=== PATIENT | female | born 1950 | race Caucasian/White ===

== ENCOUNTER 2019-02-07 18:29 | Emergency (ER) | payer MEDICARE ==
[~2019-02-07] VITALS: Ht 162.6 cm; Wt 104.3 kg
--- OUTSIDE RECORDS SUMMARY | 2019-02-07 18:33 | XMS REPORT ---
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 Allergies, Adverse Reactions, Alerts This patient has no known allergies or adverse reactions. Medications This patient has no known medications. Encounters Start Date/Time End Date/Time Encounter Type Admission Type Attending Clinicians Care Facility Care Department Encounter ID 2017-09-12 07:54:24 2017-09-12 07:54:24 Outpatient [facility] [id number] 2017-07-04 08:10:50 2017-07-04 08:10:50 Outpatient [facility] [id number]
[2019-02-07 20:23] LABS: BASOPHILS % 0.5 % (0.0-1.0); EOSINOPHILS # (AUTO) 0.2 (0.0-0.4); HEMATOCRIT 42.7 % (34.2-44.1); LYMPHOCYTES # (AUTO) 2.8 (1.0-3.2); LYMPHOCYTES % 33.2 % (18.0-39.1); MEAN CORPUSCULAR HEMOGLOBIN 28.5 pg (28-32); MEAN CORPUSCULAR HGB CONC 32.8 g/dL (31-35); MONOCYTES # (AUTO) 0.5 (0.2-0.8); MONOCYTES % 5.3 % (4.4-11.3); NEUTROPHILS % 58.6 % (38.7-80.0); PLATELET COUNT 214 x10e3/uL (140-360); RED BLOOD COUNT 4.91 x10e6/uL (3.6-5.1); RED CELL DISTRIBUTION WIDTH 12.8 % (11.7-14.4)
[2019-02-07 20:33] LABS: INR 1.03
[2019-02-07 20:34] LABS: PARTIAL THROMBOPLASTIN TIME 32.2 seconds (23.8-35.5)
[2019-02-07 20:42] LABS: ALANINE AMINOTRANSFERASE 8 IU/L (0-55); ALBUMIN 3.4 g/dL (3.5-5.0); ALBUMIN/GLOBULIN RATIO 1.2 (0.8-2.0); ALKALINE PHOSPHATASE 77 IU/L (40-150); ANION GAP 12.2 mmol/L (8-16); BLOOD UREA NITROGEN 7 mg/dL (7-26); BUN/CREATININE RATIO 9 (6-25); CARBON DIOXIDE 26 mmol/L (22-29); CHLORIDE 104 mmol/L (98-107); CREATININE, SERUM 0.79 mg/dL (0.57-1.11); EST GLOMERULAR FILTRATION RATE > 60 ML/MIN (60-); GLUCOSE 120 mg/dL (74-118); POTASSIUM 3.2 mmol/L (3.5-5.1); SODIUM 139 mmol/L (136-145)
[2019-02-07 20:53] LABS: BILIRUBIN,URINE NEGATIVE (NEGATIVE); CLARITY,URINE SL CLOUDY (CLEAR); COLOR,URINE YELLOW (YELLOW); KETONES,URINE NEGATIVE (NEGATIVE); LEUKOCYTE ESTERASE ,URINE MODERATE (NEGATIVE); NITRITE,URINE NEGATIVE (NEGATIVE); PROTEIN,URINE DIPSTICK TRACE (NEGATIVE); URINE UROBILINOGEN 0.2 mg/dL (0.2 - 1)
[2019-02-07 21:05] LABS: BACTERIA,URINE MANY /HPF; WBC,URINE (MAN) >50 /HPF (0-5)
--- NOTE | 2019-02-07 21:20 | Diagnostic Imaging Report ---
Transvaginal and transabdominal ultrasound Indication: Intermittent bleeding and spotting for 2 to 3 months Technique: Transabdominal ultrasound performed for global evaluation of the uterus. Transvaginal ultrasound performed for detailed evaluation of the endometrium and ovaries. Selected images provided for review. Comparison: None Findings: Transabdominally, the uterus measures approximately 5.7 x 6.2 x 7.4 cm. Hyperechoic, solid, non-shadowing lesion in the posterior body measures 5 x 5 cm. The bladder is collapsed . Transvaginally, the uterus is heterogeneous in echotexture and lobulated in contour. The lesion in the posterior body identified on transabdominal images is poorly visualized. The endometrial stripe measures 0.3 cm, is linear and echogenic and is normal. The cervix is normal. No free fluid in the cul de sac. Neither ovary is visualized. IMPRESSION: 1. Normal endometrial stripe thickness. 2. Heterogeneous appearance of the uterus may represent a combination of of fibroids and adenomyosis. Recommend further characterization with pelvic MRI on an outpatient basis. 3. Nonvisualization of the ovaries. Signed by: Dr. Sofya Gresham MD on 02/07/2019 9:16 PM
[2019-02-07] MEDS ORDERED: CEFTRIAXONE SOD 1 GM/NS 50 ML 50 ML IV ONE (22:00)
[2019-02-07 22:47] VITALS: BP 140/74
== END 2019-02-07 23:17 | disposition home or self-care (01) ==
LOC: ER 18:29
DX: N95.0 Postmenopausal bleeding (principal); N30.91 Cystitis, unspecified with hematuria
CPT/HCPCS: 36415; 76830; 80053; 81001; 85025; 85610; 85730; 93005; 99284; J0696

== ENCOUNTER 2019-07-13 18:15 | Emergency (ER) | payer MEDICARE ==
[~2019-07-13] VITALS: Ht 162.6 cm; Wt 104.3 kg
[2019-07-13 18:50] LABS: BASOPHILS % 0.2 % (0.0-1.0); HEMOGLOBIN 12.4 g/dL (12.0-16.0); LYMPHOCYTES % 11.8 % (18.0-39.1); MEAN CORPUSCULAR HEMOGLOBIN 27.1 pg (28-32); MEAN CORPUSCULAR HGB CONC 31.8 g/dL (31-35); MEAN CORPUSCULAR VOLUME 85.3 fL (81-99); MONOCYTES # (AUTO) 1.1 (0.2-0.8); MONOCYTES % 6.6 % (4.4-11.3); NEUTROPHILS # (AUTO) 13.4 (2.1-6.9); NEUTROPHILS % 80.7 % (38.7-80.0); PLATELET COUNT 329 x10e3/uL (140-360); RED BLOOD COUNT 4.57 x10e6/uL (3.6-5.1); RED CELL DISTRIBUTION WIDTH 13.6 % (11.7-14.4)
[2019-07-13 18:51] LABS: BILIRUBIN,URINE SMALL (NEGATIVE); CLARITY,URINE SL CLOUDY (CLEAR); COLOR,URINE STRAW (YELLOW); KETONES,URINE TRACE (NEGATIVE); LEUKOCYTE ESTERASE ,URINE MODERATE (NEGATIVE); NITRITE,URINE NEGATIVE (NEGATIVE); PROTEIN,URINE DIPSTICK 1+ (NEGATIVE); URINE UROBILINOGEN 1 mg/dL (0.2 - 1)
[2019-07-13 19:02] LABS: BACTERIA,URINE MANY /HPF; EPITHELIAL CELLS,URINE FEW /LPF; RBC,URINE 0-5 /HPF (0-5)
[2019-07-13 19:03] LABS: TRANSITIONAL EPI CELLS,URINE FEW
[2019-07-13 19:07] LABS: ALANINE AMINOTRANSFERASE 6 IU/L (0-55); ALBUMIN 2.6 g/dL (3.5-5.0); ALBUMIN/GLOBULIN RATIO 0.7 (0.8-2.0); ALKALINE PHOSPHATASE 56 IU/L (40-150); ANION GAP 13.9 mmol/L (8-16); BLOOD UREA NITROGEN 8 mg/dL (7-26); BUN/CREATININE RATIO 10 (6-25); CALCIUM 9.1 mg/dL (8.4-10.2); CARBON DIOXIDE 25 mmol/L (22-29); CHLORIDE 100 mmol/L (98-107); CREATININE, SERUM 0.77 mg/dL (0.57-1.11); EST GLOMERULAR FILTRATION RATE > 60 ML/MIN (60-); GLUCOSE 94 mg/dL (74-118); SODIUM 136 mmol/L (136-145)
[2019-07-13 19:11] LABS: POTASSIUM 2.9 mmol/L (3.5-5.1)
[2019-07-13] MEDS ORDERED: SODIUM CHLORIDE 0.9% 1000ML 1,000 ML ONE (19:26)
[2019-07-13] MEDS ORDERED: POTASSIUM CHLORIDE 20 MEQ TAB CR PO ONE (19:27)
[2019-07-13] MEDS: SODIUM CHLORIDE 0.9% 1000ML 1,000 ML IV STA ×2 (19:29→19:41)
[2019-07-13] MEDS ORDERED: POTASSIUM CHLORIDE 10MEQ EA PO NR (19:30)
[2019-07-13] MEDS ORDERED: POTASSIUM CHLORIDE 10MEQ/100ML 1,000 ML IV ONE (19:30)
[2019-07-13] MEDS ORDERED: SODIUM CHLORIDE 0.9% 50ML 50 ML ONE (19:44)
[2019-07-13] MEDS ORDERED: DIATRIZOATE MEGL/DIATRIZOA SOD 30 ML BTL PO ONE (19:44)
[2019-07-13] MEDS ORDERED: IOPAMIDOL 370 MG/ML 200 ML INFUS..BTL INJ ONE (19:44)
[2019-07-13] MEDS ORDERED: CEFEPIME 1GM/NS 0.9% 50 ML 50 ML IV STA (19:48)
[2019-07-13 20:00] LABS: LIPASE < 4 U/L (8-78)
--- NOTE | 2019-07-13 20:20 | Diagnostic Imaging Report ---
EXAMINATION: CHEST 2 VIEWS INDICATION: Vomiting, sepsis COMPARISON: None FINDINGS: PA and lateral views TUBES and LINES: None. LUNGS: Lungs are well inflated. Lungs are clear. There is no evidence of pneumonia or pulmonary edema. Mild prominence of central pulmonary vasculature. Faint linear peripheral opacities in the left lower lung may be subsegmental scarring or atelectasis. PLEURA: No pleural effusion or pneumothorax. HEART AND MEDIASTINUM: The cardiomediastinal silhouette is unremarkable. BONES AND SOFT TISSUES: No acute osseous lesion. Soft tissues are unremarkable. Degenerative changes in the spine and shoulders. Mild vertebral body height loss at T12 where there are degenerative changes. UPPER ABDOMEN: No free air under the diaphragm. IMPRESSION: Mild central pulmonary vascular congestion. Age-indeterminate, likely chronic, mild T12 vertebral body compression deformity. Signed by: Cliff Lizarraga DO on 07/13/2019 8:17 PM
[2019-07-13] MEDS ORDERED: POTASSIUM CHLORIDE 10MEQ EA PO SCH (21:00)
--- NOTE | 2019-07-13 22:25 | Diagnostic Imaging Report ---
EXAM: CT Abdomen and Pelvis WITH contrast INDICATION: Abdominal pain COMPARISON: None. TECHNIQUE: Abdomen and pelvis were scanned utilizing a multidetector helical scanner from the lung base to the pubic symphysis after administration of IV contrast. Coronal and sagittal reformations were obtained. Routine protocol was performed. Scan was performed when during portal venous phase. IV CONTRAST: 100 mL of Isovue 370 ORAL CONTRAST: Gastroview COMPLICATIONS: None RADIATION DOSE: Total DLP: 718 mGy*cm Estimated effective dose: (DLP x 0.015 x size factor) mSv CTDIvol has been reviewed. It is below the limits set by the Radiation Protocol Committee (RPC). Dose modulation, iterative reconstruction, and/or weight based adjustment of the mA/kV was utilized to reduce the radiation dose to as low as reasonably achievable. FINDINGS: LINES and TUBES: None. LOWER THORAX: Left basilar atelectasis. Small pericardial effusion. HEPATOBILIARY: No focal hepatic lesions. No biliary ductal dilation. GALLBLADDER: There are cholecystectomy clips. SPLEEN: Mild splenomegaly measures up to 13.8 cm. PANCREAS: No focal masses or ductal dilatation. ADRENALS: No adrenal nodules KIDNEYS/URETERS: Kidneys enhance symmetrically. No hydronephrosis. No cystic or solid mass lesions. No stones. GI TRACT: No abnormal distention, wall thickening, or evidence of bowel obstruction. Appendix is normal. PELVIC ORGANS/BLADDER: A 13 x 12.8 x 19.2 cm solid heterogeneous lower abdominal/pelvic mass with cystic components appears to rise from the right adnexa, the right ovarian vein is engorged. The bladder is unremarkable. The uterus is not enlarged. Thickening of the appendix, possibly due to metastatic implantation. LYMPH NODES: Some slightly prominent central mesenteric lymph nodes. For example a 0.8 cm mesenteric root lymph node (series 2 image 37) and a 1.2 cm ileocolic lymph node (series 2 image 41). VESSELS: Trace nonstenotic calcifications.. PERITONEUM / RETROPERITONEUM: Small volume ascites extends up to the bilateral upper quadrants.. Scattered peritoneal nodularity. BONES: Mild T12 vertebral body height loss with adjacent degenerative changes, likely chronic. Degenerative changes in the spine. SOFT TISSUES: A 1.8 cm heterogeneous paraumbilical subcutaneous nodule small periumbilical hernia small periumbilical hernia adjacent to this nodule. IMPRESSION: 1. A 19.2 cm pelvic mass, likely arises from the right ovary, suspected to be ovarian or uterine in origin, with mesenteric lissette and peritoneal metastasis and small volume ascites. Thickened appendix is possibly due to metastatic implantation. A 1.8 cm periumbilical subcutaneous nodule adjacent to a umbilical hernia is also likely metastatic implant. Small pericardial effusion is indeterminate in etiology. Recommend surgical consultation/referral. 2. Nonspecific mild splenomegaly. 3. Mild T12 vertebral body height loss with adjacent degenerative changes, likely chronic. Signed by: Cliff Lizarraga DO on 07/13/2019 10:22 PM
[2019-07-13 23:11] LABS: ANION GAP 11.3 mmol/L (8-16); BLOOD UREA NITROGEN 8 mg/dL (7-26); BUN/CREATININE RATIO 11 (6-25); CALCIUM 8.4 mg/dL (8.4-10.2); CARBON DIOXIDE 26 mmol/L (22-29); CHLORIDE 103 mmol/L (98-107); CREATININE, SERUM 0.72 mg/dL (0.57-1.11); EST GLOMERULAR FILTRATION RATE > 60 ML/MIN (60-); GLUCOSE 88 mg/dL (74-118); POTASSIUM 3.3 mmol/L (3.5-5.1); SODIUM 137 mmol/L (136-145)
[2019-07-13] MEDS ORDERED: POTASSIUM CHLORIDE 20 MEQ TAB CR PO STA (23:47)
[2019-07-14 00:07] VITALS: BP 102/55
[2019-07-14] MEDS ORDERED: POTASSIUM CHLORIDE 10MEQ EA PO SCH (09:00)
== END 2019-07-14 00:14 | disposition home or self-care (01) ==
LOC: ER 18:15
DX: R10.84 Generalized abdominal pain (principal); E87.1 Hypo-osmolality and hyponatremia; N30.90 Cystitis, unspecified without hematuria; E66.9 Obesity, unspecified; Z68.39 Body mass index [BMI] 39.0-39.9, adult
CPT/HCPCS: 36415; 71046; 74177; 80048; 80053; 81001; 83605; 83690; 83735; 85025; 87040; 87086; 93005; 99284; J0692; J7030; Q9967

== ENCOUNTER → 2019-07-23 | Outpatient (CLI) | payer MEDICARE ==
[~2019-07-23] MED LIST: GADOBENATE DIMEGLUMINE 1 ML IV ONE; SODIUM CHLORIDE 0.9% 100 ML ONE
[2019-07-23 08:21] LABS: BLOOD UREA NITROGEN 9 mg/dL (7-26); BUN/CREATININE RATIO 13 (6-25); CREATININE, SERUM 0.67 mg/dL (0.57-1.11); EST GLOMERULAR FILTRATION RATE > 60 ML/MIN (60-)
--- NOTE | 2019-07-24 12:18 | Diagnostic Imaging Report ---
INDICATION: Large pelvic mass. COMPARISON: Abdomen pelvis CT July 13, 2019 Pelvic ultrasound February 07, 2019 TECHNIQUE: Pelvis MR without and with intravenous contrast. FINDINGS: In the low anterior abdomen / pelvis there is a large heterogeneously enhancing necrotic mass measuring 19 cm TR x 11 cm AP x 11 cm SI. This is highly likely of ovarian origin (on sagittal T2 imaging the fundus of the uterus appears distinct from the mass). There is a small amount of free fluid in the low abdomen and some of this extends into a tiny periumbilical hernia. Bladder, urethra, and vagina are normal. No pelvic or retroperitoneal lymphadenopathy is demonstrated. No hydronephrosis. No suspicious osseous lesion is demonstrated. 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 Signed by: Junior Rosenberg MD on 07/24/2019 12:14 PM
== END ==
LOC: MRI 07:22
PROVIDERS: ATTEND Obstetrics & Gynecology Obstetrics
DX: R19.07 Generalized intra-abdominal and pelvic swelling, mass and lump (principal)
CPT/HCPCS: 36415; 72197; 82565; 84520; A9577; J7050

== ENCOUNTER 2020-03-15 12:42 | Inpatient (IN) | payer MEDICARE, OTHER ==
[~2020-03-15] VITALS: Ht 162.6 cm; Wt 104.3 kg
[2020-03-15] MEDS ORDERED: ONDANSETRON HCL INJ 2MG/ML 2ML 2 MG/ML VIAL ONE (13:37)
[2020-03-15] MEDS ORDERED: MORPHINE SULFATE 2 MG/ML SYR 1ML ONE (13:37)
[2020-03-15] MEDS ORDERED: MORPHINE SULFATE 2 MG/ML SYR 1ML IV STA ×2 (13:47→14:21)
[2020-03-15] MEDS ORDERED: ONDANSETRON HCL INJ 2MG/ML 2ML 2 MG/ML VIAL IV STA (13:47)
--- NOTE | 2020-03-15 14:33 | Diagnostic Imaging Report ---
History:Fall Comparison studies: None Technique: Axial images were obtained from the skull base to the vertex. Coronal and sagittal images reconstructed from the axial data. Dose modulation, iterative reconstruction, and/or weight based adjustment of the mA/kV was utilized to reduce the radiation dose to as low as reasonably achievable. Intravenous contrast: None Findings: Scalp/skull: No abnormalities. Extra-axial spaces: No masses. No fluid collections. Brain sulci: Mildly prominent. Ventricles: Mild compensatory dilatation. No hydrocephalus. Parenchyma: Subtle hypodensities in the supratentorial white matter are small vessel ischemic changes. No masses, hemorrhage, acute or chronic cortical vascular insults. Sellar/suprasellar region: No abnormalities. Craniocervical junction: Patent foramen magnum. No Chiari one malformation. Incidental findings: Subtle atherosclerotic calcifications in the carotid siphons . Impression: 1. Acute left parietal scalp hematoma. 2. No fracture. 3. No acute intracranial abnormalities. Chronic findings: * Mild generalized volume loss. * Mild supratentorial white matter small vessel ischemic changes. Signed by: Dr. Ricardo Fuentes M.D. on 03/15/2020 2:30 PM
--- NOTE | 2020-03-15 14:34 | Diagnostic Imaging Report ---
History: Trauma Comparison studies: None Technique: Axial images were obtained through the cervical region.. Coronal and sagittal images reconstructed from the axial data. Dose modulation, iterative reconstruction, and/or weight based adjustment of the mA/kV was utilized to reduce the radiation dose to as low as reasonably achievable. Intravenous contrast: None Findings: Fractures: None. Soft tissues: No gross abnormalities. Atlantoaxial articulation: Intact. Alignment: Normal lordosis. No scoliosis. Cervicomedullary junction: No abnormalities. The foramen magnum is patent. Vertebrae: No infection or neoplasm. Degenerative changes: Not significant. Patent spinal canal and foramina.. IMPRESSION: 1. No acute abnormalities. 2. Bones mildly demineralized but no fractures. 3. Cannot adequately evaluate for ligament, spinal cord and or vascular abnormalities. Signed by: Dr. Ricardo Fuentes M.D. on 03/15/2020 2:31 PM
--- NOTE | 2020-03-15 15:04 | Diagnostic Imaging Report ---
EXAMINATION: Left Hip Films and AP pelvis CLINICAL HISTORY:Status post fall today, left hip pain COMPARISON: CT abdomen and pelvis 07/13/2019 DISCUSSION: Mild osteopenia. Acute, displaced oblique left intertrochanteric fracture, with fragment separation of approximately 1.2 cm. The femoral head remains aligned with the acetabulum. Other bony structures are intact. Mild degenerative changes in bilateral hip joints and lower lumbosacral spine. No aggressive lytic or suspicious focal sclerotic lesions. Nonobstructive bowel gas pattern. IMPRESSION: 1. Acute, displaced oblique left intertrochanteric fracture. Signed by: Dr. Candido Valdovinos M.D. on 03/15/2020 3:00 PM
--- NOTE | 2020-03-15 15:06 | Diagnostic Imaging Report ---
EXAMINATION: Left femur, 4 views CLINICAL HISTORY:Status post fall today, left hip pain COMPARISON: CT abdomen and pelvis 07/13/2019 DISCUSSION: Mild osteopenia. Acute, displaced oblique left intertrochanteric fracture, with fragment separation of approximately 1.2 cm. The femoral head remains aligned with the acetabulum. No other acute, displaced fractures. Partially visualized orthopedic hardware in the proximal tibia. Mild degenerative changes in left hip joint. No aggressive lytic or suspicious focal sclerotic lesions. Nonobstructive bowel gas pattern. IMPRESSION: 1. Acute, displaced oblique left intertrochanteric fracture. Signed by: Dr. Candido Valdovinos M.D. on 03/15/2020 3:02 PM
--- NOTE | 2020-03-15 15:16 | Diagnostic Imaging Report ---
Examination: Single AP view of the chest. COMPARISON: Chest 2 views 07/13/2019 INDICATION: Status post fall IMPRESSION: 1. Lines and Tubes: Right upper chest Port-A-Cath, with the catheter distal tip projecting in the mid SVC. 2. Lungs are grossly clear. No consolidation or effusion. 3. Cardiomediastinal silhouette is normal. Pulmonary vasculature is normal. 4. No acute bony abnormalities. Degenerative changes in the thoracic spine. Generalized osteopenia. Signed by: Dr. Candido Valdovinos M.D. on 03/15/2020 3:13 PM
--- NOTE | 2020-03-15 16:44 | Emergency Department Note ---
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 AAOX4. C/O LLE PAIN, HOWEVER, LEFT LEG IS SHORTENED AND ROTATED OUTWARD. CALM AT THIS TIME. PT IS STAGE 4 COLON CANCER GETTING CHEMO AT THIS TIME. 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 Any updates have been documented here. Past Medical History Recent Fever: No Clinical Suspicion of Infectio: No New/Unexplained Change in Ment: No Past Medical History: None Past Surgical History: T&A, Cataract Removal Other Surgery: CATARACT B/L EYES Social History Smoking Cessation: Former smoker Counseling Performed: Yes Alcohol Use: None Any Illegal Drug Use: No Family History Family history of heart diseas: No Other Last Tetanus: UNK Any Pre-Existing Lines (PICC,: No Review of Systems Review of Systems Constitutional: Reports no symptoms EENTM: Reports no symptoms Cardiovascular: Reports no symptoms Respiratory: Reports no symptoms Gastrointestinal: Reports no symptoms Genitourinary: Reports no symptoms Musculoskeletal: Reports as per HPI Integumentary: Reports no symptoms Neurological: Reports no symptoms Psychological: Reports no symptoms Endocrine: Reports no symptoms Hematological/Lymphatic: Reports no symptoms Physical Exam Related Data Allergies: Coded Allergies: No Known Allergies (Unverified , 05/31/14) Triage Vital Signs Vital Signs Date Time Temp Pulse Resp B/P (MAP) Pulse Ox O2 Delivery O2 Flow Rate FiO2 03/15/20 12:45 97.5 86 22 168/81 97 Room Air Vital signs reviewed: Yes Physical Exam CONSTITUTIONAL HENT HENT: Present normocephalic, Present other (ABRASION TO POSTERIOR SCALP, BLEEDING CONTROLLED) EYES NECK PULMONARY CARDIOVASCULAR GASTROINTESTINAL GENITOURINARY SKIN MUSCULOSKELETAL Musculoskeletal: Present tenderness (UPPER LEFT FEMUR, PELVIS STABLE) NEUROLOGICAL PSYCHOLOGICAL Assessment & Plan Medical Decision Making MDM CHECK CT BRAIN/C-SPINE, XRAYS LEFT FEMUR/HIP AND PELVIS - R/O CEREBRAL BLEED, CERVICAL SPINE, HIP OR PELVIS OR FEMUR FX Assessment & Plan Final Impression: (1) Intertrochanteric fracture of left femur (2) Fall Depart Disposition: ADMITTED Last Vital Signs Date Time Temp Pulse Resp B/P (MAP) Pulse Ox O2 Delivery O2 Flow Rate FiO2 03/15/20 13:07 98.6 73 22 142/84 97 03/15/20 12:45 Room Air Home Meds No Active Prescriptions or Reported Meds Medications in the ED Morphine Sulfate 2 mg STK-MED ONCE .ROUTE ; Start 03/15/20 at 13:37; Stop 03/15/20 at 13:31; Status DC Ondansetron HCl 4 mg STK-MED ONCE .ROUTE ; Start 03/15/20 at 13:37; Stop 03/15/20 at 13:32; Status DC Morphine Sulfate 2 mg NOW STAT IV Last administered on 03/15/20at 13:48; Admin Dose 2 MG; Start 03/15/20 at 13:47; Stop 03/15/20 at 14:16; Status DC Ondansetron HCl 4 mg NOW STAT IV Last administered on 03/15/20at 13:48; Admin Dose 4 MG; Start 03/15/20 at 13:47; Stop 03/15/20 at 14:16; Status DC Morphine Sulfate 2 mg ONCE STAT IV Last administered on 03/15/20at 15:55; Admin Dose 2 MG; Start 03/15/20 at 14:21; Stop 03/15/20 at 14:46; Status DC JULY ORTIZ MD Mar 15, 2020 16:44
[2020-03-15] MEDS: SODIUM CHLORIDE 0.9% 1000ML 1,000 ML IV SCH (17:45)
[2020-03-15] MEDS: ONDANSETRON HCL INJ 2MG/ML 2ML 2 MG/ML VIAL IV PRN (17:45)
[2020-03-15] MEDS: MORPHINE SULFATE 2 MG/ML SYR 1ML IV PRN (17:45)
[2020-03-15 18:18] LABS: BASOPHILS % 0.2 % (0.0-1.0); HEMATOCRIT 30.4 % (34.2-44.1); HEMOGLOBIN 9.9 g/dL (12.0-16.0); LYMPHOCYTES # (AUTO) 0.9 (1.0-3.2); LYMPHOCYTES % 18.7 % (18.0-39.1); MEAN CORPUSCULAR HEMOGLOBIN 32.5 pg (28-32); MEAN CORPUSCULAR HGB CONC 32.6 g/dL (31-35); MEAN CORPUSCULAR VOLUME 99.7 fL (81-99); MONOCYTES # (AUTO) 0.3 (0.2-0.8); MONOCYTES % 5.6 % (4.4-11.3); NEUTROPHILS # (AUTO) 3.5 (2.1-6.9); NEUTROPHILS % 75.1 % (38.7-80.0); PLATELET COUNT 68 x10e3/uL (140-360); RED BLOOD COUNT 3.05 x10e6/uL (3.6-5.1)
[2020-03-15 18:21] LABS: BILIRUBIN,URINE NEGATIVE (NEGATIVE); CLARITY,URINE HAZY (CLEAR); COLOR,URINE YELLOW (YELLOW); KETONES,URINE NEGATIVE (NEGATIVE); LEUKOCYTE ESTERASE ,URINE NEGATIVE (NEGATIVE); NITRITE,URINE NEGATIVE (NEGATIVE); PROTEIN,URINE DIPSTICK 1+ (NEGATIVE)
[2020-03-15 18:24] LABS: BACTERIA,URINE FEW /HPF; EPITHELIAL CELLS,URINE FEW /LPF; RBC,URINE 0-5 /HPF (0-5)
[2020-03-15 18:28] LABS: INR 1.05; PROTHROMBIN TIME 14.3 seconds (11.9-14.5)
[2020-03-15 18:29] LABS: PARTIAL THROMBOPLASTIN TIME 29.7 seconds (23.8-35.5)
[2020-03-15 18:38] LABS: ALANINE AMINOTRANSFERASE 13 IU/L (0-55); ALBUMIN 3.1 g/dL (3.5-5.0); ALKALINE PHOSPHATASE 73 IU/L (40-150); ANION GAP 12.9 mmol/L (8-16); BLOOD UREA NITROGEN 6 mg/dL (7-26); BUN/CREATININE RATIO 9 (6-25); CARBON DIOXIDE 30 mmol/L (22-29); CHLORIDE 107 mmol/L (98-107); CREATINE KINASE 44 IU/L (29-168); CREATININE, SERUM 0.67 mg/dL (0.57-1.11); EST GLOMERULAR FILTRATION RATE > 60 ML/MIN (60-); GLUCOSE 100 mg/dL (74-118); SODIUM 147 mmol/L (136-145)
[2020-03-15] MEDS ORDERED: HEPARIN SOD (PORCINE) 5,000 UNIT/ML VIAL SC ONE (18:45)
[2020-03-15] MEDS ORDERED: POTASSIUM CHLORIDE 20 MEQ TAB CR PO STA (19:08)
[2020-03-15 19:10] LABS: POTASSIUM 2.9 mmol/L (3.5-5.1)
[2020-03-15] MEDS ORDERED: ACETAMINOPHEN 325 MG TAB PO PRN (19:30)
[2020-03-15] MEDS: CEFEPIME 2 GM/NS 0.9% 100 ML 100 ML IV SCH (20:45)
--- NOTE | 2020-03-15 20:48 | Diagnostic Imaging Report ---
EXAM: CT Chest, Abdomen and Pelvis WITHOUT contrast INDICATION: ^concern for metastatic lesions ^[id number] ^2011 COMPARISON: CT abdomen pelvis 07/13/2019 TECHNIQUE: Chest, abdomen and pelvis were scanned utilizing a multidetector helical scanner from the lung apex to the pubic symphysis without administration of IV contrast. Absence of intravenous contrast decreases sensitivity for detection of focal lesions and vascular pathology. Coronal and sagittal reformations were obtained. Routine protocol was performed. IV CONTRAST: None ORAL CONTRAST: Water COMPLICATIONS: None RADIATION DOSE: Total DLP: 982 mGy*cm Estimated effective dose: (DLP x 0.015 x size factor) mSv CTDIvol has been reviewed. It is below the limits set by the Radiation Protocol Committee (RPC). Dose modulation, iterative reconstruction, and/or weight based adjustment of the mA/kV was utilized to reduce the radiation dose to as low as reasonably achievable. FINDINGS: LINES and TUBES: Right chest port. LUNGS AND AIRWAYS: Mild streaky opacities of the lower lobes, likely atelectasis or scarring. Minimal lower lobe bronchiectasis. No concerning pulmonary mass or nodule. PLEURA: Trace dependent pleural fluid. No pneumothorax. HEART AND MEDIASTINUM: Heterogeneously enlarged left thyroid lobe. No mediastinal, hilar or axillary lymphadenopathy when allowing for lack of intravenous contrast enhancement. The heart is normal in size. Trace pericardial fluid. HEPATOBILIARY: Limited evaluation due to lack of intravenous contrast enhancement. No focal hepatic lesions. Prominent biliary ductal system likely due to cholecystectomy. GALLBLADDER: Surgically absent. SPLEEN: No splenomegaly. PANCREAS: No focal masses or ductal dilatation. ADRENALS: No adrenal nodules. KIDNEYS/URETERS: No hydronephrosis. No cystic or solid mass lesions. No stones. GI TRACT: Suboptimally evaluated due to lack of contrast. No obvious bowel mass or evidence of bowel obstruction. Mild nonspecific perirectal fat stranding. The appendix is not discretely identified. PELVIC ORGANS/BLADDER: The urinary bladder is decompressed by a Melara catheter. Interval removal of the previously seen large pelvic mass. LYMPH NODES: Suboptimally evaluated. No gross adenopathy by CT size criteria. Ill-defined subcentimeter nodularity of the right lower quadrant peritoneum, suboptimally evaluated due to lack of intravenous contrast. VESSELS: Scattered vascular calcifications. PERITONEUM / RETROPERITONEUM: Suboptimal evaluation due to lack of contrast enhancement. No free intraperitoneal air. Small amount of free fluid in the deep pelvis and paracolic gutters. Nonspecific fat stranding of the pericolic gutters and retroperitoneum. The previously seen peritoneal nodules are no longer discretely identified. BONES: Acute mildly displaced fracture through the left femoral neck. No lytic or blastic lesion. SOFT TISSUES: Small periumbilical incisional hernia that contains a short loop of small bowel. IMPRESSION: 1.Limited study for the evaluation of malignancy due to lack of contrast enhancement. No gross evidence of metastatic disease within the chest, abdomen, and pelvis when allowing for this limitation. 2. Interval resection of the previously seen pelvic mass with peritoneal debulking. Scattered peritoneal fat stranding, notably in the pericolic gutters and perirectal region, may be treatment-related. No discrete peritoneal nodule is identified when overlying for lack of intravenous contrast enhancement. 3. Small amount of nonspecific pelvic free fluid. 4. Acute left femoral neck fracture. Signed by: Parveen Patel MD on 03/15/2020 8:45 PM
[2020-03-15] MEDS ORDERED: POTASSIUM CHLORIDE 20 MEQ TAB CR PO ONE (23:55)
[2020-03-16] VITALS (9 sets, daily range): BP systolic 124–159; BP diastolic 58–86
[2020-03-16] MEDS: MORPHINE SULFATE 2 MG/ML SYR 1ML IV PRN ×4 (02:20→11:00)
[2020-03-16] MEDS: ONDANSETRON HCL INJ 2MG/ML 2ML 2 MG/ML VIAL IV PRN ×2 (02:20→06:14)
--- NOTE | 2020-03-16 02:20 | NUR ---
PT MEDICATED FOR PAIN TO BLE PER ADMISSION ORDERS, TOLERATED WELL
--- NOTE | 2020-03-16 02:32 | NUR ---
PT ARRIVED BY STRETCHER TO ROOM 114. PT IS AAOX3, RR EVEN AND NON-LABORED, O2 BY NC AT 2L. PT TRANSFERRED BY SLIDE BOARD TO HOSPITAL BED. PT ORIENTED TO HOSPITAL ROOM, CALL LIGHT, PHONE, BED CONTROLS AND LIGHTS. LEFT PT LAYING SEMI FOWLERS IN BED, BED IN LOW LOCKED POSITION, SIDE RAILS UPX2, CALL LIGHT AND PHONE WITHIN REACH.
--- NOTE | 2020-03-16 02:52 | NUR ---
ICE APPLIED TO (L) HIP.
[2020-03-16] MEDS: SODIUM CHLORIDE 0.9% 1000ML 1,000 ML IV SCH (04:47)
[2020-03-16 05:26] LABS: BASOPHILS % 0.2 % (0.0-1.0); EOSINOPHILS % 0.7 % (0.0-6.0); HEMATOCRIT 28.6 % (34.2-44.1); HEMOGLOBIN 9.2 g/dL (12.0-16.0); LYMPHOCYTES % 22.7 % (18.0-39.1); MEAN CORPUSCULAR HEMOGLOBIN 32.5 pg (28-32); MEAN CORPUSCULAR HGB CONC 32.2 g/dL (31-35); MEAN CORPUSCULAR VOLUME 101.1 fL (81-99); MONOCYTES # (AUTO) 0.3 (0.2-0.8); MONOCYTES % 5.8 % (4.4-11.3); NEUTROPHILS # (AUTO) 3.2 (2.1-6.9); NEUTROPHILS % 70.2 % (38.7-80.0); RED BLOOD COUNT 2.83 x10e6/uL (3.6-5.1); RED CELL DISTRIBUTION WIDTH 14.8 % (11.7-14.4)
[2020-03-16 05:45] LABS: ALANINE AMINOTRANSFERASE 10 IU/L (0-55); ALBUMIN 2.6 g/dL (3.5-5.0); ALKALINE PHOSPHATASE 64 IU/L (40-150); ANION GAP 9.8 mmol/L (8-16); BLOOD UREA NITROGEN 5 mg/dL (7-26); BUN/CREATININE RATIO 8 (6-25); CALCIUM 8.1 mg/dL (8.4-10.2); CARBON DIOXIDE 29 mmol/L (22-29); CHLORIDE 109 mmol/L (98-107); CREATININE, SERUM 0.66 mg/dL (0.57-1.11); EST GLOMERULAR FILTRATION RATE > 60 ML/MIN (60-); GLUCOSE 101 mg/dL (74-118); SODIUM 145 mmol/L (136-145)
[2020-03-16 05:46] LABS: POTASSIUM 2.8 mmol/L (3.5-5.1)
--- NOTE | 2020-03-16 05:54 | NUR ---
NOTIFIED ROBERT TOVAR NP OF CRITICAL POTASSIUM LEVEL. NEW ORDERS RECEIVED.
[2020-03-16] MEDS ORDERED: POTASSIUM CHLORIDE 20MEQ/100ML 300 ML IV ONE (06:00)
[2020-03-16 06:14] LABS: PLATELET ESTIMATE MARKEDLY DECREASED
[2020-03-16 06:15] LABS: PLATELET MORPHOLOGY COMMENT NORMAL
[2020-03-16 06:16] LABS: LYMPHOCYTES % (MANUAL) 21 % (19-48); MONOCYTES % (MANUAL) 5 % (3.4-9.0); NEUTROPHILS % (MANUAL) 74 % (40-74)
[2020-03-16 06:17] LABS: PLATELET COUNT 50 x10e3/uL (140-360)
[2020-03-16 06:59] LABS: CREATINE KINASE MB 0.5 ng/mL (0-5.0)
[2020-03-16] MEDS: CEFEPIME 2 GM/NS 0.9% 100 ML 100 ML IV SCH ×2 (08:00→11:40)
[2020-03-16] MEDS ORDERED: HYDRALAZINE HCL 20 MG/ML VIAL IV PRN (08:45)
[2020-03-16] MEDS: FAMOTIDINE 20 MG/2 ML VIAL IV SCH ×2 (09:25→17:00)
[2020-03-16] MEDS: ENOXAPARIN 30 MG/0.3 ML SYR SC SCH ×2 (09:25→21:43)
--- NOTE | 2020-03-16 12:56 | NUR ---
Pt out of room and no family at bedside. A card was left at the bedside to indicate a missed visit from a member of the Spiritual Care team and to inform the pt and family of the availability of a Fur Glosser 24 hours a day/7 days a week. A barnworker groom will follow up as able. [facility] Spiritual Care Department O: [phone]
[2020-03-16 15:41] LABS: CREATINE KINASE MB 0.4 ng/mL (0-5.0)
[2020-03-16] MEDS ORDERED: SODIUM CHLORIDE 0.9% 250ML 250 ML ONE (16:13)
--- NOTE | 2020-03-16 16:31 | NUR ---
ORTHOPEDICS CONSULTATION 69 year old female presented to the ED after a mechanical fall with complaints of left hip pain. Denies any previous pain in the hip prior to fall. She complains of only left hip extremity pain and denies pain in any other extremity. No numbness, paresthesias or loss of distal motor function. Unable to ambulate due to pain. PMdHx: Colon CA Allergies: NKDA SurgHx: Left Tibia IMN Meds: See Reconciliation FamHx: Non-contributory SocHx: Denies Tob, EtOH, Drugs VS 99.9 HR 81 RR 18 BP 132/58 O2 98% Left Lower Leg: Shortned Flexed, Externally rotated. No open lesions or sores. Motor: + EHL, FHL, TA, G/S Sensation grossly intact to light touch Pulses: + DP, Post tib Compartments soft Negative calf tenderness Xrays & CT demonstrate Left Interotrochanter Fracture Bone Scan - Pending CT Chest, Abd, & Pelvis demonstrate no obvious large metastasis 69 year old female with Left Hip Intertrochanteric Fracture Plan for Left hip IMN today NPO except meds IVF while NPO Medical management Hold anticoagulation after midnight Bedrest Thank you for the consultation Elizabeth Maynard DO
--- NOTE | 2020-03-16 17:20 | Diagnostic Imaging Report ---
Bone Scan, delayed phase INDICATION: Intertrochanteric fracture; concern for bone metastasis COMPARISON: CT CAP 03/15/2020; left femur radiographs 03/15/2020 REPORT: Approximately 3 hours following intravenous administration of 27.3 mCi of Tc-99m MDP, delayed total body images in the anterior and posterior projections and selected spot images were obtained. Focal increased tracer in T6 corresponds to osteophytic degenerative changes in the anterior vertebral body on CT of 03/15/2020. Diffuse degenerative changes are noted in the mid to lower thoracic spine and lower lumbar spine. Subtle increased tracer activity in the left intertrochanteric femur may represent subacute/healing fracture but no focal moderate or markedly increased tracer activity is seen in the proximal left femur to correspond to acute left femoral neck or intertrochanteric fractures seen on CT and radiographs from 03/15/2020. Otherwise, distribution of tracer activity is unremarkable throughout the skeletal system. No abnormal accumulation of tracer is seen in the soft tissues or urinary tract. IMPRESSION: 1. No acute fractures in the proximal left femur. 2. Focal degenerative change in T6. 3. No scan pattern to suggest metastatic bone disease. Preliminary report was rendered at 2:15 pm on 03/16/2020 because PACS was unavailable for reporting. Signed by: Dr. Aurelia Aguilar M.D. on 03/16/2020 5:16 PM
[2020-03-16] MEDS ORDERED: BUPIVACAINE HCL 0.5% INJ 30 ML VIAL INJ ONE (17:55)
--- NOTE | 2020-03-16 18:22 | NUR ---
OPERATIVE NOTE - ORTHOPEDICS PREOPERATIVE DIAGNOSIS: Left Hip Intertrochanteric hip fracture. POSTOPERATIVE DIAGNOSIS: Left Hip Intertrochanteric hip fracture. OPERATION PERFORMED: Left Hip Intramedullary Nailing with Flouroscopic Interpretation ESTIMATED BLOOD LOSS: Approximately 100 cc. DRAINS: None. ANESTHESIA GIVEN: General COMPLICATIONS: None. IMPLANTS: [place] Gamma 3 system Trochanteric Nail Kit 11 x 180 mm x 125 degree, 10.5 x 90 mm Lag Screw, 5 x 37.5 mm Locking Fully Threaded Screw SPECIMEN: Femoral reamings sent for pathology INDICATIONS FOR PROCEDURE: The patient is a 69-year-old female, who sustained a Left intertrochanteric hip fracture after a fall. She was admitted for a preoperative medical clearance and to be taken to the operating room for an intramedullary nailing of Left hip fracture. Consent is signed on the chart. All risks and benefits regarding the procedure were explained: Risks of , infection, nerve or blood vessel injury or bleeding, need for blood transfusion, blood clots, failure to heal, need for further surgery were all explained and consent was signed. DESCRIPTION OF OPERATIVE PROCEDURE: The patient was given Ancef 2 gram intravenously in the holding area. She with then taken to the operating room where general anesthetic was placed by the anesthesia service on the hospital bed. She was then transferred over to the fracture table in the supine position where a well-padded post was positioned. The Right lower extremity with a SCD wa s placed into the thigh/leg support with foam padding over all bony prominences. The RLeft lower extremity had abundant padding placed around the foot and ankle region and was then placed in the foot and ankle support. Next, the Left hip was visualized under AP and lateral fluoroscopic views. The femoral head and neck were well-visualized in both planes at this time. Next, the Left hip was prepped and draped in the usual sterile fashion utilizing Alcohol then Chloroprep followed by toweling out, followed by drying, followed by placement of a shower curtain. Next, a guidepin was placed over the hip and an AP fluoroscopic view taken to demarcate the height of the greater trochanter and a lateral to demarcate the direction of the femoral shaft. Next, the proposed skin incision of approximately 6 cm in length was marked on the skin. The skin incision was then made with a #10 blade, going down through the skin and subcutaneous tissue. The IT-band and hip abductors were split to the greater trochanter. A guide pin was inserted in adequate position which was confirmed on AP and lateral imaging. An opening reamer was placed over the guide wire and pushed down to the lesser trochanter. The above mentioned nail was introduced into the canal. Next a guide wire was placed in preparation for the lag screw. The wire was visualized in proper AP and Lateral position. The guidewire was measured and the neck and head were reamed over the guidewire. The above mentioned lag Screw was placed in adequate position. The set screw was then placed. The distal screw was then focused on. Through the jig, the distal screw was drilled and the above mentioned screw was introduced to lock the screw distally. The guides were then removed, final imaging was obtained demonstrating the hardware in adequate position. The incisions were closed deep with vicryl and monocryl on the skin. .5% Marcaine was injected into the incision sites. The incisions were cleaned and dressed with Aquacel. The patient was then gently transferred back to the hospital bed and transferred to recovery without difficulty. Elizabeth Maynard, DO [facility] [place]
[2020-03-16] MEDS ORDERED: HYDROMORPHONE 2MG/ML 2 MG/ML ML ONE (18:30)
--- NOTE | 2020-03-16 18:45 | NUR ---
BACK FROM SURGERY AT BEDSIDE, PT DENIES DISCOMFORT ABLE TO ANSWER QUESTIONS LEFT HIP DRESSING CDI DENIES DISCOMFORT
--- NOTE | 2020-03-16 20:17 | NUR ---
RECIVED PT IN BED AOX3 ,LEFT HIP INTRA MEDULLARY NAILING .RT HAND 20G NS 100 CC/HR .RASH LOWER ABD .CALL LIGHT WITH IN REACH .CONTINUE TO MONITOR
[2020-03-16] MEDS ORDERED: PANTOPRAZOLE SOD 40 MG TABEC PO ONE (21:00)
[2020-03-16] MEDS: PRAVASTATIN 20 MG TAB PO SCH (21:43)
[2020-03-17] VITALS (7 sets, daily range): BP systolic 108–142; BP diastolic 45–74
[2020-03-17 05:36] LABS: BASOPHILS % 0.2 % (0.0-1.0); EOSINOPHILS % 0.7 % (0.0-6.0); HEMATOCRIT 24.5 % (34.2-44.1); HEMOGLOBIN 7.8 g/dL (12.0-16.0); LYMPHOCYTES % 22.4 % (18.0-39.1); MEAN CORPUSCULAR HGB CONC 31.8 g/dL (31-35); MEAN CORPUSCULAR VOLUME 100.4 fL (81-99); MONOCYTES # (AUTO) 0.4 (0.2-0.8); MONOCYTES % 8.6 % (4.4-11.3); NEUTROPHILS # (AUTO) 3.1 (2.1-6.9); NEUTROPHILS % 67.7 % (38.7-80.0); PLATELET COUNT 64 x10e3/uL (140-360); RED BLOOD COUNT 2.44 x10e6/uL (3.6-5.1); RED CELL DISTRIBUTION WIDTH 14.9 % (11.7-14.4)
[2020-03-17 05:49] LABS: ALANINE AMINOTRANSFERASE 8 IU/L (0-55); ALBUMIN 2.3 g/dL (3.5-5.0); ALBUMIN/GLOBULIN RATIO 0.9 (0.8-2.0); ALKALINE PHOSPHATASE 62 IU/L (40-150); ANION GAP 9.6 mmol/L (8-16); BLOOD UREA NITROGEN 7 mg/dL (7-26); BUN/CREATININE RATIO 11 (6-25); CARBON DIOXIDE 28 mmol/L (22-29); CHLORIDE 109 mmol/L (98-107); CREATININE, SERUM 0.66 mg/dL (0.57-1.11); EST GLOMERULAR FILTRATION RATE > 60 ML/MIN (60-); GLUCOSE 98 mg/dL (74-118); MAGNESIUM 1.7 MG/DL (1.3-2.1); POTASSIUM 3.6 mmol/L (3.5-5.1); SODIUM 143 mmol/L (136-145)
[2020-03-17] MEDS: LEVOTHYROXINE SODIUM 88 MCG TAB PO SCH (06:07)
--- NOTE | 2020-03-17 06:38 | NUR ---
PT RESTED DURING THE NIGHT .DRESSING DRY AND INTACT .CALLED DR CARRILLO TO VERIFY THE DIET .WAITING FOR THE RETURN CALL.CONTINUE TO MONITOR
--- NOTE | 2020-03-17 07:00 | NUR ---
RECEIVED PATIENT RESTING IN BED NO S/S OF DISTRESS. BED LOW, WHEELS LOCKED, SIDE RAILS X2. CALL LIGHT IN REACH WILL CONTINUE TO MONITOR PATIENT.
--- NOTE | 2020-03-17 07:23 | NUR ---
ORTHOPEDIC PROGRESS NOTE Patient seen & examined, pain controlled with analgesics. Resting comfortably in bedside. VS 99.3 HR 79 RR 18 BP 128/55 O2 97% Left Hip - Dressing clean, dry and intact Motor: + EHL, FHL, TA, G/S Sensation grossly intact Pulses + DP, Post tib Compartments soft Negative calf tenderness H/H 7.8/24. 69 yo F s/p Left Hip IMN POD#1 Analgesics DVT Prophylaxis PT - WBAT Recommend DC Saritha SCDs on bilateral extremities Continue to follow am labs. Elizabeth Maynard, DO [facility] [place]
[2020-03-17] MEDS ORDERED: HYDROCODONE/APAP 5MG-325MG TAB PO PRN (07:30)
[2020-03-17] MEDS: FAMOTIDINE 20 MG/2 ML VIAL IV SCH ×2 (09:23→16:20)
[2020-03-17] MEDS: CEFEPIME 2 GM/NS 0.9% 100 ML 100 ML IV SCH ×2 (11:36)
[2020-03-17] MEDS: ACETAMINOPHEN 325 MG TAB PO PRN (12:23)
--- NOTE | 2020-03-17 13:32 | NUR ---
SPOKE WITH PT AND HER BROTHER ON PHONE ABOUT SNF ORDER, SHE ALPHONSO CHOICE FOR [facility], COMPLETE PASRR, COVID FORM, RTF AND IMM, FAXED CLINICALS
[2020-03-17] MEDS: CEFAZOLIN SOD 1 GM/NS 50ML 50 ML IV SCH ×2 (14:04→22:00)
--- NOTE | 2020-03-17 16:20 | NUR ---
NARANJO REMOVED. CATHETER TIP INTACT. PATIENT DUE TO VOID.
--- NOTE | 2020-03-17 20:13 | NUR ---
RECEIVED PATIENT RESTING IN BED F/C REMOVED WAITING TO VOID . RESPIRATIONS ARE EVEN AND UNLABORED . CALL LIGHT IN REACH WILL CONTINUE TO MONITOR .
[2020-03-17] MEDS: PRAVASTATIN 20 MG TAB PO SCH (20:35)
[2020-03-17] MEDS: HYDROCODONE/APAP 7.5MG-325MG 1 EA TAB PO PRN (23:00)
[2020-03-18] VITALS (14 sets, daily range): BP systolic 112–143; BP diastolic 43–99
[2020-03-18] MEDS: CEFEPIME 2 GM/NS 0.9% 100 ML 100 ML IV SCH
[2020-03-18] MEDS ORDERED: LACTULOSE SYRUP 20 GM/30 ML UDC PO PRN (00:15)
[2020-03-18 05:18] LABS: BASOPHILS % 0.4 % (0.0-1.0); EOSINOPHILS # (AUTO) 0.1 (0.0-0.4); EOSINOPHILS % 2.2 % (0.0-6.0); HEMOGLOBIN 7.5 g/dL (12.0-16.0); LYMPHOCYTES # (AUTO) 0.7 (1.0-3.2); LYMPHOCYTES % 26.5 % (18.0-39.1); MEAN CORPUSCULAR HEMOGLOBIN 32.5 pg (28-32); MEAN CORPUSCULAR HGB CONC 32.6 g/dL (31-35); MEAN CORPUSCULAR VOLUME 99.6 fL (81-99); MONOCYTES # (AUTO) 0.3 (0.2-0.8); MONOCYTES % 12.2 % (4.4-11.3); NEUTROPHILS # (AUTO) 1.6 (2.1-6.9); NEUTROPHILS % 58.3 % (38.7-80.0); PLATELET COUNT 55 x10e3/uL (140-360); RED BLOOD COUNT 2.31 x10e6/uL (3.6-5.1); RED CELL DISTRIBUTION WIDTH 15.3 % (11.7-14.4)
[2020-03-18 05:35] LABS: ANION GAP 8.2 mmol/L (8-16); BLOOD UREA NITROGEN 7 mg/dL (7-26); BUN/CREATININE RATIO 11 (6-25); CALCIUM 7.9 mg/dL (8.4-10.2); CARBON DIOXIDE 28 mmol/L (22-29); CHLORIDE 108 mmol/L (98-107); CREATININE, SERUM 0.65 mg/dL (0.57-1.11); EST GLOMERULAR FILTRATION RATE > 60 ML/MIN (60-); GLUCOSE 126 mg/dL (74-118); MAGNESIUM 1.8 MG/DL (1.3-2.1); PHOSPHORUS 1.8 MG/DL (2.3-4.7); POTASSIUM 3.2 mmol/L (3.5-5.1); SODIUM 141 mmol/L (136-145)
[2020-03-18] MEDS: CEFAZOLIN SOD 1 GM/NS 50ML 50 ML IV SCH (06:13)
[2020-03-18] MEDS: LEVOTHYROXINE SODIUM 88 MCG TAB PO SCH (06:13)
[2020-03-18] MEDS: HYDROCODONE/APAP 7.5MG-325MG 1 EA TAB PO PRN ×2 (06:16→23:59)
--- NOTE | 2020-03-18 06:37 | NUR ---
PT C/O PAIN AND GIVEN ORDERD PAIN MEDICATION ,PT RESTING ,CONTINUE TO MONITOR
[2020-03-18] MEDS ORDERED: POTASSIUM PHOSPHATE 20 MM in SODIUM CHLORIDE 0.9% 250ML 250 ML IV ONE (07:45)
--- NOTE | 2020-03-18 08:00 | NUR ---
PT UP IN CHAIR AFTER WORKING WITH PT. ANGELA CD&I TO LT HIP.
[2020-03-18] MEDS: DOCUSATE SODIUM 100 MG CAP PO SCH ×2 (09:00→17:00)
[2020-03-18] MEDS ORDERED: SODIUM FERRIC GLUCONATE COMPLX 125 MG in SODIUM CHLORIDE 0.9% 100 ML 100 ML IV SCH (09:00)
[2020-03-18] MEDS: POLYETHYLENE GLYCOL 3350 17 GM PACK PO SCH ×2 (09:00→17:00)
[2020-03-18] MEDS: FAMOTIDINE 20 MG/2 ML VIAL IV SCH ×2 (09:00→17:00)
--- NOTE | 2020-03-18 09:21 | NUR ---
ORTHOPEDIC PROGRESS NOTE Patient seen & examined, pain controlled with analgesics. Resting comfortably in bedside. Barely participated in PT due to pain with movement and anxiety. AVSS Left Hip - Dressing clean, dry and intact Motor: + EHL, FHL, TA, G/S Sensation grossly intact Pulses + DP, Post tib Compartments soft Negative calf tenderness H/H 7.5/23.0 69 yo F s/p Left Hip IMN POD#2 Analgesics DVT Prophylaxis PT - WBAT SCDs on bilateral extremities Continue to follow am labs. Top dressing removed. Patient orthopedically stable for discharge as long as she remains hemodynamically stable. Recommend new Aquacel dressing change prior to discharge May follow up in 2 weeks in office Elizabeth Maynard, DO [facility] [place]
--- NOTE | 2020-03-18 10:46 | NUR ---
FAXED UPDATES FOR PT TO FACILITY. STILL PENDING AUTH
--- NOTE | 2020-03-18 11:30 | NUR ---
PT RESTING IN BED AT THIS TIME.
[2020-03-18] MEDS ORDERED: SODIUM FERRIC GLUCONATE COMPLX 125 MG in SODIUM CHLORIDE 0.9% 100 ML 100 ML IV ONE (13:00)
--- NOTE | 2020-03-18 13:20 | NUR ---
DR BALTA HAM TO SEE PT. NEW ORDERS RECEIVED.
[2020-03-18] MEDS ORDERED: CEFEPIME 2 GM/NS 0.9% 100 ML 100 ML IV SCH (13:30)
[2020-03-18] MEDS ORDERED: SODIUM CHLORIDE 0.9% 250ML 250 ML IV ONE (13:30)
[2020-03-18] MEDS ORDERED: FILGRASTIM 300 MCG/ML VIAL SC SCH (14:00)
--- NOTE | 2020-03-18 14:13 | NUR ---
INTERMEDIATE FACILITY DISCHARGE INFORMATION PATIENT HAS BEEN ACCEPTED TO: NAME: [facility] ADDRESS:[id number] ACCEPTING MEDICAL AIDE: OBINNA AVILEZ ACCEPTING MD:RADHA ROOM:10 NURSE CALL REPORT TO: [phone] IMM SIGNED AND OBTAINED (if applicable): IMM THE FOLLOWING DOCUMENTS MUST ACCOMPANY PATIENT FOR TRANSFER: COPIED CHART: PACKET
--- NOTE | 2020-03-18 15:17 | NUR ---
PT GETTING BLOOD, WILL NEED TO DISCHARGE EARLY IN AM DUE TO NOT BEING ABLE TO GET PT TO FACILITY IN TIME FOR EVENING PHARMACY RUN. NOTIFIED MATT AND .
[2020-03-18] MEDS ORDERED: SODIUM CHLORIDE 0.9% 250ML 250 ML ONE (17:34)
[2020-03-18] MEDS ORDERED: SODIUM CHLORIDE 0.9% 250ML 250 ML IV SCH (18:00)
--- NOTE | 2020-03-18 18:30 | NUR ---
NO CHANGES AT THIS TIME IN PT STATUS. TO GET BLOOD LATER TONIGHT.
--- NOTE | 2020-03-18 19:01 | NUR ---
WALKING ROUNDS PERFORMED, RECEIVED PT LAYING SEMI FOWLERS IN BED, AAOX3, RR EVEN AND NON-LABORED, ON ROOM AIR. PT REPORTS ABDOMINAL PAIN AT THIS TIME. LEFT PT LAYING SEMI FOWLERS IN BED,BED IN LOW LOCKED POSITION, SIDE RAILS UPX2, CALL LIGHT AND PHONE WITHIN REACH. Addendum: 03/18/20 at 2001 by Elba Alexander RN PAIN NOT TO ABDOMEN. PT REPORTS PAIN TO (L) HIP
[2020-03-18] MEDS: PRAVASTATIN 20 MG TAB PO SCH (20:26)
[2020-03-18] MEDS: ACETAMINOPHEN 325 MG TAB PO PRN (20:27)
--- NOTE | 2020-03-18 21:50 | NUR ---
PT TOLERATING BLOOD TRANSFUSION, INCREASED RATE TO 125 ML/HR.
[2020-03-19] VITALS (9 sets, daily range): BP systolic 108–175; BP diastolic 51–80
[2020-03-19] MEDS ORDERED: CEFEPIME 2 GM/NS 0.9% 100 ML 100 ML IV SCH ×2 (02:00→18:00)
--- NOTE | 2020-03-19 02:39 | Progress Note ---
DATE: 03/18/2020 CONSULTING PHYSICIANS: 1. Elizabeth Maynard DO. 2. Omari Gallego MD. SUBJECTIVE: The patient is lying supine in bed and is asleep, but easily arousable. Has left hip pain off and on, usually rated about 5/10 on a 0-10 pain scale, pain increases severely when out of bed or standing and the patient is still unable to walk. OBJECTIVE: VITAL SIGNS: Today, temperature 98.8, T-max 102.4, pulse 75, blood pressure 131/54, respirations 18, and oxygen saturation 95% on room air. GENERAL: Supine. LUNGS: Clear to auscultation. Respiratory pattern even and unlabored on room air. HEENT: EOMI. NECK: Supple. No JVD. CARDIOVASCULAR: Irregularly irregular. She has a right Port-A-Cath. ABDOMEN: Bowel sounds positive. Soft and nontender. Melara catheter with yellow urine. EXTREMITIES: No clubbing, cyanosis, or edema. No signs of DVT. She is wearing SCDs. She has a left hip dressing, which is clean and intact. NEUROLOGIC: GCS 15. Nonfocal. LABORATORY DATA: WBCs 2.79, hemoglobin 7.5, hematocrit 23, platelets 55. Mean corpuscular volume 99.6, MCH 32.5, neutrophils 58.3%. Sodium 141, potassium 3.2, chloride 108, CO2 28, BUN 7, creatinine 0.65, estimated GFR greater than 60, glucose 126, calcium 7.9, phosphorus 1.8, magnesium 1.8. No growth from blood cultures after 72 hours. Final urine culture shows no growth after 36 to 48 hours. ASSESSMENT/PLAN: 1. Acute displaced left intertrochanteric fracture secondary to fall, status post intramedullary nailing by Dr. Maynard on 03/16/2020. Currently, the plan is for [facility] for rehabilitation per physical therapy and orthopedic physician recommendations. 2. Mild pericardial effusion. Oxygen has been weaned to room air on 03/18. No mention of a fusion on CT of the chest, monitor. 3. Metastatic colon cancer with pancytopenia. Oncology/Hematology following. Per documentation, the patient has signet ring cell carcinoma. The patient to follow up with Oncology on an outpatient basis. Pancytopenia is likely related to bone marrow suppression from recent chemotherapy. She had one Jumbo unit of platelets transfused on 03/16. Platelets 55 today. 4. Multifactorial anemia. Hemoglobin 7.5. Today, 1 unit of blood transfused per Oncology/Hematology recommendations with a dose of IV iron. No signs of bleeding. 5. Occipital closed head injury with acute left parietal scalp hematoma. No fracture, acute intracranial abnormalities on CT of the head. Oriented x3. Monitor. 6. Acute hypokalemia. Potassium level 3.2 (3.6, 2.8). Replete potassium p.r.n. The patient received potassium phosphate 20 mmol today as well as a unit of blood. We will reassess in the morning. 7. Acute hypophosphatemia. Phosphorus level 1.8. The patient received potassium phosphate 20 mmol IV once. 8. Hypothyroidism. Continue levothyroxine. 9. Prophylaxis. SCDs and Pepcid. DISCHARGE PLAN: [facility]. TIME SPENT: 40 minutes. Billing code 37503. Dictated by Lencho Alegre NP MD BUCKY MorenoP/MODL /[id number]
[2020-03-19] MEDS: LEVOTHYROXINE SODIUM 88 MCG TAB PO SCH (05:20)
[2020-03-19 05:24] LABS: BASOPHILS % 0.4 % (0.0-1.0); EOSINOPHILS # (AUTO) 0.1 (0.0-0.4); EOSINOPHILS % 2.6 % (0.0-6.0); HEMATOCRIT 25.1 % (34.2-44.1); LYMPHOCYTES # (AUTO) 1.3 (1.0-3.2); LYMPHOCYTES % 49.4 % (18.0-39.1); MEAN CORPUSCULAR HEMOGLOBIN 31.6 pg (28-32); MEAN CORPUSCULAR HGB CONC 31.9 g/dL (31-35); MEAN CORPUSCULAR VOLUME 99.2 fL (81-99); MONOCYTES # (AUTO) 0.4 (0.2-0.8); MONOCYTES % 15.4 % (4.4-11.3); NEUTROPHILS # (AUTO) 0.9 (2.1-6.9); NEUTROPHILS % 31.8 % (38.7-80.0); PLATELET COUNT 57 x10e3/uL (140-360); RED BLOOD COUNT 2.53 x10e6/uL (3.6-5.1); RED CELL DISTRIBUTION WIDTH 15.9 % (11.7-14.4)
[2020-03-19 05:47] LABS: ANION GAP 8.5 mmol/L (8-16); BLOOD UREA NITROGEN 7 mg/dL (7-26); BUN/CREATININE RATIO 12 (6-25); CARBON DIOXIDE 28 mmol/L (22-29); CHLORIDE 109 mmol/L (98-107); CREATININE, SERUM 0.58 mg/dL (0.57-1.11); EST GLOMERULAR FILTRATION RATE > 60 ML/MIN (60-); GLUCOSE 88 mg/dL (74-118); MAGNESIUM 1.9 MG/DL (1.3-2.1); PHOSPHORUS 2.3 MG/DL (2.3-4.7); POTASSIUM 3.5 mmol/L (3.5-5.1); SODIUM 142 mmol/L (136-145)
--- NOTE | 2020-03-19 07:00 | NUR ---
RECEIVED PT EARLIER FROM BEDSIDE REPORT. NO CHANGES IS THIS PT'S DRSG TO HIP.
[2020-03-19] MEDS: POLYETHYLENE GLYCOL 3350 17 GM PACK PO SCH (09:00)
[2020-03-19] MEDS: FAMOTIDINE 20 MG/2 ML VIAL IV SCH (09:05)
[2020-03-19] MEDS: DOCUSATE SODIUM 100 MG CAP PO SCH (09:08)
[2020-03-19 11:04] LABS: PLATELET ESTIMATE MARKEDLY DECREASED; PLATELET MORPHOLOGY COMMENT NORMAL
[2020-03-19 11:06] LABS: EOSINOPHILS % (MANUAL) 2 % (0-7); LYMPHOCYTES % (MANUAL) 38 % (19-48); MONOCYTES % (MANUAL) 14 % (3.4-9.0); NEUTROPHILS % (MANUAL) 46 % (40-74)
--- NOTE | 2020-03-19 12:38 | NUR ---
SPOKE WITH BOILER TENDER, PT IS CONSTIPATED, LET KNOW HAVE A BED AND READY FOR PLACEMENT AND WILL LOOSE AUTH TOMORROW AT 5PM.
[2020-03-19] MEDS ORDERED: SOD PHOSPHATE/SOD BIPHOSPHATE ENEMA 132 ML BTL PR ONE (13:05)
[2020-03-19] MEDS ORDERED: LACTULOSE SYRUP 20 GM/30 ML UDC PO ONE (13:05)
--- NOTE | 2020-03-19 14:15 | NUR ---
P5T GIVEN ENEMA AFTER A DIGITAL REMOVAL OF SM AMOUNT OF SOFT STOOL.
--- NOTE | 2020-03-19 14:40 | NUR ---
PT ALSO GOT LACTULOSE EARLIER. PT HAD A LG STOOLS.
[2020-03-19] MEDS ORDERED: Hydrocodone/Apap 5MG-325MG PO (16:05)
[2020-03-19] MEDS ORDERED: LACTULOSE20 GM/30 M PO (16:05)
[2020-03-19] MEDS ORDERED: Levothyroxine Sodium PO (16:05)
[2020-03-19] MEDS ORDERED: ONDANSETRON4 MG/2 M1 IV (16:05)
[2020-03-19] MEDS ORDERED: Hydrocodone/Apap 7.5MG-325MG PO (16:05)
[2020-03-19] MEDS ORDERED: PEPCID20 MG PO (16:05)
[2020-03-19] MEDS ORDERED: COLACE100 MG PO (16:05)
[2020-03-19] MEDS ORDERED: ACETAMINOPHEN325 M1 PO (16:05)
[2020-03-19] MEDS ORDERED: CEFEPIME 22 GM/100 M IV (16:05)
[2020-03-19] MEDS ORDERED: PRAVASTATIN SOD20 MG PO (16:05)
[2020-03-19] MEDS ORDERED: MIRALAX17 GM PO (16:05)
[2020-03-19] MEDS ORDERED: ONDANSETRON HCL 4 MG ORAL DISINTEGRATING TAB PO PRN (17:45)
--- NOTE | 2020-03-19 18:50 | NUR ---
PT WAITING ON AMBULANCE TO TAKE TO [facility]. REPORT GIVEN TO ON COMING SHIFT.
--- NOTE | 2020-03-19 19:17 | NUR ---
WALKING ROUNDS PERFORMED, RECEIVED PT LAYING SEMI FOWLERS IN BED, AAOX3, RR EVEN AND NON-LABORED, ON ROOM AIR. NO S/SX OF DISTRESS NOTED. DRESSING TO (L) HIP NOTED TO BE CDI.
--- NOTE | 2020-03-19 19:45 | NUR ---
PT TRANSPORTED BY EMS TO [facility]. PT BELONGINGS WITH PATIENT. PT IN STABLE CONDITION.
--- NOTE | 2020-03-19 22:13 | Discharge Summary ---
PRIMARY CARE PHYSICIAN: Dr. Jose Aguilar. CONSULTING PHYSICIANS: 1. Elizabeth Maynard DO, with Orthopedics. 2. Omari Gallego MD, with Oncology/Hematology. CHIEF COMPLAINT: Status post fall. HISTORY OF PRESENT ILLNESS: The patient is a 69-year-old female who admitted status post fall while walking out of a restaurant. She denied tripping, but said she "blacked out, but cannot remember it." She fell backwards and hit her buttocks and her posterior head. She was unable to move due to sharp left lower extremity pain that worsened with movement. PAST MEDICAL HISTORY: Colon cancer with chemotherapy every other week on Monday, last dose prior to admission was the Monday prior to admission. PAST SURGICAL HISTORY: Hysterectomy, right Port-A-Cath placement, bilateral cataract removal, left leg surgery, tonsillectomy. FAMILY HISTORY: Diabetes mellitus in the daughter. SOCIAL HISTORY: Noncontributory. ALLERGIES: NO KNOWN ALLERGIES. ADMITTING DIAGNOSES: 1. Acute displaced left intertrochanteric fracture. 2. Hypokalemia. 3. Obesity. 4. Elevated B-type natriuretic peptide. 5. Urinary tract infection, present on admission. DISCHARGE DIAGNOSES: 1. Acute displaced left intertrochanteric fracture secondary to fall, status post intramedullary nailing by Dr. Maynard on 03/16/2020. 2. Mild pericardial effusion. 3. Metastatic colon cancer with pancytopenia. 4. Multifactorial anemia. 5. Occipital closed head injury with acute left parietal scalp hematoma. 6. Acute hypokalemia. 7. Acute hypophosphatemia. 8. Hypothyroidism. On admission WBCs 4.65, hemoglobin 9.9, hematocrit 30.4, platelets 68, PT 14.3, INR 1.05, PTT 29.7. Sodium 147, potassium 2.9, chloride 107, CO2 of 30, anion gap 12.9, BUN 6, creatinine 0.67, estimated GFR greater than 60, glucose 100, calcium 9, total bilirubin 0.5, AST 20, ALT 13, alkaline phosphatase 73. B-type natriuretic peptide 114, total protein 6.1, albumin 3.1. She had 3 sets of cardiac biomarkers that were negative. Urinalysis had 1+ protein, trace amount of blood, urobilinogen 8, wbc's 6-10, acetaminophen level less than 3. Coronavirus PCR on 03/15 was not detected. Blood cultures x2 showed no growth after 72 hours. Final urine culture was negative. CT of the brain on 03/15 showed acute left parietal scalp hematoma, no fracture, no acute intracranial abnormalities. Cervical spine CT showed no acute abnormalities. Chest x-ray showed right upper chest Port-A-Cath with the catheter distal tip projecting to the mid superior vena cava. Degenerative changes in the thoracic spine. Generalized osteopenia. Femur x-ray showed acute displaced oblique left intertrochanteric fracture. CT of the abdomen and pelvis showed no gross evidence of metastatic disease within the chest, abdomen, and pelvis. Interval resection of the previously seen pelvic mass with peritoneal debulking. CT of the chest with similar findings. Nuclear medicine bone scan showed no acute fractures in the proximal left femur. No scan pattern to suggest metastatic bone disease. During her stay, she was weightbearing as tolerated, on DVT prophylaxis. Melara catheter was discontinued. Per Orthopedic recommendations, she was on Ancef and cefepime. Oxygen was weaned to room air. Not really short of breath with pericardial effusion, which was mild due to anemia and thrombocytopenia from the colon cancer. A courtesy consult with Dr. Gallego with Hematology was obtained. Per documentation, the patient has signet ring cell carcinoma, pancytopenia likely due to bone marrow suppression from recent chemotherapy. She had one jumbo unit of platelets transfused on 03/16. One unit of PRBCs was transfused 03/18 per recommendations from Oncology/Hematology with a dose of IV iron. Potassium phosphate 20 mmol given 03/18 for acute hypokalemia and hypophosphatemia. Levothyroxine continued for hypothyroidism. The patient has neuropathy, is unable to completely stand up on her own. States this morning that she has not had a bowel movement in 5 days. Discussed with the nurse and RN completed a digital rectal examination along with giving a fleets enema with good results, yielded large soft bowel movement. PHYSICAL EXAMINATION: VITAL SIGNS: Maximum temperature was a 100.0 in the past 48 hours. Current temperature 98.1, heart rate 74, blood pressure 137/76, respirations 16, oxygen saturation 100%. No change in physical examination. Today, WBCs 2.67, RBC 2.53, hemoglobin 8, hematocrit 25.1, which is up from a hemoglobin 7.5, hematocrit 23 yesterday, platelets 57, neutrophils 31.8%. Sodium 142, potassium 3.5, chloride 109, CO2 of 28, BUN 7, creatinine 0.58, estimated GFR greater than 60, glucose 88, calcium 8, phosphorus 2.3, magnesium 1.9. Continue regular diet. Activity level as tolerated. She will receive physical therapy at [facility]. Follow up with the accepting physician there and follow up with Doctors, Dr. Maynard and Dr. Gallego as directed. Dictated by Lencho Alegre, THANH MD KAYLA Moreno/MODL /[id number]
== END 2020-03-19 19:45 | DRG 480 ==
LOC: ER 13:09 → ERHOLD 16:57 → MED/SURG 03-16 02:32
PROVIDERS: ADMIT Internal Medicine; ATTEND Internal Medicine
PROC: 0QS736Z Reposition Left Upper Femur with Intramedullary Internal Fixation Device, Percutaneous Approach (ICD-10-PCS; 2020-03-16)
PROC: 30243R1 Transfusion of Nonautologous Platelets into Central Vein, Percutaneous Approach (ICD-10-PCS; principal; 2020-03-16 16:38)
PROC: 30243N1 Transfusion of Nonautologous Red Blood Cells into Central Vein, Percutaneous Approach (ICD-10-PCS; 2020-03-18)
DX: S72.142A Displaced intertrochanteric fracture of left femur, initial encounter for closed fracture (principal); D61.810 Antineoplastic chemotherapy induced pancytopenia; I31.3 Pericardial effusion (noninflammatory); C18.9 Malignant neoplasm of colon, unspecified; N39.0 Urinary tract infection, site not specified; D64.9 Anemia, unspecified; E66.9 Obesity, unspecified; Z68.39 Body mass index [BMI] 39.0-39.9, adult; E83.39 Other disorders of phosphorus metabolism; E03.9 Hypothyroidism, unspecified; S09.90XA Unspecified injury of head, initial encounter; S00.03XA Contusion of scalp, initial encounter; E87.6 Hypokalemia; D63.8 Anemia in other chronic diseases classified elsewhere; W01.10XA Fall on same level from slipping, tripping and stumbling with subsequent striking against unspecified object, initial encounter; Y93.01 Activity, walking, marching and hiking; Y92.511 Restaurant or cafe as the place of occurrence of the external cause; Z11.59 Encounter for screening for other viral diseases
CPT/HCPCS: 36415; 70450; 71045; 71250; 72125; 74176; 76000; 78306; 80048; 80053; 80329; 81001; 82550; 82553; 82948; 83735; 83880; 84100; 84132; 84484; 85025; 85610; 85730; 86850; 86900; 86920; 87040; 87086; 87635; 88305; 93005; 93306; 97139; 99284; A9503; J0690; J1650; J2270; J2405; J2916; J3480; J7030; J7050; P9016; P9034

== ENCOUNTER 2020-05-02 12:27 | Inpatient (IN) | payer MEDICARE, OTHER ==
[~2020-05-02] VITALS: Ht 162.6 cm; Wt 60.3 kg
[~2020-05-02 12:27] MED LIST changes: +ACETAMINOPHEN325 M1 PO; +CEFEPIME 22 GM/100 M IV; +COLACE100 MG PO; -GADOBENATE DIMEGLUMINE 1 ML IV ONE; +Hydrocodone/Apap 5MG-325MG PO; +Hydrocodone/Apap 7.5MG-325MG PO; +LACTULOSE20 GM/30 M PO; +Levothyroxine Sodium PO; +MIRALAX17 GM PO; +ONDANSETRON4 MG/2 M1 IV; +PEPCID20 MG PO; +PRAVASTATIN SOD20 MG PO; -SODIUM CHLORIDE 0.9% 100 ML ONE
--- OUTSIDE RECORDS SUMMARY | 2020-05-02 12:45 | XMS REPORT | Clinical Summary ---
Author Author [facility] Organization [facility] Address Unknown Phone Unavailable Care Team Providers Care Canvas Shrinker Name Role Phone PCP Unavailable Allergies No Known Allergies Medications End Date Status Medication Sig Dispensed Refills Start Date Active naproxen (NAPROSYN) 375 Take 1 tablet 30 tablet 1 mg tabletIndications: by mouth 2 6 Right shoulder pain, times daily unspecified chronicity (with meals). Active ibuprofen (MOTRIN) 600 mg Take 1 tablet 30 tablet 0 tabletIndications: Pain by mouth 7 of both shoulder joints every 8 hours as needed for Pain. Active oxybutynin (DITROPAN XL) Take 1 tablet 30 tablet 1 10 mg extended release by mouth 7 tabletIndications: Mixed daily. 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/17/2016 Cataract 05/10/2016 Immunizations Name Administration Dates Next Due Influenza Vaccine 08/09/2016 Influenza Vaccine, 06/22/2017 Seasonal, Injectable Tdap Tetanus, diphtheria, 08/09/2016 acellular pertussis Vaccine Family History Medical History Relation Name Comments Asthma Daughter Arthritis Mother Seizures Sister Relation Name Status Comments Brother Alive Daughter Alive Daughter Alive Daughter Alive Daughter Father Alive Maternal Grandfather Maternal Grandmother Mother Paternal Grandfather Paternal Grandmother Sister Alive Sister Alive Sister accident Sister Social History Date Tobacco Use Types Packs/Day Years Used Never Smoker Drinks/Week oz/Week Comments Alcohol Use 0 Standard drinks or equivalent 0.0 No Food Insecurity Answer Date Recorded Within the past 12 months, you worried that your Never dain e 06/22/2017 food would run out before you got money to buy more. Within the past 12 months, the food you bought Never true 06/22/2017 just didn't last and you didn't have mo trevor to get more. Sex Assigned at Date Recorded Not on file Industry Job Start Date Occupation Not on file Not on file Not on file Travel End Travel History Travel Start No recent travel history available. Last Filed Vital Signs Not on file Plan of Treatment Health Maintenance Due Date Last Done Comments IMM Pneumococcal Age 65 2016 and Up Colorectal Cancer Scrn 05/11/2017 05/11/2016 Annual (FIT/FOBT) Age 50 to 75 Breast Cancer Scrn 06/13/2017 06/13/2016 (Yearly) IMM Influenza Seasonal 06/11/2020 06/22/2017, Jun to November (>/= 19 yrs) 08/09/2016 Results Not on fileafter 05/02/2019
--- OUTSIDE RECORDS SUMMARY | 2020-05-02 12:45 | XMS REPORT | Continuity of Care Document ---
Author Author Johann [email or web address] MEPS Real-Time Information [employer] Address Unknown Phone Unavailable Care Team Providers Care Instructor Ballroom Dancing Name Role Phone MEPS Real-Time Information Exchange Unavailable Un available Problems Problem Status Onset Date Classification Date Reported Comments Source COLON CA Active 11/29/2019 [facility] UNK Active 0 09/16/2019 [facility] C18.9 MALIGNANT NEOPLASM OF COLON, UNSPE Active 08/19/2019 [facility] OTHER NONINFLAMMATORY DISORDERS OF OVARY Active 07/25/2019 [facility] RICARDO, FERREIRA Active 07/25/2019 [facility] 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 shoulder [facility] Iron deficiency anemia (disorder) Active Problem [facility] Malignant tumor of colon (disorder) Active Problem [facility] OTH NONINFLAMMATORY DISORD OF OVARY, FAL Active [facility] URINARY TRACT INFECTION, SITE NOT SPECIF Active [facility] UNSPECIFIED ABDOMINAL PAIN Act eileen [facility] Medications Medication Details Route Status Patient Instructions Ordering Provider Order Date Source Acetaminophen 300 MG / Codeine Phosphate 30 MG Oral Tablet [Tylenol with Codeine #3] 1 tab, PO, Q6H, PRN Pain, X 7 day, # 28 tab, 0 Refill(s) Active 09/18/2019 [facility] ondansetron (ANES) Route: IV, Drug form: INJ, ONCE, Stop date: 09/18/19 14:17:00 SPRINKLER WORKER Inactive 09/18/2019 [facility] Calcium Chloride 0.0014 MEQ/ML / Potassi um Chloride 0.004 MEQ/ML / Sodium Chloride 0.103 MEQ/ML / Sodium Lactate 0.028 MEQ/ML Injectable Solution 1,000 mL, Rate: 125 ml/hr, Infuse over: 8 hr, Route: IV, Dosing Weight 86.364 kg, Total Volume: 1,000, Start date: 09/18/19 14:10:00 SPRINKLER WORKER, Duration: 30 day, Stop date: 10/18/19 14:09:00 SPRINKLER WORKER, 2, m2 Inactive 09/18/2019 [facility] Ketorolac 30 mg, Route: IVP, O NCE, Dosing Weight 86.364, kg, Start date: 09/18/19 14:10:00 SPRINKLER WORKER, Stop date: 09/18/19 14:10:00 SPRINKLER WORKER Inactive 09/18/2019 [facility] Acetaminophen 1,000 mg, Route: IVPB, Drug form: INJ, ONCE, Dosing Weight 86.364, kg, PRN Pain Score 1-3, Start date: 09/18/19 14:10:00 SPRINKLER WORKER Inactive 09/18/2019 [facility] Morphine 2 mg, Route: IVP, Q5M in, Dosing Weight 86.364, kg, PRN Pain Score 4-6, Start date: 09/18/19 14:10:00 SPRINKLER WORKER, Duration: 5 doses or times, Stop date: Limited # of times Inactive 09/18/2019 [facility] Fentanyl 25 microgram, Route: IVP, Q5Min, Dosing Weight 86.364, kg, PRN Pain Score 4-6, Priority: Routine, Start date: 09/18/19 14:10:00 SPRINKLER WORKER, Duration: 4 doses or times, Stop date: Limited # of times Inactive 09/18/2019 [facility] Hydromorphone 0.5 mg, Route: I CARE ASST, Q5Min, Dosing Weight 86.364, kg, PRN Pain Score 7-10, Start date: 09/18/19 14:10:00 SPRINKLER WORKER, Duration: 4 doses or times, Stop date: Limited # of times Inactive 09/18/2019 [facility] Flumazenil 0.2 mg, Route: IVP, PRN, Dosing Weight 86.364, kg, PRN Benzodiazepine Reversal, Initial dose, Start date: 09/18/19 14:10:00 SPRINKLER WORKER, Duration: 30 day, Stop date: 10/18/19 14:09:00 SPRINKLER WORKER Inactive 09/18/2019 [facility] Naloxone 0.4 mg, Route: IVP, Q 2MIN, Dosing Weight 86.364, kg, PRN Narcotic Reversal, Start date: 09/18/19 14:10:00 SPRINKLER WORKER, Duration: 8 doses or times, Stop date: Limited # of times Inactive 09/18/2019 [facility] Diphenhydramine 12.5 mg, Route : IVP, Drug form: INJ, Q6H, Dosing Weight 86.364, kg, PRN Itching, Start date: 09/18/19 14:10:00 SPRINKLER WORKER, Duration: 30 day, Stop date: 10/18/19 14:09:00 SPRINKLER WORKER Inactive 09/18/2019 [facility] Meperidine 12.5 mg, Route: IVP , Q30Min, Dosing Weight 86.364, kg, PRN Other -See Comment, For shivering, Start date: 09/18/19 14:10:00 SPRINKLER WORKER, Duration: 2 doses or times, Stop date: Limited # of times Inactive 09/18/2019 [facility] Ondansetron 4 mg, Route: IVP, ONCE, Dosing Weight 86.364, kg, PRN Nausea & Vomiting, Start date: 09/18/19 14:10:00 SPRINKLER WORKER Inactive 09/18/2019 [facility] Promethazine 6.25 mg, Route: I VPB, ONCE, Dosing Weight 86.364, kg, PRN Nausea & Vomiting, Start date: 09/18/19 14:10:00 SPRINKLER WORKER Inactive 09/18/2019 [facility] 72 HR Scopolamine 0.0139 MG/HR Transdermal Patch 1 patch, Route: TOP, Drug Form: ERFILM, Dosing Weight 86.364, kg, ONCE, Apply behind ear. Avoid use in elderly., Start date: 09/18/19 14:10:00 SPRINKLER WORKER, Stop date: 09/18/19 14:10:00 SPRINKLER WORKER Inactive 09/18/2019 [facility] propofol (ANES) Route: IV, Vinod g form: INJ, ONCE, Stop date: 09/18/19 14:07:00 SPRINKLER WORKER Inactive 09/18/2019 [facility] lidocaine (ANES) Route: IV, Dr ug form: INJ, ONCE, Stop date: 09/18/19 14:07:00 SPRINKLER WORKER Inactive 09/18/2019 [facility] fentaNYL (ANES) Route: IV, Vinod g form: INJ, ONCE, Stop date: 09/18/19 14:07:00 SPRINKLER WORKER Inactive 09/18/2019 [facility] ceFAZolin (ANES) Route: IV, Dr ug form: INJ, ONCE, Stop date: 09/18/19 14:07:00 SPRINKLER WORKER Inactive 09/18/2019 [facility] norepinephrine (ANES) Route: I V, Drug form: INJ, ONCE, Stop date: 09/18/19 14:07:00 SPRINKLER WORKER Inactive 09/18/2019 [facility] midazolam (ANES) Route: IV, Dr ug form: SOLN, ONCE, Stop date: 09/18/19 14:07:00 SPRINKLER WORKER Inactive 09/18/2019 [facility] Calcium Chloride 0.0014 MEQ/ML / Potassi um Chloride 0.004 MEQ/ML / Sodium Chloride 0.103 MEQ/ML / Sodium Lactate 0.028 MEQ/ML Injectable Solution 1,000 mL, Rate: 75 ml/hr, Infuse over: 1 3.3 hr, Route: IV, Dosing Weight 86.364 kg, Total Volume: 1,000, Start date: 09/18/19 13:23:00 SPRINKLER WORKER, Duration: 30 day, Stop date: 10/18/19 13:22:00 SPRINKLER WORKER, 2, m2 Inactive 09/18/2019 [facility] Lactated Ringers Injection IV (ANES) 1000 mL Route: IV, Total Volume: 1,000, Start date: 09/18/19 13:12:00 SPRINKLER WORKER, Stop date: 09/18/19 14:12:00 SPRINKLER WORKER Inactive 09/18/2019 [facility] cephalexin 500 mg oral capsule 500 mg = 1 cap, PO, Q12H, 0 Refill(s) Active 09/17/2019 [facility] Acetaminophen 325 MG / Hydrocodone Vy trate 5 MG Oral Tablet 1 tab, PO, Q6H, 0 Refill(s) Active 09/17/2019 [facility] Acetaminophen 1,000 mg, Route: PO, Drug form: TAB, ONCE, Dosing Weight 83.864, kg, PRN Pain Score 1-3, Start date: 08/20/19 15:10:00 SPRINKLER WORKER Inactive 08/20/2019 [facility] Fentanyl 25 microgram, Route: IVP, Q5Min, Dosing Weight 83.864, kg, PRN Pain Score 4-6, Priority: Routine, Start date: 08/20/19 15:10:00 SPRINKLER WORKER, Duration: 4 doses or times, Stop date: Limited # of times Inactive 08/20/2019 [facility] Hydromorphone 0.5 mg, Route: I CARE ASST, Q5Min, Dosing Weight 83.864, kg, PRN Pain Score 7-10, Start date: 08/20/19 15:10:00 SPRINKLER WORKER, Duration: 4 doses or times, Stop date: Limited # of times Inactive 08/20/2019 [facility] Flumazenil 0.2 mg, Route: IVP, PRN, Dosing Weight 83.864, kg, PRN Benzodiazepine Reversal, Initial dose, Start date: 08/20/19 15:10:00 SPRINKLER WORKER, Duration: 30 day, Stop date: 09/19/19 15:09:00 SPRINKLER WORKER Inactive 08/20/2019 [facility] Naloxone 0.4 mg, Route: IVP, Q 2MIN, Dosing Weight 83.864, kg, PRN Narcotic Reversal, Start date: 08/20/19 15:10:00 SPRINKLER WORKER, Duration: 8 doses or times, Stop date: Limited # of times Inactive 08/20/2019 [facility] Ondansetron 4 mg, Route: IVP, ONCE, Dosing Weight 83.864, kg, PRN Nausea & Vomiting, Start date: 08/20/19 15:10:00 SPRINKLER WORKER Inactive 08/20/2019 [facility] acetaminophen (ANES) Route: IV , Drug form: INJ, ONCE, Stop date: 08/20/19 15:04:00 SPRINKLER WORKER Inactive 08/20/2019 [facility] ondansetron (ANES) Route: IV, Drug form: INJ, ONCE, Stop date: 08/20/19 15:03:00 SPRINKLER WORKER Inactive 08/20/2019 [facility] dexamethasone (ANES) Route: IV , Drug form: INJ, ONCE, Stop date: 08/20/19 15:03:00 SPRINKLER WORKER Inactive 08/20/2019 [facility] midazolam (ANES) Route: IV, Dr ug form: SOLN, ONCE, Stop date: 08/20/19 14:58:00 SPRINKLER WORKER Inactive 08/20/2019 [facility] fentaNYL (ANES) Route: IV, Vinod g form: INJ, ONCE, Stop date: 08/20/19 14:58:00 SPRINKLER WORKER Inactive 08/20/2019 [facility] propofol (ANES) Route: IV, Vinod g form: INJ, ONCE, Stop date: 08/20/19 14:58:00 SPRINKLER WORKER Inactive 08/20/2019 [facility] lidocaine (ANES) Route: IV, Dr ug form: INJ, ONCE, Stop date: 08/20/19 14:58:00 SPRINKLER WORKER Inactive 08/20/2019 [facility] ceFAZolin (ANES) Route: IV, Dr ug form: INJ, ONCE, Stop date: 08/20/19 14:58:00 SPRINKLER WORKER Inactive 08/20/2019 [facility] Lactated Ringers Injection IV (ANES) 1000 mL Route: IV, Total Volume: 1,000, Start date: 08/20/19 14:09:00 SPRINKLER WORKER, Stop date: 08/20/19 15:09:00 SPRINKLER WORKER Inactive 08/20/2019 [facility] Calcium Chloride 0.0014 MEQ/ML / Potassi um Chloride 0.004 MEQ/ML / Sodium Chloride 0.103 MEQ/ML / Sodium Lactate 0.028 MEQ/ML Injectable Solution 1,000 mL, Rate: 75 ml/hr, Infuse over: 1 3.3 hr, Route: IV, Dosing Weight 83.864 kg, Total Volume: 1,000, Start date: 08/20/19 12:36:00 SPRINKLER WORKER, Duration: 30 day, Stop date: 09/19/19 12:35:00 SPRINKLER WORKER, 1.97, m2 Inactive 08/20/2019 [facility] Vitamin B-12 1000 mcg/mL injectable solution IM, Daily, 0 Refill(s) Active 08/19/2019 [facility] Sodium Chloride 0.9% (titrate) 250 mL 250 mL, Rate: To prime line and flush remaining blood products., Dosing Weight 80.909, kg, Route: IV, Total Volume: 250, Start Date: 08/01/19 12:54:00 SPRINKLER WORKER, Duration: 1 day, Stop date: 08/02/19 12:53:00 SPRINKLER WORKER, Replace Every: 24 hr, 0 No Longer Active 08/01/2019 [facility] Dulcolax Laxative Notes: (Same As: Dulcolax, Bisco-Lax) No Longer Active 08/01/2019 [facility] Celebrex Notes: NSAID. Please check indication. Not for seizure. (Same As: CeleBREX) N o Longer Active 07/31/2019 [facility] Tylenol Notes: Max acetaminoph en 4000 mg/day (4 gm/day). (Same as: Tylenol Extra Strength) No Longer Active 07/31/2019 [facility] Lovenox Notes: (Same as: Loven ox) No Longer Active 07/31/2019 [facility] gabapentin Notes: (Same as: Ne urontin) No Longer Active 07/31/2019 [facility] Morphine Notes: (Same as:MORPh ine Sulfate) No Longer Active 07/31/2019 [facility] heparin Notes: porcine heparin Inactive 07/31/2019 [facility] Tramadol Notes: Not to exceed 400mg/day. (Same As: Ultram) No Longer Active 07/31/2019 [facility] Docusate Sodium 50 MG / sennosides, DETENTION 8.6 MG Oral Tablet Notes: (Same as Senokot-S) Equiv. to Kati-Colace. No Longer Active 07/30/2019 [facility] Hydralazine 10 mg, Route: IVP, Q20Min, Dosing Weight 80.909, kg, PRN Elevated BP, Start date: 07/30/19 15:21:00 SPRINKLER WORKER, Duration: 2 doses or times, Stop date: Limited # of times Inactive 07/30/2019 [facility] Labetalol 10 mg, Route: IVP, Q 5Min, Dosing Weight 80.909, kg, PRN Elevated BP, Start date: 07/30/19 15:21:00 SPRINKLER WORKER, Duration: 5 doses or times, Stop date: Limited # of times Inactive 07/30/2019 [facility] Metoprolol 1 mg, Route: IVP, Q 5Min, Dosing Weight 80.909, kg, PRN Other -See Comment, Start date: 07/30/19 15:21:00 SPRINKLER WORKER, Duration: 5 doses or times, Stop date: Limited # of times Inactive 07/30/2019 [facility] Ketorolac 30 mg, Route: IVP, O NCE, Dosing Weight 80.909, kg, Start date: 07/30/19 15:21:00 SPRINKLER WORKER, Stop date: 07/30/19 15:21:00 SPRINKLER WORKER Inactive 07/30/2019 [facility] Acetaminophen 1,000 mg, Route: IVPB, Drug form: INJ, ONCE, Dosing Weight 80.909, kg, PRN Pain Score 1-3, Start date: 07/30/19 15:21:00 SPRINKLER WORKER Inactive 07/30/2019 [facility] Oxycodone Hydrochloride 5 MG Oral Tablet 5 mg, Route: PO, Drug form: TAB, Q4H, Dosing Weight 80.909, kg, PRN Pain Score 4-6, Start date: 07/30/19 15:21:00 SPRINKLER WORKER, Duration: 30 day, Stop date: 08/29/19 15:20:00 SPRINKLER WORKER Inactive 07/30/2019 [facility] Morphine 2 mg, Route: IVP, Q5M in, Dosing Weight 80.909, kg, PRN Pain Score 4-6, Start date: 07/30/19 15:21:00 SPRINKLER WORKER, Duration: 5 doses or times, Stop date: Limited # of times Inactive 07/30/2019 [facility] Fentanyl 25 microgram, Route: IVP, Q5Min, Dosing Weight 80.909, kg, PRN Pain Score 4-6, Priority: Routine, Start date: 07/30/19 15:21:00 SPRINKLER WORKER, Duration: 4 doses or times, Stop date: Limited # of times Inactive 07/30/2019 [facility] Hydromorphone 0.5 mg, Route: I CARE ASST, Q5Min, Dosing Weight 80.909, kg, PRN Pain Score 7-10, Start date: 07/30/19 15:21:00 SPRINKLER WORKER, Duration: 4 doses or times, Stop date: Limited # of times Inactive 07/30/2019 [facility] Flumazenil 0.2 mg, Route: IVP, PRN, Dosing Weight 80.909, kg, PRN Benzodiazepine Reversal, Initial dose, Start date: 07/30/19 15:21:00 SPRINKLER WORKER, Duration: 30 day, Stop date: 08/29/19 15:20:00 SPRINKLER WORKER Inactive 07/30/2019 [facility] Naloxone 0.4 mg, Route: IVP, Q 2MIN, Dosing Weight 80.909, kg, PRN Narcotic Reversal, Start date: 07/30/19 15:21:00 SPRINKLER WORKER, Duration: 8 doses or times, Stop date: Limited # of times Inactive 07/30/2019 [facility] Ondansetron 4 mg, Route: IVP, ONCE, Dosing Weight 80.909, kg, PRN Nausea & Vomiting, Start date: 07/30/19 15:21:00 SPRINKLER WORKER Inactive 07/30/2019 [facility] D5LR 1,000 mL 1,000 mL, Rate: 40 ml/hr, Infuse over: 25 hr, Route: IV, Dosing Weight 80.909 kg, Total Volume: 1,000, Start date: 07/30/19 14:57:00 SPRINKLER WORKER, Stop date: 07/31/19 6:00:00 SPRINKLER WORKER, 1.92, m2, 0 No Longer Active 07/30/2019 [facility] Zofran ODT Notes: (Same as: Scarlet elliott ODT) No Longer Active 07/30/2019 [facility] glycopyrrolate (ANES) Route: I V, Drug form: INJ, ONCE, Stop date: 07/30/19 14:50:00 SPRINKLER WORKER Inactive 07/30/2019 [facility] neostigmine (ANES) Route: IV, Drug form: INJ, ONCE, Stop date: 07/30/19 14:50:00 SPRINKLER WORKER Inactive 07/30/2019 [facility] sugammadex (ANES) Route: IV, D rug form: SOLN, ONCE, Stop date: 07/30/19 14:50:00 SPRINKLER WORKER Inactive 07/30/2019 [facility] ceFAZolin (ANES) Route: IV, Dr ug form: INJ, ONCE, Stop date: 07/30/19 14:27:00 SPRINKLER WORKER Inactive 07/30/2019 [facility] phenylephrine (ANES) Route: IV , Drug form: INJ, ONCE, Stop date: 07/30/19 14:27:00 SPRINKLER WORKER Inactive 07/30/2019 [facility] propofol (ANES) Route: IV, Vinod g form: INJ, ONCE, Stop date: 07/30/19 11:30:00 SPRINKLER WORKER Inactive 07/30/2019 [facility] succinylcholine (ANES) Route: IV, Drug form: INJ, ONCE, Stop date: 07/30/19 11:30:00 SPRINKLER WORKER Inactive 07/30/2019 [facility] dexamethasone (ANES) Route: IV , Drug form: INJ, ONCE, Stop date: 07/30/19 11:30:00 SPRINKLER WORKER Inactive 07/30/2019 [facility] ondansetron (ANES) Route: IV, Drug form: INJ, ONCE, Stop date: 07/30/19 11:30:00 SPRINKLER WORKER Inactive 07/30/2019 [facility] midazolam (ANES) Route: IV, Dr ug form: SOLN, ONCE, Stop date: 07/30/19 11:29:00 SPRINKLER WORKER Inactive 07/30/2019 [facility] famotidine (ANES) Route: IV, D rug form: INJ, ONCE, Stop date: 07/30/19 11:29:00 SPRINKLER WORKER Inactive 07/30/2019 [facility] lidocaine (ANES) Route: IV, Dr ug form: INJ, ONCE, Stop date: 07/30/19 11:29:00 SPRINKLER WORKER Inactive 07/30/2019 [facility] rocuronium (ANES) Route: IV, D rug form: INJ, ONCE, Stop date: 07/30/19 11:29:00 SPRINKLER WORKER Inactive 07/30/2019 [facility] albumin human (ANES) 25 gm Rou te: IV, Drug form: INJ, Start date: 07/30/19 11:14:00 SPRINKLER WORKER, Stop date: 07/30/19 12:14:00 SPRINKLER WORKER Inactive 07/30/2019 [facility] ceFAZolin (ANES) 1000 mg Route : IV, Drug form: INJ, Start date: 07/30/19 10:15:00 SPRINKLER WORKER, Stop date: 07/30/19 11:15:00 SPRINKLER WORKER Inactive 07/30/2019 [facility] metroNIDAZOLE (ANES) 5 mg Rout e: IV, Drug form: INJ, Start date: 07/30/19 10:15:00 SPRINKLER WORKER, Stop date: 07/30/19 11:15:00 SPRINKLER WORKER Inactive 07/30/2019 [facility] Sodium Chloride 0.9% IV (ANES) 100 mL + ketAMINE (ANES) 200 mg Route: IV, Drug form: INJ, Start date: 09/29/18 10:15:00 SPRINKLER WORKER, Stop date: 07/30/19 11:15:00 SPRINKLER WORKER Inactive 07/30/2019 [facility] Sodium Chloride 0.9% IV (ANES) 50 mL + d exmedetomidine (ANES) 200 microgram Route: IV, Drug form: INJ, Start date: 09/29/18 10:10:00 SPRINKLER WORKER, Stop date: 07/30/19 11:10:00 SPRINKLER WORKER Inactive 07/30/2019 [facility] Sodium Chloride 0.9% IV (ANES) 1000 mL Route: IV, Total Volume: 1,000, Start date: 07/30/19 10:00:00 SPRINKLER WORKER, Stop date: 07/30/19 11:00:00 SPRINKLER WORKER Inactive 07/30/2019 [facility] Lactated Ringers Injection IV (ANES) 1000 mL Route: IV, Total Volume: 1,000, Start date: 07/30/19 9:52:00 SPRINKLER WORKER, Stop date: 07/30/19 10:52:00 SPRINKLER WORKER Inactive 07/30/2019 [facility] Calcium Chloride 0.0014 MEQ/ML / Potassi um Chloride 0.004 MEQ/ML / Sodium Chloride 0.103 MEQ/ML / Sodium Lactate 0.028 MEQ/ML Injectable Solution 1,000 mL, Rate: 75 ml/hr, Infuse over: 1 3.3 hr, Route: IV, Dosing Weight 80.909 kg, Total Volume: 1,000, Start date: 07/30/19 9:09:00 SPRINKLER WORKER, Duration: 30 day, Stop date: 08/29/19 9:08:00 SPRINKLER WORKER, 1.92, m2 Inactive 07/30/2019 [facility] Vantin 200 mg oral tablet 200 mg = 1 tab, PO, Q12H, X 7 day, # 14 tab, 0 Refill(s), Pharmacy: [facility] [id number] Active 07/29/2019 [facility] Ondansetron 4 MG Oral Tablet [Zofran] 4 mg = 1 tab, PO, Q6H, PRN Nausea/Vomiting, # 30 tab, 0 Refill(s), Pharmacy: [facility] [id number] Active 07/29/2019 [facility] Sodium Chloride 0.9% IV 1,000 mL 1,000 mL, Rate: 75 ml/hr, Infuse over: 13.3 hr, Route: IV, Dosing Weight 80.909 kg, Total Volume: 1,000, Start date: 07/29/19 8:58:00 SPRINKLER WORKER, Duration: 30 day, Stop date: 08/28/19 8:57:00 SPRINKLER WORKER, 1.92, m2, 0 Inactive 07/29/2019 [facility] polyethylene glycol 3350 with electrolytes Notes: (polyethylene glycol electrolyte solution 4 Liter bottle) (Same as: Golytely, Colyte) Inactive 07/28/2019 [facility] Bisacodyl Notes: (Same As: Dul colax, Correctol) (Do Not Crush) "Do Not Crush" Inactiv e 07/28/2019 [facility] Metoclopramide 10 MG Oral Tablet Notes: (Same as: Reglan) Take 30 min before meals Inactive 07/28/2019 [facility] Angelo Milk of Magnesia Note s: (Same as: Milk of Magnesia, MOM) Inactive 07/28/2019 [facility] Nystatin 100 UNT/MG Topical Powder Notes: (Same as:Mycostatin, Nilstat) For external use only. No Longer Active 07/27/2019 [facility] Omnipaque 300 injectable solution Notes: (Same as:Omnipaque 300). WASTE: F/P - Black; E - Municipal Trash Bin No Longer Active 07/27/2019 [facility] Diflucan Notes: (Same as: Difl ucan) Inactive 07/27/2019 [facility] molasses Notes: (Same as:Molas ses) Inactive 07/27/2019 [facility] Diflucan Notes: (Same as: Difl ucan) Inactive 07/27/2019 [facility] Ceftriaxone Notes: (Same As: Murtaza ocephin). Use with 100 mL NS and infuse over 30 min MEDICATION WASTE Product Size: 1000 mg Product Wasted: ___ mg No Longer Active 07/27/2019 [facility] Lovenox Notes: (Same as: Loven ox) No Longer Active 07/26/2019 [facility] Nurse pls update Allergies in adhoc Nurse pls update Allergies in adhoc, allergy??, Drug form: MISC, Route: MISC, Q10Min, 07/26/19 4:30:00 SPRINKLER WORKER, Duration: 30 day, Stop date: 08/25/19 4:20:00 SPRINKLER WORKER, 0 Inactive 07/26/2019 [facility] influenza virus vaccine, inactivated hig h-dose preservative-free intramuscular suspension Notes: (Same as: Fluzone High-Dose) For 65 years of age of older (0.5 ml IM) Shake well before use No Longer Active 07/26/2019 [facility] Nurse pls update Height/Weight/Allergies in adhoc Nurse pls update Height/Weight/Allergies in adhoc, reminder, Drug form: MISC, Route: MISC, Q15Min, 07/25/19 22:45:00 SPRINKLER WORKER, Duration: 30 day, Stop date: 08/24/19 22:30:00 SPRINKLER WORKER, 0 No Longer Active 07/26/2019 [facility] normal saline 0.9% IV 1,000 mL 1,000 mL, Rate: 100 ml/hr, Infuse over: 10 hr, Route: IV, Dosing Weight 80.909 kg, Total Volume: 1,000, Start date: 07/25/19 22:38:00 SPRINKLER WORKER, Duration: 30 day, Stop date: 08/24/19 22:37:00 SPRINKLER WORKER, 1.92, m2, 0 No Longer Active 07/26/2019 [facility] Ondansetron Notes: (Same as: Ayleen alejandra) MEDICATION WASTE Product Size: 4 mg Product Wasted: ___ mg No Longer Active 07/26/2019 [facility] Ceftriaxone Notes: (Same As: Murtaza gómez). Use with 100 mL NS and infuse over 30 min MEDICATION WASTE Product Size: 1000 mg Product Wasted: ___ mg Inactive 07/26/2019 [facility] Morphine 4 mg, Route: IVP, ONC E, Dosing Weight 80.909, kg, Priority: STAT, Start date: 07/25/19 19:26:00 SPRINKLER WORKER, Stop date: 07/25/19 19:26:00 SPRINKLER WORKER Inactive 07/26/2019 [facility] NS (Bolus) IV 500 mL, Route: I V, Drug form: INJ, ONCE, Priority: STAT, Dosing Weight 80.909 kg, Start date: 07/25/19 19:26:00 SPRINKLER WORKER, Stop date: 07/25/19 19:26:00 SPRINKLER WORKER Inactive 07/26/2019 [facility] Zofran 4 mg, Route: IVP, Drug form: INJ, ONCE, Dosing Weight 80.909, kg, Priority: STAT, Start date: 07/25/19 19:26:00 SPRINKLER WORKER, Stop date: 07/25/19 19:26:00 SPRINKLER WORKER Inactiv e 07/26/2019 [facility] Saline Flush 0.9% Notes: (Same as: BD Posiflush) No Longer Active 07/25/2019 [facility] Allergies, Adverse Reactions, Alerts Substance Category Reaction Severity Reaction type Status Date Reported Comments Source Iron Assertion Drug allergy Active [facility] Immunizations No Data Provided for This Section Results Order Name Results Value Reference Range Date Interpretation Comments Source CHEM PANEL Glucose Lvl 94 70 - 99 08/19/2019 [facility] CHEM PANEL BUN 7 7 - 22 08/19/2019 [facility] CHEM PANEL Creatinine Lvl 0.72 0.50 - 1.40 08/19/2019 [facility] CHEM PANEL Sodium Lvl 148 135 - 145 08/19/2019 [facility] CHEM PANEL Potassium Lvl 3.6 3.5 - 5.1 08/19/2019 [facility] CHEM PANEL Chloride Lvl 114 95 - 109 08/19/2019 [facility] CHEM PANEL CO2 27 24 - 32 08/19/2019 [facility] CHEM PANEL Calcium Lvl 8.8 8.5 - 10.5 08/19/2019 [facility] CHEM PANEL eGFR 86 08/19/2019 Result Comment: The eGFR is calculated using the CKD-EPI formula. In most young, healthy individuals the eGFR will be >90 mL/min/1.73m2. The eGFR declines with age. An eGFR of 60-89 may be normal in some populations, particularly the elderly, for whom the CKD-EPI formula has not been extensively validated. Use of the eGFR is not recommended in the following populations:

Individuals with unstable creatinine concentrations, including patients and those with serious co-morbid conditions.

Patients with extremes in muscle mass or diet.

The data above are obtained from the National Kidney Disease Education Program (NKDEP) which additionally recommends that when the eGFR is used in patients with extremes of body mass index for purposes of drug dosing, the eGFR should be multiplied by the estimated BMI. [facility] CHEM PANEL AGAP 10.6 10.0 - 20.0 08/19/2019 [facility] HEMATOLOGY WBC 4.9 3.7 - 10.4 08/19/2019 [facility] HEMATOLOGY RBC 3.61 4.20 - 5.40 08/19/2019 [facility] HEMATOLOGY Hgb 9.9 12.0 - 16.0 08/19/2019 [facility] HEMATOLOGY Hct 31.3 36.0 - 48.0 08/19/2019 [facility] HEMATOLOGY MCV 86.6 80.0 - 98.0 08/19/2019 [facility] MCH 27.4 27.0 - 31.0 08/19/2019 [facility] MCHC 31.6 32.0 - 36.0 08/19/2019 [facility] HEMATOLOGY RDW 16.9 11.5 - 14.5 08/19/2019 [facility] HEMATOLOGY Platelet 236 133 - 450 08/19/2019 [facility] HEMATOLOGY MPV 8.8 7.4 - 10.4 08/19/2019 [facility] HEMATOLOGY Segs 55.5 45.0 - 75.0 08/19/2019 [facility] HEMATOLOGY Lymphocytes 32.2 20.0 - 40.0 08/19/2019 [facility] HEMATOLOGY Monocytes 8.8 2.0 - 12.0 08/19/2019 [facility] HEMATOLOGY Eosinophils 2.9 0.0 - 4.0 08/19/2019 [facility] HEMATOLOGY Basophils 0.6 0.0 - 1.0 08/19/2019 [facility] Neutrophils # 2.8 1.5 - 8.1 08/19/2019 [facility] HEMATOLOGY Lymphocytes # 1.6 1.0 - 5.5 08/19/2019 [facility] HEMATOLOGY Monocytes # 0.4 0.0 - 0.8 08/19/2019 [facility] HEMATOLOGY Eosinophils # 0.1 0.0 - 0.5 08/19/2019 [facility] CHEM PANEL Glucose Lvl 96 70 - 99 08/02/2019 [facility] CHEM PANEL BUN 16 7 - 22 08/02/2019 [facility] CHEM PANEL Creatinine Lvl 0.76 0.50 - 1.40 08/02/2019 [facility] CHEM PANEL Sodium Lvl 144 135 - 145 08/02/2019 [facility] CHEM PANEL Potassium Lvl 3.6 3.5 - 5.1 08/02/2019 [facility] CHEM PANEL Chloride Lvl 110 95 - 109 08/02/2019 [facility] CHEM PANEL CO2 30 24 - 32 08/02/2019 [facility] CHEM PANEL AGAP 7.6 10.0 - 20.0 08/02/2019 [facility] CHEM PANEL Calcium Lvl 8.4 8.5 - 10.5 08/02/2019 [facility] CHEM PANEL B/C Ratio 21 6 - 25 08/02/2019 [facility] CHEM PANEL Total Protein 5.3 6.4 - 8.4 08/02/2019 [facility] CHEM PANEL Albumin Lvl 1.9 3.5 - 5.0 08/02/2019 [facility] CHEM PANEL Globulin 3.4 2.7 - 4.2 08/02/2019 [facility] CHEM PANEL A/G Ratio 0.6 0.7 - 1.6 08/02/2019 [facility] CHEM PANEL ALT 8 0 - 65 08/02/2019 [facility] CHEM PANEL AST 5 0 - 37 08/02/2019 [facility] CHEM PANEL Alk Phos 59 39 - 136 08/02/2019 [facility] CHEM PANEL Bili Total 0.3 0.2 - 1.3 08/02/2019 [facility] CHEM PANEL eGFR 81 08/02/2019 Result Comment: The eGFR is calculated using the CKD-EPI formula. In most young, healthy individuals the eGFR will be >90 mL/min/1.73m2. The eGFR declines with age. An eGFR of 60-89 may be normal in some populations, particularly the elderly, for whom the CKD-EPI formula has not been extensively validated. Use of the eGFR is not recommended in the following populations:

Individuals with unstable creatinine concentrations, including patients and those with serious co-morbid conditions.

Patients with extremes in muscle mass or diet.

The data above are obtained from the National Kidney Disease Education Program (NKDEP) which additionally recommends that when the eGFR is used in patients with extremes of body mass index for purposes of drug dosing, the eGFR should be multiplied by the estimated BMI. [facility] CHEM PANEL Phosphorus 2.4 2.5 - 4.5 08/02/2019 [facility] CHEM PANEL Magnesium Lvl 2.3 1.8 - 2.4 08/02/2019 [facility] HEMATOLOGY Hgb 8.8 12.0 - 16.0 08/02/2019 [facility] HEMATOLOGY WBC 11.0 3.7 - 10.4 08/02/2019 [facility] RBC 2.95 4.20 - 5.40 08/02/2019 [facility] Hgb 8.3 12.0 - 16.0 08/02/2019 [facility] Hct 25.6 36.0 - 48.0 08/02/2019 [facility] MCV 86.6 80.0 - 98.0 08/02/2019 [facility] MCH 28.1 27.0 - 31.0 08/02/2019 [facility] MCHC 32.5 32.0 - 36.0 08/02/2019 [facility] RDW 16.0 11.5 - 14.5 08/02/2019 [facility] Platelet 272 133 - 450 08/02/2019 [facility] MPV 8.1 7.4 - 10.4 08/02/2019 [facility] Segs 77.0 45.0 - 75.0 08/02/2019 [facility] Lymphocytes 14.8 20.0 - 40.0 08/02/2019 [facility] Monocytes 6.3 2.0 - 12.0 08/02/2019 [facility] HEMATOLOGY Eosinophils 1.7 0.0 - 4.0 08/02/2019 [facility] HEMATOLOGY Basophils 0.2 0.0 - 1.0 08/02/2019 [facility] Neutrophils # 8.5 1.5 - 8.1 08/02/2019 [facility] Lymphocytes # 1.6 1.0 - 5.5 08/02/2019 [facility] Monocytes # 0.7 0.0 - 0.8 08/02/2019 [facility] HEMATOLOGY Eosinophils # 0.2 0.0 - 0.5 08/02/2019 [facility] BLOOD BANK RESULTS RBC product Product available 8 (08/01/19 12:54 PM) 08/01/2019 Result Comment: 08/01/2019 14:48 [id number]
KLS notified Milli 08/01/2019 14:15 [facility] CHEM PANEL Glucose Lvl 136 70 - 99 08/01/2019 [facility] CHEM PANEL BUN 18 7 - 22 08/01/2019 [facility] CHEM PANEL Creatinine Lvl 1.04 0.50 - 1.40 08/01/2019 [facility] CHEM PANEL Sodium Lvl 143 135 - 145 08/01/2019 [facility] CHEM PANEL Potassium Lvl 3.5 3.5 - 5.1 08/01/2019 [facility] CHEM PANEL Chloride Lvl 111 95 - 109 08/01/2019 [facility] CHEM PANEL CO2 25 24 - 32 08/01/2019 [facility] CHEM PANEL AGAP 10.5 10.0 - 20.0 08/01/2019 [facility] CHEM PANEL Calcium Lvl 8.3 8.5 - 10.5 08/01/2019 [facility] CHEM PANEL eGFR 56 08/01/2019 Result Comment: The eGFR is calculated using the CKD-EPI formula. In most young, healthy individuals the eGFR will be >90 mL/min/1.73m2. The eGFR declines with age. An eGFR of 60-89 may be normal in some populations, particularly the elderly, for whom the CKD-EPI formula has not been extensively validated. Use of the eGFR is not recommended in the following populations:

Individuals with unstable creatinine concentrations, including patients and those with serious co-morbid conditions.

Patients with extremes in muscle mass or diet.

The data above are obtained from the National Kidney Disease Education Program (NKDEP) which additionally recommends that when the eGFR is used in patients with extremes of body mass index for purposes of drug dosing, the eGFR should be multiplied by the estimated BMI. [facility] HEMATOLOGY WBC 12.9 3.7 - 10.4 08/01/2019 [facility] HEMATOLOGY RBC 2.72 4.20 - 5.40 08/01/2019 [facility] HEMATOLOGY Hgb 7.5 12.0 - 16.0 08/01/2019 [facility] HEMATOLOGY Hct 23.6 36.0 - 48.0 08/01/2019 [facility] HEMATOLOGY MCV 86.7 80.0 - 98.0 08/01/2019 [facility] HEMATOLOGY MCH 27.6 27.0 - 31.0 08/01/2019 [facility] HEMATOLOGY MCHC 31.8 32.0 - 36.0 08/01/2019 [facility] HEMATOLOGY RDW 16.5 11.5 - 14.5 08/01/2019 [facility] HEMATOLOGY Platelet 267 133 - 450 08/01/2019 [facility] HEMATOLOGY MPV 8.6 7.4 - 10.4 08/01/2019 [facility] HEMATOLOGY Segs 81.2 45.0 - 75.0 08/01/2019 [facility] HEMATOLOGY Lymphocytes 12.7 20.0 - 40.0 08/01/2019 [facility] HEMATOLOGY Monocytes 5.1 2.0 - 12.0 08/01/2019 [facility] HEMATOLOGY Eosinophils 0.6 0.0 - 4.0 08/01/2019 [facility] HEMATOLOGY Basophils 0.4 0.0 - 1.0 08/01/2019 [facility] HEMATOLOGY Neutrophils # 10.5 1.5 - 8.1 08/01/2019 [facility] HEMATOLOGY Lymphocytes # 1.6 1.0 - 5.5 08/01/2019 [facility] HEMATOLOGY Monocytes # 0.7 0.0 - 0.8 08/01/2019 [facility] HEMATOLOGY Eosinophils # 0.1 0.0 - 0.5 08/01/2019 [facility] CHEM PANEL Glucose Lvl 99 70 - 99 08/01/2019 [facility] CHEM PANEL BUN 18 7 - 22 08/01/2019 [facility] CHEM PANEL Creatinine Lvl 1.02 0.50 - 1.40 08/01/2019 [facility] CHEM PANEL Sodium Lvl 145 135 - 145 08/01/2019 [facility] CHEM PANEL Potassium Lvl 3.9 3.5 - 5.1 08/01/2019 [facility] CHEM PANEL Chloride Lvl 112 95 - 109 08/01/2019 [facility] CHEM PANEL CO2 27 24 - 32 08/01/2019 [facility] CHEM PANEL AGAP 9.9 10.0 - 20.0 08/01/2019 [facility] CHEM PANEL Calcium Lvl 8.4 8.5 - 10.5 08/01/2019 [facility] CHEM PANEL B/C Ratio 18 6 - 25 08/01/2019 [facility] CHEM PANEL Total Protein 4.8 6.4 - 8.4 08/01/2019 [facility] CHEM PANEL Albumin Lvl 1.8 3.5 - 5.0 08/01/2019 [facility] CHEM PANEL Globulin 3.0 2.7 - 4.2 08/01/2019 [facility] CHEM PANEL A/G Ratio 0.6 0.7 - 1.6 08/01/2019 [facility] CHEM PANEL ALT <6 0 - 65 08/01/2019 [facility] CHEM PANEL AST 4 0 - 37 08/01/2019 [facility] CHEM PANEL Alk Phos 47 39 - 136 08/01/2019 [facility] CHEM PANEL Bili Total 0.3 0.2 - 1.3 08/01/2019 [facility] CHEM PANEL eGFR 57 08/01/2019 Result Comment: The eGFR is calculated using the CKD-EPI formula. In most young, healthy individuals the eGFR will be >90 mL/min/1.73m2. The eGFR declines with age. An eGFR of 60-89 may be normal in some populations, particularly the elderly, for whom the CKD-EPI formula has not been extensively validated. Use of the eGFR is not recommended in the following populations:

Individuals with unstable creatinine concentrations, including patients and those with serious co-morbid conditions.

Patients with extremes in muscle mass or diet.

The data above are obtained from the National Kidney Disease Education Program (NKDEP) which additionally recommends that when the eGFR is used in patients with extremes of body mass index for purposes of drug dosing, the eGFR should be multiplied by the estimated BMI. [facility] CHEM PANEL Magnesium Lvl 2.0 1.8 - 2.4 08/01/2019 [facility] CHEM PANEL Phosphorus 2.3 2.5 - 4.5 08/01/2019 [facility] CHEM PANEL Total Protein 4.9 6.4 - 8.4 07/31/2019 [facility] CHEM PANEL Albumin Lvl 1.9 3.5 - 5.0 07/31/2019 [facility] CHEM PANEL ALT 8 0 - 65 07/31/2019 [facility] CHEM PANEL AST 8 0 - 37 07/31/2019 [facility] CHEM PANEL Alk Phos 40 39 - 136 07/31/2019 [facility] CHEM PANEL Bili Total 0.4 0.2 - 1.3 07/31/2019 [facility] CHEM PANEL B/C Ratio 12 6 - 25 07/31/2019 [facility] CHEM PANEL Globulin 3.0 2.7 - 4.2 07/31/2019 [facility] CHEM PANEL A/G Ratio 0.6 0.7 - 1.6 07/31/2019 [facility] CHEM PANEL Magnesium Lvl 2.1 1.8 - 2.4 07/31/2019 [facility] CHEM PANEL Phosphorus 3.4 2.5 - 4.5 07/31/2019 [facility] HEMATOLOGY RBC Morph Sanam l (07/31/19 5:22 AM) Normal 07/31/2019 [facility] Plt Morph Sanam l (07/31/19 5:22 AM) Normal 07/31/2019 [facility] HEMATOLOGY Segs 89.3 45.0 - 75.0 07/31/2019 [facility] Lymphocytes 6.0 20.0 - 40.0 07/31/2019 [facility] Monocytes 4.7 2.0 - 12.0 07/31/2019 [facility] Neutrophils # 18.5 1.5 - 8.1 07/31/2019 [facility] Lymphocytes # 1.2 1.0 - 5.5 07/31/2019 [facility] Monocytes # 1.0 0.0 - 0.8 07/31/2019 [facility] WBC 20.7 3.7 - 10.4 07/31/2019 [facility] RBC 3.24 4.20 - 5.40 07/31/2019 [facility] Hct 27.6 36.0 - 48.0 07/31/2019 [facility] MCV 85.4 80.0 - 98.0 07/31/2019 [facility] MCH 28.2 27.0 - 31.0 07/31/2019 [facility] MCHC 33.0 32.0 - 36.0 07/31/2019 [facility] RDW 15.5 11.5 - 14.5 07/31/2019 [facility] Platelet 336 133 - 450 07/31/2019 [facility] MPV 8.1 7.4 - 10.4 07/31/2019 [facility] BLOOD BANK RESULTS RBC product Product available 9 (07/30/19 8:59 AM) 07/30/2019 Result Comment: 07/30/2019 0 9:50 [id number]
ERIN Torsten notified 07/30/2019 09:50 AU [facility] BLOOD BANK RESULTS ABO/Rh O POS 07/30/2019 [facility] BLOOD BANK RESULTS Antibody Scrn Negative (07/30/19 8:44 AM) 07/30/2019 [facility] HEMATOLOGY Eosinophils 1.3 0.0 - 4.0 07/30/2019 [facility] HEMATOLOGY Basophils 0.6 0.0 - 1.0 07/30/2019 [facility] HEMATOLOGY Eosinophils # 0.1 0.0 - 0.5 07/30/2019 [facility] Inhibin B 14.1 0.0 - 16.9 07/30/2019 Result Comment: Results for this test ar e for research purposes only by the
assay's proposal lead writer. The performance characteristics of
this product have not been established. Results should not
be used as a diagnostic procedure without confirmation of
the diagnosis by another medically established diagnostic
product or procedure.
Performed At: [facility]
[address] [place] [address] [id number]
Flavio Major MD Ph:[phone] [facility] Inhibin B 17.0 0.0 - 16.9 07/29/2019 Result Comment: Results for this test ar e for research purposes only by the
assay's proposal lead writer. The performance characteristics of
this product have not been established. Results should not
be used as a diagnostic procedure without confirmation of
the diagnosis by another medically established diagnostic
product or procedure.
Performed At: [facility]
[address] [place] [address] [id number]
Flavio Major MD Ph:[phone] [facility] Inhibin B 12.8 0.0 - 16.9 07/28/2019 Result Comment: Results for this test ar e for research purposes only by the
assay's proposal lead writer. The performance characteristics of
this product have not been established. Results should not
be used as a diagnostic procedure without confirmation of
the diagnosis by another medically established diagnostic
product or procedure.
Performed At: [facility]
[address] [place] [address] [phone]
Flavio Major MD Ph:[phone] [facility] ENDOCRINOLOGY Estradiol Lvl 37 .7 07/27/2019 [facility] MATERNAL SCREENS Inhibin A 11.2 07/27/2019 Result Comment: M enstrual Phase
Early Follicular <34.0
Late Follicular <99.0
Periovulatory 8.0- 233.0
MidLuteal <145.0
End Luteal <145.0
Postmenopausal <4.0
Performed At: [facility]
[address] [place] [address] [phone]
Flavio Major MD Ph:[phone] [facility] TUMOR MARKERS CA 19-9 53.2 0.0 - 35.0 07/27/2019 [facility] TUMOR MARKERS CA 125 809.1 0.0 - 35.0 07/27/2019 [facility] TUMOR MARKERS CEA 65.3 0.0 - 3.0 07/27/2019 [facility] CHEM PANEL Lactic Acid Lvl 0.7 0.5 - 2.2 07/26/2019 [facility] URINE AND STOOL UA Turbidity Slight *ABN* (07/25/19 5:46 PM) Clear 07/25/2019 [facility] URINE AND STOOL UA Spec Grav 1.028 <=1.030 07/25/2019 [facility] URINE AND STOOL UA pH 6.0 5.0 - 8.0 07/25/2019 [facility] URINE AND STOOL UA Protein 30 mg/dL Negative mg/dL 07/25/2019 [facility] URINE AND STOOL UA Glucose Negative mg/dL Negative mg/dL 07/25/2019 [facility] URINE AND STOOL UA Ketones 20 mg/dL Negative mg/dL 07/25/2019 [facility] URINE AND STOOL UA Bili Negative *NA* (07/25/19 5:46 PM) Negative 07/25/2019 [facility] URINE AND STOOL UA Blood Negative (07/25/19 5:46 PM) Negative 07/25/2019 [facility] URINE AND STOOL UA Urobilinogen 2.0 0.1 - 1.0 07/25/2019 [facility] URINE AND STOOL UA Nitrite Negative (07/25/19 5:46 PM) Negative 07/25/2019 [facility] URINE AND STOOL UA Leuk Est Large *ABN* (07/25/19 5:46 PM) Negative 07/25/2019 [facility] URINE AND STOOL UA Sq Epi Many /LPF Few /LPF 07/25/2019 [facility] URINE AND STOOL UA WBC 27 0 - 5 07/25/2019 [facility] URINE AND STOOL UA RBC 5 0 - 2 07/25/2019 [facility] URINE AND STOOL UA Bacteria Occasional /HPF None Seen /HPF 07/25/[address] [facility] [address] URINE AND STOOL UA Mucus Moderate /LPF None Seen /LPF 07/25/[address] [facility] [address] URINE AND STOOL UA Color Kaity 07/25/2019 [facility] Culture: Urine 10,000 - 50,00 0 CFU/mL Skin Lala 07/25/2019 [facility] CHEM PANEL Lipase Lvl 80 73 - 393 07/25/2019 [facility] CHEM PANEL Bili Direct 0.1 0.0 - 0.3 07/25/2019 [facility] HEMATOLOGY Basophils # 0.1 0.0 - 0.2 07/25/2019 [facility] Pathology Reports No Data Provided for This Section Diagnostic Reports Report Value Date Source Chest 1 v for Placement DX PRO CEDURE INFORMATION: Exam: XR Chest, 1 View Exam date and time: 09/18/2019 2:31 PM Age: 69 years old Clinical indication: Line placement/chest 1 view for line placement TECHNIQUE: Imaging protocol: XR of the chest Views: 1 view. COMPARISON: CHEST 1V FOR PLACEMENT DX 08/20/2019 3:22 PM FINDINGS: Tubes, catheters and devices: The tip of the right sided Port-A-Cath is in the SVC. Lungs: Diffuse opacity is seen in both lungs, likely secondary to pulmonary edema. Mild pulmonary vascular congestion is present. Pleural space: Unremarkable. No pleural effusion. No pneumothorax. Heart/Mediastinum: The heart is enlarged. Bones/joints: Unremarkable. IMPRESSION: Cardiomegaly with mild pulmonary vascular congestion and mild bilateral pulmonary edema. Stef Mcknight MD On 09/18/2019 14:58:44; [id number] 09/18/2019 [facility] PET CT Colorectal CA initial staging PROCEDURE INFORMATION: Exam: PET/CT Skull Base to Mid-thigh Exam date and time: 09/07/2019 5:04 PM Age: 69 years old Clinical indication: Malignant neoplasm of colon, unspecified; Additional info: C18.9-cancer of the colon, initial staging/ctdivol - mgy; Dlp - mgy*cm LABS AND CLINICAL REPORTS: Glucose: 77 mg/dl TECHNIQUE: Imaging protocol: Following at least four-hour fasting and following the injection of F-18-FDG, low dose CT images were obtained from the orbital meatal line through the pelvis. Then, PET images were obtained through the same region. Attenuation corrected images were constructed using the CT scan. Fused images of PET and CT were reviewed. The standardized uptake values (SUV) reported below are maximum values within a region of interest, expressed in gm/ml. Radiopharmaceutical: 16 mCi F18-FDG, IV Time of imaging post radiopharmaceutical administration: 1 hour Injection site: Right antecubital region COMPARISON: CT chest 07/27/2019, CT abdomen and pelvis 07/25/2019 FINDINGS: Head: No suspicious activity. Neck: No suspicious activity. Stable enlargement of the left thyroid lobe. Chest: Slightly increased size of small left pleural effusion with SUV of 3.1. New opacity left lung base with SUV of 2.3, image 129. 6 mm nodule right middle lobe, image 116 is stable with SUV of 1.4. Stable mild cardiomegaly, small pericardial effusion. Coronary artery calcifications. Abdomen and Pelvis: Previous large mass in the region of the cecum is no longer visualized. Interval hysterectomy and left oophorectomy. Small soft tissue nodules and curvilinear infiltration along the anterior and left lateral peritoneal cavity with SUV of 1.3. Multiple small mesenteric lymph nodes and 2.3 cm lymph node right lower quadrant w ith SUV of 2.2, image 188. Small volume ascites again noted. A few mildly distended fluid-filled small bowel loops. Bones/joints: No suspicious activity. Old compression fractures of a few thoracic and lumbar vertebral bodies. Sclerosis of the sacral ala without hypermetabolism may reflect degenerative change. Sclerotic lesion left glenoid is not hypermetabolic and may reflect a bone island. Soft tissues: No suspicious activity. IMPRESSION: 1. Previous large mass in the region of the cecum is no longer visualized. 2. 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 3. Multiple small mesenteric lymph nodes and 2.3 cm mesenteric node right lower quadrant may reflect metastasis. 4. Slightly increased size of small pleu ral effusion on the left with foci of mild hypermetabolism may reflect inflammatory or malignant fluid. 5. Stable small lung nodule right middle lobe is not hypermetabolic. 6. Few mildly distended fluid-filled sma ll bowel loops are nonspecific, an enteritis or developing partial small bowel obstruction is considered. 7. New opacity left lung base is not sig nificantly hypermetabolic and may reflect dependent atelectasis. Follow-up CT chest can be obtained. Roque Mcknight MD On 09/09/2019 17:00:13; [id number] 09/07/2019 [facility] 1 v for Placement DX PRO CEDURE INFORMATION: Exam: XR Chest, 1 View Exam date and time: 08/20/2019 3:22 PM Age: 69 years old Clinical history: Device placement; Other: Port-a-cath; Additional info: Line placement/chest 1 view for line placement. Post-op TECHNIQUE: Imaging protocol: XR of the chest Views: 1 view. Portable AP view COMPARISON: CHEST W CONTRAST CT 07/27/2019 11:35 AM FINDINGS: Lungs: Mild decreased lung volumes. Moderate diffuse prominence of interstitial markings is noted. This could reflect chronic interstitial fibrosis, but superimposed interstitial pneumonitis/pneumonia is not excluded. There are atelectatic changes in the lower lung leonardo bilaterally. A right subclavian venous Port-A-Cath is present with tip overlying the SVC. Pleural space: Unremarkable. No pleural effusion. No pneumothorax. Heart/Mediastinum: The cardiac silhouette appears mildly enlarged. Mediastinal contours are within normal limits. Vasculature is unremarkable. Bones/joints: No acute osseous abnormality is seen. There are moderate degenerative changes of the glenohumeral joints, worse on the right than the left. IMPRESSION: A right subclavian venous Port-A-Cath is present with tip overlying the SVC. No pneumothorax identified. There is atelectasis in the lower lung zones bilaterally. Moderate prominence of interstitial markings is present bilaterally. The appearance could reflect chronic interstitial fibrosis, but acute interstitial pneumonitis/pneumonia is not excluded. Please correlate clinically. Candice Carlson MD On 08/20/2019 16:23:59; [id number] 08/20/2019 [facility] w contrast CT Radiation Dose CTDIVOL = 0 (mGy): DLP = 500 (mGy-cm) PROCEDURE INFORMATION: Exam: CT Chest With Contrast Exam date and time: 07/27/2019 11:35 AM Clinical history: 68 years old, female; Other noninflammatory disorders of ovary, fallopian tube and broad ligament; Additional info: /concern of ovarian malignancy TECHNIQUE: Imaging protocol: Computed tomography of the chest with intravenous contrast. Total DLP: 500 mGy-cm Radiation optimization: All CT scans at this facility use at least one of these dose optimization techniques: automated exposure control; mA and/or kV adjustment per patient size (includes targeted exams where dose is matched to clinical indication); or iterative reconstruction. Contrast material: OMNI; Contrast volume: 100 ml; Contrast route: IV; COMPARISON: 07/25/2019 CT SCAN OF THE ABDOMEN AND PE LVIS WITH CONTRAST FINDINGS: Limitations: None. Tubes, catheters and devices: None. Thyroid: The left lobe of the thyroid gland is enlarged measuring 3.6 cm in diameter and has some internal areas of diminished heterogeneity. This enlarged lobe is displacing the trachea to the right. Tracheobronchial tree: Patent airways. Lungs: 6 mm mean diameter subpleural right middle lobe pulmonary nodule (series 4, image 93). Subsegmental atelectasis s cattered in the lung bases.Areas of mosaic attenuation in the visualized lung parenchyma suggest underlying small airways disease. Pleural space: Small left pleural effusion. Trace right pleural effusion. Heart: Small pericardial effusion. The heart is mildly enlarged. Coronary arteries: No coronary artery calcifications. Aorta: Normal configuration and caliber of the aorta. Great vessels off aortic arch: Normal configuration and caliber of the visualized great vessels. Lymph nodes: No hilar or mediastinal adenopathy. Liver: Again seen are the changes of previous cholecystectomy, small amount of peritoneal fluid in the visualized upper abdomen, dilatation of the visualized extrahepatic biliary system, and stranding infiltration of the visualized omental fat. Bones/joints: Degenerative changes in the spine and shoulders. 9 mm sclerotic lesion in the left bony glenoid. Soft tissues: No other abnormalities identified. IMPRESSION: 1. 6 mm indeterminate right middle lobe pulmonary nodule. 2. Small left pleural effusion. 3. Mild cardiomegaly. 4. Small pericardial effusion. 5. Left lobe thyroid enlargement. Follow -up thyroid ultrasound is recommended for further evaluation. 6. 9 mm indeterminate sclerotic lesion i n the left bony glenoid. 7. No change in the upper abdominal abno rmalities as compared with recent CT scan of the abdomen and pelvis. Placido Bruner MD On 07/28/2019 10:59:05; [id number] 07/27/2019 [facility] Complete US PROCEDURE I NFORMATION: Exam: US Pelvis Complete, Transabdominal Exam date and time: 07/26/2019 5:04 PM Clinical history: 68 years old, female; Pain; Additional info: /r/o ovarian torsion. TECHNIQUE: Imaging protocol: Real-time transabdominal pelvic ultrasound with image documentation. Complete exam. COMPARISON: CT ED Abdomen/Pelvis IV contrast only 07/25/2019 7:47 PM FINDINGS: The uterus measures 8.9 x 5.3 x 4.8 cm in size. The endometrium is not clearly visualized. Large heterogeneous, solid mass with internal vascularity centered in the right adnexa measures 11.9 x 11.6 x 20.0 cm sonographically. The ovaries are not seen. No significant free pelvic fluid appreciated sonographically. IMPRESSION: Nonvisualization of the ovaries. Large, heterogeneous mass again seen centered in the right adnexa, worrisome for malignancy. Felice Dave MD On 07/26/2019 18:52:02; [id number] 07/26/2019 [facility] Abdomen/Pelvis IV contrast only CT Radiation Dose CTDIVOL = 0 (mGy): DLP = 1245.44 (mGy-cm) PROCEDURE INFORMATION: Exam: CT Abdomen And Pelvis With Contrast Exam date and time: 07/25/2019 7:47 PM Clinical history: 68 years old, female; Pain; Patient HX: Reports n/v and decreased appettite x2w. States i've lost 80lbs in the past 5mo. Patient states she a pelvic mass concerning for CA; Additional info: /n/v TECHNIQUE: Imaging protocol: Computed tomography of the abdomen and pelvis with intravenous contrast. Total DLP: 1245.44 mGy-cm Radiation optimization: All CT scans at this facility use at least one of these dose optimization techniques: automated exposure control; mA and/or kV adjustment per patient size (includes targeted exams where dose is matched to clinical indication); or iterative reconstruction. Contrast material: OMNIPAQUE; Contrast volume: 100 ml; Contrast route: IV; COMPARISON: No relevant prior studies available. FINDINGS: Lungs: Minor left lung base atelectasis. 4 mm nodule medial right middle lobe Liver: Normal. No mass. Gallbladder and bile ducts: Cholecystectomy. Pancreas: Normal. No ductal dilation. Spleen: Normal. No splenomegaly. Adrenals: Normal. No mass. Kidneys and ureters: Normal. No hydronephrosis. Stomach and bowel: Large and small bowel loops are normal caliber without obstruction Appendix: No evidence of appendicitis. Intraperitoneal space: Ascites in the upper abdomen around the liver and spleen extending into the pericolic gutters and pelvic cul-de-sac. Nodularity along the ventral peritoneal surface worrisome for potential peritoneal carcinomatosis. Vasculature: Enlarged right gonadal vein leading from the right pelvic mass back to the IVC. Lymph nodes: Nonspecific inguinal lymph nodes. Bladder: Unremarkable as visualized. Reproductive: Large heterogeneously enhancing pelvic mass measuring 17 x 13 x 12 cm (w x ap x cc). This likely represe nts adnexal mass rising out of the right side of the pelvis displacing the uterus towards the left. Bones/joints: Multilevel degenerative disc disease and scoliosis in the lumbar spine. No lytic bony changes to suggest metastatic disease. Soft tissues: Unremarkable. IMPRESSION: 1. 17 cm heterogeneously enhancing right pelvic mass likely ovarian in origin. 2. Enlarged right gonadal vein draining the mass back to the IVC. 3. Ascites with peritoneal nodularity wo rrisome for carcinomatosis. 4. Right lung base nodule could be metas tatic in nature. Kwaku Hawkins MD On 07/25/2019 20:34:34; [id number] 07/25/2019 [facility] Consultation Notes No Data Provided for This Section Discharge Summaries No Data Provided for This Section History and Physicals No Data Provided for This Section Vital Signs Vital Sign Value Date Comments Source Systolic (mm Hg) 128 09/18/2019 [facility] Diastolic (mm Hg) 54 09/18/2019 [facility] Respitory Rate 18 09/18/2019 [facility] Respitory Rate 21 09/18/2019 [facility] Systolic (mm Hg) 115 09/18/2019 [facility] Diastolic (mm Hg) 56 09/18/2019 [facility] Respitory Rate 20 09/18/2019 [facility] Systolic (mm Hg) 115 09/18/2019 [facility] Diastolic (mm Hg) 56 09/18/2019 [facility] Height 162.56 cm 09/17/2019 [facility] Weight 86.364 09/17/2019 [facility] BMI Calculated 32.68 09/17/2019 [facility] Systolic (mm Hg) 121 08/20/2019 [facility] Diastolic (mm Hg) 68 08/20/2019 [facility] Respitory Rate 16 08/20/2019 [facility] Systolic (mm Hg) 102 08/20/2019 [facility] Diastolic (mm Hg) 43 08/20/2019 [facility] Respitory Rate 15 08/20/2019 [facility] Respitory Rate 13 08/20/2019 [facility] Systolic (mm Hg) 122 08/20/2019 [facility] Diastolic (mm Hg) 56 08/20/2019 [facility] Height 162.56 cm 08/19/2019 [facility] Weight 83.864 08/19/2019 [facility] BMI Calculated 31.74 08/19/2019 [facility] Temperature Oral (F) 97.8 F 08/19/2019 [facility] Heart Rate 70 08/19/2019 [facility] Temperature Oral (F) 98.0 F 08/02/2019 [facility] Heart Rate 79 08/02/2019 [facility] Respitory Rate 14 08/02/2019 [facility] Systolic (mm Hg) 114 08/02/2019 [facility] Diastolic (mm Hg) 67 08/02/2019 [facility] Temperature Oral (F) 98.3 F 08/02/2019 [facility] Heart Rate 83 08/02/2019 [facility] Respitory Rate 16 08/02/2019 [facility] Systolic (mm Hg) 110 08/02/2019 [facility] Diastolic (mm Hg) 81 08/02/2019 [facility] Temperature Oral (F) 98.1 F 08/01/2019 [facility] Heart Rate 83 08/01/2019 [facility] Respitory Rate 16 08/01/2019 [facility] Systolic (mm Hg) 102 08/01/2019 [facility] Diastolic (mm Hg) 62 08/01/2019 [facility] Height 160.02 cm 07/26/2019 [facility] Weight 80.909 07/26/2019 [facility] BMI Calculated 31.6 07/26/2019 [facility] Height 160.02 cm 07/26/2019 [facility] Weight 80.909 07/26/2019 [facility] BMI Calculated 31.6 07/26/2019 [facility] Height 160.02 cm 07/25/2019 [facility] BMI Calculated 31.6 07/25/2019 [facility] Weight 80.909 07/25/2019 [facility] Encounters Location Location Details Encounter Type Encounter Number Reason For Visit Attending Provider ADM Date DC Date Status Source [facility] Inpatient [id number] Irfan Jawed 07/25/2019 08/02/2019 [facility] NURSE NAVIGATOR [id number] 08/01/2001/01/2020 [facility] Day Surgery [id number] Adonay Askenasy 08/20/2019 08/20/2019 [facility] Outpatient [id number] Omari Gallego 09/07/2019 09/08/2019 [facility] Day Surgery [id number] Adonay Askenasy 09/18/2019 09/18/2019 [facility] Procedures Procedure Code Date Perfomer Comments Source Cataract surgery<sup>1</sup> 1 [id number] Bilateral [facility] Colonoscopy [id number] [facility] st Procedure<sup>2</sup> [id number] Portacath insertion [facility] Assessment and Plan Assessment and Plan Date Source Extracted from:Title: Clinical Document Author: Deidra Oliveros MD Date: 08/02/19 Progress Note - Daily [facility] Completed: Jul, 16:41 by Deidra Oliveros MD RM: [id number] - 2W, SE C4B CARLA DEJESUS 68y (: 1950) F Attending: Omari Gallego MD Service: Oncology Reason for Admission: OTHER NONINFLAMMATORY DISORDERS OF OVARY,FALLOPIAN TUBE Working DRG: Code status: Full Resuscitation Current diet: Isolation: No Isolation/Standard Precautions Allergies: No Known Allergies SUBJECTIVE PT. eating no complains OBJECTIVE abd; s/d b/m present 24hr Labs 08/02 0514 Sodium Lvl 144 Potassium Lvl 3.6 Chloride Lvl 110 H CO2 30 AGAP 7.6 L Glucose Lvl 96 Creatinine Lvl 0.76 BUN 16 B/C Ratio 21 Total Protein 5.3 L Albumin Lvl 1.9 L Globulin 3.4 A/G Ratio 0.6 L Calcium Lvl 8.4 L ALT 8 AST 5 Bili Total 0.3 Alk Phos 59 eGFR 81 Magnesium Lvl 2.3 Phosphorus 2.4 L Hgb 8.8 L 08/01 1949 WBC 11.0 H RBC 2.95 L Hgb 8.3 L Hct 25.6 L MCV 86.6 MCH 28.1 MCHC 32.5 RDW 16.0 H Platelet 272 MPV 8.1 Segs 77.0 H Monocytes 6.3 Lymphocytes 14.8 L Eosinophils 1.7 Basophils 0.2 Neutrophils # 8.5 H Lymphocytes # 1.6 Monocytes # 0.7 Eosinophils # 0.2 Melara still necessary (Yes/No): Line still necessary (Yes/No): Vitals Tmp(F) Pulse BP RR SpO2 FIO2 08/02 07:37 98.0 79 114/67 1 4 --- --- 08/01 23:20 98.3 83 110/81 1 6 98 --- 08/01 15:54 98.1 83 102/62 1 6 --- --- 08/01 08:10 97.9 80 95/59 18 --- --- 08/01 00:23 98.0 78 100/62 1 6 96 --- 24 Hr Tmax: 98.3F (36.83c) at 08/01 23:2 0 Vital Signs are the last 5 in the past 48 hours. Date Wt(kg) Wt(lb) Ht(cm) Ht(in) Method 07/26 80.91 178.00 160.02 63.00 Carlee/Sta 07/25 (initial) 80.91 178.00 160.02 63.00 Estimated I&O Record In Out Bal 08/02 24hr Tot 0 0 0 08/01 24hr Tot 402 700 -298 Medications (0) Active Scheduled Meds: None Unscheduled Meds: None PRN Meds: None One Time Meds: None Continuous Infusions: None ASSESSMENT and EXAM sp surgery normal post surgical progression ca metastatic from GI PLAN and TREATMENT d/c today follow up in 2 weeks DIAGNOSES and PROBLEMS Ready for Discharge (Yes/No)? TEACHING ATTESTATION Extracted from:Title: Clinical Document Author: Jason Gustafson MD Date: 07/28/19 Consult Note Gastroenterology and Hepatology Reason for Consult: Elevated CEA with pelvic mass and altered bowel habit Referring MD: Amaury Jalloh MD IMPRESSION: 1 Pelvic massmost likely ovarian angel gin, colonic origin to be ruled out given elevated CEA. 2. Altered bowel habit 3. Early satiety/weight loss. RECOMMENDATIONS AND PLAN: EGD /colonoscopy tomorrow, of the procedure, risks, benefits, potential complications and alternatives were discussed with patient and family at bedside. Further recommendation to follow. HPI: 68-year-old lady, presented to ER on with some choking when eating, some nausea, vomiting, with reduced oral intake subsequently, generalized malaise fatigue weakness, distention related pain, mild, and early satiety and 80 pound weight loss over 5 months, associated with altered bowel habit, loose stools with occasional constipation but no blood for past 2 weeks, after she underwent assessment for these symptoms at another facility, found to have a pelvic mass, underwent a D and C by cheese cook, and then was referred to [facility] -oncology as an outpatient. Condition worsened prompting this presentation. Admission CT scan showed a 17 cm heterogeneously enhancing right pelvic mass likely ovarian in origin, enlarged right gonadal vein draining the mass back to the IVC, ascites with peritoneal nodularity worrisome for carcinomatosis. Right lung base nodule, possibly metastatic also seen. Pelvic ultrasound did not visualize ovaries but large heterogenous mass seen again. Lab work showed borderline anemia hemoglobin 12.1 initially down to 10.9 after hydration, WBC 11.2, platelets 409. MCV 84. UA showed WBC and 5 RBC per high- power field with large leukocyte Estrace. CEA 65.3. Ca 125 809.1, CA-19-9 53.2. GI consultation requested to rule out colonic malignancy before patient undergoes laparotomy for debulking; by [facility] oncology service. Patient has not had a colonoscopy in the past. PMH: Obesity otherwise negative PSH: Cholecystectomyhas a large laparotomy scar Cataract surgery. Left leg orthopedic surgery. 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 FAMILY HISTORY: Negative for colorectal neoplasia or inflammatory bowel disease. Medication List Active Medications Ordered cefTRIAXone + Sodium Chloride 0.9% IV 100 mL: 1 gm, 200 ml/hr, IVPB, [id number]. enoxaparin: 40 mg, 0.4 mL, SUB-Q, [id number]. influenza virus vaccine, inactivated: 0.5 mL, IM, ONCALL. iohexol: 100 mL, IVP, ONCALL. nystatin topical: 1 appl, TOP, QSHIFT. ondansetron: 4 mg, 2 mL, IVP, Q8H, PRN: Nausea and Vomiting. sodium chloride: 10 mL, IVP, PRN, PRN: Line Flush. Sodium Chloride 0.9% IV 1,000 mL: 100 ml/hr, IV, Stop: 08/24/19 22:37:00 [employer]. Allergies: No Known Allergies Review of Systems: NEGATIVE unless bold General: weight loss, loss of appetite, fever, chills, excessive malaise, fatigue, generalized weakness HEENT : recent change in vision, eye pain, diplopia, epistaxis, sinus pain, sore throat, throat pain, acute hearing loss, ear pain or discharge RESPIRATORY: shortness of breath, hemoptysis, cough, wheezing, pleuritic pains CVS: chest pain, palpitations, irregular herat beat, low extremity swelling, heart murmurs GI: see HPI : hematuria, dysuria, incontinence, urinary frequency, impaired urine flow. recurrent UTIs, pelvic discharge MS: acute arthritis, back pain, joint swelling, gout Neurological: acute altered mentation, headaches, recent seizures, falls, recent loss of consciousness, gait problems, focal limb weakness, numbness, tingling , paraesthesia Endocrine: polydypsia, polyuria, unusual hair loss Immunological/ Hematological; acute bleeding, easy bleeding or bruising, lymph node swelling, recurrent infections Psychiatric: hallucinations. psychosis, confusion, depression, suicidal ideation Integument: rash, jaundice, generalized Physical Examination: Vital signs as below. NAD HEENT: normal, EOMI, atraumatic, no asymmetry; neck supple, no LN/ thyromegaly/ mass/ bruits, JVD neg Chest: CTA, resonant to percussion, no accessory muscle use Cardiac: regular rhythm, normal S1 and S2; apex not displaced, no edema Abdo: Soft, not distended, non-tender, no mass, no ascites, no hernia, normal BS, no bruits Ext: No cyanosis, clubbing; peripheral pulses palpable Neuro: A and O x3, grossly intact cranial nerves; non-focal exam. MS:normal Recent Labs/Radiology reviewed Vitals Tmp(F) Pulse BP RR SpO2 FIO2 07/28 07:33 98.6 73 104/67 1 6 98 --- 07/28 00:10 98.4 74 123/68 1 7 98 --- 07/27 15:56 98.3 75 105/62 1 6 --- --- 07/27 14:58 ---- --- 120/62 -- --- --- 07/27 07:45 98.3 76 109/63 1 4 98 --- 24 Hr Tmax: 98.6F (37.00c) at 07/28 07:3 3 Vital Signs are the last 5 in the past 48 hours. Date Wt(kg) Wt(lb) Ht(cm) Ht(in) Method 07/26 80.91 178.00 160.02 63.00 Carlee/Sta 07/25 (initial) 80.91 178.00 160.02 63.00 Estimated Labs (Last four charted values) WBC 8.9 (JUL 27) H 11.2 (JUL 25) Hgb L 10.9 (JUL 27) 12.1 (JUL 25) Hct L 33.3 (JUL 27) 38.4 (JUL 25) Plt 348 (JUL 27) 409 (JUL 25) Na 145 (JUL 27) 140 (JUL 25) K 3.7 (JUL 27) 4.2 (JUL 25) CO2 29 (JUL 27) 27 (JUL 25) Cl H 112 (JUL 27) 106 (JUL 25) Cr 0.57 (JUL 27) 0.65 (JUL 25) BUN L 5 (JUL 27) 9 (JUL 25) Glucose Random H 101 (JUL 27) 73 (JUL 25) Mg 2.4 (JUL 25) Phos 3.0 (JUL 25) Ca 8.5 (JUL 27) 8.7 (JUL 25) Extracted from:Title: [facility] Histology Assistant History and Physical Author: Deidra Dumont MD Date: 07/25/19 Acute UTI(N39.0) Ordered: Admit/Condition, 07/25/19 20:59:00 [employer], Status: Inpatient, Telemetry Capable Location, Expected LOS: 2 Midnights, Josias Alcantara MD, Prosper GEIGER Review/Approve Yes, Other noninflammatory disorders of ovary, fallopian tube and broad ligament | Acute UTI | Intractabl... Intractable abdominal pain(R10.9) Ordered: Admit/Condition, 07/25/19 20:59:00 [employer] WORK[employer], Status: Inpatient, Telemetry Capable Location, Expected LOS: 2 Midnights, Josias Alcantara MD, Prosper GEIGER Review/Approve Yes, Other noninflammatory disorders of ovary, fallopian tube and broad ligament | Acute UTI | Intractabl... Other noninflammatory disorders of ovary, fallopian tube and broad ligament(N83.8) Ordered: Admit/Condition, 07/25/19 20:59:00 [employer] WORK[employer], Status: Inpatient, Telemetry Capable Location, Expected LOS: 2 Midnights, Josias Alcantara MD, Admit MD Review/Approve Yes, Other noninflammatory disorders of ovary, fallopian tube and broad ligament | Acute UTI | Intractabl... Patient status post empiric IV antibiotics in ED. Will continue. Consult [facility] oncologyfor pelvic mass. IV fluids. Nutrition consult. Pain meds and antiemetics PRN. Per protocol Patient is stable at this time. Anticipate hospitalization for at least one midnight. Discharge home pending clinical improvement. Time spent on H&P greater than 40 minutes. Deidra Dumont MD Histology Assistant 08/02/2019 [facility] Plan of Care No Data Provided for This Section Social History Social History Date Source Social History TypeResponse Alcohol Past, Type Wine. Last use: 2 years ago. Employment/School Status: Employed. Substance Abuse Use: None. Smoking Status Never smoker; Exposure to Tobacco Smoke None; Cigarette Smoking Last 365 Days No; Reg Smoking Cessation Counseling No entered on: 09/18/19 09/17/2019 [facility] Family History No Data Provided for This Section Advance Directives No Data Provided for This Section Functional Status No Data Provided for This Section
--- OUTSIDE RECORDS SUMMARY | 2020-05-02 12:46 | XMS REPORT | Continuity of Care Document ---
Author Author [facility] t Organization [facility] t Address [facility] Fawad Garcia [address] [place] [address] Phone Unavailable Care Team Providers Care Product Engineering Manager Name Role Phone DO Nishi PADRON PCP WILMAR RICHARD Attphys Unavailable AskenasySalvador Attphys Jawmckay, Omari Attphys Mariaelena PAYNE Attphys Unavailable Jess ORTIZ LAIDANIELLE Attphys Unavailable LYNDSAY T REUBEN Attphys Unavailable WILMAR RICHARD Admphys Unavailable AskenasySalvadorik Admphys Omari Gallego Admphys Payers Payer Name Policy Type Policy Number Effective Date Expiration Date Natasha turk [employer] Medicare Replacement [id number] 2019 00:00:0 0 [facility] Cdc Review [id number] [facility] Problems Condition Name Condition Details Condition Category Status Onset Date Resolution Date Last Treatment Date Treating Clinician Comments Source COLON CA COLO N CA Active 11/29/2019 [facility] Active 2019-11-29 00:00:00 2019-12-04 11:08:00 [facility] ALEXANDRE UNK Active 09/16/2019 [facility] Active 2019-09-16 00:00:00 2019-09-18 11:21:00 [facility] C18.9 MALIGNANT NEOPLASM OF COLON, UNSPE C18.9 MALIGNANT NEOPLASM OF COLON, UNSPE Active 08/19/2019 [facility] Ac tive 2019-08-19 00:00:00 2019-09-07 15:41:00 M lisacarol Fawad OTHER NONINFLAMMATORY DISORDERS OF OVARY OTHER NONINFLAMMATORY DISORDERS OF OVARY Active 07/25/2019 [facility] Active 2019-07-25 00:00:00 2019-08-01 15:42:00 [facility] RICARDO, FERREIRA DUGG AL, FERREIRA Active 07/25/2019 [facility] Active 2019-07-25 00:00:00 2019-07-25 17:11:00 [facility] Osteoarthritis of right shoulder Osteoarthritis of right shoulde r Disease [facility] 2016[facility]10[facility]17 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 01/03/2020 right shoulder [facility] Problem Active 2020-01-03 21:46:08 Nacho Celestin Iron deficiency anemia (disorder) Iron deficiency anemia (disorder) Active Problem 01/03/2020 [facility] Problem Active 2020-01-03 21:46:08 Johann Celestin Malignant tumor of colon (disorder) Malignant tumor of colon (disorder) Active Problem 01/03/2020 [facility] Problem Active 2020-01-03 21:46:08 Johann Celestin OTH NONINFLAMMATORY DISORD OF OVARY, FAL OTH NONINFLAMMATORY DISORD OF OVARY, FAL Active [facility] Diagnosis Active 2019-08-01 15:42:00 [facility] Fawad URINARY TRACT INFECTION, SITE NOT SPECIF URINARY TRACT INFECTION, SITE NOT SPECIF Active [facility] Diagnosis Active 2019-08-01 15:42:00 [facility] Fawad UNSPECIFIED ABDOMINAL PAIN UNS PECIFIED ABDOMINAL PAIN Active [facility] Diagnosis Active 2019-08-01 15:42:00 [facility] Allergies, Adverse Reactions, Alerts Allergy Name Allergy Type Status Severity Reaction(s) Onset Date Inacti ve Date Treating Clinician Comments Source No Known Allergies DA Active U 2011-04-23 00:00:00 [facility] Iron Iron Active Johann rey Family History Family Member Diagnosis Comments Start Date Stop Date Source Natural daughter Asthma Pop Marquis ealt Natural mother Arthritis [facility] Natural sister Seizures Pop [facility] Social History Social Habit Start Date Stop Date Quantity Comments Source Sex Assigned [facility] Social History 2019-09-17 21:56:00 2019-09-17 21:56:00 Johann Celestin Alcohol intake 2019-02-13 00:00:00 2019-02-13 00:00:00 Current non-drinker of alcohol (finding) [facility] History SDOH Food Worry 2017-06-22 00:00:00 2017-06-22 00:00:00 1 [facility] History SDOH Food Scarcity 2017-06-22 00:00:00 2017-06-22 00:00:00 1 [facility] Smoking Status Start Date Stop Date Source Never smoker [facility] Medications Ordered Medication Name Filled Medication Name Start Date Stop Da te Current Medication? Ordering Clinician Indication Dosage Frequency Signature (SIG) Comments Components Source Acetaminophen Acetaminophen 2020-03-19 16:05:00 Yes 650 Every 6 Hours as needed for Mild Pain (1-3) Or Fever>100.8 [facility] Cefepime Hcl (Cefepime 2 Gm Injection) 2 Gm/100 Ml JORDYN N Cefepime Hcl (Cefepime 2 Gm Injection) 2 Gm/100 Ml SOLN 2020-03-19 16:05:00 Yes 2 Every 12 Hours [facility] Docusate Sodium (Colace) 100 Mg CAP Docusate Sodium (Colace) 100 Mg CAP 2020-03-19 16:05:00 Yes 100 Twice A Day [facility] Famotidine (Pepcid) 20 Mg TABLET Famotidine (Pepcid) 20 Mg T ABLET 2020-03-19 16:05:00 Yes 20 Twice A Day [facility] Hydrocodone/Apap 5MG-325MG Hydrocodone/Apap 5MG-325MG 2020-03-19 16:0 5:00 Yes 1 Every 4 Hours as needed for Moderate Robert n (4-6) [facility] Hydrocodone/Apap 7.5MG-325MG Hydrocodone/Apap 7.5MG-325MG 9 16:05:00 Yes 1 Every 4 Hours as needed for Severe Pain (7-10) [facility] Lactulose Lactulose 2020-03-19 16:05:00 Yes 20 Twice A Day as needed for Constipation [facility] Levothyroxine Sodium Levothyroxine Sodium 2020-03-19 16:05:00 Yes 88 Daily@06 [facility] Ondansetron Hcl/Pf (Ondansetron Hcl 4 Mg/2 Ml Vial) 4 Mg/2 Ml VIAL Ondansetron Hcl/Pf (Ondansetron Hcl 4 Mg/2 Ml Vial) 4 Mg/2 Ml VIAL 2020-03-19 16:05:00 Yes 4 Every 4 Hours as needed for Nausea And V omiting [facility] Polyethylene Glycol 3350 (Miralax) 17 Gm POWD.PACK [place] yethylene Glycol 3350 (Miralax) 17 Gm POWD.PACK 2020-03-19 16:05:00 Yes 17 Twice A Day [facility] Pravastatin Sodium Pravastatin Sodium 2020-03-19 16:05:00 Yes 40 Bedtime [facility] Acetaminophen 300 MG / Codeine Phosphate 30 MG Oral Tablet [Tylenol with Codeine #3] 2019-09-18 20:27:00 Yes 1 tab, PO, Q6H, PRN Pain, X 7 day, # 28 tab, 0 Refill(s) Johann Celestin ondansetron (ANES) 2019-09-18 20:17:00 No Route: IV, Drug form: INJ, ONCE, Stop date: 09/18/19 14:17:00 CONDENSER SETTER Don Celestin Calcium Chloride 0.0014 MEQ/ML / Potassi um Chloride 0.004 MEQ/ML / Sodium Chloride 0.103 MEQ/ML / Sodium Lactate 0.028 MEQ/ML Injectable Solution 2019-09-18 20:10:00 No 1,000 mL, Rate: 125 ml/hr, Infuse over: 8 hr, Route: IV, Dosing Weight 86.364 kg, Total Volume: 1,000, Start date: 09/18/19 14:10:00 CONDENSER SETTER, Duration: 30 day, Stop date: 10/18/19 14:09:00 CONDENSER SETTER, 2, m2 [facility] Ketorolac 2019-09-18 20:10:00 Yes 30 mg, Route: IVP, ONCE, Dosing Weight 86.364, kg, Start date: 09/18/19 14:10:00 CONDENSER SETTER, Stop date: 09/18/19 14:10:00 CONDENSER SETTER [facility] Acetaminophen 2019-09-18 20:10:00 No 1,000 mg, Route: IVPB, Drug form: INJ, ONCE, Dosing Weight 86.364, kg, PRN Pain Score 1-3, Start date: 09/18/19 14:10:00 CONDENSER SETTER [facility] Morphine 2019-09-18 20:10:00 No 2 mg, Route: IVP, Q5Min, Dosing Weight 86.364, kg, PRN Pain Score 4-6, Start date: 09/18/19 14:10:00 CONDENSER SETTER, Duration: 5 doses or times, Stop date: Limited # of times [facility] Fentanyl 2019-09-18 20:10:00 No 25 microgram, Route: IVP, Q5Min, Dosing Weight 86.364, kg, PRN Pain Score 4-6, Priority: Routine, Start date: 09/18/19 14:10:00 CONDENSER SETTER, Duration: 4 doses or times, Stop date: Limited # of times [facility] Hydromorphone 2019-09-18 20:10:00 No 0.5 mg, Route: IVP, Q5Min, Dosing Weight 86.364, kg, PRN Pain Score 7-10, Start date: 09/18/19 14:10:00 CONDENSER SETTER, Duration: 4 doses or times, Stop date: Limited # of times [facility] Flumazenil 2019-09-18 20:10:00 No 0.2 mg, Route: IVP, PRN, Dosing Weight 86.364, kg, PRN Benzodiazepine Reversal, Initial dose, Start date: 09/18/19 14:10:00 CONDENSER SETTER, Duration: 30 day, Stop date: 10/18/19 14:09:00 CONDENSER SETTER [facility] Naloxone 2019-09-18 20:10:00 No 0.4 mg, Route: IVP, Q2MIN, Dosing Weight 86.364, kg, PRN Narcotic Reversal, Start date: 09/18/19 14:10:00 CONDENSER SETTER, Duration: 8 doses or times, Stop date: Limited # of times [facility] Diphenhydramine 2019-09-18 20:10:00 No 12.5 mg, Route: IVP, Drug form: INJ, Q6H, Dosing Weight 86.364, kg, PRN Itching, Start date: 09/18/19 14:10:00 CONDENSER SETTER, Duration: 30 day, Stop date: 10/18/19 14:09:00 CONDENSER SETTER [facility] Meperidine 2019-09-18 20:10:00 No 12.5 mg, Route: IVP, Q30Min, Dosing Weight 86.364, kg, PRN Other -See Comment, For shivering, Start date: 09/18/19 14:10:00 CONDENSER SETTER, Duration: 2 doses or times, Stop date: Limited # of times [facility] Ondansetron 2019-09-18 20:10:00 No 4 mg, Route: IVP, ONCE, Dosing Weight 86.364, kg, PRN Nausea & Vomiting, Start date: 09/18/19 14:10:00 [facility] Promethazine 2019-09-18 20:10:00 No 6.25 mg, Route: IVPB, ONCE, Dosing Weight 86.364, kg, PRN Nausea & Vomiting, Start date: 09/18/19 14:10:00 [facility] 72 HR Scopolamine 0.0139 MG/HR Transdermal Patch 2019-09-18 20:10:00 Yes 1 patch, Route: TOP, Drug Form: ERFILM, Dosing Weight 86.364, kg, ONCE, Apply behind ear. Avoid use in elderly., Start date: 09/18/19 14:10:00 CONDENSER SETTER, Stop date: 09/18/19 14:10:00 CONDENSER SETTER Ortiz Celestin propofol (ANES) 2019-09-18 20:07:00 No Route: IV, Drug form: INJ, ONCE, Stop date: 09/18/19 14:07:00 CONDENSER SETTER [facility] lidocaine (ANES) 2019-09-18 20:07:00 No Route: IV, Drug form: INJ, ONCE, Stop date: 09/18/19 14:07:00 CON[facility]ENSER SETTER [facility] [place] fentaNYL (ANES) 2019-09-18 20:07:00 No Route: IV, Drug form: INJ, ONCE, Stop date: 09/18/19 14:07:00 CONDENSER SETTER Don [facility] ceFAZolin (ANES) 2019-09-18 20:07:00 No Route: IV, Drug form: INJ, ONCE, Stop date: 09/18/19 14:07:00 CONDENSER SETTER Don [facility] norepinephrine (ANES) 2019-09-18 20:07:00 No Route: IV, Drug form: INJ, ONCE, Stop date: 09/18/19 14:07:00 CONDENSER SETTER [facility] midazolam (ANES) 2019-09-18 20:07:00 No Route: IV, Drug form: SOLN, ONCE, Stop date: 09/18/19 14:07:00 CON[facility]ENSER SETTER [facility] Calcium Chloride 0.0014 MEQ/ML / Potassi um Chloride 0.004 MEQ/ML / Sodium Chloride 0.103 MEQ/ML / Sodium Lactate 0.028 MEQ/ML Injectable Solution 2019-09-18 19:23:00 No 1,000 mL, Rate: 75 ml/hr, Infuse over: 13.3 hr, Route: IV, Dosing Weight 86.364 kg, Total Volume: 1,000, Start date: 09/18/19 13:23:00 CONDENSER SETTER, Duration: 30 day, Stop date: 10/18/19 13:22:00 CONDENSER SETTER, 2, m2 [facility] Lactated Ringers Injection IV ([facility]) 1000 mL 2019-09-18 19:12:00 No Route: IV, Total Volume: 1,000, Start date: 09/18/19 13:12:00 CONDENSER SETTER, Stop date: 09/18/19 14:12:00 CONDENSER SETTER [facility] cephalexin 500 mg oral capsule 2019-09-17 22:05:00 Yes 500 mg = 1 cap, PO, Q12H, 0 Refill(s) [facility] Acetaminophen 325 MG / Hydrocodone Bitartrate 5 MG Oral Tabl et 2019-09-17 22:04:00 Yes 1 tab, PO, Q6H, 0 Refill(s) [facility] Acetaminophen 2019-08-20 21:10:00 No 1,000 mg, Route: PO, Drug form: TAB, ONCE, Dosing Weight 83.864, kg, PRN Pain Score 1-3, Start date: 08/20/19 15:10:00 CONDENSER SETTER [facility] Fawad Fentanyl 2019-08-20 21:10:00 No 25 microgram, Route: IVP, Q5Min, Dosing Weight 83.864, kg, PRN Pain Score 4-6, Priority: Routine, Start date: 08/20/19 15:10:00 CONDENSER SETTER, Duration: 4 doses or times, Stop date: Limited # of times [facility] Hydromorphone 2019-08-20 21:10:00 No 0.5 mg, Route: IVP, Q5Min, Dosing Weight 83.864, kg, PRN Pain Score 7-10, Start date: 08/20/19 15:10:00 CONDENSER SETTER, Duration: 4 doses or times, Stop date: Limited # of times [facility] Fawad Flumazenil 2019-08-20 21:10:00 No 0.2 mg, Route: IVP, PRN, Dosing Weight 83.864, kg, PRN Benzodiazepine Reversal, Initial dose, Start date: 08/20/19 15:10:00 CONDENSER SETTER, Duration: 30 day, Stop date: 09/19/19 15:09:00 CONDENSER SETTER [facility] Naloxone 2019-08-20 21:10:00 No 0.4 mg, Route: IVP, Q2MIN, Dosing Weight 83.864, kg, PRN Narcotic Reversal, Start date: 08/20/19 15:10:00 CONDENSER SETTER, Duration: 8 doses or times, Stop date: Limited # of times [facility] Ondansetron 2019-08-20 21:10:00 No 4 mg, Route: IVP, ONCE, Dosing Weight 83.864, kg, PRN Nausea & Vomiting, Start date: 08/20/19 15:10:00 CONDENSER SETTER [facility] acetaminophen (ANES) 2019-08-20 21:04:00 No Route: IV, Drug form: INJ, ONCE, Stop date: 08/20/19 15:04:00 CONDENSER SETTER [facility] ondansetron (ANES) 2019-08-20 21:03:00 No Route: IV, Drug form: INJ, ONCE, Stop date: 08/20/19 15:03:00 CONDENSER SETTER [place] dexamethasone (ANES) 2019-08-20 21:03:00 No Route: IV, Drug form: INJ, ONCE, Stop date: 08/20/19 15:03:00 CONDENSER SETTER [facility] midazolam ([facility]) 2019-08-20 20:58:00 No Route: IV, Drug form: SOLN, ONCE, Stop date: 08/20/19 14:58:00 CONDENSER SETTER [facility] [place] fentaNYL (ANES) 2019-08-20 20:58:00 No Route: IV, Drug form: INJ, ONCE, Stop date: 08/20/19 14:58:00 CONDENSER SETTER [facility] propofol ([facility]) 2019-08-20 20:58:00 No Route: IV, Drug form: INJ, ONCE, Stop date: 08/20/19 14:58:00 CONDENSER SETTER [facility] lidocaine (ANES) 2019-08-20 20:58:00 No Route: IV, Drug form: INJ, ONCE, Stop date: 08/20/19 14:58:00 CONDENSER SETTER [facility] ceFAZolin ([facility]) 2019-08-20 20:58:00 No Route: IV, Drug form: INJ, ONCE, Stop date: 08/20/19 14:58:00 CONDENSER SETTER [facility] Lactated Ringers Injection IV ([facility]) 1000 mL 2019-08-20 20:09:00 No Route: IV, Total Volume: 1,000, Start date: 08/20/19 14:09:00 CONDENSER SETTER, Stop date: 08/20/19 15:09:00 CONDENSER SETTER Johann Celestin Calcium Chloride 0.0014 MEQ/ML / Potassi um Chloride 0.004 MEQ/ML / Sodium Chloride 0.103 MEQ/ML / Sodium Lactate 0.028 MEQ/ML Injectable Solution 2019-08-20 18:36:00 No 1,000 mL, Rate: 75 ml/hr, Infuse over: 13.3 hr, Route: IV, Dosing Weight 83.864 kg, Total Volume: 1,000, Start date: 08/20/19 12:36:00 CONDENSER SETTER, Duration: 30 day, Stop date: 09/19/19 12:35:00 CONDENSER SETTER, 1.97, m2 Johann Celestin Vitamin B-12 1000 mcg/mL injectable solution 2019-08-19 14:26:00 Yes IM, Daily, 0 Refill(s) [facility] Sodium Chloride 0.9% (titrate) 250 mL 2019-08-01 18:54:00 N o 250 mL, Rate: To prime line and flush remaining blood products., Dosing Weight 80.909, kg, Route: IV, Total Volume: 250, Start Date: 08/01/19 12:54:00 CONDENSER SETTER, Duration: 1 day, Stop date: 08/02/19 12:53:00 CONDENSER SETTER, Replace Every: 24 hr, 0 [facility] Dulcolax Laxative 2019-08-01 16:57:00 No Notes: (Same As: Dulcolax, Bisco-Lax) [facility] Celebrex 2019-07-31 15:00:00 No Notes: NSAID. Please check indication. Not for seizure. (Same As: CeleBREX) [facility] Tylenol 2019-07-31 15:00:00 No Notes: Max acetaminophen 4000 mg/day (4 gm/day). (Same as: Tylenol Extra Strength) [facility] Lovenox 2019-07-31 13:00:00 No Notes: (Same as: Lovenox) [facility] gabapentin 2019-07-31 06:00:00 No Notes: (S matt as: Neurontin) [facility] Morphine 2019-07-31 05:31:00 No Not es: (Same as:MORPhine Sulfate) [facility] heparin 2019-07-31 05:00:00 No Notes: porci ne heparin [facility] Tramadol 2019-07-31 01:08:00 No Notes: Not to exceed 400mg/day. (Same As: Ultram) [facility] Docusate Sodium 50 MG / sennosides, FDC 8.6 MG Oral Tablet 2019-07-30 23:00:00 No Notes: (Same as Senokot-S) Equ iv. to Kati-Colace. [facility] Hydralazine 2019-07-30 21:21:00 No 10 mg, Route: IVP, Q20Min, Dosing Weight 80.909, kg, PRN Elevated BP, Start date: 07/30/19 15:21:00 CONDENSER SETTER, Duration: 2 doses or times, Stop date: Limited # of times [facility] Labetalol 2019-07-30 21:21:00 No 10 mg, Route: IVP, Q5Min, Dosing Weight 80.909, kg, PRN Elevated BP, Start date: 07/30/19 15:21:00 CONDENSER SETTER, Duration: 5 doses or times, Stop date: Limited # of times [facility] Metoprolol 2019-07-30 21:21:00 No 1 mg, Route: IVP, Q5Min, Dosing Weight 80.909, kg, PRN Other -See Comment, Start date: 07/30/19 15:21:00 CONDENSER SETTER, Duration: 5 doses or times, Stop date: Limited # of times [facility] Ketorolac 2019-07-30 21:21:00 No 30 mg, Route: IVP, ONCE, Dosing Weight 80.909, kg, Start date: 07/30/19 15:21:00 CONDENSER SETTER, Stop date: 07/30/19 15:21:00 CONDENSER SETTER [facility] Acetaminophen 2019-07-30 21:21:00 No 1,000 mg, Route: IVPB, Drug form: INJ, ONCE, Dosing Weight 80.909, kg, PRN Pain Score 1-3, Start date: 07/30/19 15:21:00 CONDENSER SETTER [facility] Oxycodone Hydrochloride 5 MG Oral Tablet 2019-07-30 21:21:00 No 5 mg, Route: PO, Drug form: TAB, Q4H, Dosing Weight 80.909, kg, PRN Pain Score 4- 6, Start date: 07/30/19 15:21:00 CONDENSER SETTER, Duration: 30 day, Stop date: 08/29/19 15:20:00 CONDENSER SETTER [facility] Morphine 2019-07-30 21:21:00 No 2 mg, Route: IVP, Q5Min, Dosing Weight 80.909, kg, PRN Pain Score 4-6, Start date: 07/30/19 15:21:00 CONDENSER SETTER, Duration: 5 doses or times, Stop date: Limited # of times [facility] Fentanyl 2019-07-30 21:21:00 No 25 microgram, Route: IVP, Q5Min, Dosing Weight 80.909, kg, PRN Pain Score 4-6, Priority: Routine, Start date: 07/30/19 15:21:00 CONDENSER SETTER, Duration: 4 doses or times, Stop date: Limited # of times [facility] Hydromorphone 2019-07-30 21:21:00 No 0.5 mg, Route: IVP, Q5Min, Dosing Weight 80.909, kg, PRN Pain Score 7-10, Start date: 07/30/19 15:21:00 CONDENSER SETTER, Duration: 4 doses or times, Stop date: Limited # of times [facility] [place] Flumazenil 2019-07-30 21:21:00 No 0.2 mg, Route: IVP, PRN, Dosing Weight 80.909, kg, PRN Benzodiazepine Reversal, Initial dose, Start date: 07/30/19 15:21:00 CONDENSER SETTER, Duration: 30 day, Stop date: 08/29/19 15:20:00 CONDENSER SETTER [facility] Fawad Naloxone 2019-07-30 21:21:00 No 0.4 mg, Route: IVP, Q2MIN, Dosing Weight 80.909, kg, PRN Narcotic Reversal, Start date: 07/30/19 15:21:00 CONDENSER SETTER, Duration: 8 doses or times, Stop date: Limited # of times Johann Celestin Ondansetron 2019-07-30 21:21:00 No 4 mg, Route: IVP, ONCE, Dosing Weight 80.909, kg, PRN Nausea & Vomiting, Start date: 07/30/19 15:21:00 CONDENSER SETTER Johann [place] D5LR 1,000 mL 2019-07-30 20:57:00 No 1,000 mL, Rate: 40 ml/hr, Infuse over: 25 hr, Route: IV, Dosing Weight 80.909 kg, Total Volume: 1,000, Start date: 07/30/19 14:57:00 CONDENSER SETTER, Stop date: 07/31/19 6:00:00 CONDENSER SETTER, 1.92, m2, 0 [facility] Zofran ODT 2019-07-30 20:57:00 No Notes: (S matt as: Zofran ODT) [facility] Fawad glycopyrrolate (CLEMENTINAS) 2019-07-30 20:50:00 No Route: IV, Drug form: INJ, ONCE, Stop date: 07/30/19 14:50:00 CONDENSER SETTER Johann Celestin neostigmine (ANES) 2019-07-30 20:50:00 No Route: IV, Drug form: INJ, ONCE, Stop date: 07/30/19 14:50:00 CONDENSER SETTER Don Celestin sugammadex ([facility]) 2019-07-30 20:50:00 No Route: IV, Drug form: SOLN, ONCE, Stop date: 07/30/19 14:50:00 CONDENSER SETTER Don Celestin ceFAZolin ([facility]) 2019-07-30 20:27:00 No Route: IV, Drug form: INJ, ONCE, Stop date: 07/30/19 14:27:00 CONDENSER SETTER Don Celestin phenylephrine ([facility]) 2019-07-30 20:27:00 No Route: IV, Drug form: INJ, ONCE, Stop date: 07/30/19 14:27:00 CONDENSER SETTER Johann Celestin propofol ([facility]) 2019-07-30 17:30:00 No Route: IV, Drug form: INJ, ONCE, Stop date: 07/30/19 11:30:00 CONDENSER SETTER Don Celestin succinylcholine ([facility]) 2019-07-30 17:30:00 No Route: IV, Drug form: INJ, ONCE, Stop date: 07/30/19 11:30:00 CONDENSER SETTER Johann Fawad dexamethasone ([facility]) 2019-07-30 17:30:00 No Route: IV, Drug form: INJ, ONCE, Stop date: 07/30/19 11:30:00 [facility] 2019-07-30 17:30:00 No Route: IV, Drug form: INJ, ONCE, Stop date: 07/30/19 11:30:00 CONDENSER SETTER [facility] midazolam ([facility]) 2019-07-30 17:29:00 No Route: IV, Drug form: SOLN, ONCE, Stop date: 07/30/19 11:29:00 CONDENSER SETTER [facility] famotidine ([facility]) 2019-07-30 17:29:00 No Route: IV, Drug form: INJ, ONCE, Stop date: 07/30/19 11:29:00 CONDENSER SETTER [facility] lidocaine ([facility]) 2019-07-30 17:29:00 No Route: IV, Drug form: INJ, ONCE, Stop date: 07/30/19 11:29:00 CONDENSER SETTER [facility] rocuronium ([facility]) 2019-07-30 17:29:00 No Route: IV, Drug form: INJ, ONCE, Stop date: 07/30/19 11:29:00 [facility] [place] albumin human (ANES) 25 gm 2019-07-30 17:14:00 No Route: IV, Drug form: INJ, Start date: 07/30/19 11:14:00 CONDENSER SETTER, Stop date: 07/30/19 12:14:00 CONDENSER SETTER [facility] ceFAZolin (ANES) 1000 mg 2019-07-30 16:15:00 No Route: IV, Drug form: INJ, Start date: 07/30/19 10:15:00 CONDENSER SETTER, Stop date: 07/30/19 11:15:00 CONDENSER SETTER [facility] metroNIDAZOLE (ANES) 5 mg 2019-07-30 16:15:00 No Route: IV, Drug form: INJ, Start date: 07/30/19 10:15:00 CONDENSER SETTER, Stop date: 07/30/19 11:15:00 CONDENSER SETTER [facility] Sodium Chloride 0.9% IV (ANES) 100 mL + ketAMINE (ANES) 200 mg 2019-07-30 16:15:00 No Route: IV, Drug form: INJ, Start date: 07/30/19 10:15:00 CONDENSER SETTER, Stop date: 07/30/19 11:15:00 [facility] S[facility]lor[facility] 0.9% IV (ANES) 50 mL + dexmedetomidine (ANES ) 200 microgram 2019-07-30 16:10:00 No Route: IV, Drug form: INJ, Start date: 07/30/19 10:10:00 CONDENSER SETTER, Stop date: 07/30/19 11:10:00 CONDENSER SETTER [facility] Sodium Chloride 0.9% IV (ANES) 1000 mL 2019-07-30 16:00:00 No Route: IV, Total Volume: 1,000, Start date: 07/30/19 10:00:00 CONDENSER SETTER, Stop date: 07/30/19 11:00:00 CONDENSER SETTER [facility] Lactated Ringers Injection IV (ANES) 1000 mL 2019-07-30 15:52:00 No Route: IV, Total Volume: 1,000, Start date: 07/30/19 9:52:00 CONDENSER SETTER, Stop date: 07/30/19 10:52:00 CONDENSER SETTER [facility] Calcium Chloride 0.0014 MEQ/ML / [place] um Chloride 0.004 MEQ/ML / Sodium Chloride 0.103 MEQ/ML / Sodium Lactate 0.028 MEQ/ML Injectable Solution 2019-07-30 15:09:00 No 1,000 mL, Rate: 75 ml/hr, Infuse over: 13.3 hr, Route: IV, Dosing Weight 80.909 kg, Total Volume: 1,000, Start date: 07/30/19 9:09:00 CONDENSER SETTER, Duration: 30 day, Stop date: 08/29/19 9:08:00 CONDENSER SETTER, 1.92, m2 [facility] Vantin 200 mg oral tablet 2019-07-29 21:02:00 Yes 200 mg = 1 tab, PO, Q12H, X 7 day, # 14 tab, 0 Refill(s), Pharmacy: [address] Ondansetron 4 MG Oral Tablet [Zofran] 2019-07-29 21:02:00 Y es 4 mg = 1 tab, PO, Q6H, PRN Nausea/Vomiting, # 30 tab, 0 Refill(s), Pharmacy: [address] Sodium Chloride 0.9% IV 1,000 mL 2019-07-29 14:58:00 No 1,000 mL, Rate: 75 ml/hr, Infuse over: 13.3 hr, Route: IV, Dosing Weight 80.909 kg, Total Volume: 1,000, Start date: 07/29/19 8:58:00 CONDENSER SETTER, Duration: 30 day, Stop date: 08/28/19 8:57:00 CONDENSER SETTER, 1.92, m2, 0 Angelaori carol Celestin polyethylene glycol 3350 with electrolytes 2019-07-28 19:39:00 No Notes: (polyethylene glycol electrolyte solution 4 Liter bottle) (Same as: Golytely, Colyte) Johann Fawad Bisacodyl 2019-07-28 19:39:00 No Notes: (Same As: Dulcolax, Correctol) (Do Not Crush) "Do Not Crush" [facility] Metoclopramide 10 MG Oral Tablet 2019-07-28 19:39:00 No Notes: (Same as: Reglan) Take 30 min before meals Don Angelo Milk of Magnesia 2019-07-28 19:29:00 No Notes: (Same as: Milk of Magnesia, MOM) Johann Celestin Nystatin 100 UNT/MG Topical Powder 2019-07-27 22:00:00 No Notes: (Same as:Mycostatin, Nilstat) For external use only. Johann Celestin Omnipaque 300 injectable solution 2019-07-27 15:00:00 No Notes: (Same as:Omnipaque 300). WASTE: F/P - Black; E - Municipal Trash Bin Johann Celestin Diflucan 2019-07-27 14:44:00 No Notes: ([place] as: Diflucan) Johann Celestin molasses 2019-07-27 14:33:00 No Notes: ([place] as:Molasses) Johann Celestin Diflucan 2019-07-27 14:33:00 No Notes: ([facility] e as: Diflucan) Johann Celestin Ceftriaxone 2019-07-27 03:00:00 No Notes: (Same As: Rocephin). Use with 100 mL NS and infuse over 30 min MEDICATION WASTE Product Size: 1000 mg Product Wasted: ___ mg Johann Celestin Lovenox 2019-07-26 23:00:00 No Notes: (Same as: Lovenox) Johann Celestin Nurse pls update Allergies in [facility] 2019-07-26 10:30:00 No Nurse pls update Allergies in [facility], allergy??, Drug form: MISC, Route: MISC, Q10Min, 07/26/19 4:30:00 CONDENSER SETTER, Duration: 30 day, Stop date: 08/25/19 4:20:00 CONDENSER SETTER, 0 Johann Celestin influenza virus vaccine, inactivated hig h-dose preservative-free intramuscular suspension 2019-07-26 05:19:01 No Notes: (Same as: Fluzone High- Dose) For 65 years of age of older (0.5 ml IM) Shake well before use Johann Celestin Nurse pls update Height/Weight/Allergies in [facility] 2019-07-26 04:45:00 No Nurse pls update Hei ght/Weight/Allergies in [facility], reminder, Drug form: MISC, Route: MISC, Q15Min, 07/25/19 22:45:00 CONDENSER SETTER, Duration: 30 day, Stop date: 08/24/19 22:30:00 CONDENSER SETTER, 0 Johann [place] n normal saline 0.9% IV 1,000 mL 2019-07-26 04:38:00 No 1,000 mL, Rate: 100 ml/hr, Infuse over: 10 hr, Route: IV, Dosing Weight 80.909 kg, Total Volume: 1,000, Start date: 07/25/19 22:38:00 CONDENSER SETTER, Duration: 30 day, Stop date: 08/24/19 22:37:00 CONDENSER SETTER, 1.92, m2, 0 Memor ial Fawad Ondansetron 2019-07-26 04:37:00 No Notes: (Same as: Zofran) MEDICATION WASTE Product Size: 4 mg Product Wasted: ___ mg [facility] Fawad Ceftriaxone 2019-07-26 03:01:00 No Notes: (Same As: Rocephin). Use with 100 mL NS and infuse over 30 min MEDICATION WASTE Product Size: 1000 mg Product Wasted: ___ mg [facility] Morphine 2019-07-26 01:26:00 No 4 mg, Route: IVP, ONCE, Dosing Weight 80.909, kg, Priority: STAT, Start date: 07/25/19 19:26:00 CONDENSER SETTER, Stop date: 07/25/19 19:26:00 CONDENSER SETTER Johann Celestin NS (Bolus) IV 2019-07-26 01:26:00 No 500 mL, Route: IV, Drug form: INJ, ONCE, Priority: STAT, Dosing Weight 80.909 kg, Start date: 07/25/19 19:26:00 CONDENSER SETTER, Stop date: 07/25/19 19:26:00 CONDENSER SETTER [facility] Zofran 2019-07-26 01:26:00 No 4 mg, Route: IVP, Drug form: INJ, ONCE, Dosing Weight 80.909, kg, Priority: STAT, Start date: 07/25/19 19:26:00 CONDENSER SETTER, Stop date: 07/25/19 19:26:00 CONDENSER SETTER [facility] Fawad Saline Flush 0.9% 2019-07-25 21:23:00 No Notes: (Same as: BD Posiflush) Johann Celestin ibuprofen (MOTRIN) 600 mg tablet 2017-06-22 00:00:00 Yes Pain of both shoulder joints 600mg Take 1 tablet by amarilis every 8 hours as needed for Pain. [facility] oxybutynin (DITROPAN XL) 10 mg extended release tablet 2017-06-22 00:00:00 Yes Mixed incontinence 10mg QD Take 1 tablet by mouth daily. [facility] naproxen (NAPROSYN) 375 mg tablet 2016-08-09 00:00:00 Yes Right shoulder pain, unspecified chronicity 375mg Take 1 tabl et by mouth 2 times daily (with meals). [facility] Immunizations Ordered Immunization Name Filled Immunization Name Date Status Comments Source Influenza Vaccine, Seasonal, Injectable 2017-06-22 00:00:0 0 Completed [facility] Influenza Vaccine 2016-08-09 00:00:00 Completed [facility] Tdap Tetanus, diphtheria, acellular pertussis Vaccine 2016-08-09 00:00:00 Completed [facility] Vital Signs Vital Name Observation Time Observation Value Comments Source Body Temperature 2020-03-19 16:00:00 98.4 [degF] [facility] BMI (Body Mass Index) 2020-03-19 00:12:00 39.5 kg/m2 [facility] Weight 2020-03-15 12:45:00 230 [lb_av] [facility] Systolic (mm Hg) 2019-09-18 21:55:00 Nigel rial [facility] Diastolic (mm Hg) 2019-09-18 21:55:00 [facility] [place] Respitory Rate 2019-09-18 21:55:00 [facility] [place] Respitory Rate 2019-09-18 21:00:00 [facility] [place] Systolic (mm Hg) 2019-09-18 21:00:00 [facility] [place] Diastolic (mm Hg) 2019-09-18 21:00:00 [facility] [place] Respitory Rate 2019-09-18 20:45:00 Memori al [facility] Systolic (mm Hg) 2019-09-18 20:45:00 Nigel rial [facility]aw[facility] Diastolic (mm Hg) 2019-09-18 20:45:00 [facility] Height 2019-09-17 21:53:00 162.56 cm [facility] Weight 2019-09-17 21:53:00 [facility] BMI Calculated 2019-09-17 21:53:00 Memori al [facility] Systolic (mm Hg) 2019-08-20 22:15:00 [facility] [place] Diastolic (mm Hg) 2019-08-20 22:15:00 [facility] [place] Respitory Rate 2019-08-20 22:15:00 [facility] [place] Systolic (mm Hg) 2019-08-20 22:00:00 [facility] [place] Diastolic (mm Hg) 2019-08-20 22:00:00 [facility] [place] Respitory Rate 2019-08-20 22:00:00 [facility] [place] Respitory Rate 2019-08-20 21:30:00 Memori al [facility] Systolic (mm Hg) 2019-08-20 21:30:00 Nigel rial [facility]aw[facility] Diastolic (mm Hg) 2019-08-20 21:30:00 [facility] Height 2019-08-19 14:19:00 162.56 cm [facility] [place] Weight 2019-08-19 14:19:00 [facility] BMI Calculated 2019-08-19 14:19:00 Memori [facility] Temperature Oral (F) 2019-08-19 14:19:00 97.8 F [facility] [place] Heart Rate 2019-08-19 14:19:00 [facility] [place] Temperature Oral (F) 2019-08-02 13:37:00 98.0 F [facility] Heart Rate 2019-08-02 13:37:00 [facility] [place] Respitory Rate 2019-08-02 13:37:00 [facility] [place] Systolic (mm Hg) 2019-08-02 13:37:00 [facility] [place] Diastolic (mm Hg) 2019-08-02 13:37:00 [facility] Temperature Oral (F) 2019-08-02 05:20:00 98.3 F [facility] Heart Rate 2019-08-02 05:20:00 [facility] Respitory Rate 2019-08-02 05:20:00 [facility] [place] Systolic (mm Hg) 2019-08-02 05:20:00 Nigel rial [facility] Diastolic (mm Hg) 2019-08-02 05:20:00 [facility] [place] Temperature Oral (F) 2019-08-01 21:54:00 98.1 F [facility] [place] Heart Rate 2019-08-01 21:54:00 [facility] Respitory Rate 2019-08-01 21:54:00 [facility] [place] Systolic (mm Hg) 2019-08-01 21:54:00 [facility]el [facility] [place] Diastolic (mm Hg) 2019-08-01 21:54:00 [facility] [place] Height 2019-07-26 07:26:00 160.02 cm [facility] [place] Weight 2019-07-26 07:26:00 [facility] BMI Calculated 2019-07-26 07:26:00 [facility] Height 2019-07-26 05:10:00 160.02 cm [facility] Weight 2019-07-26 05:10:00 [facility] [place] BMI Calculated 2019-07-26 05:10:00 [facility] [place] Height 2019-07-25 21:02:00 160.02 cm [facility] BMI Calculated 2019-07-25 21:02:00 [facility] [place] Weight 2019-07-25 21:02:00 [facility] [place] Procedures Procedure Date / Time Performed Performing Clinician [facility] e Computed tomography of brain without radiopaque contrast 2020-03 00:00:00 [facility] Computed tomography of cervical spine without contrast 5 00:00:00 [facility] X-ray of chest, single view 2020-03-15 00:00:00 [facility] Computed tomography of chest without contrast 2020-03-15 00:00:0 [address] [facility] [address] of abdomen and pelvis without contrast 2020-03-15 00:00:00 [facility] Magnetic resonance imaging of pelvis without then with contrast 2019-07-23 00:00:00 [facility] X-ray of chest, two views 2019-07-13 00:00:00 JULY ORTIZ CH I [facility] Computed tomography of abdomen and pelvis with contrast 2018 00:00:00 HERBERT HARRY [facility] Cataract surgery<sup>1</sup> [facility] [place] Colonoscopy [facility] [place] Procedure<sup>2</sup> [facility] Care Planned Activity Planned Date Details Comments Source Future Scheduled Test 2020-06-11 00:00:00 IMM Influenza Seas onal Jun to November (>/= 19 yrs) [code = IMM Influenza Seasonal Jun to November (>/= 19 yrs)] [facility] Scheduled Test 2017-06-13 00:00:00 Breast Cancer Scrn (Yearly) [code = Breast Cancer Scrn (Yearly)] [facility] Scheduled Test 2017-05-11 00:00:00 Screening for jerson gnant neoplasm of colon (procedure) [code = 181980498] [facility] Scheduled Test 2016 00:00:00 IMM Pneumococcal A ge 65 and Up [code = IMM Pneumococcal Age 65 and Up] [facility] Encounters Start Date/Time End Date/Time Encounter Type Admission Type Attendi [facility] Care Department Encounter ID Source 2019-09-05 08:30:27 Outpatient MHSE MHSE [id number] [facility] 2020-03-15 16:57:00 2020-03-19 19:45:00 Discharged Inpatient 1 WILMAR RICHARD [facility] [id number] [facility] 2019-08-01 07:14:58 2020-01-01 14:36:59 Outpatient MHSE MHSE [id number] 2019-11-29 06:00:00 2019-11-29 06:00:00 Outpatient MHSE MHSE [id number] [facility] 2019-09-18 11:21:00 2019-09-18 15:55:00 Outpatient Adonay Ballesteros SE [facility] [id number] 2019-09-18 11:21:00 2019-09-18 11:21:00 Outpatient MHSE MHSE [id number] [facility] 2019-09-07 15:39:00 2019-09-07 23:59:00 Outpatient Omari Glalego MHSE MHSE [id number] 2019-08-20 11:45:00 2019-08-20 16:30:00 Outpatient Adonay Ballesteros SE [facility] [id number] 2019-08-20 11:45:00 2019-08-20 11:45:00 Outpatient MHSE MHSE [id number] [facility] 2019-07-25 14:57:22 2019-08-02 13:20:00 Outpatient Omari Gallego SE [facility] [id number] 2019-07-25 20:59:00 2019-07-25 14:57:00 Inpatient E MHSE MED [id number] [facility] 2019-07-23 06:22:00 2019-07-23 06:22:00 Registered Clinic 3 JACKPATY SHORT [facility] [id number] DRISS Michael [facility] 2019-07-13 18:15:00 2019-07-14 00:14:00 Departed Emergency Room 1 JULY ORTIZ [facility] [id number] [facility] 2019-02-07 18:29:00 2019-02-07 23:17:00 Departed Emergency Room 1 RE[facility]EN [facility] [id number] [facility] 2017-09-12 07:54:24 2017-09-12 07:54:24 Outpatient [facility] [id number] [facility] 2017-07-04 08:10:50 2017-07-04 08:10:50 Outpatient [facility] [id number] [facility] Results Test Description Test Time Test Comments Results Result Comments Source Blood leukocytes automated count (number/volume) 2020-03-19 05:05:00 Test Item White Blood Count (test code = 6690-2) 2.67 4.8-10.8 [facility] erythrocytes automated count (number/volume)2020-03-19 05:05:00* Test Item Value Reference Range Interpretation Comments Red Blood Count (test code = 789-8) 2.53 3.6-5.1 [facility] hemoglobin measurement (moles/volume)2020-03-19 05:05:00* Test Item Value Reference Range Interpretation Comments Hemoglobin (test code = 29099-0) 8.0 12.0-16.0 [facility] System[facility] blood hematocrit (volume fraction)2020-03-19 05:05:00* Test Item Value Reference Range Interpretation Comments Hematocrit (test code = 4544-3) 25.1 34.2-44.1 [facility] erythrocyte mean corpuscular [id number] 05:05:00* Test Item Value Reference Range Interpretation Comments Mean Corpuscular Volume (test code = 787-2) 99.2 81-99 [facility] erythrocyte mean corpuscular hemoglobin (mass per erythrocyte)2020-03-19 05:05:00* Test Item Value Reference Range Interpretation Comments Mean Corpuscular Hemoglobin (test code = 785-6) 31.6 28-32 [facility] erythrocyte mean corpuscular hemoglobin concentration measurement (mass/volume)2020-03-19 05:05:00* Test Item Value Reference Range Interpretation Comments Mean Corpuscular Hemoglobin Concent (test code = 786-4) 31.9 31-35 [facility] SystemRDW UkyNi-Pvc5689-23-09 05:05:00* Test Item Value Reference Range Interpretation Comments Red Cell Distribution Width (test code = 63460-4) 15.9 11.7 -14.4 [facility] System[facility] blood platelet count (count/volume)2020-03-19 05:05:00* Test Item Value Reference Range Interpretation Comments Platelet Count (test code = 777-3) 57 140-360 [facility] System[facility] blood segmented neutrophil count as percentage of total ipkzydrsxu7791-06-06 05:05:00* Test Item Value Reference Range Interpretation Comments Neutrophils (%) (Auto) (test code = 55564-1) 31.8 38.7-80.0 [facility] System[facility] blood lymphocyte count as percentage ot total rmlxangbck9164-40-40 05:05:00* Test Item Value Reference Range Interpretation Comments Lymphocytes (%) (Auto) (test code = 736-9) 49.4 18.0-39.1 [facility] SystemAutom[facility] blood monocyte count as percentage of total nrgikmztwq9481-13-45 05:05:00* Test Item Value Reference Range Interpretation Comments Monocytes (%) (Auto) (test code = 5905-5) 15.4 4.4-11.3 [facility] System[facility] blood eosinophil count as percentage of total iviuinxryv4344-98-39 05:05:00* Test Item Value Reference Range Interpretation Comments Eosinophils (%) (Auto) (test code = 713-8) 2.6 0.0-6.0 [facility] SystemAutom[facility] blood basophil count as percentage of total cqqqacshvh5946-19-26 05:05:00* Test Item Value Reference Range Interpretation Comments Basophils (%) (Auto) (test code = 706-2) 0.4 0.0-1.0 [facility] SystemFluoroscopic procedure less than one hour jhcwmzpk6710-77-28 05:05:00* Test Item Value Reference Range Interpretation Comments IM GRANULOCYTES % (test code = IM GRANULOCYTES %) 0.4 0.0- 1.0 [facility] System[facility] blood neutrophil count 2020-03-19 05:05:00* Test Item Value Reference Range Interpretation Comments Neutrophils # (Auto) (test code = 751-8) 0.9 2.1-6.9 [facility] lymphocytes count (number/volume) 2020-03-19 05:05:00* Test Item Value Reference Range Interpretation Comments Lymphocytes # (Auto) (test code = 22951-1) 1.3 1.0-3.2 [facility] monocytes automated count (number/volume)2020-03-19 05:05:00* Test Item Value Reference Range Interpretation Comments Monocytes # (Auto) (test code = 742-7) 0.4 0.2-0.8 [facility] SystemAutom[facility] blood eosinophil count 2020-03-19 05:05:00* Test Item Value Reference Range Interpretation Comments Eosinophils # (Auto) (test code = 711-2) 0.1 0.0-0.4 [facility] SystemAutomated blood basophil count (count/volume)2020-03-19 05:05:00* Test Item Value Reference Range Interpretation Comments Basophils # (Auto) (test code = 704-7) 0.0 0.0-0.1 [facility] SystemFluoroscopic procedure less than one hour lhchcqos6087-36-30 05:05:00* Test Item Value Reference Range Interpretation Comments Absolute Immature Granulocyte (auto (melissa t code = Absolute Immature Granulocyte (auto) 0.01 0-0.1 [facility] SystemFluoroscopic procedure less than one hour tdvmszqh7275-86-15 05:05:00* Test Item Value Reference Range Interpretation Comments Differential Total Cells Counted (test code = Juliana ruiz Total Cells Counted) 100 [facility] blood neutrophils/100 leukocytes 2020-03-19 05:05:00* Test Item Value Reference Range Interpretation Comments Neutrophils % (Manual) (test code = 96947-5) 46 40-74 [facility] leukocytes 2020-03-19 05:05:00* Test Item Value Reference Range Interpretation Comments Lymphocytes % (Manual) (test code = 737-7) 38 19-48 [facility] blood monocytes/100 leukocytes 2020-03-19 05:05:00* Test Item Value Reference Range Interpretation Comments Monocytes % (Manual) (test code = 744-3) 14 3.4-9.0 [facility] blood eosinophil count as percentage of total ovxanoumtx2204-85-83 05:05:00* Test Item Value Reference Range Interpretation Comments Eosinophils % (Manual) (test code = 714-6) 2 0-7 [facility] platelets count by estimate (number/volume)2020-03-19 05:05:00* Test Item Value Reference Range Interpretation Comments Platelet Estimate (test code = 96416-7) MARKEDLY DECREASED [facility] SystemPlatelet wqwmgwtqbw6952-86-29 05:05:00* Test Item Value Reference Range Interpretation Comments Platelet Morphology Comment (test code = 41820-9) NORMAL NO EDTA PLT [facility]ex[facility]um or plasma sodium measurement (moles/volume)2020-03-19 05:05:00* Test Item Value Reference Range Interpretation Comments Sodium Level (test code = 2951-2) 142 136-145 [facility] or plasma potassium measurement (moles/volume)2020-03-19 05:05:00* Test Item Value Reference Range Interpretation Comments Potassium Level (test code = 2823-3) 3.5 3.5-5.1 [facility] or plasma chloride measurement (moles/volume)2020-03-19 05:05:00* Test Item Value Reference Range Interpretation Comments Chloride Level (test code = 2075-0) 109 98-107 [facility]ville[facility]um or plasma carbon dioxide, total measurement (moles/volume)2020-03-19 05:05:00* Test Item Value Reference Range Interpretation Comments Carbon Dioxide Level (test code = 2028-9) 28 22-29 [facility]villeerum or plasma anion sxk6122-22-11 05:05:00* Test Item Value Reference Range Interpretation Comments Anion Gap (test code = 83081-7) 8.5 8-16 [facility]ville[facility] or plasma urea nitrogen measurement (mass/volume)2020-03-19 05:05:00* Test Item Value Reference Range Interpretation Comments Blood Urea Nitrogen (test code = 3094-0) 7 7-26 [facility]ville[facility] or plasma creatinine measurement (mass/volume)2020-03-19 05:05:00* Test Item Value Reference Range Interpretation Comments Creatinine (test code = 2160-0) 0.58 0.57-1.11 [facility]ville[facility] or plasma urea nitrogen/creatinine mass pfjij6768-16-33 05:05:00* Test Item Value Reference Range Interpretation Comments BUN/Creatinine Ratio (test code = 3097-3) 12 6-25 [facility] SystemEstimated glomerular filtration rate (GFR) jrpoqusxupqeb4614-51-29 05:05:00* Test Item Value Reference Range Interpretation Comments Estimat Glomerular Filtration Rate (test code = 057204139) > 60 >60 Ranges were taken from the National Kidney Disease Education Program and the [facility] Kidney Foundation literature.Reference ranges:60 or greater: Xgjnsx59-54 ( for 3 consecutive months): Chronic kidney disease 15 or less: Kidney failureNorthwest [facility] Healthcare SystemGlucose hovhywjzjod5245-75-74 05:05:00* Test Item Value Reference Range Interpretation Comments Glucose Level (test code = JFQ8974) 88 74-118 [facility]villeerum or plasma calcium measurement (mass/volume)2020-03-19 05:05:00* Test Item Value Reference Range Interpretation Comments Calcium Level (test code = 63633-1) 8.0 8.4-10.2 [facility] SystemPhosphorus omyrjyyalky7311-77-93 05:05:00 * Test Item Value Reference Range Interpretation Comments Phosphorus Level (test code = STG4024) 2.3 2.3-4.7 [facility]villeerum or plasma magnesium measurement (mass/volume)2020-03-19 05:05:00* Test Item Value Reference Range Interpretation Comments Magnesium Level (test code = 08423-0) 1.9 1.3-2.1 [facility]villeerum or plasma total bilirubin measurement (mass/volume)2020-03-17 05:08:00* Test Item Value Reference Range Interpretation Comments Total Bilirubin (test code = 1975-2) 0.6 0.2-1.2 [facility] SystemFluoroscopic procedure less than one hour ywcgpkdn1053-95-56 05:08:00* Test Item Value Reference Range Interpretation Comments Aspartate Amino Transf (AST/SGOT) (test code = Aspartate Amino Transf (AST/SGOT)) 16 5-34 [facility]villeerum or plasma alanine aminotransferase measurement (enzymatic activity/volume)2020-03-17 05:08:00* Test Item Value Reference Range Interpretation Comments Alanine Aminotransferase (ALT/SGPT) (test code = 1742-6) 8 0-55 [facility]villeerum or plasma protein measurement (mass/volume)2020-03-17 05:08:00* Test Item Value Reference Range Interpretation Comments Total Protein (test code = 2885-2) 4.9 6.5-8.1 [facility]villeerum or plasma albumin measurement (mass/volume)2020-03-17 05:08:00* Test Item Value Reference Range Interpretation Comments Albumin (test code = 1751-7) 2.3 3.5-5.0 [facility] SystemPlasma globulin measurement (mass/volume) 2020-03-17 05:08:00* Test Item Value Reference Range Interpretation Comments Globulin (test code = 54719-3) 2.6 2.3-3.5 [facility]villeerum or plasma albumin/globulin mass [id number] 05:08:00* Test Item Value Reference Range Interpretation Comments Albumin/Globulin Ratio (test code = 1759-0) 0.9 0.8-2.0 [facility]villeerum or plasma alkaline phosphatase measurement (enzymatic activity/volume)2020-03-17 05:08:00* Test Item Value Reference Range Interpretation Comments Alkaline Phosphatase (test code = 6768-6) 62 40-150 [facility] SystemCapillary blood glucose measurement by glucometer (mass/volume)2020-03-16 20:08:00* Test Item Value Reference Range Interpretation Comments Bedside Glucose (test code = 15882-5) 110 70-120 Meter ID: [id number] [facility] Healthcare SystemBONE and/or JOINT WHOLE [id number] 17:01:00 [facility] [address] [place] [address] Patient Name: CARLA DEJESUS MR #: [id number] : 1950 Age/Sex: 69/F Req #: [id number] Adm Physician: WILMAR RICHARD MD Ordered by: JAMIL CARRILLO DO Report #: [id number] Location: MED/SURG Room/Bed: [facility] Procedure: [id number] NM/BONE a nd/or JOINT WHOLE BODY Exam Date: 03/16/20 Exam Time : 914 REPORT STATUS: Signed Bon e Scan, delayed phase INDICATION: Intertrochanteric fracture; concern for bone metastasis COMPARISON: CT CAP 03/15/2020; left femur radiographs 0 REPORT: Approximately 3 hours following intravenous administration of 27. 3 mCi of Tc-99m MDP, delayed total body images in the anterior and posterior projections and selected spot images were obtained. Focal increased trac er in T6 corresponds to osteophytic degenerative changes in the anterior verte bral body on CT of 03/15/2020. Diffuse degenerative changes are noted in the m id to lower thoracic spine and lower lumbar spine. Subtle increased tracer act ivity in the left intertrochanteric femur may represent subacute/healing fract ure but no focal moderate or markedly increased tracer activity is seen in the proximal left femur to correspond to acute left femoral neck or intertrochant indio fractures seen on CT and radiographs from 03/15/2020. Otherwise, distribut ion of tracer activity is unremarkable throughout the skeletal system. No abnormal accumulation of tracer is seen in the soft tissues or urinary tr act. IMPRESSION: 1. No acute fractures in the proximal left femur. 2. Focal degenerative change in T6. 3. No scan pattern to suggest metastatic bone disease. Preliminary report was rendered at 2:15 pm on 03/16/2020 [facility] use PACS was unavailable for reporting. Signed by: Dr. Aurelia Aguilar M.D. on 03/16/2020 5:16 PM Dictated By: AURELIA AGUILAR MD 15 Transcribed By: SCOTT on 03/16/201715 COPY TO: JAMIL CARRILLO DO Serum or plasma creatine kinase measurement (enzymatic activity/volume)2020-03-16 14:50:00* Test Item Value Reference Range Interpretation Comments Creatine Kinase (test code = 2157-6) 71 29-168 [facility] or plasma creatine kinase MB measurement (mass/volume)2020-03-16 14:50:00* Test Item Value Reference Range Interpretation Comments Creatine Kinase MB (test code = 40408-8) 0.40 0-5.0 [facility] measurement by highly sensitive enzyme herrsfihwxz6167-84-94 14:50:00* Test Item Value Reference Range Interpretation Comments Troponin I (test code = 17847-9) 0.018 0-0.300 [facility] SystemCT ABDOMEN/PELVIS [id number] 20:28:00 [place] [address] Patient Name: CARLA DEJESUS MR #: [id number] : 1950 Age/Sex: 69/F Req #: [id number] Adm Physician: WILMAR RICHARD MD Ordered by: JAMIL CARRILLO DO Report #: [id number] Location: [facility] Room/Bed: [place] [address] Procedure: CT/CT ABD OMEN/PELVIS WO Exam Date: 03/15/20 Exam Time: 2011 REPORT STATUS: Signed EXAM: CT Ch est, Abdomen and Pelvis WITHOUT contrast INDICATION: concern for me tastatic lesions 20200315 COMPARISON: CT abdomen pelvis 07/13/2019 TECHNIQUE: Chest, abdomen and pelvis were scanned utilizing a multidetector helical scanner from the lung apex to the pubic symphysis without administrati on of IV contrast. Absence of intravenous contrast decreases sensitivity for d etection of focal lesions and vascular pathology. Coronal and sagittal reforma tions were obtained. Routine protocol was performed. IV CONTRAST: None ORAL CONTRAST: Water COMPLICATIONS: None RADIATION D OSE: Total DLP: 982 mGy*cm Estimated effective dose: (DLP x 0.015 x size factor) mSv CTDIvol has been reviewed. It is below the limits set by the Radiation Protocol Committee (RPC). Dose modulation, iterative r econstruction, and/or weight based adjustment of the mA/kV was utilized to red uce the radiation dose to as low as reasonably achievable. FINDINGS: LINES and TUBES: Right chest port. LUNGS AND AIRWAYS: Mild streaky opaci ties of the lower lobes, likely atelectasis or scarring. Minimal lower lobe br onchiectasis. No concerning pulmonary mass or nodule. PLEURA: Trace depen dent pleural fluid. No pneumothorax. HEART AND MEDIASTINUM: Heterogeneously enlarged left thyroid lobe. No mediastinal, hilar or axillary lymphadenopathy when allowing for lack of intravenous contrast enhancement. The heart is no rmal in size. Trace pericardial fluid. HEPATOBILIARY: Limited evalua tion due to lack of intravenous contrast enhancement. No focal hepatic lesion s. Prominent biliary ductal system likely due to cholecystectomy. GALLBL ADDER: Surgically absent. SPLEEN: No splenomegaly. PANCREAS: No focal masses or ductal dilatation. ADRENALS: No adrenal nodules. KIDN EYS/URETERS: No hydronephrosis. No cystic or solid mass lesions. No stones. GI TRACT: Suboptimally evaluated due to lack of contrast. No obvious bowel m ass or evidence of bowel obstruction. Mild nonspecific perirectal fat strandin g. The appendix is not discretely identified. PELVIC ORGANS/BLADDER: The urinary bladder is decompressed by a Melara catheter. Interval removal of the p reviously seen large pelvic mass. LYMPH NODES: Suboptimally evaluated. No g ross adenopathy by CT size criteria. Ill-defined subcentimeter nodularity of t he right lower quadrant peritoneum, suboptimally evaluated due to lack of intr avenous contrast. VESSELS: Scattered vascular calcifications. PERITONE UM / RETROPERITONEUM: Suboptimal evaluation due to lack of contrast enhancemen t. No free intraperitoneal air. Small amount of free fluid in the deep pelvis and paracolic gutters. Nonspecific fat stranding of the pericolic gutters and retroperitoneum. The previously seen peritoneal nodules are no longer discrete ly identified. BONES: Acute mildly displaced fracture through the left femo ral neck. No lytic or blastic lesion. SOFT TISSUES: Small periumbilical i ncisional hernia that contains a short loop of small bowel. IMPRESSION: 1.Limited study for the evaluation of malignancy due to lack of contrast enhancement. No gross evidence of metastatic disease within the chest, abdomen, and pelvis when allowing for this limitation. 2. Interval resection of the previously seen pelvic mass with peritoneal debulking. Scattered peritoneal fat stranding, notably in the pericolic gutters and perirectal region, may be treatment-related. No discrete peritoneal nodule is identified when overlying for lack of intravenous contrast enhancement. 3. Small amount of nonspecif ic pelvic free fluid. 4. Acute left femoral neck fracture. Signed by: Parveen Jay MD on 03/15/2020 8:45 PM Dictated By: PARVEEN JAY MD El ectronically Signed By: PARVEEN JAY MD on 03/15/202044 Transcribed By: ERNESTO MCKEON on 03/15/202044 COPY TO: JAMIL CARRILLO DO CT CHEST WO 2020-03-15 20:28:00 [place] [address] Patient Name: CARLA DEJESUS MR #: [id number] : 1950 Age/Sex: 69/F Req #: [id number] Adm Physician: WILMAR RICHARD MD Ordered by: JAMIL CARRILLO DO Report #: [id number] Location: [facility] Room/Bed: [place] [address] Procedure: [id number] CT/CT FLAVIO ST WO Exam Date: 03/15/20 Exam Time: 2011 REPORT STATUS: Signed EXAM: CT Chest, Abdo men and Pelvis WITHOUT contrast INDICATION: concern for metastatic lesions 20200315 COMPARISON: CT abdomen pelvis 07/13/2019 TECHNIQ UE: Chest, abdomen and pelvis were scanned utilizing a multidetector helical s canner from the lung apex to the pubic symphysis without administration of IV contrast. Absence of intravenous contrast decreases sensitivity for detection of focal lesions and vascular pathology. Coronal and sagittal reformations wer e obtained. Routine protocol was performed. IV CONTRAST: None ORA L CONTRAST: Water COMPLICATIONS: None RADIATION DOSE: Total DLP: 982 mGy*cm Estimated effective dose: (DLP x 0.015 x size fa ctor) mSv CTDIvol has been reviewed. It is below the limits set by the [facility] Protocol Committee (RPC). Dose modulation, iterative reconstruc tion, and/or weight based adjustment of the mA/kV was utilized to reduce the r adiation dose to as low as reasonably achievable. FINDINGS: LINES a nd TUBES: Right chest port. LUNGS AND AIRWAYS: Mild streaky opacities of t he lower lobes, likely atelectasis or scarring. Minimal lower lobe bronchiecta sis. No concerning pulmonary mass or nodule. PLEURA: Trace dependent pleu ral fluid. No pneumothorax. HEART AND MEDIASTINUM: Heterogeneously enlarged left thyroid lobe. No mediastinal, hilar or axillary lymphadenopathy when al lowing for lack of intravenous contrast enhancement. The heart is normal in s ize. Trace pericardial fluid. HEPATOBILIARY: Limited evaluation due to lack of intravenous contrast enhancement. No focal hepatic lesions. Promin ent biliary ductal system likely due to cholecystectomy. GALLBLADDER: Sanchez rgically absent. SPLEEN: No splenomegaly. PANCREAS: No focal masses o r ductal dilatation. ADRENALS: No adrenal nodules. KIDNEYS/URETE RS: No hydronephrosis. No cystic or solid mass lesions. No stones. GI TR ACT: Suboptimally evaluated due to lack of contrast. No obvious bowel mass or evidence of bowel obstruction. Mild nonspecific perirectal fat stranding. The appendix is not discretely identified. PELVIC ORGANS/BLADDER: The urinary b ladder is decompressed by a Melara catheter. Interval removal of the previously seen large pelvic mass. LYMPH NODES: Suboptimally evaluated. No gross ora opathy by CT size criteria. Ill-defined subcentimeter nodularity of the right lower quadrant peritoneum, suboptimally evaluated due to lack of intravenous c ontrast. VESSELS: Scattered vascular calcifications. PERITONEUM / RETR OPERITONEUM: Suboptimal evaluation due to lack of contrast enhancement. No cipriano e intraperitoneal air. Small amount of free fluid in the deep pelvis and parac olic gutters. Nonspecific fat stranding of the pericolic gutters and retroperi toneum. The previously seen peritoneal nodules are no longer discretely identi fied. BONES: Acute mildly displaced fracture through the left femoral neck. No lytic or blastic lesion. SOFT TISSUES: Small periumbilical incisional hernia that contains a short loop of small bowel. IMPRESSION: 1.L imited study for the evaluation of malignancy due to lack of contrast enhancem ent. No gross evidence of metastatic disease within the chest, abdomen, and pe lvis when allowing for this limitation. 2. Interval resection of the previo usly seen pelvic mass with peritoneal debulking. Scattered peritoneal fat stra nding, notably in the pericolic gutters and perirectal region, may be treatmen t-related. No discrete peritoneal nodule is identified when overlying for lack of intravenous contrast enhancement. 3. Small amount of nonspecific pelvic free fluid. 4. Acute left femoral neck fracture. Signed by: Parveen dennis MD on 03/15/2020 8:45 PM Dictated By: PARVEEN JAY MD [facility] Signed By: PARVEEN JAY MD on 03/15/202044 Transcribed By: SCOTT on 2044 COPY TO: JAMIL CARRILLO DO Urine color mrzkkkxvbtbqo8008-03-96 18:04:00* Test Item Value Reference Range Interpretation Comments Urine Color (test code = 5778-6) YELLOW YELLOW [facility] SystemU[facility] wxlhdto4817-18-53 18:04:00* Test Item Value Reference Range Interpretation Comments Urine Clarity (test code = 75975-0) HAZY CLEAR [facility]ville[facility] gravity of Urine by Test strip 2020-03-15 18:04:00* Test Item Value Reference Range Interpretation Comments Urine Specific [place] (test code = 5811-5) 1.020 1.010-1.02 5 [facility] SystemU[facility] pH measurement by automated test axvkw1228-50-00 18:04:00* Test Item Value Reference Range Interpretation Comments Urine pH (test code = 06952-7) 7.5 5-7 [facility] SystemUrine leukocyte esterase detection by ifmwdqhr4987-78-67 18:04:00* Test Item Value Reference Range Interpretation Comments Urine Leukocyte Esterase (test code = 5799-2) NEGATIVE NEGATIVE [facility] SystemUrine nitrite aptiugusl1413-41-66 18:04:00* Test Item Value Reference Range Interpretation Comments Urine Nitrite (test code = 78336-3) NEGATIVE NEGATIVE [facility] SystemU[facility] protein measurement by test strip (mass/volume)2020-03-15 18:04:00* Test Item Value Reference Range Interpretation Comments Urine Protein (test code = 5804-0) 1+ NEGATIVE [facility] SystemUrine glucose oerncqmqc1669-46-24 18:04:00* Test Item Value Reference Range Interpretation Comments Urine Glucose (UA) (test code = 2349-9) NEGATIVE NEGATIVE [facility] SystemUrine ketones detection by automated test ltqjw9996-77-57 18:04:00* Test Item Value Reference Range Interpretation Comments Urine Ketones (test code = 08069-9) NEGATIVE NEGATIVE [facility] SystemUrine urobilinogen measurement by test strip (mass/volume)2020-03-15 18:04:00* Test Item Value Reference Range Interpretation Comments Urine Urobilinogen (test code = 47521-8) 8.0 0.2-1 [facility] SystemU[facility] total bilirubin measurement (mass/volume)2020-03-15 18:04:00* Test Item Value Reference Range Interpretation Comments Urine Bilirubin (test code = 1978-6) NEGATIVE NEGATIVE [facility] SystemU[facility] erythrocytes aiwxhfdpv7720-26-66 18:04:00* Test Item Value Reference Range Interpretation Comments Urine Blood (test code = 36903-2) TRACE NEGATIVE [facility] SystemAutomated urine sediment leukocyte count by microscopy (number/high power field)2020-03-15 18:04:00* Test Item Value Reference Range Interpretation Comments Urine WBC (test code = 5821-4) 6-10 0-5 [facility] SystemErythrocytes detection in urine sediment by light kvzasbihdv8791-49-01 18:04:00* Test Item Value Reference Range Interpretation Comments Urine RBC (test code = 80177-4) 0-5 0-5 [facility] SystemBacteria detection in urine sediment by light qmfihjgcln3163-83-77 18:04:00* Test Item Value Reference Range Interpretation Comments Urine Bacteria (test code = 96687-5) FEW NONE [facility] SystemEpithelial cells detection in urine sediment by light rjosmzuvtx4549-86-83 18:04:00* Test Item Value Reference Range Interpretation Comments Urine Epithelial Cells (test code = 16270-8) FEW NONE [facility] SystemProthrombin time (PT) in platelet poor plasma by coagulation mhgdl3560-44-90 17:40:00* Test Item Value Reference Range Interpretation Comments Prothrombin Time (test code = 5902-2) 14.3 11.9-14.5 [facility] SystemINR in Platelet poor plasma by Coagulation xnuyn9547-62-79 17:40:00* Test Item Value Reference Range Interpretation Comments Prothromb Time International Ratio (test code = 6301-6) 1.05 Oral Anticoagulant Therapy INR Values:1. Low Intensity Therapy 1.5 - 2.02 . Moderate Intensity Therapy 2.0 - 3.03. High Intensity Therapy(1) 2.5 - 3. 54. High Intensity Therapy(2) 3.0 - 4.05. Panic Value INR > 5.0 [facility] SystemActivated partial thromboplastin time (aPTT) in platelet poor plasma by coagulation ojmbd9706-45-66 17:40:00* Test Item Value Reference Range Interpretation Comments Activated Partial Thromboplast Time (test code = 70387-7) 29.7 23.8-35.5 [facility] SystemBNP Hst-cArt9569-77-05 17:40:00* Test Item Value Reference Range Interpretation Comments B-Type Natriuretic Peptide (test code = 84225-4) 114.0 0-100 [facility]villeer[facility] or plasma acetaminophen measurement by screening method (mass/volume)2020-03-15 17:40:00* Test Item Value Reference Range Interpretation Comments Acetaminophen Level (test code = 66965-7) < 3.0 10-30 [facility] SystemFluoroscopic procedure less than one hour qxtujptq0488-60-48 17:40:00* Test Item Value Reference Range Interpretation Comments Coronavirus (PCR) (test code = Coronavirus (PCR)) NOT DETECTED NOTD ETECTED SARS-COV2/RT-PCRNegative results do not preclude SARS-CoV-2 infection and should not be used as the sole basis for patient management decisions. Negative results must be combined with clinical observations, patient history, and epidemiologi quynh information. A false negative result may occur if a specimen is improperly c ollected, transported or handled.The limit of detection for this assay is 250 co pies/mLThe SARS-CoV-2 test is a rapid, real-time RT-PCR test intended for the qu alitative detection of nucleic acid from SARS-CoV-2 in nasopharyngeal swab speci men collected from individuals suspected of COVID-19 by their healthcare provide r. This test has not been Food and Drug Administration (FDA) cleared or approved and has been authorized by FDA under an Emergency Use Authorization (EUA). This EUA will be effective until the declaration that circumstances exist justifying the authorization of the emergency use of in vitro diagnostic test for detection and or diagnosis of COVID-19 is terminated under section 564(b) of the Act, or the the EUA is revoked under 564(g) of the ACT.Testing performed by [facility] [place], [place] [address]S[facility] HospitalBlood maqvvib8564-34-34 17:40:00* Test Item Value Reference Range Interpretation Comments Blood Culture (test code = 72070405) NO GROWTH AFTER 72 HOURS [facility] HospitalCHES SINGLE (NOT PORTABLE)2020-03-15 15:02:00 [facility] [address] [place] [address] Patient Name: CARLA DEJESUS MR #: [id number] : 1950 Age/Sex: 69/F Req #: [id number] Adm Physician: Ordered by: JULY ORTIZ MD Report #: [id number] Location: ER Room/Bed: Procedure: [id number] DX/CHEST SIN GLE (NOT PORTABLE) Exam Date: 03/15/20 Exam Time: 13 56 REPORT STATUS: Signed Examina tion: Single AP view of the chest. COMPARISON: Chest 2 views 07/13/2019 INDICATION: Status post fall IMPRESSION: 1. Lines and Tubes: Ri ght upper chest Port-A-Cath, with the catheter distal tip projecting in the mi d SVC. 2. Lungs are grossly clear. No consolidation or effusion. 3. Cardi omediastinal silhouette is normal. Pulmonary vasculature is normal. 4. No a cute bony abnormalities. Degenerative changes in the thoracic spine. Generaliz ed osteopenia. Signed by: Dr. Candido Rodriguez M.D. on 03/15/2020 3:13 PM Dictated By: CANDIDO RODRIGUEZ MD 12 Transcribed By: SCOTT on 03/15/201512 COPY TO: JULY BERNABE MD FEMUR 2 VIEWS MINIMUM [id number] 15:00:00 [place] [address] Patient Name: CARLA DEJESUS MR #: [id number] : 1950 Age/Sex: 69/F Req #: [id number] Adm Physician: Ordered by: JULY ORTIZ MD Report #: [id number] Location: ER Room/Bed: Procedure: [id number] DX/FEMUR 2 V IEWS MINIMUM LEFT Exam Date: Exam Time: REPORT STATUS: Signed EXAMINATION: Left fe mur, 4 views CLINICAL HISTORY:Status post fall today, left hip pain CO MPARISON: CT abdomen and pelvis 07/13/2019 DISCUSSION: Mild osteopenia. Acute, displaced oblique left intertrochanteric fracture, with fragment separa tion of approximately 1.2 cm. The femoral head remains aligned with the acetab ulum. No other acute, displaced fractures. Partially visualized orthopedic delmis dware in the proximal tibia. Mild degenerative changes in left hip joint. No aggressive lytic or suspicious focal sclerotic lesions. Nonobstructive mima wel gas pattern. IMPRESSION: 1. Acute, displaced oblique left intertro chanteric fracture. Signed by: Dr. Candido Rodriguez M.D. on 03/15/2020 3 :02 PM Dictated By: CANDIDO RODRIGUEZ MD 150 Transcribed By: SCOTT on 03/15/20 150 COPY TO: JULY ORTIZ MD HIP LEFT 2-3 VW (+/- PELVIS)2020-03-15 14:57:00 [place] [address] Patient Name: CARLA DEJESUS MR #: [id number] : 1950 Age/Sex: 69/F Req #: [id number] Adm Physician: Ordered by: JULY ORTIZ MD Report #: [id number] Location: ER Room/Bed: Procedure: [id number] DX/HIP LEFT 2-3 VW (+/- PELVIS) Exam Date: Exam Time: REPORT STATUS: Signed EXAMINATION: Left Hip Films and AP pelvis CLINICAL HISTORY:Status post fall today, left hip pain COMPARISON: CT abdomen and pelvis 07/13/2019 DISCUSSION: Mild ost eopenia. Acute, displaced oblique left intertrochanteric fracture, with fragm ent separation of approximately 1.2 cm. The femoral head remains aligned wit h the acetabulum. Other bony structures are intact. Mild degenerative ham es in bilateral hip joints and lower lumbosacral spine. No aggressive lytic o r suspicious focal sclerotic lesions. Nonobstructive bowel gas pattern. I MPRESSION: 1. Acute, displaced oblique left intertrochanteric fracture. Signed by: Dr. Candido Rodriguez M.D. on 03/15/2020 3:00 PM Dictated By: CANDIDO RODRIGUEZ MD 1500 Transcribed By: SCOTT on 03/15/20 1500 COPY TO: JULY ORTIZ MD CT CERVICAL SPINE [id number] 14:30:00 [place] [address] Patient Name: CARLA DEJESUS MR #: [id number] : 1950 Age/Sex: 69/F Req #: [id number] Adm Physician: Ordered by: JULY ORTIZ MD Report #: [id number] Location: ER Room/Bed: Procedure: [id number] CT/CT CERVIC AL SPINE WO Exam Date: 03/15/20 Exam Time: 1356 REPORT STATUS: Signed History: Trauma Comparison studies: None Technique: Axial images were obtained through the cervical region.. Coronal and sagittal images reconstructed from the axial data. Dose modulation, iterative reconstruction, and/or weight based adjus tment of the mA/kV was utilized to reduce the radiation dose to as low as tre sonably achievable. Intravenous contrast: None Findings: Fract ures: None. Soft tissues: No gross abnormalities. Atlantoaxial articulati on: Intact. Alignment: Normal lordosis. No scoliosis. Cervicomedullary junct ion: No abnormalities. The foramen magnum is patent. Vertebrae: No infec tion or neoplasm. Degenerative changes: Not significant. Patent spinal canal and foramina.. IMPRESSION: 1. No acute abnormalities. 2. Bones mildly demineralized but no fractures. 3. Cannot adequately evaluate for ligament, spinal cord and or vascular abnormalities. Signed by: Dr. Gerald Knight M.D. on 03/15/2020 2:31 PM Dictated By: GERALD BUNCH MD, MD 1 431 Transcribed By: SCOTT on 03/15/20 1438 COPY TO: JULY ORTIZ MD CT BRAIN [id number] 14:28:00 [place] [address] Patient Name: CARLA DEJESUS MR #: [id number] : 1950 Age/Sex: 69/F Req #: [id number] Adm Physician: Ordered by: JULY ORTIZ MD Report #: [id number] Location: ER Room/Bed: Procedure: [id number] CT/CT BRAIN WO Exam Date: 03/15/20 Exam Time: 1356 REPORT STATUS: Signed History:Fall Bonifacio rison studies: None Technique: Axial images were obtained from the skul l base to the vertex. Coronal and sagittal images reconstructed from the axial data. Dose modulation, iterative reconstruction, and/or weight based adjustme nt of the mA/kV was utilized to reduce the radiation dose to as low as reason ably achievable. Intravenous contrast: None Findings: Scalp/sk ull: No abnormalities. Extra-axial spaces: No masses. No fluid colle ctions. Brain sulci: Mildly prominent. Ventricles: Mild compensatory dila tation. No hydrocephalus. Parenchyma: Subtle hypodensities in the suprat entorial white matter are small vessel ischemic changes. No masses, hemorrh age, acute or chronic cortical vascular insults. Sellar/suprasellar region: No abnormalities. Craniocervical junction: Patent foramen magnum. No Chiari one malformation. Incidental findings: Subtle atherosclerotic calcificati ons in the carotid siphons . Impression: 1. Acute left parietal scalp hematoma. 2. No fracture. 3. No acute intracranial abnormalities. Ch ronic findings: * Mild generalized volume loss. * Mild supratentorial whit e matter small vessel ischemic changes. Signed by: Dr. Gerald Knight M.D. on 03/15/2020 2:30 PM Dictated By: GERALD KNIGHT MD, MD Electro nically Signed By: GERALD KNIGHT MD, MD on 03/15/20 1430 Transcribed By: SCOTT on 03/15/20 1430 COPY TO: JULY ORTIZ MD CHEM PANEL 2019-08-19 14:24:0094[facility] BRBJQ9402-01-25 14:24:007[facility]annCHE[facility] HPQGF4577-60-81 14:24:000.72[facility]annCHEM BPZCI0473-24-63 14:24:64917Oicloouj HermannCHEM AMYSW4783-10-58 14:24:003.6[facility]annCHEM ZUAEE3181-01-08 14:24:03785Eowcbbnn HermannCHEM BMMVN0004-41-75 14:24:0027 [facility]annCHEM DASRT9023-07-06 14:24:008.8[facility]annCHEM PANEL 2019-08-19 14:24:0086[facility]annCHEM OJGHA5568-55-56 14:24:0010.6[facility] TenmecqLJYJOJGEPS0767-24-14 14:24:004.9[facility] BmfjrbqQQLUZFOMIN5791-96-85 14:24:003.61[facility] YjevrhxSTKGAAZJZD2344-27-38 14:24:009.9[facility] [place] ACEBGZNIZM4334-63-27 14:24:0031.3[facility] BgtcrfeAXGBJOKMTW0903-18-68 14:24:00 86.6[facility]orial HgfxkzfPHXDMMCQYO6982-87-71 14:24:00* Test Item Value Reference Range Interpretation Comments MCH (test code = MCH) 27.4 pg 27.0-31.0 [facility] DozzcctKCEXPDEQIQ9989-45-58 14:24:0031.6[facility]annHEMATOLOGY 2019-08-19 14:24:0016.9[facility] JuyhmawNHTXQOPNZC1709-48-33 14:24:74309Cakaolmf AcybgniTFSSAMIXQM4923-26-47 14:24:008.8[facility] OxlqjqyNXSFOEWGEL1545-93-09 14:24:0055.5[facility] QkaawrrWTCNBNPWXY4869-20-21 14:24:0032.2[facility] RMNNXGOZOJ8803-89-61 14:24:008.8[facility] NahtyrqBVYUGIPYLT6787-27-58 14:24:002.9 [facility] QgbgshjBNWHWYFTAH9969-51-72 14:24:000.6[facility]annHEMATOLOGY 2019-08-19 14:24:002.8[facility] OsrwslpTJGWEXBSPL6151-39-91 14:24:001.6[facility] HpeehcgYHJRMQINQU0878-73-10 14:24:000.4[facility] GovitfrWKCVAGNKLM3266-84-75 14:24:000.1[facility] HermannCHEM PJBUX2503-91-97 11:14:0096[facility]annCHEM NYFKT9330-02-39 11:14:0016[facility]annCHEM ALBQH0661-70-53 11:14:000.76 [facility]annCHEM BCVUW8508-99-98 11:14:53638Dzmfsmmn HermannCHEM PANEL 2019-08-02 11:14:003.6[facility]annCHEM VHXJJ3227-55-05 11:14:44735Lytayubf HermannCHEM EDGMK0068-39-02 11:14:0030[facility]annCHEM GTTZJ5859-93-69 11:14:007.6[facility]annCHEM ASXTA4947-13-14 11:14:008.4[facility]annCHEM DZFJL5099-06-48 11:14:00* Test Item Value Reference Range Interpretation Comments B/C Ratio (test code = B/C Ratio) 21 1 6-25 [facility]annCHE[facility] VWSXW2714-75-30 11:14:005.3[facility]annCHEM PANEL 2019-08-02 11:14:001.9[facility]annCHEM NIOUH8439-35-78 11:14:003.4[facility]annCHEM PIHJD0914-58-29 11:14:00* Test Item Value Reference Range Interpretation Comments A/G Ratio (test code = A/G Ratio) 0.6 1 0.7-1.6 [facility]annCHE[facility] CAOQF5192-14-46 11:14:008[facility]annCHEM PANEL 2019-08-02 11:14:005[facility]annCHEM GICDE8592-52-20 11:14:0059[facility]annCHEM UHLGM1216-34-82 11:14:000.3[facility]annCHEM DAQNS6384-85-85 11:14:0081[facility]annCHEM BAOOH4836-00-99 11:14:002.4[facility]annCHEM EWKHO2764-87-22 11:14:002.3[facility] WagmxjoWRXFBSCXNA2254-70-24 11:14:008.8 [facility] KafwynmMWWTSPBZBO5488-15-44 01:49:0011.0[facility]annHEMATOLOGY 2019-08-02 01:49:002.95[facility] AjuaotaJKFAFNBCII1612-59-64 01:49:008.3[facility] PyzwxwrOCMDTONEFX8638-50-70 01:49:0025.6[facility] ZaidlsbOANUZYAJXT4724-07-87 01:49:0086.6[facility] AkgfqbgWCFDWMPOKM7560-09-23 01:49:00* Test Item Value Reference Range Interpretation Comments MCH (test code = MCH) 28.1 pg 27.0-31.0 [facility] JmpwchoXYHPTJXGYO2324-57-25 01:49:0032.5[facility]annHEMATOLOGY 2019-08-02 01:49:0016.0[facility] TwribweKPFMYWDITV0498-79-66 01:49:41753Jytkfzvu AebneaqGECSEPHCCG5004-69-58 01:49:008.1[facility] FnucfgyZVRPFDLWLM1134-12-50 01:49:0077.0[facility] FaitoubSNXWPGZUGO7714-61-56 01:49:0014.8[facility] IUSMCXBIEF9207-92-84 01:49:006.3[facility] PhweaxmEJNHXLZWIO9787-98-65 01:49:001.7 [facility] HnjqcjmERHZGIZOPH7157-21-88 01:49:000.2[facility]annHEMATOLOGY 2019-08-02 01:49:008.5[facility] AqtfmczUGBKJHXIBF8577-06-50 01:49:001.6[facility] UdiotnyDVDNVLQKMR0253-67-68 01:49:000.7[facility] CoqfjatDIMTXZNGQV4188-34-73 01:49:000.2[facility]annBL[facility]OD BANK YJITLJF8781-11-99 18:54:00Product available 8(08/01/19 12:54 PM)[facility]annCHEM YXDSI4047-94-66 17:02:39736 [facility]annCHEM DHZXQ4126-88-90 17:02:0018[facility]annCHEM PANEL 2019-08-01 17:02:001.04[facility]annCHEM IEIKN8986-79-22 17:02:19089Chgttjqj HermannCHEM EWITE4831-04-36 17:02:003.5[facility]annCHEM RKLLX4319-47-73 17:02:69489Gksisiuf HermannCHEM RHMNJ5900-49-24 17:02:0025[facility]annCHEM XUURJ6978-13-24 17:02:0010.5[facility]annCHEM CUCVB8467-34-09 17:02:008.3 [facility]annCHE[facility] TFLRL5493-22-33 17:02:0056[facility]annHEMATOLOGY 2019-08-01 17:02:0012.9[facility] IdizgalMQVJMOGCSB7167-44-40 17:02:002.72[facility] WfnqzpkFUAELCZBJR5920-14-71 17:02:007.5[facility] DfmchsaLCYTIYZLQW7294-65-90 17:02:0023.6[facility] TmwhvzaIZFAFTZENH7919-26-85 17:02:0086.7[facility] UBHCKKAVES1471-24-51 17:02:00* Test Item Value Reference Range Interpretation Comments MCH (test code = MCH) 27.6 pg 27.0-31.0 [facility] TsikyksBTTQOCVSUT5593-29-27 17:02:0031.8[facility]annHEMATOLOGY 2019-08-01 17:02:0016.5[facility] PgtvbswEQUGDKIBHZ7373-64-98 17:02:75009Msktsyuu JzbjledJRMOKQFWXP0644-26-44 17:02:008.6[facility] WwugweyTDBPVHVKRZ5754-70-30 17:02:0081.2[facility] BlgizsuWYSDSYGGAJ4298-74-58 17:02:0012.7[facility] OUYVHUPPQK1468-16-85 17:02:005.1[facility] OrvocmvWWXTSKTXKS6425-84-07 17:02:000.6 [facility] ZooeaczUDALSHZUKQ3036-69-00 17:02:000.4[facility]annHEMATOLOGY 2019-08-01 17:02:0010.5[facility] JsyjzauSJBNZXTYNM7309-50-31 17:02:001.6[facility] EcwroetUONWNQRAUJ8223-55-70 17:02:000.7[facility] RnkcnaxDNCLHUHNUN1950-21-01 17:02:000.1[facility]annCHEM UEYXV9459-37-52 13:21:0099[facility]annCHEM RQRUI6805-63-97 13:21:0018[facility]annCHEM ITFKB4817-96-89 13:21:001.02 [facility]annCHEM XNACE8930-16-42 13:21:65391Djnkjxru HermannCHEM PANEL 2019-08-01 13:21:003.9[facility] HermannCHEM SFUBH9334-99-64 13:21:97063Pczjorni HermannCHEM DDYCC7934-60-88 13:21:0027[facility]annCHEM ITXIG0412-22-94 13:21:009.9[facility]annCHEM PAERX5838-20-62 13:21:008.4[facility]annCHEM BTIVZ9882-53-11 13:21:00* Test Item Value Reference Range Interpretation Comments B/C Ratio (test code = B/C Ratio) 18 1 6-25 [facility]annCHE[facility] HTHFJ5748-67-92 13:21:004.8[facility]annCHEM PANEL 2019-08-01 13:21:001.8[facility]annCHEM YKMDD6760-47-55 13:21:003.0[facility]annCHEM FZJVG8020-34-67 13:21:00* Test Item Value Reference Range Interpretation Comments A/G Ratio (test code = A/G Ratio) 0.6 1 0.7-1.6 [facility]annCHE[facility] WTGBA8081-89-77 13:21:00<6[facility]annCHEM PANEL 2019-08-01 13:21:004[facility]annCHEM VLHIT8686-64-04 13:21:0047[facility]annCHEM OWPVD3148-93-50 13:21:000.3[facility]annCHEM SAVQT1446-20-88 13:21:0057[facility]annCHEM XVPLN6238-76-62 13:21:002.0[facility]annCHEM VTULL3967-42-58 13:21:002.3[facility]annCHEM KOGHW4210-55-05 11:22:004.9 [facility]annCHE[facility] HLHGK1648-82-15 11:22:001.9[facility]annCHEM PANEL 2019-07-31 11:22:008[facility]annCHEM BZTUL8661-51-51 11:22:008[facility]annCHEM UDGNS2072-66-54 11:22:0040[facility]annCHEM SLUOT7468-22-24 11:22:000.4[facility]annCHEM AWAYM9468-52-32 11:22:00* Test Item Value Reference Range Interpretation Comments B/C Ratio (test code = B/C Ratio) 12 1 6-25 [facility] HermannCHEM HEQGH2341-77-64 11:22:003.0[facility]annCHEM PANEL 2019-07-31 11:22:00* Test Item Value Reference Range Interpretation Comments A/G Ratio (test code = A/G Ratio) 0.6 1 0.7-1.6 [facility] HermannCHEM TGHRF9472-13-76 11:22:002.1[facility] HermannCHEM PANEL 2019-07-31 11:22:003.4[facility] NbdiirrFVERQMVNRY6745-34-09 11:22:00Normal (07/31/19 5:22 AM)[facility] HnppgrvRDKJDMVMJN0238-11-24 11:22:00Normal (07/31/19 5:22 AM)[facility] BwqpvhmBCCASJLGHO6169-82-97 11:22:0089.3[facility] FLIHWLWMEW3878-88-55 11:22:006.0[facility] ApeiybtGBYRYTXWUG0997-21-95 11:22:004.7 [facility] OybxmcxGBLHJYEEEB2972-46-15 11:22:0018.5[facility] HermannHEMATOLOGY 2019-07-31 11:22:001.2[facility] KkjkguhVQIHHHVBJV1517-10-13 11:22:001.0[facility] KfperleHAZXBCSBGH8320-58-87 11:22:0020.7[facility] XlziqsuSRKDNXXBJI9378-79-55 11:22:003.24[facility] QztjwcnXMKPBCPKMH2905-58-42 11:22:0027.6[facility] MGMUPHDQCN5605-81-80 11:22:0085.4[facility] EtcfejpTDAJVXSBNG7507-62-97 11:22:00* Test Item Value Reference Range Interpretation Comments MCH (test code = MCH) 28.2 pg 27.0-31.0 [facility] VxchvudTHUNPSLGPO7659-58-82 11:22:0033.0[facility] HermannHEMATOLOGY 2019-07-31 11:22:0015.5[facility] CwfjrrnVKQLSQAVKQ1874-33-42 11:22:93651Fncxxdzq JnkrhphYPZFZSCALK2636-76-69 11:22:008.1[facility] HermannBLOOD BANK RESULTS 2019-07-30 14:59:00Product available 9(07/30/19 8:59 AM)[facility]annBLOOD BANK UKILQMI6475-03-40 14:44:00Negative (07/30/19 8:44 AM)[facility] BLNFFZPQGK9381-17-52 14:18:001.3[facility] VbosbcuDZGQDLSFQF0995-50-22 14:18:000.6 [facility] UyzbfcuIYYULYYSLY7246-53-16 14:18:000.1[facility] HermannENDOCRINOLOGY 2019-07-30 12:46:0014.1[facility] HuyzqgrRFCWKCQEFEYTQ4781-08-94 10:08:0017.0 [facility] WkcplkaPIIQSUGRBAJET6214-07-64 12:26:0012.8[facility] ASOHVGOVYDUJI2904-75-55 12:26:0037.7[facility] HermannMATERNAL XIVGTHG2808-84-06 12:26:0011.2[facility] HermannTUMOR QABTJPL5785-22-17 12:26:0053.2[facility] TUMOR WBIDBEA7882-56-64 12:26:49814.1[facility] HermannTUMOR YSDAWPI3768-39-85 00:02:0065.3[facility] HermannCHEM AWPJS1823-16-53 03:57:000.7[facility] URINE AND ZEORQ8585-92-44 23:46:00Slight *ABN*(07/25/19 5:46 PM)[facility] URINE AND AUMPJ3198-99-69 23:46:00* Test Item Value Reference Range Interpretation Comments UA Spec Grav (test code = UA Spec Grav) 1.028 1 [facility]UR[facility] AND SWTYV2225-25-13 23:46:00* Test Item Value Reference Range Interpretation Comments UA pH (test code = UA pH) 6.0 1 5.0-8.0 [facility]UR[facility] AND LWOWE2683-21-83 23:46:00Negative *NA*(07/25/19 5:46 PM)[facility] GEOXT8331-38-61 23:46:00Negative (07/25/19 5:46 PM) [facility] FLPII6068-86-23 23:46:002.0[facility]UR[facility] AND DOSET4852-72-15 23:46:00Negative (07/25/19 5:46 PM)[facility] VOGAV3337-12-14 23:46:00Large *ABN*(07/25/19 5:46 PM)[facility] LTKFO0886-69-86 23:46:0027[facility]annUR[facility] AND EXSXG4503-00-01 23:46:005 [facility]annCHEM AAWQO2162-80-69 22:36:0080[facility] HermannCHEM PANEL 2019-07-25 22:36:000.1[facility] JykeewbOOIKHRDPOH3165-57-14 22:36:000.1[facility] HermannMRI PELVIS RTZ6473-58-88 11:57:00 [facility] [address] [place] [address] Patient Name: CARLA DEJESUS MR #: [id number] : 1950 Age/Sex: 68/F Req #: [id number] Adm Physician: Ordered by: PATY PAYNE MD Report #: [id number] Location: MRI Room/Bed: Procedure: MRI/MRI PELVIS WOW Exam Date: Exam Time: REPORT STATUS: Signed INDICATION: Large pelvic mass. COMPARISON: Abdomen pelvis CT July 13, 2019 P elvic ultrasound February 07, 2019 TECHNIQUE: Pelvis MR without and with intr avenous contrast. FINDINGS: In the low anterior abdomen / pelvis there is a large heterogeneously enhancing necrotic mass measuring 19 cm TR x 11 cm AP x 11 cm SI. This is highly likely of ovarian origin (on sagittal T2 imaging t he fundus of the uterus appears distinct from the mass). There is a small amou nt of free fluid in the low abdomen and some of this extends into a tiny periu mbilical hernia. Bladder, urethra, and vagina are normal. No pelvic or retr operitoneal lymphadenopathy is demonstrated. No hydronephrosis. No suspic ious osseous lesion is demonstrated. 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 Signed by: Sylvia Rosenberg MD on 07/24/2019 12:14 PM Dictated By: SYLVIA ROSENBERG Transcribed By: SCOTT on 07/24/191213 COPY TO: PATY PAYNE MD Sodium Bbzka4018-40-55 23:14:00* Test Item Value Reference Range Interpretation Comments Sodium Level (test code = 2951-2) 137 136-145 [facility] Lvqho0179-43-26 23:14:00* Test Item Value Reference Range Interpretation Comments Potassium Level (test code = 2823-3) 3.3 3.5-5.1 L [facility] SystemChloride Dknqa7044-19-37 23:14:00* Test Item Value Reference Range Interpretation Comments Chloride Level (test code = 2075-0) 103 98-107 [facility] SystemCarbon Dioxide Qltkm0847-42-48 23:14:00* Test Item Value Reference Range Interpretation Comments Carbon Dioxide Level (test code = 2028-9) 26 22-29 [facility] SystemAnion Ucx8295-59-46 23:14:00* Test Item Value Reference Range Interpretation Comments Anion Gap (test code = 16172-1) 11.3 8-16 [facility] SystemBlood Urea Qfumvjic7811-74-24 23:14:00* Test Item Value Reference Range Interpretation Comments Blood Urea Nitrogen (test code = 3094-0) 8 7-26 [facility] SystemCreatinine2019-11-02 23:14:00* Test Item Value Reference Range Interpretation Comments Creatinine (test code = 2160-0) 0.72 0.57-1.11 [facility] SystemBUN/Creatinine Gljro4290-73-37 23:14:00* Test Item Value Reference Range Interpretation Comments BUN/Creatinine Ratio (test code = 3097-3) 11 6-25 [facility] SystemEstimat Glomerular Filtration Rate 2019-07-13 23:14:00* Test Item Value Reference Range Interpretation Comments Estimat Glomerular Filtration Rate (test code = 970381556) > 60 >60 Ranges were taken from the National Kidney Disease Education Program and the [facility] literature.Reference ranges:60 or greater: Vakonb82-99 ( for 3 consecutive months): Chronic kidney disease 15 or less: Kidney failureNorthwest Texas Healthcare SystemGlucose Glhvw7554-02-32 23:14:00* Test Item Value Reference Range Interpretation Comments Glucose Level (test code = IWN5295) 88 74-118 [facility] SystemCalcium Tilin2340-44-34 23:14:00* Test Item Value Reference Range Interpretation Comments Calcium Level (test code = 90117-7) 8.4 8.4-10.2 [facility] SystemCT ABDOMEN/PELVIS Z0482-71-32 22:11:00 [facility] [address] [address] Patient Name: CARLA DEJESUS MR #: [id number] : 1950 Age/Sex: 68/F Req #: [id number] Adm Physician: Ordered by: HERBERT HARRY [employer]NAGER [employer] Report #: [id number] Location: ER Room/Bed: Procedure: 1102-[address]/CT ABDOMEN/PELVIS W Exam Date: 07/13/19 Exam Ti me: 2044 REPORT STATUS: Signed E XAM: CT Abdomen and Pelvis WITH contrast INDICATION: Abdominal pain COMP ARISON: None. TECHNIQUE: Abdomen and pelvis were scanned utilizing a multidete ctor helical scanner from the lung base to the pubic symphysis after administr ation of IV contrast. Coronal and sagittal reformations were obtained. Routine protocol was performed. Scan was performed when during portal venous phase. IV CONTRAST: 100 mL of Isovue 370 ORAL CONTRAST: Gastroview COMPLICATIONS: None RADIATION DOSE: Total DLP: 718 mGy*cm Estimated effective dose: (DLP x 0.015 x size factor) mSv CTDIvol has been reviewed. It is below the limits set by the Radiation Protocol Co [facility] (RP). Dose modulation, iterative reconstruction, and/or weight b ased adjustment of the mA/kV was utilized to reduce the radiation dose to as l ow as reasonably achievable. FINDINGS: LINES and TUBES: None. LOWER THORAX: Left basilar atelectasis. Small pericardial effusion. HEPATOB ILIARY: No focal hepatic lesions. No biliary ductal dilation. GALLBLA DDER: There are cholecystectomy clips. SPLEEN: Mild splenomegaly measu res up to 13.8 cm. PANCREAS: No focal masses or ductal dilatation. A DRENALS: No adrenal nodules KIDNEYS/URETERS: Kidneys enhance symmetrica lly. No hydronephrosis. No cystic or solid mass lesions. No stones. GI TRACT: No abnormal distention, wall thickening, or evidence of bowel obstructi on. Appendix is normal. PELVIC ORGANS/BLADDER: A 13 x 12.8 x 19.2 cm solid heterogeneous lower abdominal/pelvic mass with cystic components appears to rise from the right adnexa, the right ovarian vein is engorged. The bladder is unremarkable. The uterus is not enlarged. Thickening of the appendix, pos sibly due to metastatic implantation. LYMPH NODES: Some slightly prominen t central mesenteric lymph nodes. For example a 0.8 cm mesenteric root lymph n ode (series 2 image 37) and a 1.2 cm ileocolic lymph node (series 2 image 41). VESSELS: Trace nonstenotic calcifications.. PERITONEUM / RETROPER ITONEUM: Small volume ascites extends up to the bilateral upper quadrants.. Sc attered peritoneal nodularity. BONES: Mild T12 vertebral body height loss with adjacent degenerative changes, likely chronic. Degenerative changes in t he spine. SOFT TISSUES: A 1.8 cm heterogeneous paraumbilical subcutaneo us nodule small periumbilical hernia small periumbilical hernia adjacent to th is nodule. IMPRESSION: 1. A 19.2 cm pelvic mass, l ikely arises from the right ovary, suspected to be ovarian or uterine in origi n, with mesenteric lissette and peritoneal metastasis and small volume ascites. T hickened appendix is possibly due to metastatic implantation. A 1.8 cm periumb ilical subcutaneous nodule adjacent to a umbilical hernia is also likely metas tatic implant. Small pericardial effusion is indeterminate in etiology. Recomm end surgical consultation/referral. 2. Nonspecific mild splenomegaly. 3. M ild T12 vertebral body height loss with adjacent degenerative changes, likely chronic. Signed by: Cliff Salinas DO on 07/13/2019 10:22 PM Dictate d By: CLIFF SALINAS DO 21 COPY TO: OSMIN HARRY NP CHEST 2 ZAHGJ8163-01-04 20:15:00 [facility] [address] [address] Patient Name: CARLA DEJESUS MR #: [id number] : 1950 Age/Sex: 68/F Req #: [id number] Adm Physician: Ordered by: UJLY ORTIZ MD Report #: [id number] Location: ER Room/Bed: Procedure: 2557-0439 D X/CHEST 2 VIEWS Exam Date: 07/13/19 Exam Time: 1900 REPORT STATUS: Signed EXAMINATIO N: CHEST 2 VIEWS INDICATION: Vomiting, sepsis COMPARISON: None FINDINGS: PA and lateral views TUBES and LINES: None. YASMIN GS: Lungs are well inflated. Lungs are clear. There is no evidence of pneum onia or pulmonary edema. Mild prominence of central pulmonary vasculature. Mac nt linear peripheral opacities in the left lower lung may be subsegmental scar ring or atelectasis. PLEURA: No pleural effusion or pneumothorax. HE ART AND MEDIASTINUM: The cardiomediastinal silhouette is unremarkable. BONES AND SOFT TISSUES: No acute osseous lesion. Soft tissues are unremarka ble. Degenerative changes in the spine and shoulders. Mild vertebral body heig ht loss at T12 where there are degenerative changes. UPPER ABDOMEN: No free air under the diaphragm. IMPRESSION: Mild central pulmonary vasc ular congestion. Age-indeterminate, likely chronic, mild T12 vertebral body co mpression deformity. Signed by: Cliff Salinas DO on 07/13/2019 8:17 PM Dictated By: CLIFF SALINAS DO 16 Transcribed By: SCOTT on 07/13/192016 COPY TO: JULY ORTIZ MD Magnesium Zgewk3561-34-81 20:00:00* Test Item Value Reference Range Interpretation Comments Magnesium Level (test code = 37611-7) 2.0 1.3-2.1 [facility] SystemLipase2019-11-02 20:00:00* Test Item Value Reference Range Interpretation Comments Lipase (test code = 3040-3) < 4 8-78 L [facility] SystemTotal Jbmvidash0815-68-62 19:12:00* Test Item Value Reference Range Interpretation Comments Total Bilirubin (test code = 1975-2) 0.8 0.2-1.2 [facility] SystemAspartate Amino Transf (AST/SGOT) 2019-07-13 19:12:00* Test Item Value Reference Range Interpretation Comments Aspartate Amino Transf (AST/SGOT) (test code = Aspartate Amino Transf (AST/SGOT)) 9 5-34 [facility] SystemAlanine Aminotransferase (ALT/SGPT) 2019-07-13 19:12:00* Test Item Value Reference Range Interpretation Comments Alanine Aminotransferase (ALT/SGPT) (test code = 1742-6) 6 0-55 [facility] SystemTotal Kkgrumx9664-24-28 19:12:00* Test Item Value Reference Range Interpretation Comments Total Protein (test code = 2885-2) 6.6 6.5-8.1 [facility] SystemAlbumin2019-11-02 19:12:00* Test Item Value Reference Range Interpretation Comments Albumin (test code = 1751-7) 2.6 3.5-5.0 L [facility] SystemGlobulin2019-11-02 19:12:00* Test Item Value Reference Range Interpretation Comments Globulin (test code = 86980-7) 4.0 2.3-3.5 H [facility] SystemAlbumin/Globulin Krcou7446-47-05 19:12:00 * Test Item Value Reference Range Interpretation Comments Albumin/Globulin Ratio (test code = 1759-0) 0.7 0.8-2.0 L [facility] SystemAlkaline Wjhuvukzoqg2380-51-07 19:12:00* Test Item Value Reference Range Interpretation Comments Alkaline Phosphatase (test code = 6768-6) 56 40-150 [facility] SystemUrine LBI7190-02-82 19:03:00* Test Item Value Reference Range Interpretation Comments Urine WBC (test code = 5821-4) 6-10 0-5 H [facility] SystemUrine CWL1395-49-81 19:03:00* Test Item Value Reference Range Interpretation Comments Urine RBC (test code = 51844-9) 0-5 0-5 [facility] SystemUrine Xssfvfze2235-12-48 19:03:00* Test Item Value Reference Range Interpretation Comments Urine Bacteria (test code = 59895-3) MANY NONE H [facility] SystemUrine Epithelial Znycr2615-82-63 19:03:00 * Test Item Value Reference Range Interpretation Comments Urine Epithelial Cells (test code = 05099-8) FEW NONE [facility] SystemUrine Transitional Epithelial Cells 2019-07-13 19:03:00* Test Item Value Reference Range Interpretation Comments Urine Transitional Epithelial Cells (test code = 8249-5) FEW NONE H [facility] SystemLactic Acid Pwaws9999-81-78 19:03:00* Test Item Value Reference Range Interpretation Comments Lactic Acid Level (test code = Lactic Acid Level) 1.6 0.5- 2.0 [facility] SystemWhite Blood Vdvhf3448-08-66 18:51:00* Test Item Value Reference Range Interpretation Comments White Blood Count (test code = 6690-2) 16.63 4.8-10.8 H [facility] SystemRed Blood Dyxvm8413-20-14 18:51:00* Test Item Value Reference Range Interpretation Comments Red Blood Count (test code = 789-8) 4.57 3.6-5.1 [facility] SystemHemoglobin2019-11-02 18:51:00* Test Item Value Reference Range Interpretation Comments Hemoglobin (test code = 61045-6) 12.4 12.0-16.0 [facility] SystemHematocrit2019-11-02 18:51:00* Test Item Value Reference Range Interpretation Comments Hematocrit (test code = 4544-3) 39.0 34.2-44.1 [facility] SystemMean Corpuscular Byauxc3394-62-53 18:51:00* Test Item Value Reference Range Interpretation Comments Mean Corpuscular Volume (test code = 787-2) 85.3 81-99 [facility] SystemMean Corpuscular Goqjbrvaxs0718-44-61 18:51:00* Test Item Value Reference Range Interpretation Comments Mean Corpuscular Hemoglobin (test code = 785-6) 27.1 28-32 L [facility] Corpuscular Hemoglobin Concent 2019-07-13 18:51:00* Test Item Value Reference Range Interpretation Comments Mean Corpuscular Hemoglobin Concent (test code = 786-4) 31.8 31-35 [facility] SystemRed Cell Distribution Ckzro6393-25-39 18:51:00* Test Item Value Reference Range Interpretation Comments Red Cell Distribution Width (test code = 71332-2) 13.6 11.7 -14.4 [facility] SystemPlatelet Iwrim2876-58-61 18:51:00* Test Item Value Reference Range Interpretation Comments Platelet Count (test code = 777-3) 329 140-360 [facility] SystemNeutrophils (%) (Auto)2019-07-13 18:51:00 * Test Item Value Reference Range Interpretation Comments Neutrophils (%) (Auto) (test code = 14478-7) 80.7 38.7-80.0 H [facility] SystemLymphocytes (%) (Auto)2019-07-13 18:51:00 * Test Item Value Reference Range Interpretation Comments Lymphocytes (%) (Auto) (test code = 736-9) 11.8 18.0-39.1 L [facility] SystemMonocytes (%) (Auto)2019-07-13 18:51:00* Test Item Value Reference Range Interpretation Comments Monocytes (%) (Auto) (test code = 5905-5) 6.6 4.4-11.3 [facility] SystemEosinophils (%) (Auto)2019-07-13 18:51:00 * Test Item Value Reference Range Interpretation Comments Eosinophils (%) (Auto) (test code = 713-8) 0.0 0.0-6.0 [facility] ([facility])2019-07-13 18:51:00* Test Item Value Reference Range Interpretation Comments Basophils (%) (Auto) (test code = 706-2) 0.2 0.0-1.0 [facility] %2019-07-13 18:51:00* Test Item Value Reference Range Interpretation Comments IM GRANULOCYTES % (test code = IM GRANULOCYTES %) 0.7 0.0- 1.0 [facility]Ne[facility] # (Auto)2019-07-13 18:51:00* Test Item Value Reference Range Interpretation Comments Neutrophils # (Auto) (test code = 751-8) 13.4 2.1-6.9 [facility] # (Auto)2019-07-13 18:51:00* Test Item Value Reference Range Interpretation Comments Lymphocytes # (Auto) (test code = 45333-8) 2.0 1.0-3.2 [facility] # (Auto)2019-07-13 18:51:00* Test Item Value Reference Range Interpretation Comments Monocytes # (Auto) (test code = 742-7) 1.1 0.2-0.8 [facility] SystemEosinophils # (Auto)2019-07-13 18:51:00* Test Item Value Reference Range Interpretation Comments Eosinophils # (Auto) (test code = 711-2) 0.0 0.0-0.4 [facility] SystemBasophils # (Auto)2019-07-13 18:51:00* Test Item Value Reference Range Interpretation Comments Basophils # (Auto) (test code = 704-7) 0.0 0.0-0.1 [facility] SystemAbsolute Immature Granulocyte (auto 2019-07-13 18:51:00* Test Item Value Reference Range Interpretation Comments Absolute Immature Granulocyte (auto (melissa t code = Absolute Immature Granulocyte (auto) 0.11 0-0.1 H [facility] SystemUrine Gcpdf6671-02-44 18:51:00* Test Item Value Reference Range Interpretation Comments Urine Color (test code = 5778-6) STRAW YELLOW [facility] System[facility] Iujzdoz9066-83-71 18:51:00* Test Item Value Reference Range Interpretation Comments Urine Clarity (test code = 75083-7) SL CLOUDY CLEAR [facility] Specific Bfgousz7482-94-00 18:51:00 * Test Item Value Reference Range Interpretation Comments Urine Specific [place] (test code = 5811-5) 1.025 1.010-1.02 5 [facility] SystemU[facility] oM8583-38-28 18:51:00* Test Item Value Reference Range Interpretation Comments Urine pH (test code = 03224-2) 6 5-7 [facility] System[facility] Leukocyte Hmcqpyrh1689-95-83 18:51:00* Test Item Value Reference Range Interpretation Comments Urine Leukocyte Esterase (test code = 51817-2) MODERATE NEGATIV E [facility] SystemU[facility] Xazjjhm5188-13-70 18:51:00* Test Item Value Reference Range Interpretation Comments Urine Nitrite (test code = 52993-6) NEGATIVE NEGATIVE [facility] SystemU[facility] Odfceda7088-81-41 18:51:00* Test Item Value Reference Range Interpretation Comments Urine Protein (test code = 58647-2) 1+ NEGATIVE H [facility] SystemU[facility] Glucose (UA)2019-07-13 18:51:00* Test Item Value Reference Range Interpretation Comments Urine Glucose (UA) (test code = 16689-2) NEGATIVE NEGATIVE [facility] System[facility] Tsszirx0192-26-51 18:51:00* Test Item Value Reference Range Interpretation Comments Urine Ketones (test code = 50014-2) TRACE NEGATIVE H [facility] SystemU[facility] Cvhwsidyimhs6775-11-52 18:51:00* Test Item Value Reference Range Interpretation Comments Urine Urobilinogen (test code = 76003-4) 1 0.2-1 [facility] System[facility] Czswqggag2577-64-90 18:51:00* Test Item Value Reference Range Interpretation Comments Urine Bilirubin (test code = 1977-8) SMALL NEGATIVE [facility] SystemU[facility] Yxims4482-53-85 18:51:00* Test Item Value Reference Range Interpretation Comments Urine Blood (test code = 03988-1) 1+ NEGATIVE [facility] SystemFluoroscopic procedure less than one hour vldbxali7212-46-99 18:30:00* Test Item Value Reference Range Interpretation Comments Lactic Acid Level (test code = Lactic Acid Level) 1.6 0.5- 2.0 [facility] or plasma lipase measurement (enzymatic activity/volume)2019-07-13 18:30:00* Test Item Value Reference Range Interpretation Comments Lipase (test code = 3040-3) < 4 8-78 [facility] SystemTransitional cells detection in urine sediment by light ajawgozdnh4757-01-76 18:22:00* Test Item Value Reference Range Interpretation Comments Urine Transitional Epithelial Cells (test code = 8249-5) FEW NONE [facility] StephenvilleURGICAL PAJVMBBGH5247-09-19 09:32:00 RUN DATE: 05/10/19 [facility] *LIVE* PAGE 1 RUN TIME: 931 Specimen Inqui ry RUN USER: INTERFACE PATIENT: CARLA DEJESUS ACCT #: [id number] LOC: EMILY U #: [id number] AGE/SX: 68/F ROOM: [facility]: Don Payne : 52 BED: DIS: STATUS: [facility] TLOC: SPEC #: [id number] RECD: 05/08/19 STATUS: [facility] #: [id number] PAULA: 05/08/[address] [facility] [address]: Don Payne MD ENTERED: 05/09/19 SP TYPE: SURG SPEC OTHR DR: Desiree Kitty anthony or Family PhysicianORDERED: GM LEVEL 4 CODES: [id number] - ENDOMETRIUM, NO COPIES TO: No Primary or Family Physician Paty Payne MD [address] [place], [place] [id number] PROCEDURES: GM LEVEL 4 (Incomplete) TISSUES: 1. ENDOMETRIUM, NOS - Endometrium, curettings FINAL DIAGNOSIS Endometrium, curettings: Squamous epithelium and glandular epithelium without evidence of dysplasia, hyperplasia, or carcinoma. GROSS AND MICROSC OPIC GROSS EXAMINATION: Received in formalin and labeled endometrium curetti ngs are segments of pink-barcenas tissue and hemorrhagic coagulum that measure together up to 1.1 cm in greatest dimensions. Entirely submitted. MICROSCOPIC EXAMINATION: Sections of the "Endometrium, curettings" reveal ch anges of primarily hemorrhage and mucoid material admixed with some glan ds. No definite evidence of malignancy is seen. Squamous epithelium is als o identified without definite evidence of dysplasia. The endometrial and endo cervical tissue present is scant. POST- OP DIAGNOSIS None given PRE-OP DIAGNOSIS Post menopausal bleeding CONTINUED ON NEXT PAGE RUN D ATE: 05/10/19 [facility] *CONNOR* FATOUMATA ORELLANA 2 RUN TIME: 931 Specimen Inquiry RUN USER: INTERFACE SPEC #: [id number] PATIENT: CARLA DEJESUS #[id number] (Continued) REVIEWED BY: - Signed SIGNATURE ON Ainsley Le MD 05/10/19 0 932 END OF REPORT CBC W/AUTO [id number] 11:14:00* Test Item Value Reference Range Interpretation Comments WHITE BLOOD CELL (test code = WBC) 7.57 x10 3/uL 4.5-11.0 N RED BLOOD CELL (test code = RBC) 4.71 x10 6/uL 3.54-5.02 N HEMOGLOBIN (test code = HGB) 13.3 g/dL 11.0-15.0 N HEMATOCRIT (test code = HCT) 42.3 % 33.0-45.0 N MEAN CELL VOLUME (test code = MCV) 89.8 fL 81.0-99.0 N MEAN CELL HGB (test code = MCH) 28.2 pg 27.0-33.0 N MEAN CELL HGB CONCETRATION (test code = MCHC) 31.4 g/dL 33.0-37. 0 L RED CELL DISTRIBUTION WIDTH CV (test code = RDW) 12.5 % 11.5- 14.5 N RED CELL DISTRIBUTION WIDTH SD (test code = RDW-SD) 41.5 fL 37 .0-54.0 N PLATELET COUNT (test code = PLT) 222 x10 3/uL 150-400 N MEAN PLATELET VOLUME (test code = MPV) 10.6 fL 7.0-9.0 H NEUTROPHIL % (test code = NT%) 63.3 % 56.0-77.0 N IMMATURE GRANULOCYTE % (test code = IG%) 0.3 % 0.0-2.0 N LYMPHOCYTE % (test code = LY%) 28.0 % 14.0-32.0 N MONOCYTE % (test code = MO%) 5.8 % 4.8-9.0 N EOSINOPHIL % (test code = EO%) 2.1 % 0.3-3.7 N BASOPHIL % (test code = BA%) 0.5 % 0.0-2.0 N NUCLEATED RBC % (test code = NRBC%) 0.0 % 0-0 N NEUTROPHIL # (test code = NT#) 4.79 x10 3/uL 2.0-7.6 N IMMATURE GRANULOCYTE # (test code = IG#) 0.02 x10 3/uL 0.00-0.03 N LYMPHOCYTE # (test code = LY#) 2.12 x10 3/uL 1.0-3.8 N MONOCYTE # (test code = MO#) 0.44 x10 3/uL 0.1-0.8 N EOSINOPHIL # (test code = EO#) 0.16 x10 3/uL 0.0-0.2 N BASOPHIL # (test code = BA#) 0.04 x10 3/uL 0.0-0.2 N NUCLEATED RBC # (test code = NRBC#) 0.00 x10 3/uL 0.0-0.1 N MANUAL DIFF REQUIRED (test code = MDIFF) NO BASIC METABOLIC [id number] 11:12:00* Test Item Value Reference Range Interpretation Comments SODIUM (test code = NA) 142 mEq/L 134-147 N POTASSIUM (test code = K) 3.6 mEq/L 3.4-5.0 N CHLORIDE (test code = CL) 108 mEq/L 100-108 N CARBON DIOXIDE (test code = CO2) 30 mEq/L 21-33 N ANION GAP (test code = GAP) 8 0-20 N GLUCOSE (test code = GLU) 100 mg/dL 70-110 N BLOOD UREA NITROGEN (test code = BUN) 6 mg/dL 7-18 L GLOMERULAR FILTRATION RATE (test code = GFR) 83.5 80-90 N Units of measure = ml/min/1.73 m2 CREATININE (test code = CREAT) 0.7 mg/dL 0.6-1.3 N CALCIUM (test code = CA) 8.6 mg/dL 8.0-10.5 N BASIC METABOLIC [id number] 11:09:00* Test Item Value Reference Range Interpretation Comments SODIUM (test code = NA) 142 mEq/L 134-147 N POTASSIUM (test code = K) 3.6 mEq/L 3.4-5.0 N CHLORIDE (test code = CL) 108 mEq/L 100-108 N CARBON DIOXIDE (test code = CO2) 30 mEq/L 21-33 N ANION GAP (test code = GAP) 8 0-20 N GLUCOSE (test code = GLU) 100 mg/dL 70-110 N BLOOD UREA NITROGEN (test code = BUN) 6 mg/dL 7-18 L GLOMERULAR FILTRATION RATE (test code = GFR) 80-90 CREATININE (test code = CREAT) mg/dL 0.6-1.3 CALCIUM (test code = CA) 8.6 mg/dL 8.0-10.5 N - XR CHEST 2 [id number] 11:06:00 FAX: Paty Vick [phone] [place]: St: PRE Name: Mariaelena ALLENCARLA EDWARDS [facility] : 08/18/19 [birth year] Age/S: 68/F [address] [place] [address] Unit #: [id number] Loc: [place] [address] Phys: Paty Payne MD Acct: [id number] Dis Date: Status: PRE SDC PHONE #: [phone] Exam Date: 05/06/2019 1055 FAX #: [phone] Reason: HYSTEROSCOPY EXAMS: CPT CODE: [id number] XR CHEST 2 V 31557 2 view chest x-ray performed May 06, 2019 1041 hours. COMPARISON: none. CLINICAL H ISTORY: HYSTEROSCOPY. DISCUSSION: 2 views/ films of the chest ar e submitted. Lungs are clear bilaterally. Mild cardiomegaly. Degenerative changes are present in the osseous structures. IMPRESSION: Normal Chest X-ray. at 1106 Reported and signed by: Radha mena M.D. CC: Paty Payne MD Technologist: RT Hood(R) Trnscrd Date/Time/By: 05/06/2019 (4526) : By: MonicaG Orig Print D/T: S: 05/06/2019 (1402) PAGE 1 Signed Report [id number] 21:12:00 [facility] [address] [address] Patient Name: CARLA DEJESUS MR #: [id number] : 1950 Age/Sex: 68/F Req #: [id number] Adm Physician: Ordered by: REUBEN UMANA MD Report #: [id number] Location: ER Room/Bed: Procedure: [id number] US/US TRANSVAGINAL Exam Date: 02/07/19 Exam Time: 2 000 REPORT STATUS: Signed Transv aginal and transabdominal ultrasound Indication: Intermittent bleeding and spotting for 2 to 3 months Technique: Transabdominal ultrasound performed for global evaluation of the uterus. Transvaginal ultrasound performed for de tailed evaluation of the endometrium and ovaries. Selected images provided for review. Comparison: None Findings: Transabdominally, the uterus measures approximately 5.7 x 6.2 x 7.4 cm. Hyperechoic, solid, non-shadowing l esion in the posterior body measures 5 x 5 cm. The bladder is collapsed . Transvaginally, the uterus is heterogeneous in echotexture and lobulated in contour. The lesion in the posterior body identified on transabdominal images is poorly visualized. The endometrial stripe measures 0.3 cm, is linear and echogenic and is normal. The cervix is normal. No free fluid in the cul de sac. Neither ovary is visualized. IMPRESSION: 1. Nor mal endometrial stripe thickness. 2. Heterogeneous appearance of the uterus may represent a combination of of fibroids and adenomyosis. Recommend further characterization with pelvic MRI on an outpatient basis. 3. Nonvisualiza tion of the ovaries. Signed by: Dr. Sofya Kimball MD on 02/07/2019 9:16 PM Dictated By: SOFYA KIMBALL MD 15 Transcribed By: SCOTT on 02/07/192115 CO PY TO: REUBEN UMANA MD Urine [id number] 21:05:00* Test Item Value Reference Range Interpretation Comments Urine WBC (test code = 5821-4) >50 0-5 H [facility] [id number] 21:05:00* Test Item Value Reference Range Interpretation Comments Urine RBC (test code = 26230-1) 11-20 0-5 H [facility] SystemUrine Ifgynueq8381-14-10 21:05:00* Test Item Value Reference Range Interpretation Comments Urine Bacteria (test code = 88065-1) MANY NONE H [facility] SystemU[facility] Epithelial Plkvc8056-37-42 21:05:00 * Test Item Value Reference Range Interpretation Comments Urine Epithelial Cells (test code = 41596-6) NONE NONE [facility] SystemU[facility] Omlxi0416-16-31 20:55:00* Test Item Value Reference Range Interpretation Comments Urine Color (test code = 5778-6) YELLOW YELLOW [facility] SystemU[facility] Obrvtcb2230-71-83 20:55:00* Test Item Value Reference Range Interpretation Comments Urine Clarity (test code = 62755-3) SL CLOUDY CLEAR [facility] System[facility] Specific Eswbgnq2408-82-01 20:55:00 * Test Item Value Reference Range Interpretation Comments Urine Specific [place] (test code = 5811-5) >=1.030 1.010-1.02 5 [facility] SystemU[facility] kI7735-53-04 20:55:00* Test Item Value Reference Range Interpretation Comments Urine pH (test code = 80554-7) 5.5 5-7 [facility] SystemU[facility] Leukocyte Fyrbnzsp8235-79-74 20:55:00* Test Item Value Reference Range Interpretation Comments Urine Leukocyte Esterase (test code = 38250-3) MODERATE NEGATIV E [facility] SystemUrine Utxpsij8997-01-27 20:55:00* Test Item Value Reference Range Interpretation Comments Urine Nitrite (test code = 05361-6) NEGATIVE NEGATIVE [facility] SystemU[facility] Wjrhrkc4404-37-63 20:55:00* Test Item Value Reference Range Interpretation Comments Urine Protein (test code = 51209-6) TRACE NEGATIVE H [facility] SystemUrine Glucose (UA)2019-02-07 20:55:00* Test Item Value Reference Range Interpretation Comments Urine Glucose (UA) (test code = 72812-5) NEGATIVE NEGATIVE [facility] Yidjggg2777-93-42 20:55:00* Test Item Value Reference Range Interpretation Comments Urine Ketones (test code = 36560-1) NEGATIVE NEGATIVE [facility] Ibyqhlegvvcu8234-82-38 20:55:00* Test Item Value Reference Range Interpretation Comments Urine Urobilinogen (test code = 67426-4) 0.2 0.2-1 [facility] Dfyphrbhz7437-53-61 20:55:00* Test Item Value Reference Range Interpretation Comments Urine Bilirubin (test code = 1977-8) NEGATIVE NEGATIVE [facility] Pcvdh8469-08-22 20:55:00* Test Item Value Reference Range Interpretation Comments Urine Blood (test code = 14465-0) 3+ NEGATIVE [facility]villeodium Bhgta1804-19-89 20:43:00* Test Item Value Reference Range Interpretation Comments Sodium Level (test code = 2951-2) 139 136-145 [facility] SystemPotassium Magef4105-56-93 20:43:00* Test Item Value Reference Range Interpretation Comments Potassium Level (test code = 2823-3) 3.2 3.5-5.1 L [facility] SystemChloride Jugqp8621-04-52 20:43:00* Test Item Value Reference Range Interpretation Comments Chloride Level (test code = 2075-0) 104 98-107 [facility] SystemCarbon Dioxide Raamk4485-51-95 20:43:00* Test Item Value Reference Range Interpretation Comments Carbon Dioxide Level (test code = 2028-9) 26 22-29 [facility] SystemAnion Ofd1359-95-16 20:43:00* Test Item Value Reference Range Interpretation Comments Anion Gap (test code = 51496-4) 12.2 8-16 [facility] SystemBlood Urea Ixqffima3025-83-42 20:43:00* Test Item Value Reference Range Interpretation Comments Blood Urea Nitrogen (test code = 3094-0) 7 7-26 [facility] SystemCreatinine2019-05-30 20:43:00* Test Item Value Reference Range Interpretation Comments Creatinine (test code = 2160-0) 0.79 0.57-1.11 [facility] SystemBUN/Creatinine Bwfhy8087-13-41 20:43:00* Test Item Value Reference Range Interpretation Comments BUN/Creatinine Ratio (test code = 3097-3) 9 6- [facility] SystemEstimat Glomerular Filtration Rate 2019-02-07 20:43:00* Test Item Value Reference Range Interpretation Comments Estimat Glomerular Filtration Rate (test code = 265222983) > 60 >60 Ranges were taken from the National Kidney Disease Education Program and the [facility] Foundation literature.Reference ranges:60 or greater: Gylfal32-08 ( for 3 consecutive months): Chronic kidney disease 15 or less: Kidney failureNorthwest Texas Healthcare SystemGlucose Fejsa0167-50-50 20:43:00* Test Item Value Reference Range Interpretation Comments Glucose Level (test code = YRQ8215) 120 74-118 H [facility] SystemCalcium Yrxxx2659-38-35 20:43:00* Test Item Value Reference Range Interpretation Comments Calcium Level (test code = 25569-9) 9.0 8.4-10.2 [facility] SystemTotal Hsggoozhd3055-71-86 20:43:00* Test Item Value Reference Range Interpretation Comments Total Bilirubin (test code = 1975-2) 0.4 0.2-1.2 [facility] SystemAspartate Amino Transf (AST/SGOT) 2019-02-07 20:43:00* Test Item Value Reference Range Interpretation Comments Aspartate Amino Transf (AST/SGOT) (test code = Aspartate Amino Transf (AST/SGOT)) 11 5-34 [facility] SystemAlanine Aminotransferase (ALT/SGPT) 2019-02-07 20:43:00* Test Item Value Reference Range Interpretation Comments Alanine Aminotransferase (ALT/SGPT) (test code = 1742-6) 8 0-55 [facility] SystemTotal Blzjzns6692-55-13 20:43:00* Test Item Value Reference Range Interpretation Comments Total Protein (test code = 2885-2) 6.2 6.5-8.1 L [facility] SystemAlbumin2019-05-30 20:43:00* Test Item Value Reference Range Interpretation Comments Albumin (test code = 1751-7) 3.4 3.5-5.0 L [facility] SystemGlobulin2019-05-30 20:43:00* Test Item Value Reference Range Interpretation Comments Globulin (test code = 81093-7) 2.8 2.3-3.5 [facility] SystemAlbumin/Globulin Nftzn1481-46-78 20:43:00 * Test Item Value Reference Range Interpretation Comments Albumin/Globulin Ratio (test code = 1759-0) 1.2 0.8-2.0 [facility] SystemAlkaline Arphthhkyop5991-99-50 20:43:00* Test Item Value Reference Range Interpretation Comments Alkaline Phosphatase (test code = 6768-6) 77 40-150 [facility] SystemProthrombin Rtff7838-73-98 20:34:00* Test Item Value Reference Range Interpretation Comments Prothrombin Time (test code = 5902-2) 14.0 11.9-14.5 [facility] SystemProthromb Time International Ratio 2019-02-07 20:34:00* Test Item Value Reference Range Interpretation Comments Prothromb Time International Ratio (test code = 6301-6) 1.03 Oral Anticoagulant Therapy INR Values:1. Low Intensity Therapy 1.5 - 2.02 . Moderate Intensity Therapy 2.0 - 3.03. High Intensity Therapy(1) 2.5 - 3. 54. High Intensity Therapy(2) 3.0 - 4.05. Panic Value INR > 5.0 [facility] SystemActivated Partial Thromboplast Time 2019-02-07 20:34:00* Test Item Value Reference Range Interpretation Comments Activated Partial Thromboplast Time (test code = 12908-6) 32.2 23.8-35.5 [facility] SystemProthrombin Ricb9209-22-34 20:34:00* Test Item Value Reference Range Interpretation Comments Prothrombin Time (test code = 5902-2) 14.0 11.9-14.5 [facility] SystemProthromb Time International Ratio 2019-02-07 20:34:00* Test Item Value Reference Range Interpretation Comments Prothromb Time International Ratio (test code = 6301-6) 1.03 Oral Anticoagulant Therapy INR Values:1. Low Intensity Therapy 1.5 - 2.02 . Moderate Intensity Therapy 2.0 - 3.03. High Intensity Therapy(1) 2.5 - 3. 54. High Intensity Therapy(2) 3.0 - 4.05. Panic Value INR > 5.0 [facility] SystemActivated Partial Thromboplast Time 2019-02-07 20:34:00* Test Item Value Reference Range Interpretation Comments Activated Partial Thromboplast Time (test code = 55280-5) 32.2 23.8-35.5 [facility] SystemWhite Blood Uccrv7798-42-12 20:23:00* Test Item Value Reference Range Interpretation Comments White Blood Count (test code = 6690-2) 8.50 4.8-10.8 [facility] SystemRed Blood Fuabe3863-41-18 20:23:00* Test Item Value Reference Range Interpretation Comments Red Blood Count (test code = 789-8) 4.91 3.6-5.1 [facility] SystemHemoglobin2019-05-30 20:23:00* Test Item Value Reference Range Interpretation Comments Hemoglobin (test code = 62549-5) 14.0 12.0-16.0 [facility] SystemHematocrit2019-05-30 20:23:00* Test Item Value Reference Range Interpretation Comments Hematocrit (test code = 4544-3) 42.7 34.2-44.1 [facility] SystemMean Corpuscular Wbleog0694-62-96 20:23:00* Test Item Value Reference Range Interpretation Comments Mean Corpuscular Volume (test code = 787-2) 87.0 81-99 [facility] SystemMean Corpuscular Acdoeibvfu7225-22-29 20:23:00* Test Item Value Reference Range Interpretation Comments Mean Corpuscular Hemoglobin (test code = 785-6) 28.5 28-32 [facility] SystemMean Corpuscular Hemoglobin Concent 2019-02-07 20:23:00* Test Item Value Reference Range Interpretation Comments Mean Corpuscular Hemoglobin Concent (test code = 786-4) 32.8 31-35 [facility] SystemRed Cell Distribution Pxkgh6069-88-54 20:23:00* Test Item Value Reference Range Interpretation Comments Red Cell Distribution Width (test code = 74920-1) 12.8 11.7 -14.4 [facility] SystemPlatelet Nxbet3150-49-56 20:23:00* Test Item Value Reference Range Interpretation Comments Platelet Count (test code = 777-3) 214 140-360 [facility] SystemNeutrophils (%) (Auto)2019-02-07 20:23:00 * Test Item Value Reference Range Interpretation Comments Neutrophils (%) (Auto) (test code = 09625-3) 58.6 38.7-80.0 [facility] SystemLymphocytes (%) (Auto)2019-02-07 20:23:00 * Test Item Value Reference Range Interpretation Comments Lymphocytes (%) (Auto) (test code = 736-9) 33.2 18.0-39.1 [facility] SystemMonocytes (%) (Auto)2019-02-07 20:23:00* Test Item Value Reference Range Interpretation Comments Monocytes (%) (Auto) (test code = 5905-5) 5.3 4.4-11.3 [facility] SystemEosinophils (%) (Auto)2019-02-07 20:23:00 * Test Item Value Reference Range Interpretation Comments Eosinophils (%) (Auto) (test code = 713-8) 2.0 0.0-6.0 [facility] SystemBasophils (%) (Auto)2019-02-07 20:23:00* Test Item Value Reference Range Interpretation Comments Basophils (%) (Auto) (test code = 706-2) 0.5 0.0-1.0 [facility] SystemIM GRANULOCYTES %2019-02-07 20:23:00* Test Item Value Reference Range Interpretation Comments IM GRANULOCYTES % (test code = IM GRANULOCYTES %) 0.4 0.0- 1.0 [facility] SystemNeutrophils # (Auto)2019-02-07 20:23:00* Test Item Value Reference Range Interpretation Comments Neutrophils # (Auto) (test code = 751-8) 5.0 2.1-6.9 [facility] SystemLymphocytes # (Auto)2019-02-07 20:23:00* Test Item Value Reference Range Interpretation Comments Lymphocytes # (Auto) (test code = 72611-6) 2.8 1.0-3.2 [facility] SystemMonocytes # (Auto)2019-02-07 20:23:00* Test Item Value Reference Range Interpretation Comments Monocytes # (Auto) (test code = 742-7) 0.5 0.2-0.8 [facility] SystemEosinophils # (Auto)2019-02-07 20:23:00* Test Item Value Reference Range Interpretation Comments Eosinophils # (Auto) (test code = 711-2) 0.2 0.0-0.4 [facility] SystemBasophils # (Auto)2019-02-07 20:23:00* Test Item Value Reference Range Interpretation Comments Basophils # (Auto) (test code = 704-7) 0.0 0.0-0.1 [facility] SystemAbsolute Immature Granulocyte (auto 2019-02-07 20:23:00* Test Item Value Reference Range Interpretation Comments Absolute Immature Granulocyte (auto (melissa t code = Absolute Immature Granulocyte (auto) 0.03 0-0.1 [facility]
[2020-05-02] MEDS ORDERED: MORPHINE SULFATE 2 MG/ML SYR 1ML IV ONE ×2 (13:05→16:00)
[2020-05-02] MEDS ORDERED: ONDANSETRON HCL INJ 2MG/ML 2ML 2 MG/ML VIAL IV ONE (13:05)
[2020-05-02] MEDS ORDERED: SODIUM CHLORIDE 0.9% 1000ML 1,000 ML IV STA (13:05)
[2020-05-02] MEDS ORDERED: VANCOMYCIN 1GM/NS 250 ML 250 ML IV ONE (13:15)
[2020-05-02] MEDS ORDERED: PIPER-TAZ 3.375 GM 50 ML IV ONE (13:15)
[2020-05-02 13:56] LABS: BASOPHILS % 0.2 % (0.0-1.0); EOSINOPHILS % 0.4 % (0.0-6.0); HEMATOCRIT 34.7 % (34.2-44.1); HEMOGLOBIN 10.8 g/dL (12.0-16.0); LYMPHOCYTES # (AUTO) 0.9 (1.0-3.2); LYMPHOCYTES % 20.6 % (18.0-39.1); MEAN CORPUSCULAR HEMOGLOBIN 29.9 pg (28-32); MEAN CORPUSCULAR HGB CONC 31.1 g/dL (31-35); MEAN CORPUSCULAR VOLUME 96.1 fL (81-99); MONOCYTES # (AUTO) 0.4 (0.2-0.8); MONOCYTES % 8.2 % (4.4-11.3); NEUTROPHILS # (AUTO) 3.2 (2.1-6.9); NEUTROPHILS % 70.2 % (38.7-80.0); PLATELET COUNT 117 x10e3/uL (140-360); RED BLOOD COUNT 3.61 x10e6/uL (3.6-5.1); RED CELL DISTRIBUTION WIDTH 13.8 % (11.7-14.4)
[2020-05-02 14:06] LABS: INR 1.01; PROTHROMBIN TIME 13.8 seconds (11.9-14.5)
[2020-05-02 14:07] LABS: PARTIAL THROMBOPLASTIN TIME 30.6 seconds (23.8-35.5)
[2020-05-02 14:15] LABS: ALANINE AMINOTRANSFERASE 7 IU/L (0-55); ALBUMIN 2.9 g/dL (3.5-5.0); ALBUMIN/GLOBULIN RATIO 0.7 (0.8-2.0); ALKALINE PHOSPHATASE 89 IU/L (40-150); ANION GAP 16.4 mmol/L (8-16); BLOOD UREA NITROGEN 10 mg/dL (7-26); BUN/CREATININE RATIO 16 (6-25); CARBON DIOXIDE 27 mmol/L (22-29); CHLORIDE 102 mmol/L (98-107); CREATININE, SERUM 0.63 mg/dL (0.57-1.11); EST GLOMERULAR FILTRATION RATE > 60 ML/MIN (60-); GLUCOSE 92 mg/dL (74-118); MAGNESIUM 1.9 MG/DL (1.3-2.1); POTASSIUM 3.4 mmol/L (3.5-5.1); SODIUM 142 mmol/L (136-145)
[2020-05-02 14:16] LABS: CALCIUM 9.9 mg/dL (8.4-10.2)
[2020-05-02] MEDS ORDERED: SODIUM CHLORIDE 0.9% 50ML 50 ML ONE (14:30)
[2020-05-02] MEDS ORDERED: IOPAMIDOL 370 MG/ML 200 ML INFUS..BTL INJ ONE (14:30)
[2020-05-02] MEDS ORDERED: MORPHINE SULFATE 2 MG/ML SYR 1ML ONE (15:44)
[2020-05-02] MEDS ORDERED: MORPHINE SULFATE 2 MG/ML SYR 1ML IV PRN (15:45)
[2020-05-02] MEDS ORDERED: MORPHINE SULFATE 2 MG/ML SYR 1ML IV STA (15:45)
[2020-05-02] MEDS ORDERED: KCL 20MEQ/.9 SOD CHL 1,000 ML IV ONE (15:45)
--- NOTE | 2020-05-02 16:05 | Emergency Department Note ---
History of Present Illnes History of Present Illness Chief Complaint: General Medicine Complaints History of Present Illness This is a 69 year old female PRESENTS TO ED WITH C/O WORSENING PAIN TO L HIP S/P HIP SURGERY ON 03/19/2020. UNABLE TO VISUALIZE IN TRIAGE. PT TEARFUL ON ARRIVAL. REPORTS HAS NOT TAKEN MEDICATION FOR PAIN TODAY. 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 Any updates have been documented here. Past Medical History Recent Fever: No Clinical Suspicion of Infectio: Yes New/Unexplained Change in Ment: No Past Medical History: None Other Medical History: STAGE 4 COLON CANCER - ON CHEMO EVERY OTHER MONDAY, LAST DOSE 03/09/2020, NEXT DOSE SCHEDULED FOR 03/23/2020. Past Surgical History: T&A, Cataract Removal Other Surgery: CATARACT B/L EYES LEFT HIP FX REPAIR Social History Smoking Cessation: Former smoker Counseling Performed: Yes Alcohol Use: Social Any Illegal Drug Use: No TB Exposure/Symptoms: No Physically hurt or threatened: No Family History Family history of heart diseas: No Other Last Tetanus: UNK Any Pre-Existing Lines (PICC,: No Review of Systems Review of Systems Constitutional: Reports no symptoms EENTM: Reports no symptoms Cardiovascular: Reports no symptoms Respiratory: Reports no symptoms Gastrointestinal: Reports no symptoms Genitourinary: Reports no symptoms Musculoskeletal: Reports as per HPI Integumentary: Reports no symptoms Neurological: Reports no symptoms Psychological: Reports no symptoms Endocrine: Reports no symptoms Hematological/Lymphatic: Reports no symptoms Physical Exam Related Data Allergies: Coded Allergies: No Known Allergies (Unverified , 05/31/14) Triage Vital Signs Vital Signs Date Time Temp Pulse Resp B/P (MAP) Pulse Ox O2 Delivery O2 Flow Rate FiO2 05/02/20 12:45 98.1 93 18 117/85 100 Room Air Vital signs reviewed: Yes Physical Exam CONSTITUTIONAL Constitutional: Present well-developed, Present well-nourished HENT HENT: Present normocephalic, Present atraumatic, Present oropharynx clear/moist, Present nose normal HENT L/R: Present left ext ear normal, Present right ext ear normal EYES Eyes: Reports PERRL, Reports conjunctivae normal NECK Neck: Present ROM normal PULMONARY Pulmonary: Present effort normal, Present breath sounds normal CARDIOVASCULAR Cardiovascular: Present regular rhythm, Present heart sounds normal, Present capillary refill normal, Present normal rate GASTROINTESTINAL Abdominal: Present soft, Present nontender, Present bowel sounds normal GENITOURINARY Genitourinary: Present exam deferred SKIN Skin: Present erythema (LARGE AREA ~18 CM OF SWELLING, ERYTHEMA, INCR WARMTH, TENDERNESS AND FLUCTUANCE TO LEFT HIP AT SURGICAL SITE) MUSCULOSKELETAL Musculoskeletal: Present ROM normal NEUROLOGICAL Neurological: Present alert, Present oriented x 3, Present no gross motor or sensory deficits PSYCHOLOGICAL Psychological: Present mood/affect normal, Present judgement normal Results Laboratory Result Diagram: 05/02/20 1336 05/02/20 1336 Laboratory Laboratory Tests Test 05/02/20 13:36 White Blood Count 4.51 x10e3/uL (4.8-10.8) Red Blood Count 3.61 x10e6/uL (3.6-5.1) Hemoglobin 10.8 g/dL (12.0-16.0) Hematocrit 34.7 % (34.2-44.1) Mean Corpuscular Volume 96.1 fL (81-99) Mean Corpuscular Hemoglobin 29.9 pg (28-32) Mean Corpuscular Hemoglobin Concent 31.1 g/dL (31-35) Red Cell Distribution Width 13.8 % (11.7-14.4) Platelet Count 117 x10e3/uL (140-360) Neutrophils (%) (Auto) 70.2 % (38.7-80.0) Lymphocytes (%) (Auto) 20.6 % (18.0-39.1) Monocytes (%) (Auto) 8.2 % (4.4-11.3) Eosinophils (%) (Auto) 0.4 % (0.0-6.0) Basophils (%) (Auto) 0.2 % (0.0-1.0) Neutrophils # (Auto) 3.2 (2.1-6.9) Lymphocytes # (Auto) 0.9 (1.0-3.2) Monocytes # (Auto) 0.4 (0.2-0.8) Eosinophils # (Auto) 0.0 (0.0-0.4) Basophils # (Auto) 0.0 (0.0-0.1) Absolute Immature Granulocyte (auto 0.02 x10e3/uL (0-0.1) Prothrombin Time 13.8 seconds (11.9-14.5) Prothromb Time International Ratio 1.01 Activated Partial Thromboplast Time 30.6 seconds (23.8-35.5) Sodium Level 142 mmol/L (136-145) Potassium Level 3.4 mmol/L (3.5-5.1) Chloride Level 102 mmol/L (98-107) Carbon Dioxide Level 27 mmol/L (22-29) Anion Gap 16.4 mmol/L (8-16) Blood Urea Nitrogen 10 mg/dL (7-26) Creatinine 0.63 mg/dL (0.57-1.11) Estimat Glomerular Filtration Rate > 60 ML/MIN (60-) BUN/Creatinine Ratio 16 (6-25) Glucose Level 92 mg/dL (74-118) Calcium Level 9.9 mg/dL (8.4-10.2) Magnesium Level 1.9 MG/DL (1.3-2.1) Total Bilirubin 0.7 mg/dL (0.2-1.2) Aspartate Amino Transf (AST/SGOT) 13 IU/L (5-34) Alanine Aminotransferase (ALT/SGPT) 7 IU/L (0-55) Alkaline Phosphatase 89 IU/L (40-150) Total Protein 7.0 g/dL (6.5-8.1) Albumin 2.9 g/dL (3.5-5.0) Globulin 4.1 g/dL (2.3-3.5) Albumin/Globulin Ratio 0.7 (0.8-2.0) Lab results reviewed: Yes Imaging Imaging Comments CT AND XRAYS STILL PENDING RADIOLOGIST REPORT Assessment & Plan Medical Decision Making MDM CBC, CHEM, BLOOD CX'S, CT LEFT HIP WITH CONTRAST - R/O ABSCESS VS CELLULITIS VS INFECTED HARDWARE Reassessment Reassessment IV ABX'S GIVEN, D/W DR RICHARD AND DR CARRILLO Assessment & Plan Final Impression: (1) Cellulitis Depart Disposition: ADMITTED Last Vital Signs Date Time Temp Pulse Resp B/P (MAP) Pulse Ox O2 Delivery O2 Flow Rate FiO2 05/02/20 12:45 98.1 93 18 117/85 100 Room Air Home Meds Active Scripts Famotidine (PEPCID) 20 Mg Tablet, 20 MG PO BID for 30 Days, #60 TAB 0 Refills Prov:ITALIA BERMEO THANH 03/19/20 Pravastatin Sodium (PRAVASTATIN SODIUM) 20 Mg Tablet, 40 MG PO HS for 30 Days, #30 TAB 0 Refills Prov:ITALIA BERMEO THANH 03/19/20 Polyethylene Glycol 3350 (MIRALAX) 17 Gm Powd.pack, 17 GM PO BID for 30 Days, #30 DOSE 0 Refills Prov:ITALIA BERMEO THANH 03/19/20 Ondansetron Hcl/Pf (ONDANSETRON HCL 4 MG/2 ML VIAL) 4 Mg/2 Ml Vial, 4 MG IV Q4H PRN for NAUSEA AND VOMITING for 30 Days, #30 VIAL 0 Refills Prov:ITALIA BERMEO THANH 03/19/20 [Levothyroxine Sodium] 88 MCG TAB No Conflict Check, 88 MCG PO DAILY@06 for 30 Days, #30 TAB 0 Refills Prov:ITALIA BERMEO THANH 03/19/20 Lactulose (LACTULOSE) 20 Gm/30 Ml Solution, 20 GM PO BID PRN for CONSTIPATION for 30 Days, #30 DOSE 0 Refills Prov:ITALIA BERMEO THANH 03/19/20 [Hydrocodone/Apap 7.5MG-325MG] 1 EA TAB No Conflict Check, 1 EA PO Q4H PRN for SEVERE PAIN (7-10) for 30 Days, #30 TAB 0 Refills Prov:ITALIA BERMEO THANH 03/19/20 [Hydrocodone/Apap 5MG-325MG] 1 EA TAB No Conflict Check, 1 EA PO Q4H PRN for MODERATE PAIN (4-6) for 30 Days, #30 TAB 0 Refills Prov:ITALIA BERMEO THANH 03/19/20 Docusate Sodium (COLACE) 100 Mg Cap, 100 MG PO BID for 30 Days, #60 CAP 0 Refills Prov:ITALIA BEREMO THANH 03/19/20 Cefepime Hcl (CEFEPIME 2 GM INJECTION) 2 Gm/100 Ml Soln, 2 G IV Q12H for 10 Days, #20 BAG 0 Refills Prov:ITALIA BERMEO ROOF [employer]TING [employer] MINER 03/19/20 Acetaminophen (ACETAMINOPHEN) 325 Mg Tablet, 650 MG PO Q6H PRN for Mild Pain (1- 3) or Fever>100.8 for 30 Days, #60 TAB 0 Refills Prov:ITALIA BERMEO ROOF [employer] 03/19/20 Medications in the ED Morphine Sulfate 4 mg ONCE ONCE IV Last administered on 05/02/20at 13:05; Admin Dose 4 MG; Start 05/02/20 at 13:05; Stop 05/02/20 at 13:06 Ondansetron HCl 4 mg ONCE ONCE IV Last administered on 05/02/20at 13:05; Admin Dose 4 MG; Start 05/02/20 at 13:05; Stop 05/02/20 at 13:06 Sodium Chloride 1,000 ml @ 0 mls/hr Q0M STAT IV Last administered on 05/02/20at 13:05; Admin Dose 999 MLS/HR; Start 05/02/20 at 13:05; Stop 05/02/20 at 13:06 Vancomycin HCl 250 ml @ 200 mls/hr NOW ONCE IV Last administered on 05/02/20at 13:05; Admin Dose 200 MLS/HR; Start 05/02/20 at 13:15; Stop 05/02/20 at 14:29 Piperacillin Sod/ Tazobactam Sod 50 ml @ 50 mls/hr NOW ONCE IV Last administered on 05/02/20at 15:29; Admin Dose 50 MLS/HR; Start 05/02/20 at 13:15; Stop 05/02/20 at 14:14 Sodium Chloride 50 ml @ ud STK-MED ONCE .ROUTE ; Start 05/02/20 at 14:30; Stop 05/02/20 at 14:23; Status DC Iopamidol 74,000 mg STK-MED ONCE INJ ; Start 05/02/20 at 14:30; Stop 05/02/20 at 14:24; Status DC Morphine Sulfate 2 mg STK-MED ONCE .ROUTE ; Start 05/02/20 at 15:44; Stop 05/02/20 at 15:38; Status DC Morphine Sulfate 2 mg NOW STAT IV Last administered on 05/02/20at 15:42; Admin Dose 2 MG; Start 05/02/20 at 15:45; Stop 05/02/20 at 15:48; Status DC Morphine Sulfate 2 mg NOW ONCE IV ; Start 05/02/20 at 16:00; Stop 05/02/20 at 16:01 Ondansetron HCl 4 mg Q4H PRN IV NAUSEA AND VOMITING; Start 05/02/20 at 15:45; Stop 06/01/20 at 15:44 Morphine Sulfate 4 mg Q4H PRN IV SEVERE PAIN (7-10); Start 05/02/20 at 15:45; Stop 05/09/20 at 15:44; Status UNV Potassium Chloride/Sodium Chloride 1,000 ml @ 100 mls/hr Q10H ONCE IV ; Start 05/02/20 at 15:45; Stop 05/03/20 at 01:44 JULY ORTIZ MD May 02, 2020 16:05
--- OUTSIDE RECORDS SUMMARY | 2020-05-02 16:30 | XMS REPORT | Clinical Summary ---
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
--- OUTSIDE RECORDS SUMMARY | 2020-05-02 16:31 | XMS REPORT | Continuity of Care Document ---
Author Author [facility] t Organization [facility] t Address [facility] [address] [place] [address] Phone Unavailable Care Team Providers Care Chief Human Resources Officer Name Role Phone DO Nishi PADRON PCP WILMAR RICHARD Attphys Unavailable AskenasySalvador Attphys Jawmckay, Omari Attphys Mariaelena PAYNE Attphys Unavailable Jess ORTIZ LAIDANIELLE Attphys Unavailable LYNDSAY T REUBEN Attphys Unavailable WILMAR RICHARD Admphys Unavailable AskenasySalvadorik Admphys Omari Gallego Admphys Payers Payer Name Policy Type Policy Number Effective Date Expiration Date Natasha turk [employer] Medicare Replacement [id number] 2019 00:00:0 0 [facility] Cdc Review [id number] [facility] Problems Condition Name Condition Details Condition Category Status Onset Date Resolution Date Last Treatment Date Treating Clinician Comments Source COLON CA COLO N CA Active 11/29/2019 [facility] Active 2019-11-29 00:00:00 2019-12-04 11:08:00 [facility] Active 09/16/2019 [facility] Active 2019-09-16 00:00:00 2019-09-18 11:21:00 [facility] C18.9 MALIGNANT NEOPLASM OF COLON, UNSPE C18.9 MALIGNANT NEOPLASM OF COLON, UNSPE Active 08/19/2019 [facility] Diagnosis Ac tive 2019-08-19 00:00:00 2019-09-07 15:41:00 M lisacarol [facility] OTHER NONINFLAMMATORY DISORDERS OF OVARY OTHER NONINFLAMMATORY DISORDERS OF OVARY Active 07/25/2019 [facility] Diagnosis Active 2019-07-25 00:00:00 2019-08-01 15:42:00 [facility] RICARDO, FERREIRA DUGG AL, FERREIRA Active 07/25/2019 [facility] Active 2019-07-25 00:00:00 2019-07-25 17:11:00 [facility] Osteoarthritis of right shoulder Osteoarthritis of right shoulde r Disease Active 2016-10-17 00:00:00 [facility] Cat[facility] Cataract Disease Active 2016-05-10 00:00:00 [facility] Intertrochanteric fracture of left femur Problem Active [facility] Fall Problem Active [facility] Disorder of rotator cuff (disorder) 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 01/03/2020 right shoulder [facility] Problem Active 2020-01-03 21:46:08 Nacho Celestin Iron deficiency anemia (disorder) Iron deficiency anemia (disorder) Active Problem 01/03/2020 [facility] Problem Active 2020-01-03 21:46:08 Johann Celestin Malignant tumor of colon (disorder) Malignant tumor of colon (disorder) Active Problem 01/03/2020 [facility] Problem Active 2020-01-03 21:46:08 Johann Celestin OTH NONINFLAMMATORY DISORD OF OVARY, FAL OTH NONINFLAMMATORY DISORD OF OVARY, FAL Active [facility] Diagnosis Active 2019-08-01 15:42:00 [facility] URINARY TRACT INFECTION, SITE NOT SPECIF URINARY TRACT INFECTION, SITE NOT SPECIF Active [facility] Diagnosis Active 2019-08-01 15:42:00 [facility] UNSPECIFIED ABDOMINAL PAIN UNS PECIFIED ABDOMINAL PAIN Active [facility] Diagnosis Active 2019-08-01 15:42:00 [facility] Allergies, Adverse Reactions, Alerts Allergy Name Allergy Type Status Severity Reaction(s) Onset Date Inacti ve Date Treating Clinician Comments Source No Known Allergies DA Active U 2011-04-23 00:00:00 [facility] Iron Iron Active Johann rey Family History Family Member Diagnosis Comments Start Date Stop Date Source Natural daughter Asthma Pop Marquis ealt Natural mother Arthritis Lord jess [facility] Natural sister Seizures Pop Lombardo [facility] Social History Social Habit Start Date Stop Date Quantity Comments Source Sex Assigned At [facility] Social History 2019-09-17 21:56:00 2019-09-17 21:56:00 Johann Celestin Alcohol intake 2019-02-13 00:00:00 2019-02-13 00:00:00 Current non-drinker of alcohol (finding) [facility] History SDOH Food Worry 2017-06-22 00:00:00 2017-06-22 00:00:00 1 [facility] History SDOH Food Scarcity 2017-06-22 00:00:00 2017-06-22 00:00:00 1 [facility] Smoking Status Start Date Stop Date Source Never smoker [facility] Medications Ordered Medication Name Filled Medication Name Start Date Stop Da te Current Medication? Ordering Clinician Indication Dosage Frequency Signature (SIG) Comments Components Source Acetaminophen Acetaminophen 2020-03-19 16:05:00 Yes 650 Every 6 Hours as needed for Mild Pain (1-3) Or Fever>100.8 [facility] Cefepime Hcl (Cefepime 2 Gm Injection) 2 Gm/100 Ml JORDYN N Cefepime Hcl (Cefepime 2 Gm Injection) 2 Gm/100 Ml SOLN 2020-03-19 16:05:00 Yes 2 Every 12 Hours [facility] Docusate Sodium (Colace) 100 Mg CAP Docusate Sodium (Colace) 100 Mg CAP 2020-03-19 16:05:00 Yes 100 Twice A Day [facility] Famotidine (Pepcid) 20 Mg TABLET Famotidine (Pepcid) 20 Mg T ABLET 2020-03-19 16:05:00 Yes 20 Twice A Day [facility] Hydrocodone/Apap 5MG-325MG Hydrocodone/Apap 5MG-325MG 2020-03-19 16:0 5:00 Yes 1 Every 4 Hours as needed for Moderate Robert n (4-6) [facility] Hydrocodone/Apap 7.5MG-325MG Hydrocodone/Apap 7.5MG-325MG 9 16:05:00 Yes 1 Every 4 Hours as needed for Severe Pain (7-10) [facility] Lactulose Lactulose 2020-03-19 16:05:00 Yes 20 Twice A Day as needed for Constipation [facility] Levothyroxine Sodium Levothyroxine Sodium 2020-03-19 16:05:00 Yes 88 Daily@06 [facility] Ondansetron Hcl/Pf (Ondansetron Hcl 4 Mg/2 Ml Vial) 4 Mg/2 Ml VIAL Ondansetron Hcl/Pf (Ondansetron Hcl 4 Mg/2 Ml Vial) 4 Mg/2 Ml VIAL 2020-03-19 16:05:00 Yes 4 Every 4 Hours as needed for Nausea And V omiting [facility] Polyethylene Glycol 3350 (Miralax) 17 Gm POWD.PACK [place] yethylene Glycol 3350 (Miralax) 17 Gm POWD.PACK 2020-03-19 16:05:00 Yes 17 Twice A Day [facility] Pravastatin Sodium Pravastatin Sodium 2020-03-19 16:05:00 Yes 40 Bedtime [facility] Acetaminophen 300 MG / Codeine Phosphate 30 MG Oral Tablet [Tylenol with Codeine #3] 2019-09-18 20:27:00 Yes 1 tab, PO, Q6H, PRN Pain, X 7 day, # 28 tab, 0 Refill(s) Johann Celestin ondansetron (ANES) 2019-09-18 20:17:00 No Route: IV, Drug form: INJ, ONCE, Stop date: 09/18/19 14:17:00 STOCK CHECKER Don Celestin Calcium Chloride 0.0014 MEQ/ML / Potassi um Chloride 0.004 MEQ/ML / Sodium Chloride 0.103 MEQ/ML / Sodium Lactate 0.028 MEQ/ML Injectable Solution 2019-09-18 20:10:00 No 1,000 mL, Rate: 125 ml/hr, Infuse over: 8 hr, Route: IV, Dosing Weight 86.364 kg, Total Volume: 1,000, Start date: 09/18/19 14:10:00 STOCK CHECKER, Duration: 30 day, Stop date: 10/18/19 14:09:00 STOCK CHECKER, 2, m2 [facility] Ketorolac 2019-09-18 20:10:00 Yes 30 mg, Route: IVP, ONCE, Dosing Weight 86.364, kg, Start date: 09/18/19 14:10:00 STOCK CHECKER, Stop date: 09/18/19 14:10:00 STOCK CHECKER [facility] Acetaminophen 2019-09-18 20:10:00 No 1,000 mg, Route: IVPB, Drug form: INJ, ONCE, Dosing Weight 86.364, kg, PRN Pain Score 1-3, Start date: 09/18/19 14:10:00 STOCK CHECKER [facility] Morphine 2019-09-18 20:10:00 No 2 mg, Route: IVP, Q5Min, Dosing Weight 86.364, kg, PRN Pain Score 4-6, Start date: 09/18/19 14:10:00 STOCK CHECKER, Duration: 5 doses or times, Stop date: Limited # of times [facility] Fentanyl 2019-09-18 20:10:00 No 25 microgram, Route: IVP, Q5Min, Dosing Weight 86.364, kg, PRN Pain Score 4-6, Priority: Routine, Start date: 09/18/19 14:10:00 STOCK CHECKER, Duration: 4 doses or times, Stop date: Limited # of times [facility] Hydromorphone 2019-09-18 20:10:00 No 0.5 mg, Route: IVP, Q5Min, Dosing Weight 86.364, kg, PRN Pain Score 7-10, Start date: 09/18/19 14:10:00 STOCK CHECKER, Duration: 4 doses or times, Stop date: Limited # of times [facility] Flumazenil 2019-09-18 20:10:00 No 0.2 mg, Route: IVP, PRN, Dosing Weight 86.364, kg, PRN Benzodiazepine Reversal, Initial dose, Start date: 09/18/19 14:10:00 STOCK CHECKER, Duration: 30 day, Stop date: 10/18/19 14:09:00 STOCK CHECKER [facility] Naloxone 2019-09-18 20:10:00 No 0.4 mg, Route: IVP, Q2MIN, Dosing Weight 86.364, kg, PRN Narcotic Reversal, Start date: 09/18/19 14:10:00 STOCK CHECKER, Duration: 8 doses or times, Stop date: Limited # of times [facility] Diphenhydramine 2019-09-18 20:10:00 No 12.5 mg, Route: IVP, Drug form: INJ, Q6H, Dosing Weight 86.364, kg, PRN Itching, Start date: 09/18/19 14:10:00 STOCK CHECKER, Duration: 30 day, Stop date: 10/18/19 14:09:00 STOCK CHECKER [facility] Meperidine 2019-09-18 20:10:00 No 12.5 mg, Route: IVP, Q30Min, Dosing Weight 86.364, kg, PRN Other -See Comment, For shivering, Start date: 09/18/19 14:10:00 STOCK CHECKER, Duration: 2 doses or times, Stop date: Limited # of times [facility] Ondansetron 2019-09-18 20:10:00 No 4 mg, Route: IVP, ONCE, Dosing Weight 86.364, kg, PRN Nausea & Vomiting, Start date: 09/18/19 14:10:00 [facility] Promethazine 2019-09-18 20:10:00 No 6.25 mg, Route: IVPB, ONCE, Dosing Weight 86.364, kg, PRN Nausea & Vomiting, Start date: 09/18/19 14:10:00 [facility] 72 HR Scopolamine 0.0139 MG/HR Transdermal Patch 2019-09-18 20:10:00 Yes 1 patch, Route: TOP, Drug Form: ERFILM, Dosing Weight 86.364, kg, ONCE, Apply behind ear. Avoid use in elderly., Start date: 09/18/19 14:10:00 STOCK CHECKER, Stop date: 09/18/19 14:10:00 STOCK CHECKER Ortiz Celestin propofol (ANES) 2019-09-18 20:07:00 No Route: IV, Drug form: INJ, ONCE, Stop date: 09/18/19 14:07:00 STOCK CHECKER [facility] lidocaine (ANES) 2019-09-18 20:07:00 No Route: IV, Drug form: INJ, ONCE, Stop date: 09/18/19 14:07:00 STOCK CHECKER [facility] [place] fentaNYL (ANES) 2019-09-18 20:07:00 No Route: IV, Drug form: INJ, ONCE, Stop date: 09/18/19 14:07:00 STOCK CHECKER Don [facility] ceFAZolin (ANES) 2019-09-18 20:07:00 No Route: IV, Drug form: INJ, ONCE, Stop date: 09/18/19 14:07:00 STOCK CHECKER Don [facility] norepinephrine (ANES) 2019-09-18 20:07:00 No Route: IV, Drug form: INJ, ONCE, Stop date: 09/18/19 14:07:00 STOCK CHECKER [facility] midazolam (ANES) 2019-09-18 20:07:00 No Route: IV, Drug form: SOLN, ONCE, Stop date: 09/18/19 14:07:00 STOCK CHECKER [facility] Calcium Chloride 0.0014 MEQ/ML / Potassi um Chloride 0.004 MEQ/ML / Sodium Chloride 0.103 MEQ/ML / Sodium Lactate 0.028 MEQ/ML Injectable Solution 2019-09-18 19:23:00 No 1,000 mL, Rate: 75 ml/hr, Infuse over: 13.3 hr, Route: IV, Dosing Weight 86.364 kg, Total Volume: 1,000, Start date: 09/18/19 13:23:00 STOCK CHECKER, Duration: 30 day, Stop date: 10/18/19 13:22:00 STOCK CHECKER, 2, m2 [facility] Lactated Ringers Injection IV ([facility]) 1000 mL 2019-09-18 19:12:00 No Route: IV, Total Volume: 1,000, Start date: 09/18/19 13:12:00 STOCK CHECKER, Stop date: 09/18/19 14:12:00 STOCK CHECKER [facility] cephalexin 500 mg oral capsule 2019-09-17 22:05:00 Yes 500 mg = 1 cap, PO, Q12H, 0 Refill(s) [facility] Acetaminophen 325 MG / Hydrocodone Bitartrate 5 MG Oral Tabl et 2019-09-17 22:04:00 Yes 1 tab, PO, Q6H, 0 Refill(s) [facility] Acetaminophen 2019-08-20 21:10:00 No 1,000 mg, Route: PO, Drug form: TAB, ONCE, Dosing Weight 83.864, kg, PRN Pain Score 1-3, Start date: 08/20/19 15:10:00 STOCK CHECKER [facility] Fentanyl 2019-08-20 21:10:00 No 25 microgram, Route: IVP, Q5Min, Dosing Weight 83.864, kg, PRN Pain Score 4-6, Priority: Routine, Start date: 08/20/19 15:10:00 STOCK CHECKER, Duration: 4 doses or times, Stop date: Limited # of times [facility] Hydromorphone 2019-08-20 21:10:00 No 0.5 mg, Route: IVP, Q5Min, Dosing Weight 83.864, kg, PRN Pain Score 7-10, Start date: 08/20/19 15:10:00 STOCK CHECKER, Duration: 4 doses or times, Stop date: Limited # of times [facility]ad Flumazenil 2019-08-20 21:10:00 No 0.2 mg, Route: IVP, PRN, Dosing Weight 83.864, kg, PRN Benzodiazepine Reversal, Initial dose, Start date: 08/20/19 15:10:00 STOCK CHECKER, Duration: 30 day, Stop date: 09/19/19 15:09:00 STOCK CHECKER [facility] Naloxone 2019-08-20 21:10:00 No 0.4 mg, Route: IVP, Q2MIN, Dosing Weight 83.864, kg, PRN Narcotic Reversal, Start date: 08/20/19 15:10:00 STOCK CHECKER, Duration: 8 doses or times, Stop date: Limited # of times [facility] Ondansetron 2019-08-20 21:10:00 No 4 mg, Route: IVP, ONCE, Dosing Weight 83.864, kg, PRN Nausea & Vomiting, Start date: 08/20/19 15:10:00 STOCK CHECKER [facility] acetaminophen (ANES) 2019-08-20 21:04:00 No Route: IV, Drug form: INJ, ONCE, Stop date: 08/20/19 15:04:00 STOCK CHECKER [facility] ondansetron (ANES) 2019-08-20 21:03:00 No Route: IV, Drug form: INJ, ONCE, Stop date: 08/20/19 15:03:00 STOCK CHECKER [facility] [place] dexamethasone (ANES) 2019-08-20 21:03:00 No Route: IV, Drug form: INJ, ONCE, Stop date: 08/20/19 15:03:00 STOCK CHECKER [facility] ([facility]) 2019-08-20 20:58:00 No Route: IV, Drug form: SOLN, ONCE, Stop date: 08/20/19 14:58:00 STOCK CHECKER [facility] [place] fentaNYL (ANES) 2019-08-20 20:58:00 No Route: IV, Drug form: INJ, ONCE, Stop date: 08/20/19 14:58:00 STOCK CHECKER [facility] propof[facility] ([facility]) 2019-08-20 20:58:00 No Route: IV, Drug form: INJ, ONCE, Stop date: 08/20/19 14:58:00 STOCK CHECKER [facility] lidocaine (ANES) 2019-08-20 20:58:00 No Route: IV, Drug form: INJ, ONCE, Stop date: 08/20/19 14:58:00 STOCK CHECKER Don [facility] ceFAZolin (ANES) 2019-08-20 20:58:00 No Route: IV, Drug form: INJ, ONCE, Stop date: 08/20/19 14:58:00 STOCK CHECKER [facility] Lactated Ringers Injection IV ([facility]) 1000 mL 2019-08-20 20:09:00 No Route: IV, Total Volume: 1,000, Start date: 08/20/19 14:09:00 STOCK CHECKER, Stop date: 08/20/19 15:09:00 STOCK CHECKER Johann Celestin Calcium Chloride 0.0014 MEQ/ML / Potassi um Chloride 0.004 MEQ/ML / Sodium Chloride 0.103 MEQ/ML / Sodium Lactate 0.028 MEQ/ML Injectable Solution 2019-08-20 18:36:00 No 1,000 mL, Rate: 75 ml/hr, Infuse over: 13.3 hr, Route: IV, Dosing Weight 83.864 kg, Total Volume: 1,000, Start date: 08/20/19 12:36:00 STOCK CHECKER, Duration: 30 day, Stop date: 09/19/19 12:35:00 STOCK CHECKER, 1.97, m2 Johann Celestin Vitamin B-12 1000 mcg/mL injectable solution 2019-08-19 14:26:00 Yes IM, Daily, 0 Refill(s) [facility] Sodium Chloride 0.9% (titrate) 250 mL 2019-08-01 18:54:00 N o 250 mL, Rate: To prime line and flush remaining blood products., Dosing Weight 80.909, kg, Route: IV, Total Volume: 250, Start Date: 08/01/19 12:54:00 STOCK CHECKER, Duration: 1 day, Stop date: 08/02/19 12:53:00 STOCK CHECKER, Replace Every: 24 hr, 0 [facility] Dulcolax Laxative 2019-08-01 16:57:00 No Notes: (Same As: Dulcolax, Bisco-Lax) [facility] Celebrex 2019-07-31 15:00:00 No Notes: NSAID. Please check indication. Not for seizure. (Same As: CeleBREX) [facility] Tylenol 2019-07-31 15:00:00 No Notes: Max acetaminophen 4000 mg/day (4 gm/day). (Same as: Tylenol Extra Strength) [facility] Lovenox 2019-07-31 13:00:00 No Notes: (Same as: Lovenox) [facility] gabapentin 2019-07-31 06:00:00 No Notes: (S matt as: Neurontin) [facility] Morphine 2019-07-31 05:31:00 No Not es: (Same as:MORPhine Sulfate) [facility] heparin 2019-07-31 05:00:00 No Notes: porci ne heparin [facility] Tramadol 2019-07-31 01:08:00 No Notes: Not to exceed 400mg/day. (Same As: Ultram) [facility] Docusate Sodium 50 MG / sennosides, DETENTION 8.6 MG Oral Tablet 2019-07-30 23:00:00 No Notes: (Same as Senokot-S) Equ iv. to Kati-Colace. [facility] Hydralazine 2019-07-30 21:21:00 No 10 mg, Route: IVP, Q20Min, Dosing Weight 80.909, kg, PRN Elevated BP, Start date: 07/30/19 15:21:00 STOCK CHECKER, Duration: 2 doses or times, Stop date: Limited # of times [facility] Labetalol 2019-07-30 21:21:00 No 10 mg, Route: IVP, Q5Min, Dosing Weight 80.909, kg, PRN Elevated BP, Start date: 07/30/19 15:21:00 STOCK CHECKER, Duration: 5 doses or times, Stop date: Limited # of times [facility] Metoprolol 2019-07-30 21:21:00 No 1 mg, Route: IVP, Q5Min, Dosing Weight 80.909, kg, PRN Other -See Comment, Start date: 07/30/19 15:21:00 STOCK CHECKER, Duration: 5 doses or times, Stop date: Limited # of times [facility] Ketorolac 2019-07-30 21:21:00 No 30 mg, Route: IVP, ONCE, Dosing Weight 80.909, kg, Start date: 07/30/19 15:21:00 STOCK CHECKER, Stop date: 07/30/19 15:21:00 STOCK CHECKER [facility] Acetaminophen 2019-07-30 21:21:00 No 1,000 mg, Route: IVPB, Drug form: INJ, ONCE, Dosing Weight 80.909, kg, PRN Pain Score 1-3, Start date: 07/30/19 15:21:00 STOCK CHECKER [facility] Oxycodone Hydrochloride 5 MG Oral Tablet 2019-07-30 21:21:00 No 5 mg, Route: PO, Drug form: TAB, Q4H, Dosing Weight 80.909, kg, PRN Pain Score 4- 6, Start date: 07/30/19 15:21:00 STOCK CHECKER, Duration: 30 day, Stop date: 08/29/19 15:20:00 STOCK CHECKER [facility] Morphine 2019-07-30 21:21:00 No 2 mg, Route: IVP, Q5Min, Dosing Weight 80.909, kg, PRN Pain Score 4-6, Start date: 07/30/19 15:21:00 STOCK CHECKER, Duration: 5 doses or times, Stop date: Limited # of times [facility] Fentanyl 2019-07-30 21:21:00 No 25 microgram, Route: IVP, Q5Min, Dosing Weight 80.909, kg, PRN Pain Score 4-6, Priority: Routine, Start date: 07/30/19 15:21:00 STOCK CHECKER, Duration: 4 doses or times, Stop date: Limited # of times [facility] Hydromorphone 2019-07-30 21:21:00 No 0.5 mg, Route: IVP, Q5Min, Dosing Weight 80.909, kg, PRN Pain Score 7-10, Start date: 07/30/19 15:21:00 STOCK CHECKER, Duration: 4 doses or times, Stop date: Limited # of times [facility] [place] Flumazenil 2019-07-30 21:21:00 No 0.2 mg, Route: IVP, PRN, Dosing Weight 80.909, kg, PRN Benzodiazepine Reversal, Initial dose, Start date: 07/30/19 15:21:00 STOCK CHECKER, Duration: 30 day, Stop date: 08/29/19 15:20:00 STOCK CHECKER [facility] Naloxone 2019-07-30 21:21:00 No 0.4 mg, Route: IVP, Q2MIN, Dosing Weight 80.909, kg, PRN Narcotic Reversal, Start date: 07/30/19 15:21:00 STOCK CHECKER, Duration: 8 doses or times, Stop date: Limited # of times Johann Celestin Ondansetron 2019-07-30 21:21:00 No 4 mg, Route: IVP, ONCE, Dosing Weight 80.909, kg, PRN Nausea & Vomiting, Start date: 07/30/19 15:21:00 STOCK CHECKER Johann [place] D5LR 1,000 mL 2019-07-30 20:57:00 No 1,000 mL, Rate: 40 ml/hr, Infuse over: 25 hr, Route: IV, Dosing Weight 80.909 kg, Total Volume: 1,000, Start date: 07/30/19 14:57:00 STOCK CHECKER, Stop date: 07/31/19 6:00:00 STOCK CHECKER, 1.92, m2, 0 [facility] Zofran ODT 2019-07-30 20:57:00 No Notes: (S matt as: Zofran ODT) [facility] glycopyrrolate (CLEMENTINAS) 2019-07-30 20:50:00 No Route: IV, Drug form: INJ, ONCE, Stop date: 07/30/19 14:50:00 STOCK CHECKER Johann Celestin neostigmine (ANES) 2019-07-30 20:50:00 No Route: IV, Drug form: INJ, ONCE, Stop date: 07/30/19 14:50:00 STOCK CHECKER Don Celestin sugammadex ([facility]) 2019-07-30 20:50:00 No Route: IV, Drug form: SOLN, ONCE, Stop date: 07/30/19 14:50:00 STOCK CHECKER Dno Celestin ceFAZolin ([facility]) 2019-07-30 20:27:00 No Route: IV, Drug form: INJ, ONCE, Stop date: 07/30/19 14:27:00 STOCK CHECKER Don Celestin phenylephrine ([facility]) 2019-07-30 20:27:00 No Route: IV, Drug form: INJ, ONCE, Stop date: 07/30/19 14:27:00 STOCK CHECKER Johann Celestin propofol ([facility]) 2019-07-30 17:30:00 No Route: IV, Drug form: INJ, ONCE, Stop date: 07/30/19 11:30:00 STOCK CHECKER Don Celestin succinylcholine ([facility]) 2019-07-30 17:30:00 No Route: IV, Drug form: INJ, ONCE, Stop date: 07/30/19 11:30:00 STOCK CHECKER Johann [facility]aw[facility] dexamethasone ([facility]) 2019-07-30 17:30:00 No Route: IV, Drug form: INJ, ONCE, Stop date: 07/30/19 11:30:00 [facility] 2019-07-30 17:30:00 No Route: IV, Drug form: INJ, ONCE, Stop date: 07/30/19 11:30:00 STOCK CHECKER [facility] mid[facility]am ([facility]) 2019-07-30 17:29:00 No Route: IV, Drug form: SOLN, ONCE, Stop date: 07/30/19 11:29:00 STOCK CHECKER [facility] famotidine ([facility]) 2019-07-30 17:29:00 No Route: IV, Drug form: INJ, ONCE, Stop date: 07/30/19 11:29:00 STOCK CHECKER [facility] lidocaine ([facility]) 2019-07-30 17:29:00 No Route: IV, Drug form: INJ, ONCE, Stop date: 07/30/19 11:29:00 STOCK CHECKER [facility] rocuronium ([facility]) 2019-07-30 17:29:00 No Route: IV, Drug form: INJ, ONCE, Stop date: 07/30/19 11:29:00 [facility] [place] albumin human (ANES) 25 gm 2019-07-30 17:14:00 No Route: IV, Drug form: INJ, Start date: 07/30/19 11:14:00 STOCK CHECKER, Stop date: 07/30/19 12:14:00 STOCK CHECKER [facility] ceFAZolin (ANES) 1000 mg 2019-07-30 16:15:00 No Route: IV, Drug form: INJ, Start date: 07/30/19 10:15:00 STOCK CHECKER, Stop date: 07/30/19 11:15:00 STOCK CHECKER [facility] metroNIDAZOLE (ANES) 5 mg 2019-07-30 16:15:00 No Route: IV, Drug form: INJ, Start date: 07/30/19 10:15:00 STOCK CHECKER, Stop date: 07/30/19 11:15:00 STOCK CHECKER [facility] Sodium Chloride 0.9% IV (ANES) 100 mL + ketAMINE (ANES) 200 mg 2019-07-30 16:15:00 No Route: IV, Drug form: INJ, Start date: 07/30/19 10:15:00 STOCK CHECKER, Stop date: 07/30/19 11:15:00 [facility] S[facility] Ch[facility] 0.9% IV (ANES) 50 mL + dexmedetomidine (ANES ) 200 microgram 2019-07-30 16:10:00 No Route: IV, Drug form: INJ, Start date: 07/30/19 10:10:00 STOCK CHECKER, Stop date: 07/30/19 11:10:00 STOCK CHECKER [facility] Sodium Chloride 0.9% IV (ANES) 1000 mL 2019-07-30 16:00:00 No Route: IV, Total Volume: 1,000, Start date: 07/30/19 10:00:00 STOCK CHECKER, Stop date: 07/30/19 11:00:00 STOCK CHECKER [facility] Lactated Ringers Injection IV (ANES) 1000 mL 2019-07-30 15:52:00 No Route: IV, Total Volume: 1,000, Start date: 07/30/19 9:52:00 STOCK CHECKER, Stop date: 07/30/19 10:52:00 STOCK CHECKER [facility] Calcium Chloride 0.0014 MEQ/ML / [place] um Chloride 0.004 MEQ/ML / Sodium Chloride 0.103 MEQ/ML / Sodium Lactate 0.028 MEQ/ML Injectable Solution 2019-07-30 15:09:00 No 1,000 mL, Rate: 75 ml/hr, Infuse over: 13.3 hr, Route: IV, Dosing Weight 80.909 kg, Total Volume: 1,000, Start date: 07/30/19 9:09:00 STOCK CHECKER, Duration: 30 day, Stop date: 08/29/19 9:08:00 STOCK CHECKER, 1.92, m2 [facility] V[facility] 200 mg oral tablet 2019-07-29 21:02:00 Yes 200 mg = 1 tab, PO, Q12H, X 7 day, # 14 tab, 0 Refill(s), Pharmacy: [address] Ondansetron 4 MG Oral Tablet [Zofran] 2019-07-29 21:02:00 Y es 4 mg = 1 tab, PO, Q6H, PRN Nausea/Vomiting, # 30 tab, 0 Refill(s), Pharmacy: [address] Sodium Chloride 0.9% IV 1,000 mL 2019-07-29 14:58:00 No 1,000 mL, Rate: 75 ml/hr, Infuse over: 13.3 hr, Route: IV, Dosing Weight 80.909 kg, Total Volume: 1,000, Start date: 07/29/19 8:58:00 STOCK CHECKER, Duration: 30 day, Stop date: 08/28/19 8:57:00 STOCK CHECKER, 1.92, m2, 0 Angelaori carol Celestin polyethylene glycol 3350 with electrolytes 2019-07-28 19:39:00 No Notes: (polyethylene glycol electrolyte solution 4 Liter bottle) (Same as: Golytely, Colyte) Johann Fawad Bisacodyl 2019-07-28 19:39:00 No Notes: (Same As: Dulcolax, Correctol) (Do Not Crush) "Do Not Crush" [facility] Metoclopramide 10 MG Oral Tablet 2019-07-28 19:39:00 [...] Johann Celestin Diflucan 2019-07-27 14:33:00 No Notes: ([facility] e as: Diflucan) Johann Celestin Ceftriaxone 2019-07-27 03:00:00 No Notes: (Same As: Rocephin). Use with 100 mL NS and infuse over 30 min MEDICATION WASTE Product Size: 1000 mg Product Wasted: ___ mg Johann Celestin Lovenox 2019-07-26 23:00:00 No Notes: (Same as: Lovenox) Johann Celestin Nurse pls update Allergies in [facility] 2019-07-26 10:30:00 No Nurse pls update Allergies in [facility], allergy??, Drug form: MISC, Route: MISC, Q10Min, 07/26/19 4:30:00 STOCK CHECKER, Duration: 30 day, Stop date: 08/25/19 4:20:00 STOCK CHECKER, 0 Johann Celestin influenza virus vaccine, inactivated hig h-dose preservative-free intramuscular suspension 2019-07-26 05:19:01 No Notes: (Same as: Fluzone High- Dose) For 65 years of age of older (0.5 ml IM) Shake well before use Johann Celestin Nurse pls update Height/Weight/Allergies in [facility] 2019-07-26 04:45:00 No Nurse pls update [facility]i g[facility], reminder, Drug form: MISC, Route: MISC, Q15Min, 07/25/19 22:45:00 STOCK CHECKER, Duration: 30 day, Stop date: 08/24/19 22:30:00 STOCK CHECKER, 0 Johann [place] n normal saline 0.9% IV 1,000 mL 2019-07-26 04:38:00 No 1,000 mL, Rate: 100 ml/hr, Infuse over: 10 hr, Route: IV, Dosing Weight 80.909 kg, Total Volume: 1,000, Start date: 07/25/19 22:38:00 STOCK CHECKER, Duration: 30 day, Stop date: 08/24/19 22:37:00 STOCK CHECKER, 1.92, m2, 0 Memor ial Fawad Ondansetron 2019-07-26 04:37:00 No Notes: (Same as: Zofran) MEDICATION WASTE Product Size: 4 mg Product Wasted: ___ mg [facility] Fwaad Ceftriaxone 2019-07-26 03:01:00 No Notes: (Same As: Rocephin). Use with 100 mL NS and infuse over 30 min MEDICATION WASTE Product Size: 1000 mg Product Wasted: ___ mg [facility] Morphine 2019-07-26 01:26:00 No 4 mg, Route: IVP, ONCE, Dosing Weight 80.909, kg, Priority: STAT, Start date: 07/25/19 19:26:00 STOCK CHECKER, Stop date: 07/25/19 19:26:00 STOCK CHECKER Johann Celestin NS (Bolus) IV 2019-07-26 01:26:00 No 500 mL, Route: IV, Drug form: INJ, ONCE, Priority: STAT, Dosing Weight 80.909 kg, Start date: 07/25/19 19:26:00 STOCK CHECKER, Stop date: 07/25/19 19:26:00 STOCK CHECKER [facility] Zofran 2019-07-26 01:26:00 No 4 mg, Route: IVP, Drug form: INJ, ONCE, Dosing Weight 80.909, kg, Priority: STAT, Start date: 07/25/19 19:26:00 STOCK CHECKER, Stop date: 07/25/19 19:26:00 STOCK CHECKER [facility] Fawad Saline Flush 0.9% 2019-07-25 21:23:00 No Notes: (Same as: BD Posiflush) Johann Celestin ibuprofen (MOTRIN) 600 mg tablet 2017-06-22 00:00:00 Yes Pain of both shoulder joints 600mg Take 1 tablet by amarilis every 8 hours as needed for Pain. [facility] oxybutynin (DITROPAN XL) 10 mg extended release tablet 2017-06-22 00:00:00 Yes Mixed incontinence 10mg QD Take 1 tablet by mouth daily. [facility] naproxen (NAPROSYN) 375 mg tablet 2016-08-09 00:00:00 Yes Right shoulder pain, unspecified chronicity 375mg Take 1 tabl et by mouth 2 times daily (with meals). [facility] Immunizations Ordered Immunization Name Filled Immunization Name Date Status Comments Source Influenza Vaccine, Seasonal, Injectable 2017-06-22 00:00:0 0 Completed [facility] Influenza Vaccine 2016-08-09 00:00:00 Completed [facility] Tdap Tetanus, diphtheria, acellular pertussis Vaccine 2016-08-09 00:00:00 Completed [facility] Vital Signs Vital Name Observation Time Observation Value Comments Source Body Temperature 2020-03-19 16:00:00 98.4 [degF] [facility] BMI (Body Mass Index) 2020-03-19 00:12:00 39.5 kg/m2 [facility] Weight 2020-03-15 12:45:00 230 [lb_av] [facility] Systolic (mm Hg) 2019-09-18 21:55:00 Nigel rial Fawad Diastolic (mm Hg) 2019-09-18 21:55:00 [facility] [place] Respitory Rate 2019-09-18 21:55:00 [facility] [place] Respitory Rate 2019-09-18 21:00:00 [facility] [place] Systolic (mm Hg) 2019-09-18 21:00:00 [facility] [place] Diastolic (mm Hg) 2019-09-18 21:00:00 [facility] [place] Respitory Rate 2019-09-18 20:45:00 Memori al [facility] Systolic (mm Hg) 2019-09-18 20:45:00 Nigel rial Faw[facility] Diastolic (mm Hg) 2019-09-18 20:45:00 [facility] Height 2019-09-17 21:53:00 162.56 cm [facility] Weight 2019-09-17 21:53:00 [facility] BMI Calculated 2019-09-17 21:53:00 Memori al [facility]aw[facility] Systolic (mm Hg) 2019-08-20 22:15:00 [facility] [place] Diastolic (mm Hg) 2019-08-20 22:15:00 [facility] [place] Respitory Rate 2019-08-20 22:15:00 [facility] [place] Systolic (mm Hg) 2019-08-20 22:00:00 [facility] [place] Diastolic (mm Hg) 2019-08-20 22:00:00 [facility] [place] Respitory Rate 2019-08-20 22:00:00 [facility] [place] Respitory Rate 2019-08-20 21:30:00 Memori al [facility] Systolic (mm Hg) 2019-08-20 21:30:00 Nigel rial [facility]aw[facility] Diastolic (mm Hg) 2019-08-20 21:30:00 [facility] Height 2019-08-19 14:19:00 162.56 cm [facility] [place] Weight 2019-08-19 14:19:00 [facility] BMI Calculated 2019-08-19 14:19:00 Memori al [facility] Temperature Oral (F) 2019-08-19 14:19:00 97.8 F [facility] [place] Heart Rate 2019-08-19 14:19:00 [facility] [place] Temperature Oral (F) 2019-08-02 13:37:00 98.0 F [facility] Heart Rate 2019-08-02 13:37:00 [facility] [place] Respitory Rate 2019-08-02 13:37:00 [facility] [place] Systolic (mm Hg) 2019-08-02 13:37:00 [facility] [place] Diastolic (mm Hg) 2019-08-02 13:37:00 [facility] Temperature Oral (F) 2019-08-02 05:20:00 98.3 F [facility] Heart Rate 2019-08-02 05:20:00 [facility] Respitory Rate 2019-08-02 05:20:00 [facility] [place] Systolic (mm Hg) 2019-08-02 05:20:00 Nigel rial [facility]aw[facility] Diastolic (mm Hg) 2019-08-02 05:20:00 [facility] [place] Temperature Oral (F) 2019-08-01 21:54:00 98.1 F [facility] [place] Heart Rate 2019-08-01 21:54:00 [facility] Respitory Rate 2019-08-01 21:54:00 [facility] [place] Systolic (mm Hg) 2019-08-01 21:54:00 [facility]el [facility] [place] Diastolic (mm Hg) 2019-08-01 21:54:00 [facility] [place] Height 2019-07-26 07:26:00 160.02 cm [facility] [place] Weight 2019-07-26 07:26:00 [facility] BMI Calculated 2019-07-26 07:26:00 [facility] Height 2019-07-26 05:10:00 160.02 cm [facility] Weight 2019-07-26 05:10:00 [facility] [place] BMI Calculated 2019-07-26 05:10:00 [facility] [place] Height 2019-07-25 21:02:00 160.02 cm [facility] BMI Calculated 2019-07-25 21:02:00 [facility] [place] Weight 2019-07-25 21:02:00 [facility] [place] Procedures Procedure Date / Time Performed Performing Clinician [facility] e Computed tomography of brain without radiopaque contrast 2020-03 00:00:00 [facility] Computed tomography of cervical spine without contrast 5 00:00:00 [facility] X-ray of chest, single view 2020-03-15 00:00:00 [facility] Computed tomography of chest without contrast 2020-03-15 00:00:0 0 [facility] CT of abdomen and pelvis without contrast 2020-03-15 00:00:00 [facility] Magnetic resonance imaging of pelvis without then with contrast 2019-07-23 00:00:00 [facility] X-ray of chest, two views 2019-07-13 00:00:00 JULY ORTIZ CH [facility] Computed tomography of abdomen and pelvis with contrast 2018 00:00:00 HERBERT HARRY [facility] Cataract surgery<sup>1</sup> [facility] [place] Colonoscopy [facility] [place] Procedure<sup>2</sup> [facility] Plan of Care Planned Activity Planned Date Details Comments Source Future Scheduled Test 2020-06-11 00:00:00 IMM Influenza Seas onal Jun to November (>/= 19 yrs) [code = IMM Influenza Seasonal Jun to November (>/= 19 yrs)] [facility] Scheduled Test 2017-06-13 00:00:00 Breast Cancer Scrn (Yearly) [code = Breast Cancer Scrn (Yearly)] [facility] Scheduled Test 2017-05-11 00:00:00 Screening for jerson gnant neoplasm of colon (procedure) [code = 157777743] [facility] Scheduled Test 2016 00:00:00 IMM Pneumococcal A ge 65 and Up [code = IMM Pneumococcal Age 65 and Up] [facility] Encounters Start Date/Time End Date/Time Encounter Type Admission Type Attendi [facility] Care Department Encounter ID Source 2019-09-05 08:30:27 Outpatient MHSE MHSE [id number] 2020-03-15 16:57:00 2020-03-19 19:45:00 Discharged Inpatient 1 WILMAR RICHARD [facility] [id number] [facility] 2019-08-01 07:14:58 2020-01-01 14:36:59 Outpatient MHSE MHSE [id number] 2019-11-29 06:00:00 2019-11-29 06:00:00 Outpatient MHSE MHSE [id number] 2019-09-18 11:21:00 2019-09-18 15:55:00 Outpatient Adonay Ballesteros SE [facility]SE [id number] 2019-09-18 11:21:00 2019-09-18 11:21:00 Outpatient MHSE MHSE [id number] 2019-09-07 15:39:00 2019-09-07 23:59:00 Outpatient Omari Gallego MHSE MHSE [id number] 2019-08-20 11:45:00 2019-08-20 16:30:00 Outpatient Adonay Ballesteros SE [facility]SE [id number] 2019-08-20 11:45:00 2019-08-20 11:45:00 Outpatient MHSE MHSE [id number] 2019-07-25 14:57:22 2019-08-02 13:20:00 Outpatient Omari Gallego SE MHSE [id number] 2019-07-25 20:59:00 2019-07-25 14:57:00 Inpatient E MHSE MED [id number] [facility] 2019-07-23 06:22:00 2019-07-23 06:22:00 Registered Clinic 3 JACKPATY SHORT [facility] [id number] DRISS [facility] 2019-07-13 18:15:00 2019-07-14 00:14:00 Departed Emergency Room 1 JULY ORTIZ [facility] [id number] [facility] 2019-02-07 18:29:00 2019-02-07 23:17:00 Departed Emergency Room 1 REUBEN UMANA [facility] [id number] [facility] 2017-09-12 07:54:24 2017-09-12 07:54:24 Outpatient [facility] [id number] [facility] 2017-07-04 08:10:50 2017-07-04 08:10:50 Outpatient [facility] [id number] [facility] Results Test Description Test Time Test Comments Results Result Comments Source Blood leukocytes automated count (number/volume) 2020-03-19 05:05:00 Test Item White Blood Count (test code = 6690-2) 2.67 4.8-10.8 [facility] erythrocytes automated count (number/volume)2020-03-19 05:05:00* Test Item Value Reference Range Interpretation Comments Red Blood Count (test code = 789-8) 2.53 3.6-5.1 [facility] hemoglobin measurement (moles/volume)2020-03-19 05:05:00* Test Item Value Reference Range Interpretation Comments Hemoglobin (test code = 53256-3) 8.0 12.0-16.0 [facility] Dallas[facility] blood hematocrit (volume fraction)2020-03-19 05:05:00* Test Item Value Reference Range Interpretation Comments Hematocrit (test code = 4544-3) 25.1 34.2-44.1 [facility] Dallas[facility] erythrocyte mean corpuscular [id number] 05:05:00* Test Item Value Reference Range Interpretation Comments Mean Corpuscular Volume (test code = 787-2) 99.2 81-99 [facility] Dallas[facility] erythrocyte mean corpuscular hemoglobin (mass per erythrocyte)2020-03-19 05:05:00* Test Item Value Reference Range Interpretation Comments Mean Corpuscular Hemoglobin (test code = 785-6) 31.6 28-32 [facility] Dallas[facility] erythrocyte mean corpuscular hemoglobin concentration measurement (mass/volume)2020-03-19 05:05:00* Test Item Value Reference Range Interpretation Comments Mean Corpuscular Hemoglobin Concent (test code = 786-4) 31.9 31-35 [facility] DallasRDW [id number]-Krh2549-17-09 05:05:00* Test Item Value Reference Range Interpretation Comments Red Cell Distribution Width (test code = 52176-2) 15.9 11.7 -14.4 [facility] Dallas[facility] blood platelet count (count/volume)2020-03-19 05:05:00* Test Item Value Reference Range Interpretation Comments Platelet Count (test code = 777-3) 57 140-360 [facility] Dallas[facility] blood segmented neutrophil count as percentage of total icawzrrgcf3573-74-05 05:05:00* Test Item Value Reference Range Interpretation Comments Neutrophils (%) (Auto) (test code = 08955-1) 31.8 38.7-80.0 [facility] Dallas[facility] blood lymphocyte count as percentage ot total rhintjxrmr9606-58-66 05:05:00* Test Item Value Reference Range Interpretation Comments Lymphocytes (%) (Auto) (test code = 736-9) 49.4 18.0-39.1 [facility] Dallas[facility] blood monocyte count as percentage of total wxecvjvgvj4239-98-09 05:05:00* Test Item Value Reference Range Interpretation Comments Monocytes (%) (Auto) (test code = 5905-5) 15.4 4.4-11.3 [facility] Dallas[facility] blood eosinophil count as percentage of total [id number] 05:05:00* Test Item Value Reference Range Interpretation Comments Eosinophils (%) (Auto) (test code = 713-8) 2.6 0.0-6.0 [facility] Dallas[facility] blood basophil count as percentage of total afhqxltvbp2322-01-67 05:05:00* Test Item Value Reference Range Interpretation Comments Basophils (%) (Auto) (test code = 706-2) 0.4 0.0-1.0 [facility] DallasFluoroscopic procedure less than one hour zwcossrp9341-57-72 05:05:00* Test Item Value Reference Range Interpretation Comments IM GRANULOCYTES % (test code = IM GRANULOCYTES %) 0.4 0.0- 1.0 [facility] Dallas[facility] blood neutrophil count 2020-03-19 05:05:00* Test Item Value Reference Range Interpretation Comments Neutrophils # (Auto) (test code = 751-8) 0.9 2.1-6.9 [facility] lymphocytes count (number/volume) 2020-03-19 05:05:00* Test Item Value Reference Range Interpretation Comments Lymphocytes # (Auto) (test code = 53446-0) 1.3 1.0-3.2 [facility] monocytes automated count (number/volume)2020-03-19 05:05:00* Test Item Value Reference Range Interpretation Comments Monocytes # (Auto) (test code = 742-7) 0.4 0.2-0.8 [facility] Dallas[facility] blood eosinophil count 2020-03-19 05:05:00* Test Item Value Reference Range Interpretation Comments Eosinophils # (Auto) (test code = 711-2) 0.1 0.0-0.4 [facility] DallasAutom[facility] blood basophil count (count/volume)2020-03-19 05:05:00* Test Item Value Reference Range Interpretation Comments Basophils # (Auto) (test code = 704-7) 0.0 0.0-0.1 [facility] DallasFluoroscopic procedure less than one hour [id number] 05:05:00* Test Item Value Reference Range Interpretation Comments Absolute Immature Granulocyte (auto (melissa t code = Absolute Immature Granulocyte (auto) 0.01 0-0.1 [facility] DallasFluoroscopic procedure less than one hour [id number] 05:05:00* Test Item Value Reference Range Interpretation Comments Differential Total Cells Counted (test code = Juliana ruiz Total Cells Counted) 100 [facility] blood neutrophils/100 leukocytes 2020-03-19 05:05:00* Test Item Value Reference Range Interpretation Comments Neutrophils % (Manual) (test code = 99054-2) 46 40-74 [facility] leukocytes 2020-03-19 05:05:00* Test Item Value Reference Range Interpretation Comments Lymphocytes % (Manual) (test code = 737-7) 38 19-48 [facility] blood monocytes/100 leukocytes 2020-03-19 05:05:00* Test Item Value Reference Range Interpretation Comments Monocytes % (Manual) (test code = 744-3) 14 3.4-9.0 [facility] blood eosinophil count as percentage of total ojkppsvaqh0028-40-16 05:05:00* Test Item Value Reference Range Interpretation Comments Eosinophils % (Manual) (test code = 714-6) 2 0-7 [facility] Dallas[facility] platelets count by estimate (number/volume)2020-03-19 05:05:00* Test Item Value Reference Range Interpretation Comments Platelet Estimate (test code = 82718-1) MARKEDLY DECREASED [facility] DallasPlatelet [id number] 05:05:00* Test Item Value Reference Range Interpretation Comments Platelet Morphology Comment (test code = 70504-3) NORMAL NO EDTA PLT CLUMPS [facility]ENChildren[facility]aserum or plasma sodium measurement (moles/volume)2020-03-19 05:05:00* Test Item Value Reference Range Interpretation Comments Sodium Level (test code = 2951-2) 142 136-145 [facility] or plasma potassium measurement (moles/volume)2020-03-19 05:05:00* Test Item Value Reference Range Interpretation Comments Potassium Level (test code = 2823-3) 3.5 3.5-5.1 [facility] plasma chloride measurement (moles/volume)2020-03-19 05:05:00* Test Item Value Reference Range Interpretation Comments Chloride Level (test code = 2075-0) 109 98-107 [facility] or plasma carbon dioxide, total measurement (moles/volume)2020-03-19 05:05:00* Test Item Value Reference Range Interpretation Comments Carbon Dioxide Level (test code = 2028-9) 28 22-29 [facility] or plasma anion [id number] 05:05:00* Test Item Value Reference Range Interpretation Comments Anion Gap (test code = 48772-9) 8.5 8-16 [facility] plasma urea nitrogen measurement (mass/volume)2020-03-19 05:05:00* Test Item Value Reference Range Interpretation Comments Blood Urea Nitrogen (test code = 3094-0) 7 7-26 [facility] or plasma creatinine measurement (mass/volume)2020-03-19 05:05:00* Test Item Value Reference Range Interpretation Comments Creatinine (test code = 2160-0) 0.58 0.57-1.11 [facility] or plasma urea nitrogen/creatinine mass [id number] 05:05:00* Test Item Value Reference Range Interpretation Comments BUN/Creatinine Ratio (test code = 3097-3) 12 6-25 [facility] DallasEstimated glomerular filtration rate (GFR) qkjgfsuskcjpp9390-14-52 05:05:00* Test Item Value Reference Range Interpretation Comments Estimat Glomerular Filtration Rate (test code = 864268745) > 60 >60 Ranges were taken from the National Kidney Disease Education Program and the [facility] literature.Reference ranges:60 or greater: Czedyr33-84 ( for 3 consecutive months): Chronic kidney disease 15 or less: Kidney failureBaylor Scott & White [facility] and [facility]ascular Hospital – DallasGlucose [id number] 05:05:00* Test Item Value Reference Range Interpretation Comments Glucose Level (test code = CXQ5201) 88 74-118 [facility] plasma calcium measurement (mass/volume)2020-03-19 05:05:00* Test Item Value Reference Range Interpretation Comments Calcium Level (test code = 92231-4) 8.0 8.4-10.2 [facility] DallasPhosphorus kdmplrvbzbq2141-49-26 05:05:00 * Test Item Value Reference Range Interpretation Comments Phosphorus Level (test code = ZVU2081) 2.3 2.3-4.7 [facility] or plasma magnesium measurement (mass/volume)2020-03-19 05:05:00* Test Item Value Reference Range Interpretation Comments Magnesium Level (test code = 37049-3) 1.9 1.3-2.1 [facility] or plasma total bilirubin measurement (mass/volume)2020-03-17 05:08:00* Test Item Value Reference Range Interpretation Comments Total Bilirubin (test code = 1975-2) 0.6 0.2-1.2 [facility] DallasFluoroscopic procedure less than one hour [id number] 05:08:00* Test Item Value Reference Range Interpretation Comments Aspartate Amino Transf (AST/SGOT) (test code = Aspartate Amino Transf (AST/SGOT)) 16 5-34 [facility] or plasma alanine aminotransferase measurement (enzymatic activity/volume)2020-03-17 05:08:00* Test Item Value Reference Range Interpretation Comments Alanine Aminotransferase (ALT/SGPT) (test code = 1742-6) 8 0-55 [facility] or plasma protein measurement (mass/volume)2020-03-17 05:08:00* Test Item Value Reference Range Interpretation Comments Total Protein (test code = 2885-2) 4.9 6.5-8.1 [facility] or plasma albumin measurement (mass/volume)2020-03-17 05:08:00* Test Item Value Reference Range Interpretation Comments Albumin (test code = 1751-7) 2.3 3.5-5.0 [facility] DallasPlasma globulin measurement (mass/volume) 2020-03-17 05:08:00* Test Item Value Reference Range Interpretation Comments Globulin (test code = 86064-0) 2.6 2.3-3.5 [facility] or plasma albumin/globulin mass [id number] 05:08:00* Test Item Value Reference Range Interpretation Comments Albumin/Globulin Ratio (test code = 1759-0) 0.9 0.8-2.0 [facility] or plasma alkaline phosphatase measurement (enzymatic activity/volume)2020-03-17 05:08:00* Test Item Value Reference Range Interpretation Comments Alkaline Phosphatase (test code = 6768-6) 62 40-150 [facility] DallasCapillary blood glucose measurement by glucometer (mass/volume)2020-03-16 20:08:00* Test Item Value Reference Range Interpretation Comments Bedside Glucose (test code = 18309-8) 110 70-120 Meter ID: [id number] Scott & White Heart and [facility]ascular Hospital – DallasBONE and/or JOINT WHOLE [id number] 17:01:00 [facility] [address] [place] [address] Patient Name: CARLA DEJESUS MR #: [id number] : 1950 Age/Sex: 69/F Req #: [id number] Adm Physician: WILMAR RICHARD MD Ordered by: JAMIL CARRILLO DO Report #: [id number] Location: MED/SURG Room/Bed: [facility] Procedure: [id number] NM/BONE a nd/or JOINT WHOLE BODY Exam [...] Kinase (test code = 2157-6) 71 29-168 [facility] or plasma creatine kinase MB measurement (mass/volume)2020-03-16 14:50:00* Test Item Value Reference Range Interpretation Comments Creatine Kinase MB (test code = 10309-0) 0.40 0-5.0 [facility] DallasTroponin I measurement by highly sensitive enzyme lbehrplgxlz5562-55-74 14:50:00* Test Item Value Reference Range Interpretation Comments Troponin I (test code = 53834-3) 0.018 0-0.300 [facility] DallasCT ABDOMEN/PELVIS WQ0657-74-09 20:28:00 [place] [address] Patient Name: CARLA DEJESUS MR #: [id number] : 1950 Age/Sex: 69/F Req #: [id number] Adm Physician: WILMAR RICHARD MD Ordered by: JAMIL CARRILLO DO Report #: [id number] Location: [facility] Room/Bed: [place] [address] Procedure: CT/CT ABD OMEN/PELVIS WO Exam Date: [...] PARVEEN JAY MD El ectronically Signed By: PARVENE JAY MD on 03/15/202044 Transcribed By: ERNESTO MCKEON on 03/15/202044 COPY TO: JAMIL CARRILLO DO CT CHEST WO 2020-03-15 20:28:00 [place] [address] Patient Name: CARLA DEJESUS MR #: [id number] : 1950 Age/Sex: 69/F Req #: [id number] Adm Physician: WILMAR RICHARD MD Ordered by: JAMIL CARRILLO DO Report #: [id number] Location: [facility] Room/Bed: [place] [address] Procedure: [id number] CT/CT FLAVIO ST WO Exam Date: 03/15/20 [...] below the limits set by the [facility] Protocol Committee (RPC). Dose modulation, iterative reconstruc [...] 8:45 PM Dictated By: PARVEEN JAY MD [facility] Signed By: PARVEEN JAY MD on 03/15/202044 Transcribed By: SCOTT on 2044 COPY TO: JAMIL CARRILLO DO Urine color afrgswniwfuad6035-29-14 18:04:00* Test Item Value Reference Range Interpretation Comments Urine Color (test code = 5778-6) YELLOW YELLOW [facility] DallasUrine smworlu0744-03-66 18:04:00* Test Item Value Reference Range Interpretation Comments Urine Clarity (test code = 30426-8) HAZY CLEAR [facility] Dallaspecific gravity of Urine by Test strip 2020-03-15 18:04:00* Test Item Value Reference Range Interpretation Comments Urine Specific [place] (test code = 5811-5) 1.020 1.010-1.02 5 [facility] DallasUrine pH measurement by automated test zdhxo0272-87-45 18:04:00* Test Item Value Reference Range Interpretation Comments Urine pH (test code = 97136-5) 7.5 5-7 [facility] DallasUrine leukocyte esterase detection by ocehazzz8949-27-43 18:04:00* Test Item Value Reference Range Interpretation Comments Urine Leukocyte Esterase (test code = 5799-2) NEGATIVE NEGATIVE [facility] DallasUrine nitrite vyrsfotrp9340-37-84 18:04:00* Test Item Value Reference Range Interpretation Comments Urine Nitrite (test code = 20436-7) NEGATIVE NEGATIVE [facility] DallasUrine protein measurement by test strip (mass/volume)2020-03-15 18:04:00* Test Item Value Reference Range Interpretation Comments Urine Protein (test code = 5804-0) 1+ NEGATIVE [facility] DallasUrine glucose doptemvvh3606-04-75 18:04:00* Test Item Value Reference Range Interpretation Comments Urine Glucose (UA) (test code = 2349-9) NEGATIVE NEGATIVE [facility] DallasUrine ketones detection by automated test rgivf8357-99-42 18:04:00* Test Item Value Reference Range Interpretation Comments Urine Ketones (test code = 94665-3) NEGATIVE NEGATIVE [facility] DallasUrine urobilinogen measurement by test strip (mass/volume)2020-03-15 18:04:00* Test Item Value Reference Range Interpretation Comments Urine Urobilinogen (test code = 19070-4) 8.0 0.2-1 [facility] DallasUrine total bilirubin measurement (mass/volume)2020-03-15 18:04:00* Test Item Value Reference Range Interpretation Comments Urine Bilirubin (test code = 1978-6) NEGATIVE NEGATIVE [facility] DallasUrine erythrocytes savhzqvmr3849-21-60 18:04:00* Test Item Value Reference Range Interpretation Comments Urine Blood (test code = 50602-2) TRACE NEGATIVE [facility] DallasAutomated urine sediment leukocyte count by microscopy (number/high power field)2020-03-15 18:04:00* Test Item Value Reference Range Interpretation Comments Urine WBC (test code = 5821-4) 6-10 0-5 [facility] DallasErythrocytes detection in urine sediment by light cwsstfhtfz5721-98-02 18:04:00* Test Item Value Reference Range Interpretation Comments Urine RBC (test code = 95195-0) 0-5 0-5 [facility] DallasBacteria detection in urine sediment by light qqsqgejuef3966-88-58 18:04:00* Test Item Value Reference Range Interpretation Comments Urine Bacteria (test code = 88810-9) FEW NONE [facility] DallasEpithelial cells detection in urine sediment by light yobqszdrkn0546-99-65 18:04:00* Test Item Value Reference Range Interpretation Comments Urine Epithelial Cells (test code = 65037-4) FEW NONE [facility] DallasProthrombin time (PT) in platelet poor plasma by coagulation egjot2806-86-37 17:40:00* Test Item Value Reference Range Interpretation Comments Prothrombin Time (test code = 5902-2) 14.3 11.9-14.5 [facility] DallasINR in Platelet poor plasma by Coagulation qdcrd3570-38-41 17:40:00* Test Item Value Reference Range Interpretation Comments Prothromb Time International Ratio (test code = 6301-6) 1.05 Oral Anticoagulant Therapy INR Values:1. Low Intensity Therapy 1.5 - 2.02 . Moderate Intensity Therapy 2.0 - 3.03. High Intensity Therapy(1) 2.5 - 3. 54. High Intensity Therapy(2) 3.0 - 4.05. Panic Value INR > 5.0 [facility] DallasActivated partial thromboplastin time (aPTT) in platelet poor plasma by coagulation eooil2277-09-90 17:40:00* Test Item Value Reference Range Interpretation Comments Activated Partial Thromboplast Time (test code = 98949-3) 29.7 23.8-35.5 [facility] DallasBNP Ium-jSxy3133-04-05 17:40:00* Test Item Value Reference Range Interpretation Comments B-Type Natriuretic Peptide (test code = 88411-7) 114.0 0-100 [facility] or plasma acetaminophen measurement by screening method (mass/volume)2020-03-15 17:40:00* Test Item Value Reference Range Interpretation Comments Acetaminophen Level (test code = 26924-2) < 3.0 10-30 [facility] DallasFluoroscopic procedure less than one hour qbtykbla8491-14-97 17:40:00* Test Item Value Reference Range Interpretation [...] under 564(g) of the ACT.Testing performed by [facility] [place], [place] [address] HospitalBlood olxotjq5662-72-02 17:40:00* Test Item Value Reference Range Interpretation Comments Blood Culture (test code = 70078219) NO GROWTH AFTER 72 HOURS [facility] HospitalCHES SINGLE (NOT PORTABLE)2020-03-15 15:02:00 [facility] [address] [place] [address] Patient Name: CARLA DEJESUS MR #: [id number] : 1950 Age/Sex: 69/F Req #: [id number] Adm Physician: Ordered by: JULY ORTIZ MD Report #: [id number] Location: ER Room/Bed: Procedure: [id number] DX/CHEST SIN GLE (NOT PORTABLE) Exam Date: [...] JULY BERNABE MD FEMUR 2 VIEWS MINIMUM RGVP8971-40-18 15:00:00 [place] [address] Patient Name: CARLA DEJESUS MR #: [id number] : 1950 Age/Sex: 69/F Req #: [id number] Adm Physician: Ordered by: JULY ORTIZ MD Report #: [id number] Location: ER Room/Bed: Procedure: [id number] DX/FEMUR 2 V IEWS MINIMUM LEFT Exam [...] HIP LEFT 2-3 VW (+/- PELVIS)2020-03-15 14:57:00 [place] [address] Patient Name: CARLA DEJESUS MR #: [id number] : 1950 Age/Sex: 69/F Req #: [id number] Adm Physician: Ordered by: JULY ORTIZ MD Report #: [id number] Location: ER Room/Bed: Procedure: [id number] DX/HIP LEFT 2-3 VW (+/- PELVIS) Exam [...] TO: JULY ORTIZ MD CT CERVICAL SPINE SL8916-22-43 14:30:00 [place] [address] Patient Name: CARLA DEJESUS MR #: [id number] : 1950 Age/Sex: 69/F Req #: [id number] Adm Physician: Ordered by: JULY ORTIZ MD Report #: [id number] Location: ER Room/Bed: Procedure: [id number] CT/CT CERVIC AL SPINE WO Exam Date: [...] 1 431 Transcribed By: SCOTT on 03/15/20 1430 COPY TO: JULY ORTIZ MD CT BRAIN CL3941-65-22 14:28:00 [place] [address] Patient Name: CARLA DEJESUS MR #: [id number] : 1950 Age/Sex: 69/F Req #: [id number] Adm Physician: Ordered by: JULY ORTIZ MD Report #: [id number] Location: ER Room/Bed: Procedure: [id number] CT/CT BRAIN WO Exam Date: 03/15/20 Exam [...] ORTIZ MD CHEM PANEL 2019-08-19 14:24:0094[facility]annCHEM ACFMK4778-55-54 14:24:007[facility]annCHEM OOEUA8615-31-40 14:24:000.72[facility]annCHEM SANDE2962-25-07 14:24:25672Bepugwtr HermannCHEM RKEQE5677-46-92 14:24:003.6[facility] HermannCHEM OECOC6565-76-78 14:24:42147Tsxmptpf HermannCHEM VCTGD9088-55-96 14:24:0027 [facility]annCHEM VMATQ3152-50-41 14:24:008.8[facility]annCHEM PANEL 2019-08-19 14:24:0086[facility] HermannCHEM CJUQF7978-78-23 14:24:0010.6[facility] IfrqasjSEGIFKVELR4485-10-48 14:24:004.9[facility] XqgywkuFGIFUGXXXC1335-56-15 14:24:003.61[facility] OpglbbwQZYZLWZJJE7122-87-30 14:24:009.9[facility] AITUAXGAMB1577-17-66 14:24:0031.3[facility] XgfwuhuDKHUKTCLIR7636-82-65 14:24:00 86.6[facility] UmnwmwhUYQJHJUZBD8584-60-83 14:24:00* Test Item Value Reference Range Interpretation Comments MCH (test code = MCH) 27.4 pg 27.0-31.0 [facility] MejrkeyKBSEFFYCTK7619-94-83 14:24:0031.6[facility] HermannHEMATOLOGY 2019-08-19 14:24:0016.9[facility] XlzpwmzIHCAJSFXFQ9970-74-83 14:24:47958Hcnjrvwf MnnsgdnCJNYVFUNBG5194-35-80 14:24:008.8[facility] GecgbqcPEKIXJDEOQ8884-69-97 14:24:0055.5[facility] AeldqbeKJHNYSNRGA1498-17-07 14:24:0032.2[facility] SKSQFTRDUA8258-91-02 14:24:008.8[facility] VgosxfjQOACSROGDS3713-59-17 14:24:002.9 [facility] KnbahbdULBCMFAUSS6395-53-72 14:24:000.6[facility] HermannHEMATOLOGY 2019-08-19 14:24:002.8[facility] PoulwwvZXVPTFRDPE0262-12-25 14:24:001.6[facility] ZmyoibbJFZZHZWBKK8121-40-22 14:24:000.4[facility] SirqwbjFECQZADXDQ0088-75-28 14:24:000.1[facility] HermannCHEM QTJCF3200-69-99 11:14:0096[facility]annCHEM TPWJI7694-56-58 11:14:0016[facility]annCHEM FKXBN0216-87-03 11:14:000.76 [facility]annCHEM ZQYRY7181-06-71 11:14:51341Dssvzxvl HermannCHEM PANEL 2019-08-02 11:14:003.6[facility]annCHEM POWXI3063-75-42 11:14:39679Guxaizcw HermannCHEM DHUOK2431-86-47 11:14:0030[facility]annCHEM ZXIOR1284-77-36 11:14:007.6[facility]annCHEM WAHTP9312-81-19 11:14:008.4[facility]annCHEM LDYHQ9712-44-11 11:14:00* Test Item Value Reference Range Interpretation Comments B/C Ratio (test code = B/C Ratio) 21 1 6-25 [facility]annCHEM IGNOY1020-09-43 11:14:005.3[facility] HermannCHEM PANEL 2019-08-02 11:14:001.9[facility]annCHEM HRNBD0012-07-30 11:14:003.4[facility]annCHEM YNTJV2685-61-50 11:14:00* Test Item Value Reference Range Interpretation Comments A/G Ratio (test code = A/G Ratio) 0.6 1 0.7-1.6 [facility]annCHEM AWDYC9549-49-20 11:14:008[facility]annCHEM PANEL 2019-08-02 11:14:005[facility]annCHEM ZQWVC1217-39-50 11:14:0059[facility]annCHEM FXQEW4323-45-23 11:14:000.3[facility]annCHEM ARDWF5773-02-79 11:14:0081[facility]annCHEM JUOAG9927-96-79 11:14:002.4[facility]annCHEM DPCDI9561-27-25 11:14:002.3[facility] HeizwohQFRZLPNOPL3939-03-94 11:14:008.8 [facility] GotvymtEVLPMRJCJJ2102-89-59 01:49:0011.0[facility]annHEMATOLOGY 2019-08-02 01:49:002.95[facility] OszxbwgFBDYDCSOVC2070-97-19 01:49:008.3[facility] TeiiorhEGSHUIPHRG4969-07-49 01:49:0025.6[facility] AicvyetEECLGMIKYS5810-76-86 01:49:0086.6[facility] DhzevfgJLJYAXMFYQ8450-51-59 01:49:00* Test Item Value Reference Range Interpretation Comments MCH (test code = MCH) 28.1 pg 27.0-31.0 [facility] TqaiccdUYTCDKPDPU0776-23-80 01:49:0032.5[facility] HermannHEMATOLOGY 2019-08-02 01:49:0016.0[facility] KsrqovxGMCKCATDYG4741-17-63 01:49:84584Whbsykgm KzwqqnoUDYASKWMNA3101-64-66 01:49:008.1[facility] WibjhtlBZXAXARXZM3742-48-51 01:49:0077.0[facility] QgdqiejMKXFLOPZKT1527-57-79 01:49:0014.8[facility] TYARPXWYDH5667-15-58 01:49:006.3[facility] XteuxofRSXKDUNKUC6861-03-44 01:49:001.7 [facility] VzmghorXKIBEKSJXL8086-70-95 01:49:000.2[facility]annHEMATOLOGY 2019-08-02 01:49:008.5[facility] VfzkfbqBQNSBQSCEC7658-98-97 01:49:001.6[facility] MkeyzieIDKGUCVSDU4386-14-77 01:49:000.7[facility] MqsudjwSBBYBSBWPK7257-08-71 01:49:000.2[facility] HermannBLOOD BANK OMBJJMC3256-40-17 18:54:00Product available 8(08/01/19 12:54 PM)[facility]annCHEM SFBJK1058-61-09 17:02:89085 [facility]annCHEM XRIZX5983-27-68 17:02:0018[facility] HermannCHEM PANEL 2019-08-01 17:02:001.04[facility]annCHEM KWAOE7228-19-02 17:02:84316Fecbfnqk HermannCHEM BKRHC3154-31-37 17:02:003.5[facility]annCHEM ILSYW3632-23-55 17:02:83194Hymhevom HermannCHEM GQGXI1628-18-47 17:02:0025[facility]annCHEM FDGQH0204-27-61 17:02:0010.5[facility]annCHEM FXTDR7514-62-38 17:02:008.3 [facility]annCHEM OMGEQ1339-24-76 17:02:0056[facility] HermannHEMATOLOGY 2019-08-01 17:02:0012.9[facility] WebykwpQWTLCROWFB5479-06-05 17:02:002.72[facility] PcxodtzJCIDEHLGRS0450-61-92 17:02:007.5[facility] SwpqhavLILPKUPOQH8514-93-31 17:02:0023.6[facility] UubigajASVLXIKMDI1198-03-47 17:02:0086.7[facility] HILVXQGFJK8334-24-57 17:02:00* Test Item Value Reference Range Interpretation Comments MCH (test code = MCH) 27.6 pg 27.0-31.0 [facility] RngidqiDFHJLOXCQU0939-79-55 17:02:0031.8[facility] HermannHEMATOLOGY 2019-08-01 17:02:0016.5[facility] RhkipkbYBWBCYWKRX5599-08-09 17:02:09135Dtrcjzqu ZepulsrEPUQXECZUI6486-92-41 17:02:008.6[facility] KsrskihSLVVRFKHBQ8291-99-17 17:02:0081.2[facility] OzclcadPMDREOQVVE5285-71-08 17:02:0012.7[facility] QWBRHEYCQH6212-44-23 17:02:005.1[facility] SrjwqumSRJYHWLGLU4928-22-10 17:02:000.6 [facility] UpvozeeSRSNAKJGZP2445-28-96 17:02:000.4[facility] HermannHEMATOLOGY 2019-08-01 17:02:0010.5[facility] MldnpimXIBLRVRKKI7098-26-53 17:02:001.6[facility] IouewssNWQIEYPBIW5944-97-52 17:02:000.7[facility] QysofulBMENWIFSQL3512-24-87 17:02:000.1[facility] HermannCHEM JTFMR7701-35-45 13:21:0099[facility] HermannCHEM VOLVI5523-47-93 13:21:0018[facility]annCHEM FUHEZ9919-76-38 13:21:001.02 [facility]annCHEM IAFRY8253-47-35 13:21:64476Ptagqorf HermannCHEM PANEL 2019-08-01 13:21:003.9[facility] HermannCHEM KINQN9205-77-60 13:21:07092Biaccmjp HermannCHEM HRFDA5487-80-24 13:21:0027[facility]annCHEM HCZMB5170-20-14 13:21:009.9[facility]annCHEM KDTEM8827-93-44 13:21:008.4[facility] HermannCHEM TOSUZ7116-52-62 13:21:00* Test Item Value Reference Range Interpretation Comments B/C Ratio (test code = B/C Ratio) 18 1 6-25 [facility]annCHE[facility] XWQCE1338-63-48 13:21:004.8[facility] HermannCHEM PANEL 2019-08-01 13:21:001.8[facility] HermannCHEM JICBE9074-39-65 13:21:003.0[facility]annCHEM RPRWJ9620-79-84 13:21:00* Test Item Value Reference Range Interpretation Comments A/G Ratio (test code = A/G Ratio) 0.6 1 0.7-1.6 [facility]annCHE[facility] RCMJT5266-91-12 13:21:00<6[facility] HermannCHEM PANEL 2019-08-01 13:21:004[facility]annCHEM AGBZI6438-11-98 13:21:0047[facility]annCHEM XDHSW3026-90-52 13:21:000.3[facility]annCHEM FIEPU4961-28-34 13:21:0057[facility]annCHEM YBBJS7250-73-79 13:21:002.0[facility]annCHEM WMQNE9784-60-78 13:21:002.3[facility]annCHEM QHSXA8909-46-19 11:22:004.9 [facility]annCHE[facility] RIIBT6824-04-90 11:22:001.9[facility] HermannCHEM PANEL 2019-07-31 11:22:008[facility] HermannCHEM SUBMS9876-13-20 11:22:008[facility]annCHEM ITTHT8702-57-73 11:22:0040[facility]annCHEM JSDDL7397-21-28 11:22:000.4[facility]annCHEM PNYCX5636-35-91 11:22:00* Test Item Value Reference Range Interpretation Comments B/C Ratio (test code = B/C Ratio) 12 1 6-25 [facility] HermannCHEM RZPDD9581-47-73 11:22:003.0[facility] HermannCHEM PANEL 2019-07-31 11:22:00* Test Item Value Reference Range Interpretation Comments A/G Ratio (test code = A/G Ratio) 0.6 1 0.7-1.6 [facility] HermannCHEM BZGAN1995-77-28 11:22:002.1[facility] HermannCHEM PANEL 2019-07-31 11:22:003.4[facility] LhflzzyQYAFCRETLZ6391-96-61 11:22:00Normal (07/31/19 5:22 AM)[facility] YbtxnmvOBPMRFUYCT5066-69-02 11:22:00Normal (07/31/19 5:22 AM)[facility] EklqongOAAXUFMYZK4270-27-61 11:22:0089.3[facility] CAOHHZGLYG6651-38-86 11:22:006.0[facility] MqpovjbULTKDVMIAB3781-39-09 11:22:004.7 [facility] SgkczyqQMSTOAGSQI8188-40-06 11:22:0018.5[facility] HermannHEMATOLOGY 2019-07-31 11:22:001.2[facility] EgdrbofDNGKSVECAK1393-88-04 11:22:001.0[facility] KcwjzuoISSKVMIKGX0457-59-95 11:22:0020.7[facility] RehsdzqATIGSNPGVX2202-47-77 11:22:003.24[facility] SkkyajtRWBEWIUQUC0834-06-43 11:22:0027.6[facility] GNGRHMHQGU5644-09-25 11:22:0085.4[facility] IlpontwOGBIGWNGIX1551-60-02 11:22:00* Test Item Value Reference Range Interpretation Comments MCH (test code = MCH) 28.2 pg 27.0-31.0 [facility] PiptxmgYXYCXOBZZN5165-03-30 11:22:0033.0[facility] HermannHEMATOLOGY 2019-07-31 11:22:0015.5[facility] QlckcmmARJHAIHLPO1896-75-44 11:22:27044Kwlveaab QjcbnpjIYCFGGTFSS4207-68-08 11:22:008.1[facility] HermannBLOOD BANK RESULTS 2019-07-30 14:59:00Product available 9(07/30/19 8:59 AM)[facility]annBLOOD BANK TFGAXVL3084-42-36 14:44:00Negative (07/30/19 8:44 AM)[facility] RDOOQSUEUX4902-46-58 14:18:001.3[facility] YncbruuPMKRAJVAJY5545-57-26 14:18:000.6 [facility] HeaclepMPRPBAJNFP8638-23-63 14:18:000.1[facility] HermannENDOCRINOLOGY 2019-07-30 12:46:0014.1[facility] VmkxmrnZMVMQCORXTCCS3416-32-49 10:08:0017.0 [facility] OllnpnaWACRZNOJEXHBA2853-64-40 12:26:0012.8[facility] SDNUUJIANSFFO3937-68-43 12:26:0037.7[facility] HermannMATERNAL CFYGXNB3011-33-27 12:26:0011.2[facility] HermannTUMOR ZTCTWHL5887-38-19 12:26:0053.2[facility] TUMOR ZJFOHRS7688-30-41 12:26:19997.1[facility] HermannTUMOR SBNUQBJ4991-61-91 00:02:0065.3[facility] HermannCHEM NACYC9307-05-65 03:57:000.7[facility] URINE AND TNPZS2628-82-80 23:46:00Slight *ABN*(07/25/19 5:46 PM)[facility] URINE AND STHGB6158-72-41 23:46:00* Test Item Value Reference Range Interpretation Comments UA Spec Grav (test code = UA Spec Grav) 1.028 1 [facility]annURINE AND UXTTJ6028-16-63 23:46:00* Test Item Value Reference Range Interpretation Comments UA pH (test code = UA pH) 6.0 1 5.0-8.0 [facility]UR[facility] AND SILGL4443-32-68 23:46:00Negative *NA*(07/25/19 5:46 PM)[facility]annUR[facility] AND PZBCW7625-48-58 23:46:00Negative (07/25/19 5:46 PM) [facility] AND NEKRN3275-42-61 23:46:002.0[facility]annURINE AND XLVVT1102-09-76 23:46:00Negative (07/25/19 5:46 PM)[facility] AND BFUZH5887-14-22 23:46:00Large *ABN*(07/25/19 5:46 PM)[facility]ann[facility] AND AVFKA6984-32-39 23:46:0027[facility]annURINE AND VYWYQ7335-82-32 23:46:005 [facility]annCHEM WLXBX7579-21-84 22:36:0080[facility] HermannCHEM PANEL 2019-07-25 22:36:000.1[facility] HvjbinzQAGBEWGUTT3454-73-04 22:36:000.1[facility] HermannMRI PELVIS QLZ5849-42-26 11:57:00 [facility] [address] [place] [address] Patient Name: CARLA DEJESUS MR #: [id number] : 1950 Age/Sex: 68/F Req #: [id number] Adm Physician: Ordered by: PATY PAYNE MD Report #: [id number] Location: MRI Room/Bed: Procedure: MRI/MRI PELVIS WOW [...] 07/24/191213 COPY TO: PATY PAYNE MD Sodium Vbbpg7968-91-21 23:14:00* Test Item Value Reference Range Interpretation Comments Sodium Level (test code = 2951-2) 137 136-145 [facility] DallasPotassium Ebext4782-50-43 23:14:00* Test Item Value Reference Range Interpretation Comments Potassium Level (test code = 2823-3) 3.3 3.5-5.1 L [facility] DallasChloride Udopl8809-19-79 23:14:00* Test Item Value Reference Range Interpretation Comments Chloride Level (test code = 2075-0) 103 98-107 [facility] DallasCarbon Dioxide Ypjog4733-99-20 23:14:00* Test Item Value Reference Range Interpretation Comments Carbon Dioxide Level (test code = 2028-9) 26 22-29 [facility] DallasAnion Ewq5965-56-42 23:14:00* Test Item Value Reference Range Interpretation Comments Anion Gap (test code = 82779-5) 11.3 8-16 [facility] DallasBlood Urea Jukxsnbh7737-87-34 23:14:00* Test Item Value Reference Range Interpretation Comments Blood Urea Nitrogen (test code = 3094-0) 8 7-26 [facility] DallasCreatinine2019-11-02 23:14:00* Test Item Value Reference Range Interpretation Comments Creatinine (test code = 2160-0) 0.72 0.57-1.11 [facility] DallasBUN/Creatinine Fcqpp3106-07-32 23:14:00* Test Item Value Reference Range Interpretation Comments BUN/Creatinine Ratio (test code = 3097-3) 11 6-25 [facility] DallasEstimat Glomerular Filtration Rate 2019-07-13 23:14:00* Test Item Value Reference Range Interpretation Comments Estimat Glomerular Filtration Rate (test code = 123711815) > 60 >60 Ranges were taken from the National Kidney Disease Education Program and the [facility] hospital[facility] Kidney Foundation literature.Reference ranges:60 or greater: Wyrvhc49-02 ( for 3 consecutive months): Chronic kidney disease 15 or less: Kidney failureBaylor Scott & White Heart and Vascular Hospital – DallasGlucose Rfeuu3918-61-88 23:14:00* Test Item Value Reference Range Interpretation Comments Glucose Level (test code = ZDA2032) 88 74-118 [facility] DallasCalcium Cksox1775-32-06 23:14:00* Test Item Value Reference Range Interpretation Comments Calcium Level (test code = 40104-2) 8.4 8.4-10.2 [facility] – DallasCT ABDOMEN/PELVIS [id number] 22:11:00 [facility] [address] [address] Patient Name: CARLA DEJESUS MR #: [id number] : 1950 Age/Sex: 68/F Req #: [id number] Adm Physician: Ordered by: HERBERT HARRY COMSEC MANAGER Report #: [id number] Location: ER Room/Bed: Procedure: 1102-[address]/CT [...] limits set by the [facility] (RP). Dose modulation, iterative reconstruction, and/or weight [...] COPY TO: OSMIN HARRY NP CHEST 2 [id number] 20:15:00 [facility] [address] [address] Patient Name: CARLA DEJESUS MR #: [id number] : 1950 Age/Sex: 68/F Req #: [id number] Adm Physician: Ordered by: JULY ORTIZ MD Report #: [id number] Location: ER Room/Bed: Procedure: 7751-4387 D X/CHEST 2 VIEWS Exam Date: 07/13/19 [...] 07/13/192016 COPY TO: JULY ORTIZ MD Magnesium Wtlts4502-63-89 20:00:00* Test Item Value Reference Range Interpretation Comments Magnesium Level (test code = 74452-9) 2.0 1.3-2.1 [facility] DallasLipase2019-11-02 20:00:00* Test Item Value Reference Range Interpretation Comments Lipase (test code = 3040-3) < 4 8-78 L [facility] DallasTotal Ypwifejat7355-56-33 19:12:00* Test Item Value Reference Range Interpretation Comments Total Bilirubin (test code = 1975-2) 0.8 0.2-1.2 [facility] DallasAspartate Amino Transf (AST/SGOT) 2019-07-13 19:12:00* Test Item Value Reference Range Interpretation Comments Aspartate Amino Transf (AST/SGOT) (test code = Aspartate Amino Transf (AST/SGOT)) 9 5-34 [facility] DallasAlanine Aminotransferase (ALT/SGPT) 2019-07-13 19:12:00* Test Item Value Reference Range Interpretation Comments Alanine Aminotransferase (ALT/SGPT) (test code = 1742-6) 6 0-55 [facility] DallasTotal Qgadotl2866-08-14 19:12:00* Test Item Value Reference Range Interpretation Comments Total Protein (test code = 2885-2) 6.6 6.5-8.1 [facility] DallasAlbumin2019-11-02 19:12:00* Test Item Value Reference Range Interpretation Comments Albumin (test code = 1751-7) 2.6 3.5-5.0 L [facility] DallasGlobulin2019-11-02 19:12:00* Test Item Value Reference Range Interpretation Comments Globulin (test code = 36805-3) 4.0 2.3-3.5 H [facility] DallasAlbumin/Globulin Izgea3911-18-24 19:12:00 * Test Item Value Reference Range Interpretation Comments Albumin/Globulin Ratio (test code = 1759-0) 0.7 0.8-2.0 L [facility] DallasAlkaline Njqswrzcxmp0502-69-76 19:12:00* Test Item Value Reference Range Interpretation Comments Alkaline Phosphatase (test code = 6768-6) 56 40-150 [facility] DallasUrine [id number] 19:03:00* Test Item Value Reference Range Interpretation Comments Urine WBC (test code = 5821-4) 6-10 0-5 H [facility] DallasUrine QJB7029-96-17 19:03:00* Test Item Value Reference Range Interpretation Comments Urine RBC (test code = 12428-8) 0-5 0-5 [facility] DallasUrine Uhhlzcze4377-11-02 19:03:00* Test Item Value Reference Range Interpretation Comments Urine Bacteria (test code = 38761-0) MANY NONE H [facility] DallasUrine Epithelial Sidhl7817-66-94 19:03:00 * Test Item Value Reference Range Interpretation Comments Urine Epithelial Cells (test code = 39353-7) FEW NONE [facility] DallasUrine Transitional Epithelial Cells 2019-07-13 19:03:00* Test Item Value Reference Range Interpretation Comments Urine Transitional Epithelial Cells (test code = 8249-5) FEW NONE H [facility] DallasLactic Acid Pokkm3218-90-43 19:03:00* Test Item Value Reference Range Interpretation Comments Lactic Acid Level (test code = Lactic Acid Level) 1.6 0.5- 2.0 [facility] DallasWhite Blood Qzpcz9584-44-03 18:51:00* Test Item Value Reference Range Interpretation Comments White Blood Count (test code = 6690-2) 16.63 4.8-10.8 H [facility] DallasRed Blood Kvwnt9113-63-40 18:51:00* Test Item Value Reference Range Interpretation Comments Red Blood Count (test code = 789-8) 4.57 3.6-5.1 [facility] DallasHemoglobin2019-11-02 18:51:00* Test Item Value Reference Range Interpretation Comments Hemoglobin (test code = 78008-7) 12.4 12.0-16.0 [facility] DallasHematocrit2019-11-02 18:51:00* Test Item Value Reference Range Interpretation Comments Hematocrit (test code = 4544-3) 39.0 34.2-44.1 [facility] DallasMean Corpuscular Xffgry2205-32-69 18:51:00* Test Item Value Reference Range Interpretation Comments Mean Corpuscular Volume (test code = 787-2) 85.3 81-99 [facility] DallasMean Corpuscular Brbkzqqxjz5347-65-78 18:51:00* Test Item Value Reference Range Interpretation Comments Mean Corpuscular Hemoglobin (test code = 785-6) 27.1 28-32 [facility] Hem[facility] Concent 2019-07-13 18:51:00* Test Item Value Reference Range Interpretation Comments Mean Corpuscular Hemoglobin Concent (test code = 786-4) 31.8 31-35 [facility] DallasRed Cell Distribution Cnvvx2926-34-68 18:51:00* Test Item Value Reference Range Interpretation Comments Red Cell Distribution Width (test code = 16723-2) 13.6 11.7 -14.4 [facility] DallasPlatelet Bjpkj6571-83-52 18:51:00* Test Item Value Reference Range Interpretation Comments Platelet Count (test code = 777-3) 329 140-360 [facility] DallasNeutrophils (%) (Auto)2019-07-13 18:51:00 * Test Item Value Reference Range Interpretation Comments Neutrophils (%) (Auto) (test code = 66890-5) 80.7 38.7-80.0 H [facility] DallasLymphocytes (%) (Auto)2019-07-13 18:51:00 * Test Item Value Reference Range Interpretation Comments Lymphocytes (%) (Auto) (test code = 736-9) 11.8 18.0-39.1 L [facility] DallasMonocytes (%) (Auto)2019-07-13 18:51:00* Test Item Value Reference Range Interpretation Comments Monocytes (%) (Auto) (test code = 5905-5) 6.6 4.4-11.3 [facility] DallasEosinophils (%) (Auto)2019-07-13 18:51:00 * Test Item Value Reference Range Interpretation Comments Eosinophils (%) (Auto) (test code = 713-8) 0.0 0.0-6.0 [facility] DallasBasophils (%) (Auto)2019-07-13 18:51:00* Test Item Value Reference Range Interpretation Comments Basophils (%) (Auto) (test code = 706-2) 0.2 0.0-1.0 [facility] DallasIM GRANULOCYTES %2019-07-13 18:51:00* Test Item Value Reference Range Interpretation Comments IM GRANULOCYTES % (test code = IM GRANULOCYTES %) 0.7 0.0- 1.0 [facility] DallasNeutrophils # (Auto)2019-07-13 18:51:00* Test Item Value Reference Range Interpretation Comments Neutrophils # (Auto) (test code = 751-8) 13.4 2.1-6.9 H [facility] DallasLymphocytes # (Auto)2019-07-13 18:51:00* Test Item Value Reference Range Interpretation Comments Lymphocytes # (Auto) (test code = 62180-6) 2.0 1.0-3.2 [facility] DallasMonocytes # (Auto)2019-07-13 18:51:00* Test Item Value Reference Range Interpretation Comments Monocytes # (Auto) (test code = 742-7) 1.1 0.2-0.8 H [facility] DallasEosinophils # (Auto)2019-07-13 18:51:00* Test Item Value Reference Range Interpretation Comments Eosinophils # (Auto) (test code = 711-2) 0.0 0.0-0.4 [facility] DallasBasophils # (Auto)2019-07-13 18:51:00* Test Item Value Reference Range Interpretation Comments Basophils # (Auto) (test code = 704-7) 0.0 0.0-0.1 [facility] DallasAbsolute Immature Granulocyte (auto 2019-07-13 18:51:00* Test Item Value Reference Range Interpretation Comments Absolute Immature Granulocyte (auto (melissa t code = Absolute Immature Granulocyte (auto) 0.11 0-0.1 H [facility] DallasUrine Uqhvb5352-01-56 18:51:00* Test Item Value Reference Range Interpretation Comments Urine Color (test code = 5778-6) STRAW YELLOW [facility] DallasUrine Tuuzjyn2666-31-01 18:51:00* Test Item Value Reference Range Interpretation Comments Urine Clarity (test code = 34252-4) SL CLOUDY CLEAR [facility] Specific Brdqspx2728-78-40 18:51:00 * Test Item Value Reference Range Interpretation Comments Urine Specific [place] (test code = 5811-5) 1.025 1.010-1.02 5 [facility] DallasUrine [id number] 18:51:00* Test Item Value Reference Range Interpretation Comments Urine pH (test code = 56515-7) 6 5-7 [facility] DallasUrine Leukocyte Gycpnbtx8159-10-81 18:51:00* Test Item Value Reference Range Interpretation Comments Urine Leukocyte Esterase (test code = 30180-1) MODERATE NEGATIV E [facility] DallasUrine Lsnchak0979-29-22 18:51:00* Test Item Value Reference Range Interpretation Comments Urine Nitrite (test code = 84762-5) NEGATIVE NEGATIVE [facility] DallasUrine Uyovadc2237-67-17 18:51:00* Test Item Value Reference Range Interpretation Comments Urine Protein (test code = 16034-7) 1+ NEGATIVE H [facility] DallasUrine Glucose (UA)2019-07-13 18:51:00* Test Item Value Reference Range Interpretation Comments Urine Glucose (UA) (test code = 99819-0) NEGATIVE NEGATIVE [facility] DallasUrine Irakikj4204-69-95 18:51:00* Test Item Value Reference Range Interpretation Comments Urine Ketones (test code = 18859-8) TRACE NEGATIVE H [facility] DallasUrine Lapfczwogzec7955-55-61 18:51:00* Test Item Value Reference Range Interpretation Comments Urine Urobilinogen (test code = 18697-8) 1 0.2-1 [facility] DallasUrine Mekclypac1901-00-34 18:51:00* Test Item Value Reference Range Interpretation Comments Urine Bilirubin (test code = 1977-8) SMALL NEGATIVE [facility] DallasUrine Xodge5975-77-02 18:51:00* Test Item Value Reference Range Interpretation Comments Urine Blood (test code = 53566-8) 1+ NEGATIVE [facility] DallasFluoroscopic procedure less than one hour cyzesokx8222-33-82 18:30:00* Test Item Value Reference Range Interpretation Comments Lactic Acid Level (test code = Lactic Acid Level) 1.6 0.5- 2.0 [facility]aserum or plasma lipase measurement (enzymatic activity/volume)2019-07-13 18:30:00* Test Item Value Reference Range Interpretation Comments Lipase (test code = 3040-3) < 4 8-78 [facility] DallasTransitional cells detection in urine sediment by light xqmibponqw8782-29-89 18:22:00* Test Item Value Reference Range Interpretation Comments Urine Transitional Epithelial Cells (test code = 8249-5) FEW NONE [facility] DallasURGICAL BXOWIFQWA0188-30-42 09:32:00 RUN DATE: 05/10/19 [facility] *LIVE* PAGE 1 RUN TIME: 931 Specimen Inqui ry RUN USER: INTERFACE PATIENT: CARLA DEJESUS ACCT #: [id number] LOC: EMILY U #: [id number] AGE/SX: 68/F ROOM: RE05[facility]07/19[facility]: Don Payne : 52 BED: DIS: STATUS: [facility] TLOC: SPEC #: [id number] RECD: 05/08/19 STATUS: [facility] #: [id number] PAULA: 05/08/[address] [facility] [address]: Don Payne MD ENTERED: 05/09/19 SP TYPE: SURG SPEC OTHR DR: Desiree Kitty anthony or Family PhysicianORDERED: GM LEVEL 4 CODES: [id number] - ENDOMETRIUM, NO COPIES TO: No Primary or Family Physician Paty Payne MD [address], [place] [id number] PROCEDURES: GM LEVEL 4 (Incomplete) TISSUES: 1. [...] ON NEXT PAGE RUN D ATE: 05/10/19 [facility] *CONNOR* FATOUMATA ORELLANA 2 RUN TIME: 931 Specimen Inquiry RUN USER: INTERFACE SPEC #: [id number] PATIENT: CARLA DEJESUS #[id number] (Continued) REVIEWED BY: - Signed SIGNATURE ON Ainsley Le MD 05/10/19 0 932 END OF REPORT CBC W/AUTO [id number] 11:14:00* Test Item Value Reference Range Interpretation [...] (test code = MDIFF) NO BASIC METABOLIC NWQLE5493-50-39 11:12:00* Test Item Value Reference Range Interpretation [...] CA) 8.6 mg/dL 8.0-10.5 N BASIC METABOLIC [id number] 11:09:00* Test Item Value Reference Range Interpretation [...] mg/dL 8.0-10.5 N - XR CHEST 2 F0635-50-13 11:06:00 FAX: Paty Vcik [phone] [place]: St: PRE Name: Mariaelena ALLENCARLA EDWARDS [facility] : [birth year] Age/S: 68/F [address] [place] [address] Unit #: [id number] Loc: [place] [address] Phys: Paty Payne MD Acct: [id number] Dis Date: Status: PRE SDC PHONE #: [phone] Exam Date: 05/06/2019 1055 FAX #: [phone] Reason: HYSTEROSCOPY EXAMS: CPT CODE: [id number] XR CHEST 2 V 18551 2 view chest x-ray performed May 06, 2019 1041 hours. COMPARISON: none. CLINICAL H ISTORY: HYSTEROSCOPY. DISCUSSION: 2 views/ films of the chest ar e submitted. Lungs are clear bilaterally. Mild cardiomegaly. Degenerative changes are present in the osseous structures. IMPRESSION: Normal Chest X-ray. at 1106 Reported and signed by: Radha mena M.D. CC: Paty Payne MD Technologist: RT Hood(R) Trnscrd Date/Time/By: 05/06/2019 (8074) : By: MonicaG Orig Print D/T: S: 05/06/2019 (7123) PAGE 1 Signed Report [id number] 21:12:00 [facility] [address] [address] Patient Name: CARLA DEJESUS MR #: [id number] : 1950 Age/Sex: 68/F Req #: [id number] Adm Physician: Ordered by: REUBEN UMANA MD Report #: [id number] Location: ER Room/Bed: Procedure: [id number] US/US TRANSVAGINAL Exam Date: 02/07/19 Exam Time: [...] CO PY TO: REUBEN UMANA MD Urine [id number] 21:05:00* Test Item Value Reference Range Interpretation Comments Urine WBC (test code = 5821-4) >50 0-5 H [facility] DallasUrine [id number] 21:05:00* Test Item Value Reference Range Interpretation Comments Urine RBC (test code = 28543-7) 11-20 0-5 H [facility] DallasUrine Ywynxulv4049-47-22 21:05:00* Test Item Value Reference Range Interpretation Comments Urine Bacteria (test code = 39841-0) MANY NONE H [facility] DallasUrine Epithelial Mzxuf5948-45-64 21:05:00 * Test Item Value Reference Range Interpretation Comments Urine Epithelial Cells (test code = 01771-8) NONE NONE [facility] DallasUrine Xuwgi2791-24-71 20:55:00* Test Item Value Reference Range Interpretation Comments Urine Color (test code = 5778-6) YELLOW YELLOW [facility] DallasUrine Sunejno3586-07-26 20:55:00* Test Item Value Reference Range Interpretation Comments Urine Clarity (test code = 96297-3) SL CLOUDY CLEAR [facility] DallasUrine Specific Reexrxr5431-88-45 20:55:00 * Test Item Value Reference Range Interpretation Comments Urine Specific [place] (test code = 5811-5) >=1.030 1.010-1.02 5 [facility] DallasUrine cQ9266-91-06 20:55:00* Test Item Value Reference Range Interpretation Comments Urine pH (test code = 96028-7) 5.5 5-7 [facility] DallasUrine Leukocyte Atqmygaq8653-14-30 20:55:00* Test Item Value Reference Range Interpretation Comments Urine Leukocyte Esterase (test code = 03196-5) MODERATE NEGATIV E [facility] DallasUrine Dsrqofk8260-40-21 20:55:00* Test Item Value Reference Range Interpretation Comments Urine Nitrite (test code = 56679-7) NEGATIVE NEGATIVE [facility] DallasUrine Mpfmfvm8764-18-97 20:55:00* Test Item Value Reference Range Interpretation Comments Urine Protein (test code = 81917-5) TRACE NEGATIVE H [facility] DallasUrine Glucose (UA)2019-02-07 20:55:00* Test Item Value Reference Range Interpretation Comments Urine Glucose (UA) (test code = 97095-4) NEGATIVE NEGATIVE [facility] Rkayvuk1599-55-45 20:55:00* Test Item Value Reference Range Interpretation Comments Urine Ketones (test code = 70174-4) NEGATIVE NEGATIVE [facility] Dcaxipegkusm4991-59-84 20:55:00* Test Item Value Reference Range Interpretation Comments Urine Urobilinogen (test code = 48893-4) 0.2 0.2-1 [facility] Kbsnuicfp6637-34-33 20:55:00* Test Item Value Reference Range Interpretation Comments Urine Bilirubin (test code = 1977-8) NEGATIVE NEGATIVE [facility] Dwehb6277-57-99 20:55:00* Test Item Value Reference Range Interpretation Comments Urine Blood (test code = 30024-7) 3+ NEGATIVE [facility] Dallasodium Caclu7550-25-18 20:43:00* Test Item Value Reference Range Interpretation Comments Sodium Level (test code = 2951-2) 139 136-145 [facility] DallasPotassium Ukmul9703-09-65 20:43:00* Test Item Value Reference Range Interpretation Comments Potassium Level (test code = 2823-3) 3.2 3.5-5.1 L [facility] DallasChloride Bkugy5255-57-60 20:43:00* Test Item Value Reference Range Interpretation Comments Chloride Level (test code = 2075-0) 104 98-107 [facility] DallasCarbon Dioxide Jadzs4076-44-59 20:43:00* Test Item Value Reference Range Interpretation Comments Carbon Dioxide Level (test code = 2028-9) 26 22-29 [facility] DallasAnion Ske0598-29-08 20:43:00* Test Item Value Reference Range Interpretation Comments Anion Gap (test code = 48774-4) 12.2 8-16 [facility] DallasBlood Urea Tqsquyee2250-79-29 20:43:00* Test Item Value Reference Range Interpretation Comments Blood Urea Nitrogen (test code = 3094-0) 7 7-26 [facility] DallasCreatinine2019-05-30 20:43:00* Test Item Value Reference Range Interpretation Comments Creatinine (test code = 2160-0) 0.79 0.57-1.11 [facility] DallasBUN/Creatinine Ppsbu7395-15-55 20:43:00* Test Item Value Reference Range Interpretation Comments BUN/Creatinine Ratio (test code = 3097-3) 9 6- [facility] DallasEstimat Glomerular Filtration Rate 2019-02-07 20:43:00* Test Item Value Reference Range Interpretation Comments Estimat Glomerular Filtration Rate (test code = 342645473) > 60 >60 Ranges were taken from the National Kidney Disease Education Program and the [facility] [employer] literature.Reference ranges:60 or greater: Slbida90-89 ( for 3 consecutive months): Chronic kidney disease 15 or less: Kidney failureBaylor Scott & White Heart and Vascular Hospital – DallasGlucose Yrbey2394-76-07 20:43:00* Test Item Value Reference Range Interpretation Comments Glucose Level (test code = CGR7710) 120 74-118 H [facility] DallasCalcium Glxss9651-79-65 20:43:00* Test Item Value Reference Range Interpretation Comments Calcium Level (test code = 64940-8) 9.0 8.4-10.2 [facility] DallasTotal Tfsxgezsi6005-82-47 20:43:00* Test Item Value Reference Range Interpretation Comments Total Bilirubin (test code = 1975-2) 0.4 0.2-1.2 [facility] DallasAspartate Amino Transf (AST/SGOT) 2019-02-07 20:43:00* Test Item Value Reference Range Interpretation Comments Aspartate Amino Transf (AST/SGOT) (test code = Aspartate Amino Transf (AST/SGOT)) 11 5-34 [facility] DallasAlanine Aminotransferase (ALT/SGPT) 2019-02-07 20:43:00* Test Item Value Reference Range Interpretation Comments Alanine Aminotransferase (ALT/SGPT) (test code = 1742-6) 8 0-55 [facility] DallasTotal Bdpkhhv3043-97-70 20:43:00* Test Item Value Reference Range Interpretation Comments Total Protein (test code = 2885-2) 6.2 6.5-8.1 L [facility] DallasAlbumin2019-05-30 20:43:00* Test Item Value Reference Range Interpretation Comments Albumin (test code = 1751-7) 3.4 3.5-5.0 L [facility] DallasGlobulin2019-05-30 20:43:00* Test Item Value Reference Range Interpretation Comments Globulin (test code = 61399-6) 2.8 2.3-3.5 [facility] DallasAlbumin/Globulin Puivs4113-20-07 20:43:00 * Test Item Value Reference Range Interpretation Comments Albumin/Globulin Ratio (test code = 1759-0) 1.2 0.8-2.0 [facility] DallasAlkaline Bvbxeqpnvgd5545-85-89 20:43:00* Test Item Value Reference Range Interpretation Comments Alkaline Phosphatase (test code = 6768-6) 77 40-150 [facility] DallasProthrombin Evaa4257-47-54 20:34:00* Test Item Value Reference Range Interpretation Comments Prothrombin Time (test code = 5902-2) 14.0 11.9-14.5 [facility] DallasProthromb Time International Ratio 2019-02-07 20:34:00* Test Item Value Reference Range Interpretation Comments Prothromb Time International Ratio (test code = 6301-6) 1.03 Oral Anticoagulant Therapy INR Values:1. Low Intensity Therapy 1.5 - 2.02 . Moderate Intensity Therapy 2.0 - 3.03. High Intensity Therapy(1) 2.5 - 3. 54. High Intensity Therapy(2) 3.0 - 4.05. Panic Value INR > 5.0 [facility] DallasActivated Partial Thromboplast Time 2019-02-07 20:34:00* Test Item Value Reference Range Interpretation Comments Activated Partial Thromboplast Time (test code = 18434-4) 32.2 23.8-35.5 [facility] DallasProthrombin Eeej6628-35-52 20:34:00* Test Item Value Reference Range Interpretation Comments Prothrombin Time (test code = 5902-2) 14.0 11.9-14.5 [facility] DallasProthromb Time International Ratio 2019-02-07 20:34:00* Test Item Value Reference Range Interpretation Comments Prothromb Time International Ratio (test code = 6301-6) 1.03 Oral Anticoagulant Therapy INR Values:1. Low Intensity Therapy 1.5 - 2.02 . Moderate Intensity Therapy 2.0 - 3.03. High Intensity Therapy(1) 2.5 - 3. 54. High Intensity Therapy(2) 3.0 - 4.05. Panic Value INR > 5.0 [facility] DallasActivated Partial Thromboplast Time 2019-02-07 20:34:00* Test Item Value Reference Range Interpretation Comments Activated Partial Thromboplast Time (test code = 65151-5) 32.2 23.8-35.5 [facility] DallasWhite Blood Oixll4482-74-60 20:23:00* Test Item Value Reference Range Interpretation Comments White Blood Count (test code = 6690-2) 8.50 4.8-10.8 [facility] DallasRed Blood Yirak8816-03-09 20:23:00* Test Item Value Reference Range Interpretation Comments Red Blood Count (test code = 789-8) 4.91 3.6-5.1 [facility] DallasHemoglobin2019-05-30 20:23:00* Test Item Value Reference Range Interpretation Comments Hemoglobin (test code = 96799-8) 14.0 12.0-16.0 [facility] DallasHematocrit2019-05-30 20:23:00* Test Item Value Reference Range Interpretation Comments Hematocrit (test code = 4544-3) 42.7 34.2-44.1 [facility] DallasMean Corpuscular Ckryun3641-40-37 20:23:00* Test Item Value Reference Range Interpretation Comments Mean Corpuscular Volume (test code = 787-2) 87.0 81-99 [facility] DallasMean Corpuscular Kkmizoieaw5871-84-61 20:23:00* Test Item Value Reference Range Interpretation Comments Mean Corpuscular Hemoglobin (test code = 785-6) 28.5 28-32 [facility] DallasMean Corpuscular Hemoglobin Concent 2019-02-07 20:23:00* Test Item Value Reference Range Interpretation Comments Mean Corpuscular Hemoglobin Concent (test code = 786-4) 32.8 31-35 [facility] DallasRed Cell Distribution Dryxu2063-92-19 20:23:00* Test Item Value Reference Range Interpretation Comments Red Cell Distribution Width (test code = 82747-8) 12.8 11.7 -14.4 [facility] DallasPlatelet Gabxo5096-72-76 20:23:00* Test Item Value Reference Range Interpretation Comments Platelet Count (test code = 777-3) 214 140-360 [facility] DallasNeutrophils (%) (Auto)2019-02-07 20:23:00 * Test Item Value Reference Range Interpretation Comments Neutrophils (%) (Auto) (test code = 52508-0) 58.6 38.7-80.0 [facility] DallasLymphocytes (%) (Auto)2019-02-07 20:23:00 * Test Item Value Reference Range Interpretation Comments Lymphocytes (%) (Auto) (test code = 736-9) 33.2 18.0-39.1 [facility] DallasMonocytes (%) (Auto)2019-02-07 20:23:00* Test Item Value Reference Range Interpretation Comments Monocytes (%) (Auto) (test code = 5905-5) 5.3 4.4-11.3 [facility] DallasEosinophils (%) (Auto)2019-02-07 20:23:00 * Test Item Value Reference Range Interpretation Comments Eosinophils (%) (Auto) (test code = 713-8) 2.0 0.0-6.0 [facility] [place]ophils (%) (Auto)2019-02-07 20:23:00* Test Item Value Reference Range Interpretation Comments Basophils (%) (Auto) (test code = 706-2) 0.5 0.0-1.0 [facility] [place] %2019-02-07 20:23:00* Test Item Value Reference Range Interpretation Comments IM GRANULOCYTES % (test code = IM GRANULOCYTES %) 0.4 0.0- 1.0 [facility] [place]utrophils # (Auto)2019-02-07 20:23:00* Test Item Value Reference Range Interpretation Comments Neutrophils # (Auto) (test code = 751-8) 5.0 2.1-6.9 [facility] [place]Lymphocytes # (Auto)2019-02-07 20:23:00* Test Item Value Reference Range Interpretation Comments Lymphocytes # (Auto) (test code = 91565-5) 2.8 1.0-3.2 [facility] [place]ocytes # (Auto)2019-02-07 20:23:00* Test Item Value Reference Range Interpretation Comments Monocytes # (Auto) (test code = 742-7) 0.5 0.2-0.8 [facility] [place]osinophils # (Auto)2019-02-07 20:23:00* Test Item Value Reference Range Interpretation Comments Eosinophils # (Auto) (test code = 711-2) 0.2 0.0-0.4 [facility] [place]ophils # (Auto)2019-02-07 20:23:00* Test Item Value Reference Range Interpretation Comments Basophils # (Auto) (test code = 704-7) 0.0 0.0-0.1 [facility] [place] Immature Granulocyte (auto 2019-02-07 20:23:00* Test Item Value Reference Range Interpretation Comments Absolute Immature Granulocyte (auto (melissa t code = Absolute Immature Granulocyte (auto) 0.03 0-0.1 [facility] [place]
--- OUTSIDE RECORDS SUMMARY | 2020-05-02 16:31 | XMS REPORT | Continuity of Care Document ---
Author Author Johann SwiftoCARLA [employer] Address Unknown Phone Unavailable Care Team Providers Care Tank Erector Name Role Phone [employer] Unavailable Un available Problems Problem Status Onset Date Classification Date Reported Comments Source COLON CA Active 11/29/2019 [facility] UNK Active 0 09/16/2019 [facility] C18.9 MALIGNANT NEOPLASM OF COLON, UNSPE Active 08/19/2019 [facility] OTHER NONINFLAMMATORY DISORDERS OF OVARY Active 07/25/2019 [facility] RICARDO, FERREIRA Active 07/25/2019 [facility] 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 shoulder [facility] Iron deficiency anemia (disorder) Active Problem [facility] Malignant tumor of colon (disorder) Active Problem [facility] OTH NONINFLAMMATORY DISORD OF OVARY, FAL Active [facility] URINARY TRACT INFECTION, SITE NOT SPECIF Active [facility] UNSPECIFIED ABDOMINAL PAIN Act eileen [facility] Medications Medication Details Route Status Patient Instructions Ordering Provider Order Date Source Acetaminophen 300 MG / Codeine Phosphate 30 MG Oral Tablet [Tylenol with Codeine #3] 1 tab, PO, Q6H, PRN Pain, X 7 day, # 28 tab, 0 Refill(s) Active 09/18/2019 [facility] ondansetron (ANES) Route: IV, Drug form: INJ, ONCE, Stop date: 09/18/19 14:17:00 FINANCIAL OPERATIONS CLERK Inactive 09/18/2019 [facility] Calcium Chloride 0.0014 MEQ/ML / Potassi um Chloride 0.004 MEQ/ML / Sodium Chloride 0.103 MEQ/ML / Sodium Lactate 0.028 MEQ/ML Injectable Solution 1,000 mL, Rate: 125 ml/hr, Infuse over: 8 hr, Route: IV, Dosing Weight 86.364 kg, Total Volume: 1,000, Start date: 09/18/19 14:10:00 FINANCIAL OPERATIONS CLERK, Duration: 30 day, Stop date: 10/18/19 14:09:00 FINANCIAL OPERATIONS CLERK, 2, m2 Inactive 09/18/2019 [facility] Ketorolac 30 mg, Route: IVP, O NCE, Dosing Weight 86.364, kg, Start date: 09/18/19 14:10:00 FINANCIAL OPERATIONS CLERK, Stop date: 09/18/19 14:10:00 FINANCIAL OPERATIONS CLERK Inactive 09/18/2019 [facility] Acetaminophen 1,000 mg, Route: IVPB, Drug form: INJ, ONCE, Dosing Weight 86.364, kg, PRN Pain Score 1-3, Start date: 09/18/19 14:10:00 FINANCIAL OPERATIONS CLERK Inactive 09/18/2019 [facility] Morphine 2 mg, Route: IVP, Q5M in, Dosing Weight 86.364, kg, PRN Pain Score 4-6, Start date: 09/18/19 14:10:00 FINANCIAL OPERATIONS CLERK, Duration: 5 doses or times, Stop date: Limited # of times Inactive 09/18/2019 [facility] Fentanyl 25 microgram, Route: IVP, Q5Min, Dosing Weight 86.364, kg, PRN Pain Score 4-6, Priority: Routine, Start date: 09/18/19 14:10:00 FINANCIAL OPERATIONS CLERK, Duration: 4 doses or times, Stop date: Limited # of times Inactive 09/18/2019 [facility] Hydromorphone 0.5 mg, Route: I CIRCUS ROUSTABOUT, Q5Min, Dosing Weight 86.364, kg, PRN Pain Score 7-10, Start date: 09/18/19 14:10:00 FINANCIAL OPERATIONS CLERK, Duration: 4 doses or times, Stop date: Limited # of times Inactive 09/18/2019 [facility] Flumazenil 0.2 mg, Route: IVP, PRN, Dosing Weight 86.364, kg, PRN Benzodiazepine Reversal, Initial dose, Start date: 09/18/19 14:10:00 FINANCIAL OPERATIONS CLERK, Duration: 30 day, Stop date: 10/18/19 14:09:00 FINANCIAL OPERATIONS CLERK Inactive 09/18/2019 [facility] Naloxone 0.4 mg, Route: IVP, Q 2MIN, Dosing Weight 86.364, kg, PRN Narcotic Reversal, Start date: 09/18/19 14:10:00 FINANCIAL OPERATIONS CLERK, Duration: 8 doses or times, Stop date: Limited # of times Inactive 09/18/2019 [facility] Diphenhydramine 12.5 mg, Route : IVP, Drug form: INJ, Q6H, Dosing Weight 86.364, kg, PRN Itching, Start date: 09/18/19 14:10:00 FINANCIAL OPERATIONS CLERK, Duration: 30 day, Stop date: 10/18/19 14:09:00 FINANCIAL OPERATIONS CLERK Inactive 09/18/2019 [facility] Meperidine 12.5 mg, Route: IVP , Q30Min, Dosing Weight 86.364, kg, PRN Other -See Comment, For shivering, Start date: 09/18/19 14:10:00 FINANCIAL OPERATIONS CLERK, Duration: 2 doses or times, Stop date: Limited # of times Inactive 09/18/2019 [facility] Ondansetron 4 mg, Route: IVP, ONCE, Dosing Weight 86.364, kg, PRN Nausea & Vomiting, Start date: 09/18/19 14:10:00 FINANCIAL OPERATIONS CLERK Inactive 09/18/2019 [facility] Promethazine 6.25 mg, Route: I VPB, ONCE, Dosing Weight 86.364, kg, PRN Nausea & Vomiting, Start date: 09/18/19 14:10:00 FINANCIAL OPERATIONS CLERK Inactive 09/18/2019 [facility] 72 HR Scopolamine 0.0139 MG/HR Transdermal Patch 1 patch, Route: TOP, Drug Form: ERFILM, Dosing Weight 86.364, kg, ONCE, Apply behind ear. Avoid use in elderly., Start date: 09/18/19 14:10:00 FINANCIAL OPERATIONS CLERK, Stop date: 09/18/19 14:10:00 FINANCIAL OPERATIONS CLERK Inactive 09/18/2019 [facility] propofol (ANES) Route: IV, Vinod g form: INJ, ONCE, Stop date: 09/18/19 14:07:00 FINANCIAL OPERATIONS CLERK Inactive 09/18/2019 [facility] lidocaine (ANES) Route: IV, Dr ug form: INJ, ONCE, Stop date: 09/18/19 14:07:00 FINANCIAL OPERATIONS CLERK Inactive 09/18/2019 [facility] fentaNYL (ANES) Route: IV, Vinod g form: INJ, ONCE, Stop date: 09/18/19 14:07:00 FINANCIAL OPERATIONS CLERK Inactive 09/18/2019 [facility] ceFAZolin (ANES) Route: IV, Dr ug form: INJ, ONCE, Stop date: 09/18/19 14:07:00 FINANCIAL OPERATIONS CLERK Inactive 09/18/2019 [facility] norepinephrine (ANES) Route: I V, Drug form: INJ, ONCE, Stop date: 09/18/19 14:07:00 FINANCIAL OPERATIONS CLERK Inactive 09/18/2019 [facility] midazolam (ANES) Route: IV, Dr ug form: SOLN, ONCE, Stop date: 09/18/19 14:07:00 FINANCIAL OPERATIONS CLERK Inactive 09/18/2019 [facility] Calcium Chloride 0.0014 MEQ/ML / Potassi um Chloride 0.004 MEQ/ML / Sodium Chloride 0.103 MEQ/ML / Sodium Lactate 0.028 MEQ/ML Injectable Solution 1,000 mL, Rate: 75 ml/hr, Infuse over: 1 3.3 hr, Route: IV, Dosing Weight 86.364 kg, Total Volume: 1,000, Start date: 09/18/19 13:23:00 FINANCIAL OPERATIONS CLERK, Duration: 30 day, Stop date: 10/18/19 13:22:00 FINANCIAL OPERATIONS CLERK, 2, m2 Inactive 09/18/2019 [facility] Lactated Ringers Injection IV (ANES) 1000 mL Route: IV, Total Volume: 1,000, Start date: 09/18/19 13:12:00 FINANCIAL OPERATIONS CLERK, Stop date: 09/18/19 14:12:00 FINANCIAL OPERATIONS CLERK Inactive 09/18/2019 [facility] cephalexin 500 mg oral capsule 500 mg = 1 cap, PO, Q12H, 0 Refill(s) Active 09/17/2019 [facility] Acetaminophen 325 MG / Hydrocodone Vy trate 5 MG Oral Tablet 1 tab, PO, Q6H, 0 Refill(s) Active 09/17/2019 [facility] Acetaminophen 1,000 mg, Route: PO, Drug form: TAB, ONCE, Dosing Weight 83.864, kg, PRN Pain Score 1-3, Start date: 08/20/19 15:10:00 FINANCIAL OPERATIONS CLERK Inactive 08/20/2019 [facility] Fentanyl 25 microgram, Route: IVP, Q5Min, Dosing Weight 83.864, kg, PRN Pain Score 4-6, Priority: Routine, Start date: 08/20/19 15:10:00 FINANCIAL OPERATIONS CLERK, Duration: 4 doses or times, Stop date: Limited # of times Inactive 08/20/2019 [facility] Hydromorphone 0.5 mg, Route: I CIRCUS ROUSTABOUT, Q5Min, Dosing Weight 83.864, kg, PRN Pain Score 7-10, Start date: 08/20/19 15:10:00 FINANCIAL OPERATIONS CLERK, Duration: 4 doses or times, Stop date: Limited # of times Inactive 08/20/2019 [facility] Flumazenil 0.2 mg, Route: IVP, PRN, Dosing Weight 83.864, kg, PRN Benzodiazepine Reversal, Initial dose, Start date: 08/20/19 15:10:00 FINANCIAL OPERATIONS CLERK, Duration: 30 day, Stop date: 09/19/19 15:09:00 FINANCIAL OPERATIONS CLERK Inactive 08/20/2019 [facility] Naloxone 0.4 mg, Route: IVP, Q 2MIN, Dosing Weight 83.864, kg, PRN Narcotic Reversal, Start date: 08/20/19 15:10:00 FINANCIAL OPERATIONS CLERK, Duration: 8 doses or times, Stop date: Limited # of times Inactive 08/20/2019 [facility] Ondansetron 4 mg, Route: IVP, ONCE, Dosing Weight 83.864, kg, PRN Nausea & Vomiting, Start date: 08/20/19 15:10:00 FINANCIAL OPERATIONS CLERK Inactive 08/20/2019 [facility] acetaminophen (ANES) Route: IV , Drug form: INJ, ONCE, Stop date: 08/20/19 15:04:00 FINANCIAL OPERATIONS CLERK Inactive 08/20/2019 [facility] ondansetron (ANES) Route: IV, Drug form: INJ, ONCE, Stop date: 08/20/19 15:03:00 FINANCIAL OPERATIONS CLERK Inactive 08/20/2019 [facility] dexamethasone (ANES) Route: IV , Drug form: INJ, ONCE, Stop date: 08/20/19 15:03:00 FINANCIAL OPERATIONS CLERK Inactive 08/20/2019 [facility] midazolam (ANES) Route: IV, Dr ug form: SOLN, ONCE, Stop date: 08/20/19 14:58:00 FINANCIAL OPERATIONS CLERK Inactive 08/20/2019 [facility] fentaNYL (ANES) Route: IV, Vinod g form: INJ, ONCE, Stop date: 08/20/19 14:58:00 FINANCIAL OPERATIONS CLERK Inactive 08/20/2019 [facility] propofol (ANES) Route: IV, Vinod g form: INJ, ONCE, Stop date: 08/20/19 14:58:00 FINANCIAL OPERATIONS CLERK Inactive 08/20/2019 [facility] lidocaine (ANES) Route: IV, Dr ug form: INJ, ONCE, Stop date: 08/20/19 14:58:00 FINANCIAL OPERATIONS CLERK Inactive 08/20/2019 [facility] ceFAZolin (ANES) Route: IV, Dr ug form: INJ, ONCE, Stop date: 08/20/19 14:58:00 FINANCIAL OPERATIONS CLERK Inactive 08/20/2019 [facility] Lactated Ringers Injection IV (ANES) 1000 mL Route: IV, Total Volume: 1,000, Start date: 08/20/19 14:09:00 FINANCIAL OPERATIONS CLERK, Stop date: 08/20/19 15:09:00 FINANCIAL OPERATIONS CLERK Inactive 08/20/2019 [facility] Calcium Chloride 0.0014 MEQ/ML / Potassi um Chloride 0.004 MEQ/ML / Sodium Chloride 0.103 MEQ/ML / Sodium Lactate 0.028 MEQ/ML Injectable Solution 1,000 mL, Rate: 75 ml/hr, Infuse over: 1 3.3 hr, Route: IV, Dosing Weight 83.864 kg, Total Volume: 1,000, Start date: 08/20/19 12:36:00 FINANCIAL OPERATIONS CLERK, Duration: 30 day, Stop date: 09/19/19 12:35:00 FINANCIAL OPERATIONS CLERK, 1.97, m2 Inactive 08/20/2019 [facility] Vitamin B-12 1000 mcg/mL injectable solution IM, Daily, 0 Refill(s) Active 08/19/2019 [facility] Sodium Chloride 0.9% (titrate) 250 mL 250 mL, Rate: To prime line and flush remaining blood products., Dosing Weight 80.909, kg, Route: IV, Total Volume: 250, Start Date: 08/01/19 12:54:00 FINANCIAL OPERATIONS CLERK, Duration: 1 day, Stop date: 08/02/19 12:53:00 FINANCIAL OPERATIONS CLERK, Replace Every: 24 hr, 0 No Longer Active 08/01/2019 [facility] Dulcolax Laxative Notes: (Same As: Dulcolax, Bisco-Lax) No Longer Active 08/01/2019 [facility] Celebrex Notes: NSAID. Please check indication. Not for seizure. (Same As: CeleBREX) N o Longer Active 07/31/2019 [facility] Tylenol Notes: Max acetaminoph en 4000 mg/day (4 gm/day). (Same as: Tylenol Extra Strength) No Longer Active 07/31/2019 [facility] Lovenox Notes: (Same as: Loven ox) No Longer Active 07/31/2019 [facility] gabapentin Notes: (Same as: Ne urontin) No Longer Active 07/31/2019 [facility] Morphine Notes: (Same as:MORPh ine Sulfate) No Longer Active 07/31/2019 [facility] heparin Notes: porcine heparin Inactive 07/31/2019 [facility] Tramadol Notes: Not to exceed 400mg/day. (Same As: Ultram) No Longer Active 07/31/2019 [facility] Docusate Sodium 50 MG / sennosides, LONGTERM 8.6 MG Oral Tablet Notes: (Same as Senokot-S) Equiv. to Kati-Colace. No Longer Active 07/30/2019 [facility] Hydralazine 10 mg, Route: IVP, Q20Min, Dosing Weight 80.909, kg, PRN Elevated BP, Start date: 07/30/19 15:21:00 FINANCIAL OPERATIONS CLERK, Duration: 2 doses or times, Stop date: Limited # of times Inactive 07/30/2019 [facility] Labetalol 10 mg, Route: IVP, Q 5Min, Dosing Weight 80.909, kg, PRN Elevated BP, Start date: 07/30/19 15:21:00 FINANCIAL OPERATIONS CLERK, Duration: 5 doses or times, Stop date: Limited # of times Inactive 07/30/2019 [facility] Metoprolol 1 mg, Route: IVP, Q 5Min, Dosing Weight 80.909, kg, PRN Other -See Comment, Start date: 07/30/19 15:21:00 FINANCIAL OPERATIONS CLERK, Duration: 5 doses or times, Stop date: Limited # of times Inactive 07/30/2019 [facility] Ketorolac 30 mg, Route: IVP, O NCE, Dosing Weight 80.909, kg, Start date: 07/30/19 15:21:00 FINANCIAL OPERATIONS CLERK, Stop date: 07/30/19 15:21:00 FINANCIAL OPERATIONS CLERK Inactive 07/30/2019 [facility] Acetaminophen 1,000 mg, Route: IVPB, Drug form: INJ, ONCE, Dosing Weight 80.909, kg, PRN Pain Score 1-3, Start date: 07/30/19 15:21:00 FINANCIAL OPERATIONS CLERK Inactive 07/30/2019 [facility] Oxycodone Hydrochloride 5 MG Oral Tablet 5 mg, Route: PO, Drug form: TAB, Q4H, Dosing Weight 80.909, kg, PRN Pain Score 4-6, Start date: 07/30/19 15:21:00 FINANCIAL OPERATIONS CLERK, Duration: 30 day, Stop date: 08/29/19 15:20:00 FINANCIAL OPERATIONS CLERK Inactive 07/30/2019 [facility] Morphine 2 mg, Route: IVP, Q5M in, Dosing Weight 80.909, kg, PRN Pain Score 4-6, Start date: 07/30/19 15:21:00 FINANCIAL OPERATIONS CLERK, Duration: 5 doses or times, Stop date: Limited # of times Inactive 07/30/2019 [facility] Fentanyl 25 microgram, Route: IVP, Q5Min, Dosing Weight 80.909, kg, PRN Pain Score 4-6, Priority: Routine, Start date: 07/30/19 15:21:00 FINANCIAL OPERATIONS CLERK, Duration: 4 doses or times, Stop date: Limited # of times Inactive 07/30/2019 [facility] Hydromorphone 0.5 mg, Route: I CIRCUS ROUSTABOUT, Q5Min, Dosing Weight 80.909, kg, PRN Pain Score 7-10, Start date: 07/30/19 15:21:00 FINANCIAL OPERATIONS CLERK, Duration: 4 doses or times, Stop date: Limited # of times Inactive 07/30/2019 [facility] Flumazenil 0.2 mg, Route: IVP, PRN, Dosing Weight 80.909, kg, PRN Benzodiazepine Reversal, Initial dose, Start date: 07/30/19 15:21:00 FINANCIAL OPERATIONS CLERK, Duration: 30 day, Stop date: 08/29/19 15:20:00 FINANCIAL OPERATIONS CLERK Inactive 07/30/2019 [facility] Naloxone 0.4 mg, Route: IVP, Q 2MIN, Dosing Weight 80.909, kg, PRN Narcotic Reversal, Start date: 07/30/19 15:21:00 FINANCIAL OPERATIONS CLERK, Duration: 8 doses or times, Stop date: Limited # of times Inactive 07/30/2019 [facility] Ondansetron 4 mg, Route: IVP, ONCE, Dosing Weight 80.909, kg, PRN Nausea & Vomiting, Start date: 07/30/19 15:21:00 FINANCIAL OPERATIONS CLERK Inactive 07/30/2019 [facility] D5LR 1,000 mL 1,000 mL, Rate: 40 ml/hr, Infuse over: 25 hr, Route: IV, Dosing Weight 80.909 kg, Total Volume: 1,000, Start date: 07/30/19 14:57:00 FINANCIAL OPERATIONS CLERK, Stop date: 07/31/19 6:00:00 FINANCIAL OPERATIONS CLERK, 1.92, m2, 0 No Longer Active 07/30/2019 [facility] Zofran ODT Notes: (Same as: Scarlet elliott ODT) No Longer Active 07/30/2019 [facility] glycopyrrolate (ANES) Route: I V, Drug form: INJ, ONCE, Stop date: 07/30/19 14:50:00 FINANCIAL OPERATIONS CLERK Inactive 07/30/2019 [facility] neostigmine (ANES) Route: IV, Drug form: INJ, ONCE, Stop date: 07/30/19 14:50:00 FINANCIAL OPERATIONS CLERK Inactive 07/30/2019 [facility] sugammadex (ANES) Route: IV, D rug form: SOLN, ONCE, Stop date: 07/30/19 14:50:00 FINANCIAL OPERATIONS CLERK Inactive 07/30/2019 [facility] ceFAZolin (ANES) Route: IV, Dr ug form: INJ, ONCE, Stop date: 07/30/19 14:27:00 FINANCIAL OPERATIONS CLERK Inactive 07/30/2019 [facility] phenylephrine (ANES) Route: IV , Drug form: INJ, ONCE, Stop date: 07/30/19 14:27:00 FINANCIAL OPERATIONS CLERK Inactive 07/30/2019 [facility] propofol (ANES) Route: IV, Vinod g form: INJ, ONCE, Stop date: 07/30/19 11:30:00 FINANCIAL OPERATIONS CLERK Inactive 07/30/2019 [facility] succinylcholine (ANES) Route: IV, Drug form: INJ, ONCE, Stop date: 07/30/19 11:30:00 FINANCIAL OPERATIONS CLERK Inactive 07/30/2019 [facility] dexamethasone (ANES) Route: IV , Drug form: INJ, ONCE, Stop date: 07/30/19 11:30:00 FINANCIAL OPERATIONS CLERK Inactive 07/30/2019 [facility] ondansetron (ANES) Route: IV, Drug form: INJ, ONCE, Stop date: 07/30/19 11:30:00 FINANCIAL OPERATIONS CLERK Inactive 07/30/2019 [facility] midazolam (ANES) Route: IV, Dr ug form: SOLN, ONCE, Stop date: 07/30/19 11:29:00 FINANCIAL OPERATIONS CLERK Inactive 07/30/2019 [facility] famotidine (ANES) Route: IV, D rug form: INJ, ONCE, Stop date: 07/30/19 11:29:00 FINANCIAL OPERATIONS CLERK Inactive 07/30/2019 [facility] lidocaine (ANES) Route: IV, Dr ug form: INJ, ONCE, Stop date: 07/30/19 11:29:00 FINANCIAL OPERATIONS CLERK Inactive 07/30/2019 [facility] rocuronium (ANES) Route: IV, D rug form: INJ, ONCE, Stop date: 07/30/19 11:29:00 FINANCIAL OPERATIONS CLERK Inactive 07/30/2019 [facility] albumin human (ANES) 25 gm Rou te: IV, Drug form: INJ, Start date: 07/30/19 11:14:00 FINANCIAL OPERATIONS CLERK, Stop date: 07/30/19 12:14:00 FINANCIAL OPERATIONS CLERK Inactive 07/30/2019 [facility] ceFAZolin (ANES) 1000 mg Route : IV, Drug form: INJ, Start date: 07/30/19 10:15:00 FINANCIAL OPERATIONS CLERK, Stop date: 07/30/19 11:15:00 FINANCIAL OPERATIONS CLERK Inactive 07/30/2019 [facility] metroNIDAZOLE (ANES) 5 mg Rout e: IV, Drug form: INJ, Start date: 07/30/19 10:15:00 FINANCIAL OPERATIONS CLERK, Stop date: 07/30/19 11:15:00 FINANCIAL OPERATIONS CLERK Inactive 07/30/2019 [facility] Sodium Chloride 0.9% IV (ANES) 100 mL + ketAMINE (ANES) 200 mg Route: IV, Drug form: INJ, Start date: 09/29/18 10:15:00 FINANCIAL OPERATIONS CLERK, Stop date: 07/30/19 11:15:00 FINANCIAL OPERATIONS CLERK Inactive 07/30/2019 [facility] Sodium Chloride 0.9% IV (ANES) 50 mL + d exmedetomidine (ANES) 200 microgram Route: IV, Drug form: INJ, Start date: 09/29/18 10:10:00 FINANCIAL OPERATIONS CLERK, Stop date: 07/30/19 11:10:00 FINANCIAL OPERATIONS CLERK Inactive 07/30/2019 [facility] Sodium Chloride 0.9% IV (ANES) 1000 mL Route: IV, Total Volume: 1,000, Start date: 07/30/19 10:00:00 FINANCIAL OPERATIONS CLERK, Stop date: 07/30/19 11:00:00 FINANCIAL OPERATIONS CLERK Inactive 07/30/2019 [facility] Lactated Ringers Injection IV (ANES) 1000 mL Route: IV, Total Volume: 1,000, Start date: 07/30/19 9:52:00 FINANCIAL OPERATIONS CLERK, Stop date: 07/30/19 10:52:00 FINANCIAL OPERATIONS CLERK Inactive 07/30/2019 [facility] Calcium Chloride 0.0014 MEQ/ML / Potassi um Chloride 0.004 MEQ/ML / Sodium Chloride 0.103 MEQ/ML / Sodium Lactate 0.028 MEQ/ML Injectable Solution 1,000 mL, Rate: 75 ml/hr, Infuse over: 1 3.3 hr, Route: IV, Dosing Weight 80.909 kg, Total Volume: 1,000, Start date: 07/30/19 9:09:00 FINANCIAL OPERATIONS CLERK, Duration: 30 day, Stop date: 08/29/19 9:08:00 FINANCIAL OPERATIONS CLERK, 1.92, m2 Inactive 07/30/2019 [facility] Vantin 200 mg oral tablet 200 mg = 1 tab, PO, Q12H, X 7 day, # 14 tab, 0 Refill(s), Pharmacy: [facility] [id number] Active 07/29/2019 [facility] Ondansetron 4 MG Oral Tablet [Zofran] 4 mg = 1 tab, PO, Q6H, PRN Nausea/Vomiting, # 30 tab, 0 Refill(s), Pharmacy: [facility] [id number] Active 07/29/2019 [facility] Sodium Chloride 0.9% IV 1,000 mL 1,000 mL, Rate: 75 ml/hr, Infuse over: 13.3 hr, Route: IV, Dosing Weight 80.909 kg, Total Volume: 1,000, Start date: 07/29/19 8:58:00 FINANCIAL OPERATIONS CLERK, Duration: 30 day, Stop date: 08/28/19 8:57:00 FINANCIAL OPERATIONS CLERK, 1.92, m2, 0 Inactive 07/29/2019 [facility] polyethylene glycol 3350 with electrolytes Notes: (polyethylene glycol electrolyte solution 4 Liter bottle) (Same as: Golytely, Colyte) Inactive 07/28/2019 [facility] Bisacodyl Notes: (Same As: Dul colax, Correctol) (Do Not Crush) "Do Not Crush" Inactiv e 07/28/2019 [facility] Metoclopramide 10 MG Oral Tablet Notes: (Same as: Reglan) Take 30 min before meals Inactive 07/28/2019 [facility] Angelo Milk of Magnesia Note s: (Same as: Milk of Magnesia, MOM) Inactive 07/28/2019 [facility] Nystatin 100 UNT/MG Topical Powder Notes: (Same as:Mycostatin, Nilstat) For external use only. No Longer Active 07/27/2019 [facility] Omnipaque 300 injectable solution Notes: (Same as:Omnipaque 300). WASTE: F/P - Black; E - Municipal Trash Bin No Longer Active 07/27/2019 [facility] Diflucan Notes: (Same as: Difl ucan) Inactive 07/27/2019 [facility] molasses Notes: (Same as:Molas ses) Inactive 07/27/2019 [facility] Diflucan Notes: (Same as: Difl ucan) Inactive 07/27/2019 [facility] Ceftriaxone Notes: (Same As: Murtaza ocephin). Use with 100 mL NS and infuse over 30 min MEDICATION WASTE Product Size: 1000 mg Product Wasted: ___ mg No Longer Active 07/27/2019 [facility] Lovenox Notes: (Same as: Loven ox) No Longer Active 07/26/2019 [facility] Nurse pls update Allergies in adhoc Nurse pls update Allergies in adhoc, allergy??, Drug form: MISC, Route: MISC, Q10Min, 07/26/19 4:30:00 FINANCIAL OPERATIONS CLERK, Duration: 30 day, Stop date: 08/25/19 4:20:00 FINANCIAL OPERATIONS CLERK, 0 Inactive 07/26/2019 [facility] influenza virus vaccine, inactivated hig h-dose preservative-free intramuscular suspension Notes: (Same as: Fluzone High-Dose) For 65 years of age of older (0.5 ml IM) Shake well before use No Longer Active 07/26/2019 [facility] Nurse pls update Height/Weight/Allergies in adhoc Nurse pls update Height/Weight/Allergies in adhoc, reminder, Drug form: MISC, Route: MISC, Q15Min, 07/25/19 22:45:00 FINANCIAL OPERATIONS CLERK, Duration: 30 day, Stop date: 08/24/19 22:30:00 FINANCIAL OPERATIONS CLERK, 0 No Longer Active 07/26/2019 [facility] normal saline 0.9% IV 1,000 mL 1,000 mL, Rate: 100 ml/hr, Infuse over: 10 hr, Route: IV, Dosing Weight 80.909 kg, Total Volume: 1,000, Start date: 07/25/19 22:38:00 FINANCIAL OPERATIONS CLERK, Duration: 30 day, Stop date: 08/24/19 22:37:00 FINANCIAL OPERATIONS CLERK, 1.92, m2, 0 No Longer Active 07/26/2019 [facility] Ondansetron Notes: (Same as: Ayleen alejandra) MEDICATION WASTE Product Size: 4 mg Product Wasted: ___ mg No Longer Active 07/26/2019 [facility] Ceftriaxone Notes: (Same As: Murtaza gómez). Use with 100 mL NS and infuse over 30 min MEDICATION WASTE Product Size: 1000 mg Product Wasted: ___ mg Inactive 07/26/2019 [facility] Morphine 4 mg, Route: IVP, ONC E, Dosing Weight 80.909, kg, Priority: STAT, Start date: 07/25/19 19:26:00 FINANCIAL OPERATIONS CLERK, Stop date: 07/25/19 19:26:00 FINANCIAL OPERATIONS CLERK Inactive 07/26/2019 [facility] NS (Bolus) IV 500 mL, Route: I V, Drug form: INJ, ONCE, Priority: STAT, Dosing Weight 80.909 kg, Start date: 07/25/19 19:26:00 FINANCIAL OPERATIONS CLERK, Stop date: 07/25/19 19:26:00 FINANCIAL OPERATIONS CLERK Inactive 07/26/2019 [facility] Zofran 4 mg, Route: IVP, Drug form: INJ, ONCE, Dosing Weight 80.909, kg, Priority: STAT, Start date: 07/25/19 19:26:00 FINANCIAL OPERATIONS CLERK, Stop date: 07/25/19 19:26:00 FINANCIAL OPERATIONS CLERK Inactiv e 07/26/2019 [facility] Saline Flush 0.9% Notes: (Same as: BD Posiflush) No Longer Active 07/25/2019 [facility] Allergies, Adverse Reactions, Alerts Substance Category Reaction Severity Reaction type Status Date Reported Comments Source Iron Assertion Drug allergy Active [facility] Immunizations No Data Provided for This Section Results Order Name Results Value Reference Range Date Interpretation Comments Source CHEM PANEL Glucose Lvl 94 70 - 99 08/19/2019 [facility] CHEM PANEL BUN 7 7 - 22 08/19/2019 [facility] CHEM PANEL Creatinine Lvl 0.72 0.50 - 1.40 08/19/2019 [facility] CHEM PANEL Sodium Lvl 148 135 - 145 08/19/2019 [facility] CHEM PANEL Potassium Lvl 3.6 3.5 - 5.1 08/19/2019 [facility] CHEM PANEL Chloride Lvl 114 95 - 109 08/19/2019 [facility] CHEM PANEL CO2 27 24 - 32 08/19/2019 [facility] CHEM PANEL Calcium Lvl 8.8 8.5 - 10.5 08/19/2019 [facility] CHEM PANEL eGFR 86 08/19/2019 Result [...] should be multiplied by the estimated BMI. [facility] CHEM PANEL AGAP 10.6 10.0 - 20.0 08/19/2019 [facility] HEMATOLOGY WBC 4.9 3.7 - 10.4 08/19/2019 [facility] HEMATOLOGY RBC 3.61 4.20 - 5.40 08/19/2019 [facility] HEMATOLOGY Hgb 9.9 12.0 - 16.0 08/19/2019 [facility] HEMATOLOGY Hct 31.3 36.0 - 48.0 08/19/2019 [facility] HEMATOLOGY MCV 86.6 80.0 - 98.0 08/19/2019 [facility] MCH 27.4 27.0 - 31.0 08/19/2019 [facility] MCHC 31.6 32.0 - 36.0 08/19/2019 [facility] HEMATOLOGY RDW 16.9 11.5 - 14.5 08/19/2019 [facility] HEMATOLOGY Platelet 236 133 - 450 08/19/2019 [facility] HEMATOLOGY MPV 8.8 7.4 - 10.4 08/19/2019 [facility] HEMATOLOGY Segs 55.5 45.0 - 75.0 08/19/2019 [facility] HEMATOLOGY Lymphocytes 32.2 20.0 - 40.0 08/19/2019 [facility] HEMATOLOGY Monocytes 8.8 2.0 - 12.0 08/19/2019 [facility] HEMATOLOGY Eosinophils 2.9 0.0 - 4.0 08/19/2019 [facility] HEMATOLOGY Basophils 0.6 0.0 - 1.0 08/19/2019 [facility] Neutrophils # 2.8 1.5 - 8.1 08/19/2019 [facility] HEMATOLOGY Lymphocytes # 1.6 1.0 - 5.5 08/19/2019 [facility] HEMATOLOGY Monocytes # 0.4 0.0 - 0.8 08/19/2019 [facility] HEMATOLOGY Eosinophils # 0.1 0.0 - 0.5 08/19/2019 [facility] CHEM PANEL Glucose Lvl 96 70 - 99 08/02/2019 [facility] CHEM PANEL BUN 16 7 - 22 08/02/2019 [facility] CHEM PANEL Creatinine Lvl 0.76 0.50 - 1.40 08/02/2019 [facility] CHEM PANEL Sodium Lvl 144 135 - 145 08/02/2019 [facility] CHEM PANEL Potassium Lvl 3.6 3.5 - 5.1 08/02/2019 [facility] CHEM PANEL Chloride Lvl 110 95 - 109 08/02/2019 [facility] CHEM PANEL CO2 30 24 - 32 08/02/2019 [facility] CHEM PANEL AGAP 7.6 10.0 - 20.0 08/02/2019 [facility] CHEM PANEL Calcium Lvl 8.4 8.5 - 10.5 08/02/2019 [facility] CHEM PANEL B/C Ratio 21 6 - 25 08/02/2019 [facility] CHEM PANEL Total Protein 5.3 6.4 - 8.4 08/02/2019 [facility] CHEM PANEL Albumin Lvl 1.9 3.5 - 5.0 08/02/2019 [facility] CHEM PANEL Globulin 3.4 2.7 - 4.2 08/02/2019 [facility] CHEM PANEL A/G Ratio 0.6 0.7 - 1.6 08/02/2019 [facility] CHEM PANEL ALT 8 0 - 65 08/02/2019 [facility] CHEM PANEL AST 5 0 - 37 08/02/2019 [facility] CHEM PANEL Alk Phos 59 39 - 136 08/02/2019 [facility] CHEM PANEL Bili Total 0.3 0.2 - 1.3 08/02/2019 [facility] CHEM PANEL eGFR 81 08/02/2019 Result [...] should be multiplied by the estimated BMI. [facility] CHEM PANEL Phosphorus 2.4 2.5 - 4.5 08/02/2019 [facility] CHEM PANEL Magnesium Lvl 2.3 1.8 - 2.4 08/02/2019 [facility] HEMATOLOGY Hgb 8.8 12.0 - 16.0 08/02/2019 [facility] HEMATOLOGY WBC 11.0 3.7 - 10.4 08/02/2019 [facility] RBC 2.95 4.20 - 5.40 08/02/2019 [facility] Hgb 8.3 12.0 - 16.0 08/02/2019 [facility] Hct 25.6 36.0 - 48.0 08/02/2019 [facility] MCV 86.6 80.0 - 98.0 08/02/2019 [facility] MCH 28.1 27.0 - 31.0 08/02/2019 [facility] MCHC 32.5 32.0 - 36.0 08/02/2019 [facility] RDW 16.0 11.5 - 14.5 08/02/2019 [facility] Platelet 272 133 - 450 08/02/2019 [facility] MPV 8.1 7.4 - 10.4 08/02/2019 [facility] Segs 77.0 45.0 - 75.0 08/02/2019 [facility] Lymphocytes 14.8 20.0 - 40.0 08/02/2019 [facility] Monocytes 6.3 2.0 - 12.0 08/02/2019 [facility] HEMATOLOGY Eosinophils 1.7 0.0 - 4.0 08/02/2019 [facility] HEMATOLOGY Basophils 0.2 0.0 - 1.0 08/02/2019 [facility] Neutrophils # 8.5 1.5 - 8.1 08/02/2019 [facility] Lymphocytes # 1.6 1.0 - 5.5 08/02/2019 [facility] Monocytes # 0.7 0.0 - 0.8 08/02/2019 [facility] HEMATOLOGY Eosinophils # 0.2 0.0 - 0.5 08/02/2019 [facility] BLOOD BANK RESULTS RBC product Product available 8 (08/01/19 12:54 PM) 08/01/2019 Result Comment: 08/01/2019 14:48 [id number]
KLS notified Milli 08/01/2019 14:15 [facility] CHEM PANEL Glucose Lvl 136 70 - 99 08/01/2019 [facility] CHEM PANEL BUN 18 7 - 22 08/01/2019 [facility] CHEM PANEL Creatinine Lvl 1.04 0.50 - 1.40 08/01/2019 [facility] CHEM PANEL Sodium Lvl 143 135 - 145 08/01/2019 [facility] CHEM PANEL Potassium Lvl 3.5 3.5 - 5.1 08/01/2019 [facility] CHEM PANEL Chloride Lvl 111 95 - 109 08/01/2019 [facility] CHEM PANEL CO2 25 24 - 32 08/01/2019 [facility] CHEM PANEL AGAP 10.5 10.0 - 20.0 08/01/2019 [facility] CHEM PANEL Calcium Lvl 8.3 8.5 - 10.5 08/01/2019 [facility] CHEM PANEL eGFR 56 08/01/2019 Result [...] should be multiplied by the estimated BMI. [facility] HEMATOLOGY WBC 12.9 3.7 - 10.4 08/01/2019 [facility] HEMATOLOGY RBC 2.72 4.20 - 5.40 08/01/2019 [facility] HEMATOLOGY Hgb 7.5 12.0 - 16.0 08/01/2019 [facility] HEMATOLOGY Hct 23.6 36.0 - 48.0 08/01/2019 [facility] HEMATOLOGY MCV 86.7 80.0 - 98.0 08/01/2019 [facility] HEMATOLOGY MCH 27.6 27.0 - 31.0 08/01/2019 [facility] HEMATOLOGY MCHC 31.8 32.0 - 36.0 08/01/2019 [facility] HEMATOLOGY RDW 16.5 11.5 - 14.5 08/01/2019 [facility] HEMATOLOGY Platelet 267 133 - 450 08/01/2019 [facility] HEMATOLOGY MPV 8.6 7.4 - 10.4 08/01/2019 [facility] HEMATOLOGY Segs 81.2 45.0 - 75.0 08/01/2019 [facility] HEMATOLOGY Lymphocytes 12.7 20.0 - 40.0 08/01/2019 [facility] HEMATOLOGY Monocytes 5.1 2.0 - 12.0 08/01/2019 [facility] HEMATOLOGY Eosinophils 0.6 0.0 - 4.0 08/01/2019 [facility] HEMATOLOGY Basophils 0.4 0.0 - 1.0 08/01/2019 [facility] HEMATOLOGY Neutrophils # 10.5 1.5 - 8.1 08/01/2019 [facility] HEMATOLOGY Lymphocytes # 1.6 1.0 - 5.5 08/01/2019 [facility] HEMATOLOGY Monocytes # 0.7 0.0 - 0.8 08/01/2019 [facility] HEMATOLOGY Eosinophils # 0.1 0.0 - 0.5 08/01/2019 [facility] CHEM PANEL Glucose Lvl 99 70 - 99 08/01/2019 [facility] CHEM PANEL BUN 18 7 - 22 08/01/2019 [facility] CHEM PANEL Creatinine Lvl 1.02 0.50 [...] Total Protein 4.9 6.4 - 8.4 07/31/2019 [facility] CHEM PANEL Albumin Lvl 1.9 3.5 [...] PANEL Globulin 3.0 2.7 - 4.2 07/31/2019 [facility] CHEM PANEL A/G Ratio 0.6 0.7 - 1.6 07/31/2019 [facility] CHEM PANEL Magnesium Lvl 2.1 1.8 - 2.4 07/31/2019 [facility] CHEM PANEL Phosphorus 3.4 2.5 - 4.5 07/31/2019 [facility] HEMATOLOGY RBC Morph Sanam l (07/31/19 5:22 AM) Normal 07/31/2019 [facility] Plt Morph Sanam l (07/31/19 5:22 AM) Normal 07/31/2019 [facility] HEMATOLOGY Segs 89.3 45.0 - 75.0 07/31/2019 [facility] Lymphocytes 6.0 20.0 - 40.0 07/31/2019 [facility] Monocytes 4.7 2.0 - 12.0 07/31/2019 [facility] Neutrophils # 18.5 1.5 - 8.1 07/31/2019 [facility] Lymphocytes # 1.2 1.0 - 5.5 07/31/2019 [facility] Monocytes # 1.0 0.0 - 0.8 07/31/2019 [facility] WBC 20.7 3.7 - 10.4 07/31/2019 [facility] RBC 3.24 4.20 - 5.40 07/31/2019 [facility] Hct 27.6 36.0 - 48.0 07/31/2019 [facility] MCV 85.4 80.0 - 98.0 07/31/2019 [facility] MCH 28.2 27.0 - 31.0 07/31/2019 [facility] MCHC 33.0 32.0 - 36.0 07/31/2019 [facility] RDW 15.5 11.5 - 14.5 07/31/2019 [facility] Platelet 336 133 - 450 07/31/2019 [facility] MPV 8.1 7.4 - 10.4 07/31/2019 [facility] BLOOD BANK RESULTS RBC product Product available 9 (07/30/19 8:59 AM) 07/30/2019 Result Comment: 07/30/2019 0 9:50 [id number]
ERIN Torsten notified 07/30/2019 09:50 AU [facility] BLOOD BANK RESULTS ABO/Rh O POS 07/30/2019 [facility] BLOOD BANK RESULTS Antibody Scrn Negative (07/30/19 8:44 AM) 07/30/2019 [facility] HEMATOLOGY Eosinophils 1.3 0.0 - 4.0 07/30/2019 [facility] HEMATOLOGY Basophils 0.6 0.0 - 1.0 07/30/2019 [facility] HEMATOLOGY Eosinophils # 0.1 0.0 - 0.5 07/30/2019 [facility] Inhibin B 14.1 0.0 - 16.9 07/30/2019 Result Comment: Results for this test ar e for research purposes only by the
assay's fermentation scientist. The performance characteristics of
this product have not been established. Results should not
be used as a diagnostic procedure without confirmation of
the diagnosis by another medically established diagnostic
product or procedure.
Performed At: [facility]
[address] [place] [address] [phone]
Flavio Major MD Ph:[phone] [facility] Inhibin B 17.0 0.0 - 16.9 07/29/2019 Result Comment: Results for this test ar e for research purposes only by the
assay's fermentation scientist. The performance characteristics of
this product have not been established. Results should not
be used as a diagnostic procedure without confirmation of
the diagnosis by another medically established diagnostic
product or procedure.
Performed At: [facility]
[address] [place] [address] [phone]
Flavio Major MD Ph:[phone] [facility] Inhibin B 12.8 0.0 - 16.9 07/28/2019 Result Comment: Results for this test ar e for research purposes only by the
assay's fermentation scientist. The performance characteristics of
this product have not been established. Results should not
be used as a diagnostic procedure without confirmation of
the diagnosis by another medically established diagnostic
product or procedure.
Performed At: [facility]
[address] [place] [address] [phone]
Flavio Major MD Ph:[phone] [facility] ENDOCRINOLOGY Estradiol Lvl 37 .7 07/27/2019 [facility] MATERNAL SCREENS Inhibin A 11.2 07/27/2019 Result Comment: M enstrual Phase
Early Follicular <34.0
Late Follicular <99.0
Periovulatory 8.0- 233.0
MidLuteal <145.0
End Luteal <145.0
Postmenopausal <4.0
Performed At: [facility] ([facility]
[address] [place] [address] [phone]
Flavio Major MD Ph:[phone] [facility] TUMOR MARKERS CA 19-9 53.2 0.0 - 35.0 07/27/2019 [facility] TUMOR MARKERS CA 125 809.1 0.0 - 35.0 07/27/2019 [facility] TUMOR MARKERS CEA 65.3 0.0 - 3.0 07/27/2019 [facility] CHEM PANEL Lactic Acid Lvl 0.7 0.5 - 2.2 07/26/2019 [facility] URINE AND STOOL UA Turbidity Slight *ABN* (07/25/19 5:46 PM) Clear 07/25/2019 [facility] URINE AND STOOL UA Spec Grav 1.028 <=1.030 07/25/2019 [facility] URINE AND STOOL UA pH 6.0 5.0 - 8.0 07/25/2019 [facility] URINE AND STOOL UA Protein 30 mg/dL Negative mg/dL 07/25/2019 [facility] URINE AND STOOL UA Glucose Negative mg/dL Negative mg/dL 07/25/2019 [facility] URINE AND STOOL UA Ketones 20 mg/dL Negative mg/dL 07/25/2019 [facility] URINE AND STOOL UA Bili Negative *NA* (07/25/19 5:46 PM) Negative 07/25/2019 [facility] URINE AND STOOL UA Blood Negative (07/25/19 5:46 PM) Negative 07/25/2019 [facility] URINE AND STOOL UA Urobilinogen 2.0 0.1 - 1.0 07/25/2019 [facility] URINE AND STOOL UA Nitrite Negative (07/25/19 5:46 PM) Negative 07/25/2019 [facility] URINE AND STOOL UA Leuk Est Large *ABN* (07/25/19 5:46 PM) Negative 07/25/2019 [facility] URINE AND STOOL UA Sq Epi Many /LPF Few /LPF 07/25/2019 [facility] URINE AND STOOL UA WBC 27 0 - 5 07/25/2019 [facility] URINE AND STOOL UA RBC 5 0 - 2 07/25/2019 [facility] URINE AND STOOL UA Bacteria Occasional /HPF None Seen /HPF 07/25/[address] [facility] [address] URINE AND STOOL UA Mucus Moderate /LPF None Seen /LPF 07/25/[address] [facility] [address] URINE AND STOOL UA Color Kaity 07/25/2019 [facility] Culture: Urine 10,000 - 50,00 0 CFU/mL Skin Lala 07/25/2019 [facility] CHEM PANEL Lipase Lvl 80 73 - 393 07/25/2019 [facility] CHEM PANEL Bili Direct 0.1 0.0 - 0.3 07/25/2019 [facility] HEMATOLOGY Basophils # 0.1 0.0 - 0.2 07/25/2019 [facility] Pathology Reports No Data Provided for [...] Mcknight MD On 09/18/2019 14:58:44; [id number] 09/18/2019 [facility] PET CT Colorectal CA initial staging [...] obtained. Roque Mcknight MD On 09/09/2019 17:00:13; [id number] 09/07/2019 [facility] 1 v for Placement DX PRO [...] clinically. Candice Carlson MD On 08/20/2019 16:23:59; [id number] 08/20/2019 [facility] w contrast CT Radiation Dose CTDIVOL [...] pelvis. Placido Bruner MD On 07/28/2019 10:59:05; [id number] 07/27/2019 [facility] Complete US PROCEDURE I NFORMATION: Exam: US [...] malignancy. Felice Dave MD On 07/26/2019 18:52:02; [id number] 07/26/2019 [facility] Abdomen/Pelvis IV contrast only CT Radiation [...] nature. Kwaku Hawkins MD On 07/25/2019 20:34:34; [id number] 07/25/2019 [facility] Consultation Notes No Data Provided for This Section Discharge Summaries No Data Provided for This Section History and Physicals No Data Provided for This Section Vital Signs Vital Sign Value Date Comments Source Systolic (mm Hg) 128 09/18/2019 [facility] Diastolic (mm Hg) 54 09/18/2019 [facility] Respitory Rate 18 09/18/2019 [facility] Respitory Rate 21 09/18/2019 [facility] Systolic (mm Hg) 115 09/18/2019 [facility] Diastolic (mm Hg) 56 09/18/2019 [facility] Respitory Rate 20 09/18/2019 [facility] Systolic (mm Hg) 115 09/18/2019 [facility] Diastolic (mm Hg) 56 09/18/2019 [facility] Height 162.56 cm 09/17/2019 [facility] Weight 86.364 09/17/2019 [facility] BMI Calculated 32.68 09/17/2019 [facility] Systolic (mm Hg) 121 08/20/2019 [facility] Diastolic (mm Hg) 68 08/20/2019 [facility] Respitory Rate 16 08/20/2019 [facility] Systolic (mm Hg) 102 08/20/2019 [facility] Diastolic (mm Hg) 43 08/20/2019 [facility] Respitory Rate 15 08/20/2019 [facility] Respitory Rate 13 08/20/2019 [facility] Systolic (mm Hg) 122 08/20/2019 [facility] Diastolic (mm Hg) 56 08/20/2019 [facility] Height 162.56 cm 08/19/2019 [facility] Weight 83.864 08/19/2019 [facility] BMI Calculated 31.74 08/19/2019 [facility] Temperature Oral (F) 97.8 F 08/19/2019 [facility] Heart Rate 70 08/19/2019 [facility] Temperature Oral (F) 98.0 F 08/02/2019 [facility] Heart Rate 79 08/02/2019 [facility] Respitory Rate 14 08/02/2019 [facility] Systolic (mm Hg) 114 08/02/2019 [facility] Diastolic (mm Hg) 67 08/02/2019 [facility] Temperature Oral (F) 98.3 F 08/02/2019 [facility] Heart Rate 83 08/02/2019 [facility] Respitory Rate 16 08/02/2019 [facility] Systolic (mm Hg) 110 08/02/2019 [facility] Diastolic (mm Hg) 81 08/02/2019 [facility] Temperature Oral (F) 98.1 F 08/01/2019 [facility] Heart Rate 83 08/01/2019 [facility] Respitory Rate 16 08/01/2019 [facility] Systolic (mm Hg) 102 08/01/2019 [facility] Diastolic (mm Hg) 62 08/01/2019 [facility] Height 160.02 cm 07/26/2019 [facility] Weight 80.909 07/26/2019 [facility] BMI Calculated 31.6 07/26/2019 [facility] Height 160.02 cm 07/26/2019 [facility] Weight 80.909 07/26/2019 [facility] BMI Calculated 31.6 07/26/2019 [facility] Height 160.02 cm 07/25/2019 [facility] BMI Calculated 31.6 07/25/2019 [facility] Weight 80.909 07/25/2019 [facility] Encounters Location Location Details Encounter Type Encounter Number Reason For Visit Attending Provider ADM Date DC Date Status Source [facility] Inpatient [id number] Irfan Jawed 07/25/2019 08/02/2019 [facility] NURSE NAVIGATOR [id number] 08/01/2001/01/2020 [facility] Day Surgery [id number] Adonay Askenasy 08/20/2019 08/20/2019 [facility] Outpatient [id number] Omari Gallego 09/07/2019 09/08/2019 [facility] Day Surgery [id number] Adonay Askenasy 09/18/2019 09/18/2019 [facility] Procedures Procedure Code Date Perfomer Comments Source Cataract surgery<sup>1</sup> 1 [id number] Bilateral [facility] Colonoscopy [id number] [facility] st Procedure<sup>2</sup> [id number] Portacath insertion [facility] Assessment and Plan Assessment and Plan Date Source Extracted from:Title: Clinical Document Author: Deidra Oliveros MD Date: 08/02/19 Progress Note - Daily [facility] Completed: Jul, 16:41 by Deidra Oliveros [...] mass, underwent a D and C by lead network architect, and then was referred to CODING COMPLIANCE MANAGER -oncology as an outpatient. Condition worsened prompting [...] before patient undergoes laparotomy for debulking; by CODING COMPLIANCE MANAGER oncology service. Patient has not had a colonoscopy in the past. PMH: Obesity otherwise negative PSH: Cholecystectomyhas a large laparotomy scar Cataract surgery. Left leg orthopedic surgery. 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 FAMILY HISTORY: Negative for colorectal neoplasia or inflammatory bowel disease. Medication List Active Medications Ordered cefTRIAXone + Sodium Chloride 0.9% IV 100 mL: 1 gm, 200 ml/hr, IVPB, [id number]. enoxaparin: 40 mg, 0.4 mL, SUB-Q, [id number]. influenza virus vaccine, inactivated: 0.5 mL, IM, ONCALL. iohexol: 100 mL, IVP, ONCALL. nystatin topical: 1 appl, TOP, QSHIFT. ondansetron: 4 mg, 2 mL, IVP, Q8H, PRN: Nausea and Vomiting. sodium chloride: 10 mL, IVP, PRN, PRN: Line Flush. Sodium Chloride 0.9% IV 1,000 mL: 100 ml/hr, IV, Stop: 08/24/19 22:37:00 FINANCIAL OPERATIONS CLERK. 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 Intractable abdominal pain(R10.9) Ordered: Admit/Condition, 07/25/19 20:59:00 FINANCIAL OPERATIONS CLERK, Status: Inpatient, Telemetry Capable Location, Expected LOS: 2 Midnights, Josias Alcantara MD, Prosper GEIGER Review/Approve Yes, Other noninflammatory disorders of ovary, fallopian tube and broad ligament | Acute UTI | Intractabl... Other noninflammatory disorders of ovary, fallopian tube and broad ligament(N83.8) Ordered: Admit/Condition, 07/25/19 20:59:00 FINANCIAL OPERATIONS CLERK, Status: Inpatient, Telemetry Capable Location, Expected LOS: 2 Midnights, Josias Alcantara MD, Admit MD Review/Approve Yes, Other noninflammatory disorders of ovary, fallopian tube and broad ligament | Acute UTI | Intractabl... Patient status post empiric IV antibiotics in ED. Will continue. Consult CODING COMPLIANCE MANAGER oncologyfor pelvic mass. IV fluids. Nutrition consult. Pain meds and antiemetics PRN. Per protocol Patient is stable at this time. Anticipate hospitalization for at least one midnight. Discharge home pending clinical improvement. Time spent on H&P greater than 40 minutes. Deidra Dumont MD Head Of Marketing [employer] 08/02/2019 [facility] Plan of Care No Data Provided for This Section Social History Social History Date Source Social History TypeResponse Alcohol Past, Type Wine. Last use: 2 years ago. Employment/School Status: Employed. Substance Abuse Use: None. Smoking Status Never smoker; Exposure to Tobacco Smoke None; Cigarette Smoking Last 365 Days No; Reg Smoking Cessation Counseling No entered on: 09/18/19 09/17/2019 [facility] Family History No Data Provided for This Section Advance Directives No Data Provided for This Section Functional Status No Data Provided for This Section
--- NOTE | 2020-05-02 16:48 | Diagnostic Imaging Report ---
EXAM: CT left hip with contrast INDICATION: Status post surgery, query abscess. COMPARISON: CT abdomen/pelvis 03-15-2020. TECHNIQUE: Left hip was scanned utilizing a multidetector helical scanner after administration of IV contrast. Coronal and sagittal reformations were obtained. Routine protocol was performed. IV CONTRAST: None. ORAL CONTRAST: None. RADIATION DOSE: Total DLP: 216 mGy*cm Estimated effective dose: (DLP x 0.015 x size factor) mSv COMPLICATIONS: None FINDINGS: Status post interval ORIF of the left femur with intramedullary ykra and intertrochanteric screw for previously noted comminuted left femoral neck fracture. Hardware appears intact. Fracture lines continue to be visible. No evidence of interval fracture. No dislocation. There is a 3.3 x 4.8 x 5.9 cm (AP x TV x SI) subcutaneous fluid collection in the left lateral thigh with mild peripheral enhancement and surrounding inflammatory changes. IMPRESSION: Left lateral thigh subcutaneous fluid collection with surrounding inflammatory changes may represent developing abscess. Recommend clinical correlation. Status post interval ORIF for left proximal femur fracture with intact hardware and unremarkable alignment. Signed by: Dr. Sandi Reyes MD on 05/02/2020 4:45 PM
--- NOTE | 2020-05-02 17:27 | Diagnostic Imaging Report ---
Exam: Left hip radiograph-2 views History: Swelling left hip. Comparison: CT left hip 05-02-2020. Findings/Impression: Status post ORIF for left femoral neck fracture. Hardware appears intact. Alignment appears unremarkable. Soft tissue edema in the lateral thigh, better characterized on same day CT. Contrast within the bladder. Signed by: Dr. Sandi Reyes MD on 05/02/2020 5:24 PM
--- NOTE | 2020-05-02 18:38 | NUR ---
Patient came to floor from ED with a closed wound to her left hip that was red and warm, but while transferring to the bed from the ED stretcher her wound opened and purulent green drainage came out and so we had to transfer her to another floor that wasn't clean/surgical. Ade took report for the patient and the patient was taken to room 208 on the bed. The patient appears to be forgetful and a poor historian. She was crying very hard after the wound burst and let me know she was very upset because she would not be able to do chemo while she was being treated for infection.
--- NOTE | 2020-05-02 19:15 | NUR ---
BEDSIDE SHIFT REPORT RECEIVED FROM [facility] ER, PATIENT SEEN AWAKE AOX3, ORIENTED, STATES "CURRENTLY NO PAIN ONLY WHEN I MOVE", INFECTED SURGICAL INCISION NOTED ON LEFT HIP, MODERATE PURULENT DRAINAGE NOTED, WITH FOUL SMELL, WOUND CLEANSED WITH STERILE WATER, AND NEW DRESSING APPLIED NONADHERENT FOAM ABDOMINAL PADS, TAPED IN PLACE
[2020-05-02 20:00] VITALS: BP 109/47
[2020-05-02 20:30] VITALS: BP 109/47
[2020-05-02 20:58] VITALS: BP 109/47
[2020-05-02 20:59] VITALS: BP 109/47
[2020-05-02] MEDS: MORPHINE SULFATE INJ 4 MG/ML INJ 1ML IV PRN (21:00)
[2020-05-03] VITALS (13 sets, daily range): BP systolic 103–123; BP diastolic 47–61
[2020-05-03] MEDS ORDERED: LACTULOSE SYRUP 20 GM/30 ML UDC PO PRN
[2020-05-03] MEDS: PIPER-TAZ 3.375 GM 50 ML IV SCH ×5 (00:46→23:09)
[2020-05-03] MEDS: VANCOMYCIN 1GM/NS 250 ML 250 ML IV SCH ×2 (00:46→12:00)
[2020-05-03] MEDS ORDERED: SODIUM CHLORIDE 0.9% 250ML 0 ML ONE (00:51)
--- NOTE | 2020-05-03 01:00 | NUR ---
PT GIVEN INCONTINENCE CARE, REDNESS NOTED IN GLUTEAL FOLD AND ANUS AREA NO OPEN SKIN NOTED, BM NOTED, SMALL SMEAR, PLACED ON PUREWICK TO PREVENT SKINBREAK DOWN, CALL LIGHT WITHIN REACH, IV ZOSYN AND VANCOMYCIN GIVEN ORDERED, IV RAC PATENT C/D/I FLUSHES WELL
[2020-05-03] MEDS: LEVOTHYROXINE SODIUM 88 MCG TAB PO SCH (05:09)
[2020-05-03] MEDS ORDERED: LEVOTHYROXINE SODIUM 88 MCG PO SCH ×2 (06:00)
[2020-05-03 06:34] LABS: BASOPHILS % 0.3 % (0.0-1.0); EOSINOPHILS % 1.1 % (0.0-6.0); HEMATOCRIT 29.8 % (34.2-44.1); HEMOGLOBIN 9.2 g/dL (12.0-16.0); LYMPHOCYTES # (AUTO) 1.3 (1.0-3.2); LYMPHOCYTES % 35.4 % (18.0-39.1); MEAN CORPUSCULAR HGB CONC 30.9 g/dL (31-35); MEAN CORPUSCULAR VOLUME 100.3 fL (81-99); MONOCYTES # (AUTO) 0.3 (0.2-0.8); MONOCYTES % 8.7 % (4.4-11.3); RED BLOOD COUNT 2.97 x10e6/uL (3.6-5.1); RED CELL DISTRIBUTION WIDTH 13.9 % (11.7-14.4)
[2020-05-03 06:57] LABS: ALANINE AMINOTRANSFERASE 11 IU/L (0-55); ALBUMIN 2.3 g/dL (3.5-5.0); ALBUMIN/GLOBULIN RATIO 0.7 (0.8-2.0); ALKALINE PHOSPHATASE 95 IU/L (40-150); ANION GAP 11.8 mmol/L (8-16); BLOOD UREA NITROGEN 8 mg/dL (7-26); BUN/CREATININE RATIO 13 (6-25); CALCIUM 8.9 mg/dL (8.4-10.2); CARBON DIOXIDE 27 mmol/L (22-29); CHLORIDE 106 mmol/L (98-107); CREATININE, SERUM 0.64 mg/dL (0.57-1.11); EST GLOMERULAR FILTRATION RATE > 60 ML/MIN (60-); GLUCOSE 104 mg/dL (74-118); POTASSIUM 3.8 mmol/L (3.5-5.1); SODIUM 141 mmol/L (136-145)
--- NOTE | 2020-05-03 07:00 | NUR ---
RCD PT AT BED PT IS ALERT AND ORIENTED PT RESTING ON BED BED LOW AND LOCKED CALL LIGHT IN REAC
[2020-05-03] MEDS: POLYETHYLENE GLYCOL 3350 17 GM PACK PO SCH ×2 (09:00→16:35)
[2020-05-03] MEDS: FAMOTIDINE 20 MG TAB PO SCH ×2 (09:00→16:35)
[2020-05-03 09:23] LABS: PLATELET COUNT 97 x10e3/uL (140-360)
--- NOTE | 2020-05-03 14:18 | NUR ---
69 year old female who underwent a left hip intramedullary nailing after a mechanical fall on 03/16/2020 by me. Patient was lost to follow up and does not recall why she did not follow up with me. Does not know when she started having redness and erythema of the hip. She does have any new numbness, paresthesias or loss of distal motor function. No present fevers or chills. PMdHx: Colon CA Allergies: NKDA SurgHx: Left Tibia IMN, Left Hip IMN 03/16/2020 Meds: See Reconciliation FamHx: Non-contributory SocHx: Denies Tob, EtOH, Drugs VS 97.2 HR 68 RR 16 BP 106/61 O2 100% Left Lower Leg: Lag Screw Incision with bree-incisional edema and erthema with underlying fluctuance. Purulent drainage noted. Motor: + EHL, FHL, TA, G/S Sensation grossly intact to light touch Pulses: + DP, Post tib Compartments soft Negative calf tenderness Xrays & CT demonstrate Left Interotrochanter Fracture s/p IMN wiht hardware in good position. Subcutaneous abscess noted. 69 year old female s/p Left Hip IMN (03/16/2020) with now subcutaneous abscess. Plan for Left hip I&D tomorrow NPO except meds after midnight IVF while NPO Medical management, Hardware are this time looks to be intact without lucency. Patient will benefit from chronic suppression antibiotics Hold anticoagulation after midnight WBAT Thank you for the consultation
[2020-05-03] MEDS ORDERED: ENOXAPARIN SOD INJ 40 MG/0.4 ML SYR SC NR (14:30)
[2020-05-03] MEDS: DOCUSATE SODIUM 100 MG CAP PO SCH ×2 (15:30→16:35)
[2020-05-03] MEDS ORDERED: BISACODYL 5 MG TAB EC PO ONE (16:00)
--- NOTE | 2020-05-03 17:02 | NUR ---
PT SCHEDULED FOR PROCEDURE ON TOMORROW CONSENT SIGNED NPO AFTER MIDNIGHT
--- NOTE | 2020-05-03 18:47 | NUR ---
PT RESTING ON BED BED SIDE REPORT GIVEN TO ONCOMING NURSE
[2020-05-03] MEDS: PRAVASTATIN 20 MG TAB PO SCH (19:46)
--- NOTE | 2020-05-03 20:00 | NUR ---
PT underwent a left hip intramedullary nailing after a mechanical fall on 03/16/20, Patient did not do follow up care, Does not know when she started having redness and erythema of the hip. pt has no new numbness, paresthesias or loss of distal motor function. No present fevers or chills. VSS, pending surgical procedure in the MD Maynard, LEFT HIP IRRIGATION AND DEBRIDEMENT, pt continues on Vanco and Zoanoopn
[2020-05-04] VITALS (7 sets, daily range): BP systolic 109–132; BP diastolic 55–76
--- NOTE | 2020-05-04 | NUR ---
WHILE GIVING CARE AND CHECKING VITALS, PATIENT STARTED CRYING STATING "WHY DO YALL BOTHER YALL SHOULD JUST LET ME BE, I JUST FEEL SO WEAK", PATIENT GIVEN REASSURANCE THAT SURGERY IS NECESSARY AND MD WILL TALK WITH HER REGARDING HER PROCEDURE BEFORE IT OCCURS, SHE STOP CRYING AND FEELS BETTER, INCONTINENCE CARE GIVEN, GROIN AREA RED AND TENDER FROM INCONTINENCE, BARRIER CREAM AND PUREWICK APPLIED TO STOP SKIN BREAKDOWN, PATIENT RESTING WITH CALL LIGHT WITHIN REACH
[2020-05-04] MEDS: VANCOMYCIN 1GM/NS 250 ML 250 ML IV SCH ×2 (00:31→11:28)
--- NOTE | 2020-05-04 02:31 | NUR ---
PATIENT CALL LIGHT ANSWERED PATIENT C/O BURNING IN GROIN AREA, SITE INSPECTED, INNER THIGH AREA INFLAMED, REDNESS AND SWELL CONTINUES, CARE GIVEN, AREA CLEANSED AND FOAM DRESSING APPLIED TO AID IN PREVENTING SKIN BREAKDOWN, BUT PATIENT CONTINUED TO C/O BURNING AT INNER THIGH AREA, REQUESTING THAT I REMOVE THE INCONTINENCE BRIEF AND READJUST IT, REQUEST CARRIED OUT, PT CONTINUE TO CRY AND BE INCONSOLABLE, PRN PAIN MEDICATION GIVEN IV, PAIN LEVEL NOW DECREASED PT SEEN RESTING COMFORTABLY CALL LIGHT WITHIN REACH
[2020-05-04] MEDS: MORPHINE SULFATE INJ 4 MG/ML INJ 1ML IV PRN (02:34)
[2020-05-04] MEDS: LEVOTHYROXINE SODIUM 88 MCG TAB PO SCH (04:50)
[2020-05-04] MEDS: PIPER-TAZ 3.375 GM 50 ML IV SCH ×3 (04:50→17:58)
[2020-05-04 07:03] LABS: BASOPHILS % 0.4 % (0.0-1.0); EOSINOPHILS % 1.5 % (0.0-6.0); HEMATOCRIT 30.3 % (34.2-44.1); HEMOGLOBIN 9.6 g/dL (12.0-16.0); LYMPHOCYTES # (AUTO) 1.2 (1.0-3.2); LYMPHOCYTES % 42.3 % (18.0-39.1); MEAN CORPUSCULAR HEMOGLOBIN 32.1 pg (28-32); MEAN CORPUSCULAR HGB CONC 31.7 g/dL (31-35); MEAN CORPUSCULAR VOLUME 101.3 fL (81-99); MONOCYTES # (AUTO) 0.3 (0.2-0.8); MONOCYTES % 9.1 % (4.4-11.3); NEUTROPHILS # (AUTO) 1.3 (2.1-6.9); NEUTROPHILS % 46.3 % (38.7-80.0); PLATELET COUNT 90 x10e3/uL (140-360); RED BLOOD COUNT 2.99 x10e6/uL (3.6-5.1); RED CELL DISTRIBUTION WIDTH 14.3 % (11.7-14.4)
[2020-05-04 07:43] LABS: ALANINE AMINOTRANSFERASE 9 IU/L (0-55); ALBUMIN 2.3 g/dL (3.5-5.0); ALBUMIN/GLOBULIN RATIO 0.7 (0.8-2.0); ALKALINE PHOSPHATASE 90 IU/L (40-150); ANION GAP 13.1 mmol/L (8-16); BLOOD UREA NITROGEN 5 mg/dL (7-26); BUN/CREATININE RATIO 8 (6-25); CALCIUM 8.9 mg/dL (8.4-10.2); CARBON DIOXIDE 25 mmol/L (22-29); CHLORIDE 110 mmol/L (98-107); EST GLOMERULAR FILTRATION RATE > 60 ML/MIN (60-); GLUCOSE 78 mg/dL (74-118); POTASSIUM 3.1 mmol/L (3.5-5.1); SODIUM 145 mmol/L (136-145)
[2020-05-04] MEDS: DOCUSATE SODIUM 100 MG CAP PO SCH ×2 (09:00→16:55)
[2020-05-04] MEDS: FAMOTIDINE 20 MG TAB PO SCH ×2 (09:00→16:55)
[2020-05-04] MEDS: POLYETHYLENE GLYCOL 3350 17 GM PACK PO SCH ×2 (09:00→16:55)
--- NOTE | 2020-05-04 13:28 | NUR ---
patient off the unit for procedure, stable
[2020-05-04] MEDS ORDERED: BUPIVACAINE HCL 0.5% INJ 30 ML VIAL INJ ONE (13:39)
[2020-05-04] MEDS ORDERED: VANCOMYCIN HCL 1 GM VIAL ONE (14:07)
[2020-05-04] MEDS ORDERED: FENTANYL CITRATE/PF 100MCG/2 ML INJ ONE ×2 (15:05→15:26)
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
[2020-05-04] MEDS ORDERED: HYDROMORPHONE 1MG/1ML INJ ONE (15:22)
--- NOTE | 2020-05-04 15:51 | NUR ---
Patient back from procedure. Alert with No distress, Left hip surgical site dressing is intact, no bleeding or drainage. call light in reach, bed alarm On, no distress noted
[2020-05-04 16:04] LABS: BILIRUBIN,URINE NEGATIVE (NEGATIVE); CLARITY,URINE SL CLOUDY (CLEAR); COLOR,URINE YELLOW (YELLOW); KETONES,URINE TRACE (NEGATIVE); LEUKOCYTE ESTERASE ,URINE TRACE (NEGATIVE); NITRITE,URINE NEGATIVE (NEGATIVE); PROTEIN,URINE DIPSTICK NEGATIVE (NEGATIVE); URINE UROBILINOGEN 2 mg/dL (0.2 - 1)
[2020-05-04 16:16] LABS: BACTERIA,URINE MANY /HPF; CALCIUM OXALATE CRYSTALS,UR MODERATE (FEW); EPITHELIAL CELLS,URINE MODERATE /LPF
--- NOTE | 2020-05-04 16:56 | NUR ---
Nutrition Screen Note RD Recommendation for Physician: -Recommend advancing diet when medically appropriate Plan of Care: RD following, monitoring for tolerance and adequacy Nutrition reason for involvement: Nutrition Risk Trigger Primary Diagnose(s): cellulitis PMH: colon cancer Ht: 64 in Wt: 133 lb BMI: 22.8 kg/m2 IBW:[address] Assessment: (05/04/20) Chart reviewed. Labs and meds reviewed. Pt is a 69 year old female admitted with cellulitis. Pt was not available at time of visit and was at procedure for incision and drainage of left hip. Pt reports unsure weight loss and decreased appetite prior to admission per chart. Pt has a weight of 230 lbs in chart in March 2020 and currently has a weight of 133 lbs. Suspect possible weight error. Unable to verify weight status with pt at this time. Will continue to monitor. Current Diet: NPO Malnutrition Evaluation (05/04/20) The patient does not meet criteria for a specified degree of malnutrition at this time. Unable to speak to pt. Will re-evaluate at follow-up as appropriate. Diet Education Needs Assessment: Diet education not indicated, pt is NPO. Nutrition Care Level: low Signed: Tonie Lim, RD, LD
[2020-05-04] MEDS ORDERED: EPHEDRINE SULFATE INJ 50 MG/ML VIAL ONE (18:31)
[2020-05-04] MEDS ORDERED: PROPOFOL IV EMULSION 10 MG/ML 20 ML VIAL ONE (18:31)
[2020-05-04] MEDS ORDERED: ONDANSETRON HCL INJ 2MG/ML 2ML 2 MG/ML VIAL ONE (18:31)
[2020-05-04] MEDS ORDERED: SEVOFLURANE INHAL SOLN 250 ML PEN BTL ONE (18:31)
[2020-05-04] MEDS ORDERED: LIDOCAINE HCL 2% LOCAL INJ 5 ML SDV VIAL INJ ONE (18:31)
[2020-05-04] MEDS ORDERED: POTASSIUM CHLORIDE 20 MEQ TAB CR PO SCH (19:33)
[2020-05-04] MEDS: PRAVASTATIN 20 MG TAB PO SCH (21:35)
--- NOTE | 2020-05-04 21:46 | Progress Note ---
DATE: 05/04/2020 CONSULTING PHYSICIANS: 1. Elizabeth Maynard DO., with Orthopedics. 2. Slime Morgan MD., with Infectious Disease. SUBJECTIVE: The patient states she has no pain when lying still. She denies any use of home oxygen. She had a bowel movement this morning. Still has some swelling in the left hip. OBJECTIVE: VITAL SIGNS: Temperature 98.1, T-max 99.6, pulse 69, blood pressure 129/63, respirations 20, oxygen saturation 98%. GENERAL: No acute distress, lying supine. Head of bed less than 30 degrees. LUNGS: Clear to auscultation. Respiratory pattern even and unlabored. She is currently on oxygen at 2 L/minute via nasal cannula. HEENT: EOMI. NECK: Supple. CARDIOVASCULAR: Regular rate and rhythm. No murmur. ABDOMEN: Bowel sounds positive. Soft, nontender, EXTREMITIES: Without pitting edema. No clubbing, cyanosis, or marked swelling. She has a dressing covering the left hip, which is clean, dry, and intact. NEUROLOGICAL: GCS 15. Nonfocal. LABORATORY DATA: WBCs 2.74, hemoglobin 9.6, hematocrit 30.3, platelets 90. Sodium 135, potassium 3.1, chloride 110, CO2 of 25, anion gap 13.1, BUN 5, creatinine 0.6, estimated GFR greater than 60. Glucose 78, calcium 8.9, total bilirubin 0.4, AST 14, ALT 9, alkaline phosphatase 90, total protein 5.4, albumin 2.3. Urinalysis was completed, specific gravity 1.03, trace amount of ketones, trace amount of blood, negative for nitrites, trace amount of leukocyte esterase, 2 urobilinogen, rbc's 6-10, wbc's 6-10, moderate calcium oxalate crystal, many urine bacteria. Coronavirus PCR was negative on 05/02. Wound culture collected on 05/02 showed MRSA. Blood cultures x2 collected 05/02 show no growth after 48 hours. No new imaging results. ASSESSMENT/PLAN: 1. Cellulitis/abscess of the left hip, status post left hip intertrochanteric hip fracture, now status post left hip I and D on 05/04/2020, by Dr. Maynard. Infectious Disease consulted after discussing case with Dr. Maynard. Vancomycin powder used in the proximal portion of the cavity. Hardware could not be taken out. Packing will need to be changed daily. She has underlying history for stage IV colon cancer. Appreciate recommendations from Infectious Disease. WBCs 2.74 today. Vancomycin and Zosyn IV, continue. 2. Stage IV colon cancer, stable, chemotherapy on an outpatient basis. 3. Constipation. The patient received lactulose, Colace and Dulcolax. She had a BM this morning. 4. Acute hypokalemia. Potassium level 3.1, 40 mEq potassium chloride ordered to be given postoperatively. 5. Hypothyroidism. Levothyroxine 88 mcg daily. 6. Prophylaxis. Pepcid, SCDs. Time spent 35 minutes. Billing code [id number]. Dictated by Lencho Alegre, THANH MD KAYLA Moreno/WHITL /[id number]
--- NOTE | 2020-05-04 23:16 | Consultation ---
DATE OF CONSULTATION: The patient was seen and evaluated. Available labs and notes reviewed. Discussed with Dr. Morgan in detail. Please refer to chart for more information. HISTORY OF PRESENT ILLNESS: This is a pleasant 69-year-old female, who had a hip surgery around March 15 or , as she remembers she was home after she was admitted to SNF, she was transferred home and she was at home with her , who is already ill and debilitated and she started developing some redness at the surgical site on her hip. Therefore, the patient came to the hospital for evaluation. The patient now status post I and D of the surgical hip, and Infectious Disease consulted for the management of antibiotics. PAST MEDICAL HISTORY: Including colon cancer, hypothyroidism, constipation, gastritis/GERD, and nausea. PAST SURGICAL HISTORY: Includes left hip surgery as mentioned above and hysterectomy. FAMILY HISTORY: Noncontributory. ALLERGIES: NO KNOWN ALLERGIES. MEDICATIONS: Reviewed from ID point of view, the patient is on vancomycin IV and Zosyn. PHYSICAL EXAMINATION: GENERAL: Alert and oriented, very pleasant, in no acute distress. CV: S1 and S2. CHEST: Equal expansion clear to auscultation, in no acute distress. ABDOMEN: Soft, nontender, no distention. HEENT: Moist. No pallor. No JVD. EXTREMITIES: Left Christal surgical site on local care. VITAL SIGNS: Temperature 98.1, pulse 90, respirations 20 and blood pressure 127/68. LABORATORY STUDIES: White count of 2.74, hemoglobin 9.6, and platelets 98. Sodium 145, potassium 3.1, creatinine 0.6. Microbiology, left hip surgical site wound groin MRSA. Blood culture negative 48 hours. IMAGING: CT of the hip showed left lateral thigh subcutaneous fluid collection with surrounding inflammatory changes, may represent developing abscess, which the patient is status post I and D. ASSESSMENT AND PLAN: 1. This is a pleasant 69-year-old female with infected left hip surgical site, status post I and D. Culture growing MRSA. The patient is currently on vancomycin IV and Zosyn. Continue with antibiotics at this point and monitor patient clinically and follow up with the labs. 2. The patient is reportedly stage IV colon cancer, pancytopenic. 3. Hypothyroidism. 4. Debility. 5. Continue to monitor the patient. Further management of this patient is based on daily findings on laboratory and physical examination. I want to thank you for this consult. Discussed with Dr. Morgan in details. MD NANCI Diaz/SONYA /[id number]
[2020-05-05] VITALS (8 sets, daily range): BP systolic 92–131; BP diastolic 39–77
[2020-05-05] MEDS ORDERED: ACETAMINOPHEN 325 MG TAB PO PRN (06:15)
[2020-05-05] MEDS: PIPER-TAZ 3.375 GM 50 ML IV SCH ×4 (06:22→18:05)
[2020-05-05] MEDS: LEVOTHYROXINE SODIUM 88 MCG TAB PO SCH (06:22)
[2020-05-05 06:25] LABS: BASOPHILS % 0.2 % (0.0-1.0); EOSINOPHILS % 0.2 % (0.0-6.0); HEMATOCRIT 32.8 % (34.2-44.1); HEMOGLOBIN 10.1 g/dL (12.0-16.0); LYMPHOCYTES # (AUTO) 0.5 (1.0-3.2); LYMPHOCYTES % 8.7 % (18.0-39.1); MEAN CORPUSCULAR HEMOGLOBIN 29.4 pg (28-32); MEAN CORPUSCULAR HGB CONC 30.8 g/dL (31-35); MEAN CORPUSCULAR VOLUME 95.6 fL (81-99); MONOCYTES # (AUTO) 0.5 (0.2-0.8); MONOCYTES % 7.9 % (4.4-11.3); NEUTROPHILS # (AUTO) 5.2 (2.1-6.9); NEUTROPHILS % 82.7 % (38.7-80.0); PLATELET COUNT 114 x10e3/uL (140-360); RED BLOOD COUNT 3.43 x10e6/uL (3.6-5.1); RED CELL DISTRIBUTION WIDTH 13.8 % (11.7-14.4)
[2020-05-05 07:03] LABS: ANION GAP 15.2 mmol/L (8-16); BLOOD UREA NITROGEN 5 mg/dL (7-26); BUN/CREATININE RATIO 8 (6-25); CALCIUM 8.6 mg/dL (8.4-10.2); CARBON DIOXIDE 22 mmol/L (22-29); CHLORIDE 106 mmol/L (98-107); CHOL/HDL RATIO 3.5 (3.0-3.6); CHOLESTEROL 102 MD/DL (0-199); CREATININE, SERUM 0.64 mg/dL (0.57-1.11); EST GLOMERULAR FILTRATION RATE > 60 ML/MIN (60-); GLUCOSE 94 mg/dL (74-118); HDL CHOLESTEROL 29 MG/DL (40-60); LDL CHOLESTEROL 60 MG/DL (60-130); MAGNESIUM 1.7 MG/DL (1.3-2.1); POTASSIUM 3.2 mmol/L (3.5-5.1); SODIUM 140 mmol/L (136-145); TRIGLYCERIDES 66 MG/DL (0-149)
[2020-05-05 07:04] LABS: THYROID STIMULATING HORMONE 0.217 uIU/mL (0.350-4.940)
[2020-05-05] MEDS: POLYETHYLENE GLYCOL 3350 17 GM PACK PO SCH ×2 (08:55→17:51)
[2020-05-05] MEDS: FAMOTIDINE 20 MG TAB PO SCH ×2 (08:55→17:51)
[2020-05-05] MEDS: DOCUSATE SODIUM 100 MG CAP PO SCH ×2 (08:55→17:51)
[2020-05-05] MEDS ORDERED: POTASSIUM CHLORIDE 20 MEQ TAB CR PO ONE (09:35)
--- NOTE | 2020-05-05 10:28 | NUR ---
SPOKE WITH PT ABOUT SNF, CALLED [facility] WHILE IN ROOM, THEY BOTH DECIDED NO SNF AND WANT TO RETURN HOME WITH [facility]IR [facility], SIGNED CHOICE FILED IN CHART AND LET CM KNOW.
[2020-05-05] MEDS: VANCOMYCIN 1GM/NS 250 ML 250 ML IV SCH ×2 (11:13)
--- NOTE | 2020-05-05 11:31 | NUR ---
Dr Maynard please clarify if patient is still WBAT on LLE. We will keep pt NWB until order is clarified for safety. Thank you. Addendum: 05/05/20 at 1133 by Carl Londono PT Amended: Links added.
--- NOTE | 2020-05-05 12:04 | NUR ---
Patient got right chest Port A CATH , Clarified order with Mickie AFTERNOON NANNY to cancel order for PICC line
--- NOTE | 2020-05-05 13:52 | NUR ---
infectious disease progress note Patient seen and examined chart reviewed this is May 05 Discussed with internal medicine This is a pleasant 69-year-old female, who had a hip surgery around March 15 or , as she remembers she was home after she was admitted to SNF, she was transferred home and she was at home with her , who is already ill and debilitated and she started developing some redness at the surgical site on her hip. Therefore, the patient came to the hospital for evaluation. The patient now status post I and D of the surgical hip, and Infectious Disease consulted for the management of antibiotics. PAST MEDICAL HISTORY: Including colon cancer, hypothyroidism, constipation, gastritis/GERD, and nausea. The patient is currently alert oriented she would like to go home her physical examination she is currently alert oriented and afebrile HEENT normocephalic that bariatric neck supple chest crackles bilateral bases corresponds to abdomen soft both of present prescription is no edema the left hip wound there t here is spastic I can see the 3 stitches I can see Flexion infected hip wound status post debridement MRSA still pus coming recommend further debridement may be a wound VAC will discuss with orthopedic in the meantime we will start vancomycin 1 g every 12 will need PICC line 8 weeks of IV antibiotic will also add rifampin 300 mg by mouth twice a day weekly L 50 weekly CBC with a chemistry panel weekly vancomycin trough patient does not want to go to an LTAC she would like to go home we will see her hopefully is all superficial.infection no deep to the hardware Discussed with medical team
[2020-05-05] MEDS: MORPHINE SULFATE INJ 4 MG/ML INJ 1ML IV PRN (14:50)
--- NOTE | 2020-05-05 18:30 | NUR ---
Patient resting in bed, Dr Morgan opened dressing on left hip earlier to look at the wound, reinforce the dressing, not in any distress, call light in reach
--- NOTE | 2020-05-05 19:27 | NUR ---
Patient received lying in bed. AAO x 3. Patient had no complaints of pain. Respirations even and non-labored. Dressing to left hip CDI. Safety measures in place. Patient instructed to call for assistance when needed. Call light within reach.
[2020-05-05] MEDS: PRAVASTATIN 20 MG TAB PO SCH (20:46)
[2020-05-06] MEDS: VANCOMYCIN 1GM/NS 250 ML 250 ML IV SCH
--- NOTE | 2020-05-06 00:20 | NUR ---
Blood specimen sent to lab for analysis of Vancomycin levels.
[2020-05-06] MEDS: PIPER-TAZ 3.375 GM 50 ML IV SCH ×4 (00:36→17:07)
--- NOTE | 2020-05-06 00:45 | NUR ---
Dr. Morgan paged regarding critical level of Vancomycin level of 21.0. Awaiting call back.
[2020-05-06 04:00] VITALS: BP 127/43
[2020-05-06] MEDS: MORPHINE SULFATE INJ 4 MG/ML INJ 1ML IV PRN (05:13)
[2020-05-06] MEDS: LEVOTHYROXINE SODIUM 75 MCG TAB PO SCH (05:49)
[2020-05-06 06:02] LABS: ALANINE AMINOTRANSFERASE 11 IU/L (0-55); ALBUMIN 2.1 g/dL (3.5-5.0); ALBUMIN/GLOBULIN RATIO 0.6 (0.8-2.0); ALKALINE PHOSPHATASE 76 IU/L (40-150); ANION GAP 16.5 mmol/L (8-16); BLOOD UREA NITROGEN 9 mg/dL (7-26); BUN/CREATININE RATIO 13 (6-25); CALCIUM 8.9 mg/dL (8.4-10.2); CARBON DIOXIDE 22 mmol/L (22-29); CHLORIDE 107 mmol/L (98-107); CREATININE, SERUM 0.69 mg/dL (0.57-1.11); EST GLOMERULAR FILTRATION RATE > 60 ML/MIN (60-); GLUCOSE 86 mg/dL (74-118); MAGNESIUM 1.8 MG/DL (1.3-2.1); POTASSIUM 3.5 mmol/L (3.5-5.1); SODIUM 142 mmol/L (136-145)
[2020-05-06 06:04] LABS: BASOPHILS % 0.2 % (0.0-1.0); EOSINOPHILS % 0.4 % (0.0-6.0); HEMATOCRIT 28.2 % (34.2-44.1); HEMOGLOBIN 8.9 g/dL (12.0-16.0); LYMPHOCYTES # (AUTO) 1.1 (1.0-3.2); LYMPHOCYTES % 18.8 % (18.0-39.1); MEAN CORPUSCULAR HEMOGLOBIN 29.9 pg (28-32); MEAN CORPUSCULAR HGB CONC 31.6 g/dL (31-35); MEAN CORPUSCULAR VOLUME 94.6 fL (81-99); MONOCYTES # (AUTO) 0.5 (0.2-0.8); MONOCYTES % 8.5 % (4.4-11.3); NEUTROPHILS % 71.6 % (38.7-80.0); RED BLOOD COUNT 2.98 x10e6/uL (3.6-5.1); RED CELL DISTRIBUTION WIDTH 13.9 % (11.7-14.4)
[2020-05-06 06:08] LABS: PLATELET COUNT 96 x10e3/uL (140-360)
--- NOTE | 2020-05-06 07:00 | NUR ---
BEDSIDE SHIFT REPORT RECEIVED FROM THE INVESTMENT ANALYST RN. EDUCATED PT ABOUT FALL PRECAUTIONS. PT VERBALIZED UNDERSTANDING. BED IS LOW AND LOCKED. SIDE RAILS X2. CALL LIGHT WITH IN EASY REACH. BED ALARM IS ON. ALL SAFETY MEASURES IN PLACE. PT DENIES NEEDS AT THIS TIME.
--- NOTE | 2020-05-06 07:00 | NUR ---
Patient resting comfortably. Walking rounds done. Bed-side shift report given to oncoming nurse.
[2020-05-06 07:59] VITALS: BP 104/46
[2020-05-06 08:00] VITALS: BP 104/46
[2020-05-06] MEDS: POLYETHYLENE GLYCOL 3350 17 GM PACK PO SCH ×2 (09:08→17:00)
[2020-05-06] MEDS: DOCUSATE SODIUM 100 MG CAP PO SCH ×2 (09:08→17:07)
[2020-05-06] MEDS: FAMOTIDINE 20 MG TAB PO SCH ×2 (09:08→17:07)
--- NOTE | 2020-05-06 09:30 | NUR ---
ORTHOPEDIC PROGRESS NOTE Patient seen & examined resting at bedside. No fevers or chills. Pain controlled. No acute events overnight T 99.2 HR 80 RR 18, BP 104/46 O2 95% Left Hip - Dressing clean, dry and intact, Packing in place Motor: + EHL, FHL, TA,G/S Sensation grossly intact to light touch Pulses+ DP, Post tib Compartments soft, Negative calf tenderness WBC 5.64 H/H 8.9/28.2 Wound Culture: MRSA 69 year old F s/p Left Hip IMN & I&D POD #2 Continue Antibiotics as per ID, Would recommend chronic suppressive antibiotics Packing progressed Dressing change Analgesics PRN DVT Prophylaxis PT - WBAT Dressing changes as per nursing/wound care Continue to advance packing daily 1 inch with daily dressing changes. Have patient follow up in office in 1 week. Thank you for the consultation. Elizabeth Maynard, DO
--- NOTE | 2020-05-06 09:52 | NUR ---
ORTHOPEDIC PROGRESS NOTE ADDENDUM Patient seen & examined resting at bedside. No fevers or chills. Pain controlled. No acute events overnight T 99.2 HR 80 RR 18, BP 104/46 O2 95% Left Hip - Dressing clean, dry and intact, Packing in place Motor: + EHL, FHL, TA,G/S Sensation grossly intact to light touch Pulses+ DP, Post tib Compartments soft, Negative calf tenderness WBC 5.64 H/H 8.9/28.2 Wound Culture: MRSA 69 year old F s/p Left Hip IMN & I&D POD #2 Continue Antibiotics as per ID, Would recommend chronic suppressive antibiotics Packing progressed Dressing change - purulent drainage noted Analgesics PRN DVT Prophylaxis PT - WBAT Dressing changes as per nursing/wound care Continue to advance packing daily 1 inch with daily dressing changes. Plan for repeat I&D with placement of wound vac versus drain on Monday05/08/2020 NPO except meds after midnight on . Have patient follow up in office in 1 week after discharge.. Thank you for the consultation. Elizabeth Maynard, DO
[2020-05-06 11:47] VITALS: BP 101/46
--- NOTE | 2020-05-06 13:21 | Progress Note ---
DATE: 05/06/2020 CONSULTING PHYSICIANS: Include Dr. Elizabeth Maynard with Orthopedics and Dr. Slime Morgan with Infectious Disease. SUBJECTIVE: The patient states she has minimal pain in the left hip, rated 2/10. She denies headache, dizziness, sore throat, trouble swallowing, shortness of breath, cough, phlegm, chest pain, palpitations, nausea, vomiting, diarrhea, or abdominal pain at present. She did have some vomiting last night. Reports poor appetite. There is a rolling walker at the bedside. OBJECTIVE: VITAL SIGNS: Temperature 99.2, T-max 100.9, pulse 80, blood pressure 104/46, respirations 18, and oxygen saturation 95%. GENERAL: Supine, no acute distress. LUNGS: Clear to auscultation. Respiratory pattern even and unlabored. No supplemental oxygen. HEENT: EOMI. NECK: Supple. CARDIOVASCULAR: Regular rate and rhythm without murmur. ABDOMEN: Bowel sounds positive. Soft and nontender. No obvious distention. No guarding. EXTREMITIES: With no pitting edema. No clubbing, cyanosis, or notable swelling. She has a dressing covering the left hip, which is clean, dry, and intact. Left hip swelling noted. NEUROLOGICAL: GCS 15. Nonfocal. LABORATORY DATA: WBC 5.64, hemoglobin 8.9, hematocrit 28.2, and platelets 96. Sodium 142, potassium 3.5, chloride 107, CO2 22, anion gap 16.5, BUN 9, creatinine 0.69, estimated GFR greater than 60, glucose 86, calcium 8.9, and magnesium 1.8. Total bilirubin 0.5, AST 14, ALT 11, and alkaline phosphatase 76. Total protein 5.5 and albumin 2.1. Vancomycin trough done 05/05, was 21. Left hip wound culture collected 05/04, positive for MRSA. No new imaging studies. ASSESSMENT AND PLAN: 1. Cellulitis/abscess of the left hip with methicillin-resistant Staphylococcus aureus, status post left hip intertrochanteric hip fracture, now status post left hip I and D on 05/04/2020, by Dr. Maynard. Infectious Disease following. No complaints of chills or fever at present. The patient is currently on Zosyn and vancomycin IV. Monitor vancomycin trough levels. Trough level yesterday was 21. Subsequent I and D is planned for Monday, 05/08. 2. Stage IV colon cancer, stable, chemotherapy on an outpatient basis. 3. Acute hypokalemia. Potassium level 3.5 (3.2, 3.1), replete with 20 mEq of potassium chloride orally today. Magnesium level 1.8 today. 4. Hypothyroidism. Levothyroxine 88 mcg daily. TSH had been low and dosage had been decreased by THANH Corado. 5. Prophylaxis. ROMA Snyders. Billing code [id number]. Time spent 35 minutes. Dictated by Lencho Alegre NP Mendel Cole MD HWP/MODL /[id number]
--- NOTE | 2020-05-06 13:51 | NUR ---
infectious disease progress note patient is seen examined in with no new complaints discussed with orthopedic he patient states she has minimal pain in the left hip, rated 2/10. She denies headache, dizziness, sore throat, trouble swallowing, shortness of breath, cough, phlegm, chest pain, palpitations, nausea, vomiting, diarrhea, or abdominal pain at present. She did have some vomiting last night. Reports poor appetite. There is a rolling walker at the bedside. OBJECTIVE: VITAL SIGNS: Temperature 99.2, T-max 100.9, pulse 80, blood pressure 104/46, respirations 18, and oxygen saturation 95%. GENERAL: Supine, no acute distress. LUNGS: Clear to auscultation. Respiratory pattern even and unlabored. No supplemental oxygen. HEENT: EOMI. NECK: Supple. CARDIOVASCULAR: Regular rate and rhythm without murmur. ABDOMEN: Bowel sounds positive. Soft and nontender. No obvious distention. No guarding. EXTREMITIES: With no pitting edema. No clubbing, cyanosis, or notable swelling. She has a dressing covering the left hip, which is clean, dry, and intact. Left hip swelling noted. NEUROLOGICAL: GCS 15. Nonfocal. LABORATORY DATA: WBC 5.64, hemoglobin 8.9, hematocrit 28.2, and platelets 96. Sodium 142, potassium 3.5, chloride 107, CO2 22, anion gap 16.5, BUN 9, creatinine 0.69, estimated GFR greater than 60, glucose 86, calcium 8.9, and magnesium 1.8. Total bilirubin 0.5, AST 14, ALT 11, and alkaline phosphatase 76. Total protein 5.5 and albumin 2.1. Vancomycin trough done 05/05, was 21. Left hip wound culture collected 05/04, positive for MRSA. No new imaging studies. abscess of the hip wound Status post total hip replacement Concern about deep infection discussed with orthopedic So far it seems superficial but because of her overall condition we have to treat aggressively Continue vancomycin for 8 weeks rifampin orally Follow weekly liver enzyme and follow weekly CBC and vancomycin trough Patient is going for surgery on Monday
[2020-05-06 15:37] VITALS: BP 97/51
--- NOTE | 2020-05-06 19:00 | NUR ---
BEDSIDE SHIFT REPORT GIVEN TO THE ROLL OR TAPE EDGE MACHINE OPERATOR RN. PT DENIED FURTHER NEEDS.
--- NOTE | 2020-05-06 19:52 | NUR ---
Received change of shift report from AM nurse. Walking sophie completed.
[2020-05-06 20:00] VITALS: BP 130/59
[2020-05-06] MEDS: PRAVASTATIN 20 MG TAB PO SCH (21:00)
[2020-05-07] VITALS (9 sets, daily range): BP systolic 93–133; BP diastolic 49–85
[2020-05-07 05:13] LABS: BASOPHILS % 0.2 % (0.0-1.0); EOSINOPHILS % 0.2 % (0.0-6.0); HEMATOCRIT 29.7 % (34.2-44.1); HEMOGLOBIN 9.2 g/dL (12.0-16.0); LYMPHOCYTES # (AUTO) 1.4 (1.0-3.2); LYMPHOCYTES % 21.1 % (18.0-39.1); MEAN CORPUSCULAR HEMOGLOBIN 29.5 pg (28-32); MEAN CORPUSCULAR VOLUME 95.2 fL (81-99); MONOCYTES # (AUTO) 0.4 (0.2-0.8); MONOCYTES % 6.3 % (4.4-11.3); NEUTROPHILS # (AUTO) 4.6 (2.1-6.9); NEUTROPHILS % 71.9 % (38.7-80.0); PLATELET COUNT 97 x10e3/uL (140-360); RED BLOOD COUNT 3.12 x10e6/uL (3.6-5.1); RED CELL DISTRIBUTION WIDTH 14.3 % (11.7-14.4)
[2020-05-07 05:39] LABS: ANION GAP 13.6 mmol/L (8-16); BLOOD UREA NITROGEN 9 mg/dL (7-26); BUN/CREATININE RATIO 14 (6-25); CALCIUM 8.9 mg/dL (8.4-10.2); CARBON DIOXIDE 25 mmol/L (22-29); CHLORIDE 107 mmol/L (98-107); CREATININE, SERUM 0.66 mg/dL (0.57-1.11); EST GLOMERULAR FILTRATION RATE > 60 ML/MIN (60-); GLUCOSE 98 mg/dL (74-118); POTASSIUM 3.6 mmol/L (3.5-5.1); SODIUM 142 mmol/L (136-145)
[2020-05-07] MEDS: LEVOTHYROXINE SODIUM 75 MCG TAB PO SCH (05:50)
[2020-05-07] MEDS: PIPER-TAZ 3.375 GM 50 ML IV SCH ×5 (05:50→23:46)
--- NOTE | 2020-05-07 05:52 | NUR ---
Patient resting qitly with no c/o at this time. Continue monitor.
--- NOTE | 2020-05-07 07:00 | NUR ---
BEDSIDE SHIFT REPORT RECEIVED FROM THE BODY COVERER RN. EDUCATED PT ABOUT FALL PRECAUTIONS. PT VERBALIZED UNDERSTANDING. BED IS LOW AND LOCKED. SIDE RAILS X2. CALL LIGHT WITH IN EASY REACH. BED ALARM IS ON. ALL SAFETY MEASURES IN PLACE. PT DENIES NEEDS AT THIS TIME.
[2020-05-07] MEDS: MORPHINE SULFATE INJ 4 MG/ML INJ 1ML IV PRN ×2 (07:48→13:29)
[2020-05-07] MEDS: DOCUSATE SODIUM 100 MG CAP PO SCH ×2 (08:09→17:59)
[2020-05-07] MEDS: POLYETHYLENE GLYCOL 3350 17 GM PACK PO SCH ×2 (08:09→17:00)
[2020-05-07] MEDS: FAMOTIDINE 20 MG TAB PO SCH ×2 (08:09→17:59)
[2020-05-07] MEDS: VANCOMYCIN 1GM/NS 250 ML 250 ML IV SCH (08:09)
[2020-05-07] MEDS: RIFAMPIN 300 MG CAP PO SCH (09:12)
--- NOTE | 2020-05-07 13:23 | NUR ---
ASSESSMENT: Spiritual distress Pt overwhelmed by illness and family issues. Pt states she "has lost feeling in her hands and feet" from cancer treatment. Pt states she "doesn't know what to do" and "sometimes I want to give up." Pt states she is "lonely." Pt identifies as Pent[employer]. Pt expressed emotions thru words and tears. Pt states she has been told she "is sentimental" in reference to her tearfulness. Pt states she and her tried to raise her 11 y/o granddaughter but child went into foster care. Intervention: Provided unhurried empathic listening. Facilitated storytelling and identification of emotions. Normalized emotions. Provided prayer. Outcome: Pt expressed appreciation for visit. Will follow as able. [facility] O: [phone]
--- NOTE | 2020-05-07 16:43 | NUR ---
INFECTIOUS DISEASE PROGRESS NOTE patient is seen examined by Dr. Cathy ARIZA The patient states she has minimal pain in the left hip, rated 2/10. She denies headache, dizziness, sore throat, trouble swallowing, shortness of breath, cough, phlegm, chest pain, palpitations, nausea, vomiting, diarrhea, or abdominal pain at present. She did have some vomiting last night. Reports poor appetite. There is a rolling walker at the bedside. OBJECTIVE: VITAL SIGNS: reviewed GENERAL: Supine, no acute distress. LUNGS: Clear to auscultation. Respiratory pattern even and unlabored. No supplemental oxygen. HEENT: EOMI. NECK: Supple. CARDIOVASCULAR: Regular rate and rhythm without murmur. ABDOMEN: Bowel sounds positive. Soft and nontender. No obvious distention. No guarding. EXTREMITIES: With no pitting edema. No clubbing, cyanosis, or notable swelling. She has a dressing covering the left hip, which is clean, dry, and intact. Left hip swelling noted. NEUROLOGICAL: GCS 15. Nonfocal. LABORATORY DATA: reviewed Left hip wound culture collected 05/04, positive for MRSA. No new imaging studies. IMPRESSION AND PLAN: Abscess of the hip wound Status post total hip replacement Concern about deep infection discussed with orthopedic Patient is going for surgery on Monday Plan is for 8 weeks of IV ABT vancomycin. CM to set up with [employer].
--- NOTE | 2020-05-07 19:00 | NUR ---
DATE OF SERVICE: 05/07/2020 PCP: Dr. Jose Aguilar ATTENDING PHYSICIAN: Dr. Mendel Cole CONSULTING PHYSICIANS: 1. Dr. Elizabeth Maynard with Orthopedics 2. Dr. Slime Morgan with Infectious Disease. SUBJECTIVE: Left hip pain, rated 7/10 with movement only, otherwise no pain. She denies headache, dizziness, sore throat, trouble swallowing, shortness of breath, cough, phlegm, chest pain, palpitations, nausea, vomiting, diarrhea, or abdominal pain at present. Reports poor appetite. "Meat makes me want to throw up". +Chills at night. There is a rolling walker at the bedside. She is able to achieve 1400 ml with I.S. OBJECTIVE: VITAL SIGNS: Temperature 97.7, T-max 100.3, pulse 85, 117/79, respirations 19, and SpO2 98%. GENERAL: Supine, no acute distress. LUNGS: Clear to auscultation. Respiratory pattern even and unlabored. No supplemental oxygen. HEENT: EOMI. NECK: Supple. CARDIOVASCULAR: Regular rate and rhythm without murmur. ABDOMEN: Bowel sounds positive. Soft and nontender. No obvious distention. No guarding. EXTREMITIES: With no pitting edema. No clubbing, cyanosis, or notable swelling. She has a dressing covering the left hip, which is clean, dry, and in tact. Left hip swelling noted. NEUROLOGICAL: GCS 15. Nonfocal. DIAGNOSTIC STUDIES: LABORATORY DATA: Reviewed. WBC 6.39, hemoglobin 9.2, hematocrit 29.7, and platelets 97. Potassium 3.6, BUN 9, creatinine 0.66, estimated GFR greater than 60. 05/06 Magnesium 1.8 05/05 Vancomycin trough 21 05/04 Left hip wound culture positive for MRSA. 05/02 Coronavirus PCR negative IMAGING: No new imaging studies. ASSESSMENT AND PLAN: 1. Cellulitis/abscess of the left hip with methicillin-resistant Staphylococcus aureus, status post left hip intertrochanteric hip fracture, now status post left hip I and D on 05/04/2020, by Dr. Maynard. -Infectious Disease following. -Chills at night. Continue IV Zosyn & Vancomycin, PO Rifampin. Monitor vancomycin trough levels. -05/05 Vancomycin trough 21 -Subsequent I and D is planned for 05/08. 2. Stage IV colon cancer: Stable, chemotherapy on an outpatient basis. 3. Acute hypokalemia: Potassium level 3.6 (3.5, 3.2, 3.1), Magnesium level 1.8 4. Hypothyroidism: Levothyroxine 75 mcg daily. TSH had been low and dosage had been decreased by THANH Corado. Prophylaxis. Bridget Snyder. DC Planning: Current plan is for I&D Tuesday 05/08, then discharge home with home health on Wednesday 05/09. Per documentation by ID, she will require 8 weeks of IV Vancomycin one gram daily, as well as oral Rifampin. Inpatient. Billing code [id number]. Time spent 35 minutes.
--- NOTE | 2020-05-07 19:14 | NUR ---
BEDSIDE SHIFT REPORT GIVEN TO THE WOUND/OSTOMY NURSE RN. PT DENIED FURTHER NEEDS.
--- NOTE | 2020-05-07 19:40 | NUR ---
BEDSIDE SHIFT REPORT RECEIVED FROM DAY RN. RESPIRATIONS ARE EVEN AND UNLABORED. RT PORTACATH PATENT WITH HEALTHY SITE. DRESSING TO LEFT HIP MODERATED OF PUSSY SEROUS SANGUINOUS DRAINAGE PRESENT. REINFORCED DRESSING.PT VERBALIZES FEELING VERY HOPELESS AND SAD. HYDRAULIC BARKER OPERATOR VISITED WITH HER YESTERDAY.CALL LIGHT WITHIN REACH. BED IN LOW POSITION.
[2020-05-07] MEDS: PRAVASTATIN 20 MG TAB PO SCH (22:25)
[2020-05-07] MEDS ORDERED: SODIUM CHLORIDE 0.9% 250ML 250 ML ONE (23:55)
[2020-05-08] VITALS (7 sets, daily range): BP systolic 108–118; BP diastolic 52–64
[2020-05-08] MEDS: MORPHINE SULFATE INJ 4 MG/ML INJ 1ML IV PRN (01:59)
[2020-05-08] MEDS: ONDANSETRON HCL INJ 2MG/ML 2ML 2 MG/ML VIAL IV PRN (01:59)
[2020-05-08 05:23] LABS: BASOPHILS % 0.2 % (0.0-1.0); EOSINOPHILS % 0.8 % (0.0-6.0); HEMATOCRIT 26.7 % (34.2-44.1); HEMOGLOBIN 8.2 g/dL (12.0-16.0); LYMPHOCYTES # (AUTO) 1.7 (1.0-3.2); LYMPHOCYTES % 31.7 % (18.0-39.1); MEAN CORPUSCULAR HEMOGLOBIN 29.6 pg (28-32); MEAN CORPUSCULAR HGB CONC 30.7 g/dL (31-35); MEAN CORPUSCULAR VOLUME 96.4 fL (81-99); MONOCYTES # (AUTO) 0.4 (0.2-0.8); MONOCYTES % 7.3 % (4.4-11.3); NEUTROPHILS # (AUTO) 3.1 (2.1-6.9); NEUTROPHILS % 59.6 % (38.7-80.0); PLATELET COUNT 95 x10e3/uL (140-360); RED BLOOD COUNT 2.77 x10e6/uL (3.6-5.1); RED CELL DISTRIBUTION WIDTH 14.2 % (11.7-14.4)
[2020-05-08 05:44] LABS: ANION GAP 14.2 mmol/L (8-16); BLOOD UREA NITROGEN 7 mg/dL (7-26); BUN/CREATININE RATIO 10 (6-25); CALCIUM 8.7 mg/dL (8.4-10.2); CARBON DIOXIDE 27 mmol/L (22-29); CHLORIDE 107 mmol/L (98-107); CREATININE, SERUM 0.67 mg/dL (0.57-1.11); EST GLOMERULAR FILTRATION RATE > 60 ML/MIN (60-); GLUCOSE 90 mg/dL (74-118); POTASSIUM 3.2 mmol/L (3.5-5.1); SODIUM 145 mmol/L (136-145)
[2020-05-08] MEDS: LEVOTHYROXINE SODIUM 75 MCG TAB PO SCH (06:00)
[2020-05-08] MEDS: PIPER-TAZ 3.375 GM 50 ML IV SCH ×3 (06:06→17:10)
--- NOTE | 2020-05-08 07:00 | NUR ---
RECEIVED BEDSIDE SHIFT REPORT FROM OFF GOING NIGHT NURSE. PATIENT IN STABLE CONDITION, NO S/S OF DISTRESS NOTED. IV FLUIDS INFUSING, SITE ASYMPTOMATIC AND PATENT, TRANSPARENT DRESSING C/D/I. DRESSING NOTED TO THE LEFT HIP C/D/I. BED IN LOWEST POSITION AND LOCKED. CALL LIGHT WITHIN REACH.
[2020-05-08] MEDS: POLYETHYLENE GLYCOL 3350 17 GM PACK PO SCH ×2 (09:00→17:00)
[2020-05-08] MEDS: FAMOTIDINE 20 MG TAB PO SCH ×2 (09:38→18:02)
[2020-05-08] MEDS: DOCUSATE SODIUM 100 MG CAP PO SCH ×2 (09:38→18:02)
[2020-05-08] MEDS: RIFAMPIN 300 MG CAP PO SCH (09:38)
[2020-05-08] MEDS: VANCOMYCIN 1GM/NS 250 ML 250 ML IV SCH (09:46)
--- NOTE | 2020-05-08 10:10 | NUR ---
Follow up visit. Concerning upcoming procedure, pt states, "whatever happens, happens. I'm ready either way." Pt reflects on life with her father (now 96 y/o). Package Checker facilitated storytelling and identification of emotions. Pt expressed appreciation for visit. No need to follow at this time. [facility] O: [phone]
--- NOTE | 2020-05-08 12:00 | NUR ---
PATIENT OFF THE UNIT @ 1153- WENT TO THE OR. PATIENT IN STABLE CONDITION, NO S/S OF DISTRESS NOTED. TELEMETRY APPLIED.
--- NOTE | 2020-05-08 12:30 | NUR ---
Received order for home IV abx from Dr. Morgan. Pt currently off unit for surgery. CM will follow up once pt returns to unit.
[2020-05-08] MEDS ORDERED: VANCOMYCIN HCL 1 GM VIAL ONE ×2 (12:44)
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
[2020-05-08] MEDS ORDERED: FENTANYL CITRATE/PF 100MCG/2 ML INJ ONE (13:21)
[2020-05-08] MEDS ORDERED: LIDOCAINE HCL 2% LOCAL INJ 5 ML SDV VIAL INJ ONE (14:31)
[2020-05-08] MEDS ORDERED: PROPOFOL IV EMULSION 10 MG/ML 20 ML VIAL ONE (14:31)
--- NOTE | 2020-05-08 14:53 | NUR ---
WOUND CARE CONSULT FOR NEGATIVE PRESSURE DRESSING TO BE PLACED ON LEFT HIP NON HEALING ORIF POST I &D PER DR HART COORDINATED WITH CASE MANAGEMENT FOR PERSONAL VAC FOR PENDING DISCHARGE QUINN AND NEPHEW UNIT WITH BLACK FOAM PLACED IN LEFT HIP WOUND SET AT 120MMHG CONTINUOUS SETTING IN OR PATIENT UNDER ANESTHESIA WILL FOLLOW UP MONDAY FOR DRESSING CHANGE Addendum: 05/08/20 at 1511 by Santos Carlos RN Amended: Links added.
--- NOTE | 2020-05-08 15:11 | NUR ---
PATIENT ARRIVE BACK TO THE UNIT @ 1513. PATIENT IN STABLE CONDITION, NO S/S OF DISTRESS NOTED. RESPIRATIONS EVEN AND NON-LABORED. TELEMETRY APPLIED. WOUND VAC NOTED TO THE LEFT HIP AREA DRESSING C/D/I. IV SITES ASYMPTOMATIC AND PATENT, TRANSPARENT DRESSING C/D/I. BED ALARM APPLIED. BED IN LOWEST POSITION AND LOCKED. CALL LIGHT WITHIN REACH.
--- NOTE | 2020-05-08 15:12 | NUR ---
Spoke with Dr. Maynard who states he would like to monitor pt's wound for a few days. Wrote order for outpatient wound vac. CM to pt's bedside to discuss choice for IV abx and wound vac. Pt recently returned from surgery, states she's in a lot of pain and does not want to talk at this time. Wants CM to come back at another time.
[2020-05-08] MEDS ORDERED: POTASSIUM CHLORIDE 20 MEQ TAB CR PO ONE (16:35)
--- NOTE | 2020-05-08 17:01 | NUR ---
he patient states she has minimal pain in the left hip, rated 2/10. She denies headache, dizziness, sore throat, trouble swallowing, shortness of breath, cough, phlegm, chest pain, palpitations, nausea, vomiting, diarrhea, or abdominal pain at present. She did have some vomiting last night. Reports poor appetite. There is a rolling walker at the bedside. OBJECTIVE: VITAL SIGNS: reviewed GENERAL: Supine, no acute distress. LUNGS: Clear to auscultation. Respiratory pattern even and unlabored. No supplemental oxygen. HEENT: EOMI. NECK: Supple. CARDIOVASCULAR: Regular rate and rhythm without murmur. ABDOMEN: Bowel sounds positive. Soft and nontender. No obvious distention. No guarding. EXTREMITIES: With no pitting edema. No clubbing, cyanosis, or notable swelling. She has a dressing covering the left hip, which is clean, dry, and intact. Left hip swelling noted. NEUROLOGICAL: GCS 15. Nonfocal. LABORATORY DATA: reviewed Left hip wound culture collected 05/04, positive for MRSA. No new imaging studies. IMPRESSION AND PLAN: Abscess of the hip wound Status post total hip replacement Concern about deep infection discussed with orthopedic s/p surgery to go home with wound vacc and vanc for 6 weeks Discussed with medical team orders placed
--- NOTE | 2020-05-08 19:20 | NUR ---
BEDSIDE SHIFT REPORT RECEIVED. PATIENT IS AAOX3, RESTING IN BED. RESP EVEN AND UNLABORED. NO ACUTE DISTRESS NOTED. LEFT HIP DRESSING DRY AND INTACT CONNECTED WITH WOUND VAC NOTED. EDUCATED PT ABOUT FALL PRECAUTIONS. PT VERBALIZED UNDERSTANDING. CALL LIGHT WITHIN EASY REACH. INSTRUCTED PT TO USE CALL LIGHT FOR ALL THE NEEDS. BED IS LOW AND LOCKED. SIDE RAILS X2. BED ALARM IS ON. PT DENIES NEEDS AT THIS TIME. CONTINUE TO MONITOR CLOSELY
--- NOTE | 2020-05-08 19:35 | NUR ---
COMPLETED BEDSIDE SHIFT REPORT AND ROUNDING WITH ONCOMING NIGHT NURSE. PATIENT IN STABLE CONDITION, NO S/S OF DISTRESS NOTED. TELEMETRY APPLIED. IV SITES ASYMPTOMATIC AND PATENT, TRANSPARENT DRESSING C/D/I. WOUND VAC APPLIED TO THE LEFT HIP AREA DRESSING C/D/I. BED IN LOWEST POSITION AND LOCKED. CALL LIGHT WITHIN REACH.
[2020-05-08] MEDS: PRAVASTATIN 20 MG TAB PO SCH (20:48)
--- NOTE | 2020-05-08 23:06 | NUR ---
DATE OF SERVICE: 05/08/2020 PCP: Dr. Jose Aguilar ATTENDING PHYSICIAN: Dr. Mendel Cole CONSULTING PHYSICIANS: 1. Dr. Elizabeth Maynard with Orthopedics 2. Dr. Slime Morgan with Infectious Disease. SUBJECTIVE: Chills at times, but denies fever. "I haven't been up". Left hip pain with movement only, otherwise no pain. She denies headache, dizziness, sor e throat, trouble swallowing, shortness of breath, cough, phlegm, chest pain, pa lpitations, nausea, vomiting, diarrhea, or abdominal pain at present. Reports p oor appetite. "Meat makes me want to throw up". There is a rolling walker at the bedside. She is able to achieve 1500 ml with I.S. OBJECTIVE: VITAL SIGNS: Temperature 96.7, pulse 63, 118/58, respirations 20, and SpO2 99%. GENERAL: Supine, no acute distress. LUNGS: Clear to auscultation. Respiratory pattern even and unlabored. No supplemental oxygen. HEENT: EOMI. NECK: Supple. CARDIOVASCULAR: Regular rate and rhythm without murmur. ABDOMEN: Bowel sounds positive. Soft and nontender. No obvious distention. No guarding. EXTREMITIES: With no pitting edema. No clubbing, cyanosis, or notable swelling. She has a dressing covering the left hip, which is clean, dry, and in tact. Left hip swelling noted. NEUROLOGICAL: GCS 15. Nonfocal. DIAGNOSTIC STUDIES: LABORATORY DATA: Reviewed. WBC 5.24 (6.39), hemoglobin 8.2 (9.2), hematocrit 26.7 (29.7), and platelets 95 (97). Potassium 3.2 (3.6), BUN 7 (9), creatinine 0.67 (0.66), estimated GFR greater than 60. 05/06 Magnesium 1.8 05/05 Vancomycin trough 21 05/04 Left hip wound culture positive for MRSA. 05/02 Coronavirus PCR negative IMAGING: No new imaging studies. ASSESSMENT AND PLAN: 1. Cellulitis/abscess of the left hip with methicillin-resistant Staphylococcus aureus,s/p left hip intertrochanteric hip fracture, now s/p left hip I and D on 05/04/2020 & again 05/08/[address] Maynard: -Infectious Disease following. -Chills at night. Continue IV Zosyn & Vancomycin, PO Rifampin as per ID recs. -Monitor vancomycin trough levels. -05/05 Vancomycin trough 21 2. Stage IV colon cancer: Stable, chemotherapy on an outpatient basis. 3. Acute hypokalemia: Potassium level 3.2 (3.6, 3.5, 3.2, 3.1), Magnesium level 1.8 4. Hypothyroidism: Levothyroxine 75 mcg daily. TSH had been low and dosage had been decreased by THANH Corado. Prophylaxis. ROMA Snyders. DC Planning: -Previous plan was for I&D Tuesday 05/08, then discharge home with home health on Wednesday 05/09. -Per documentation by ID, she will require 8 weeks of IV Vancomycin one gram daily, as well as oral Rifampin. -CM note copied from EMR: Spoke with Dr. Maynard who states he would like to monitor pt's wound for a few days. Wrote order for outpatient wound vac. CM to pt's bedside to discuss choice for IV abx and wound vac. Pt recently returned from surgery, states she's in a lot of pain and does not want to talk at this time. Wants CM to come back at another time. Inpatient. Billing code [id number]. Time spent 35 minutes.
[2020-05-09] VITALS (7 sets, daily range): BP systolic 110–120; BP diastolic 54–76
[2020-05-09] MEDS: PIPER-TAZ 3.375 GM 50 ML IV SCH ×4 (00:43→17:11)
[2020-05-09] MEDS: ONDANSETRON HCL INJ 2MG/ML 2ML 2 MG/ML VIAL IV PRN (00:49)
[2020-05-09] MEDS: MORPHINE SULFATE INJ 4 MG/ML INJ 1ML IV PRN ×2 (00:49→18:54)
[2020-05-09] MEDS: LEVOTHYROXINE SODIUM 75 MCG TAB PO SCH (05:27)
[2020-05-09 06:06] LABS: BASOPHILS % 0.3 % (0.0-1.0); EOSINOPHILS # (AUTO) 0.1 (0.0-0.4); EOSINOPHILS % 2.1 % (0.0-6.0); HEMATOCRIT 26.8 % (34.2-44.1); HEMOGLOBIN 8.2 g/dL (12.0-16.0); LYMPHOCYTES # (AUTO) 1.2 (1.0-3.2); LYMPHOCYTES % 36.5 % (18.0-39.1); MEAN CORPUSCULAR HEMOGLOBIN 30.7 pg (28-32); MEAN CORPUSCULAR HGB CONC 30.6 g/dL (31-35); MEAN CORPUSCULAR VOLUME 100.4 fL (81-99); MONOCYTES # (AUTO) 0.3 (0.2-0.8); NEUTROPHILS # (AUTO) 1.8 (2.1-6.9); NEUTROPHILS % 52.8 % (38.7-80.0); PLATELET COUNT 95 x10e3/uL (140-360); RED BLOOD COUNT 2.67 x10e6/uL (3.6-5.1); RED CELL DISTRIBUTION WIDTH 14.2 % (11.7-14.4)
[2020-05-09 06:33] LABS: ANION GAP 11.6 mmol/L (8-16); BLOOD UREA NITROGEN 6 mg/dL (7-26); BUN/CREATININE RATIO 10 (6-25); CALCIUM 8.7 mg/dL (8.4-10.2); CARBON DIOXIDE 28 mmol/L (22-29); CHLORIDE 109 mmol/L (98-107); CREATININE, SERUM 0.62 mg/dL (0.57-1.11); EST GLOMERULAR FILTRATION RATE > 60 ML/MIN (60-); GLUCOSE 71 mg/dL (74-118); POTASSIUM 3.6 mmol/L (3.5-5.1); SODIUM 145 mmol/L (136-145)
[2020-05-09] MEDS: POLYETHYLENE GLYCOL 3350 17 GM PACK PO SCH ×2 (09:00→17:00)
[2020-05-09] MEDS: DOCUSATE SODIUM 100 MG CAP PO SCH ×2 (09:01→17:10)
[2020-05-09] MEDS: FAMOTIDINE 20 MG TAB PO SCH (09:01)
[2020-05-09] MEDS: RIFAMPIN 300 MG CAP PO SCH (09:01)
[2020-05-09] MEDS: VANCOMYCIN 1GM/NS 250 ML 250 ML IV SCH (09:01)
--- NOTE | 2020-05-09 10:28 | NUR ---
Dr. Maynard stated patient will stay through the weekend. AMAN notified Lencho Alegre [employer] BRANCH CHIEF. AMAN spoke with patient earlier this morning and obtained choice letter for [facility] for wound vac, [facility] for home health as she already has them coming to see her; and [facility] for home IV antibiotics. Clinicals faxed to all three, and AMAN spoke with Gertrudis, liaison with [facility]. She received clinical, and will get auth Monday when insurance companies are open.
--- NOTE | 2020-05-09 14:48 | NUR ---
DATE OF SERVICE: 05/09/2020 PCP: Dr. Jose Aguilar ATTENDING PHYSICIAN: Dr. Mendel Cole CONSULTING PHYSICIANS: 1. Dr. Elizabeth Maynard with Orthopedics 2. Dr. Slime Morgan with Infectious Disease. SUBJECTIVE: Chills at times, but denies fever. Left hip pain with movement only; otherwise no pain, currently 3/10 with movement then 7/10 about 30 minutes after movement. She denies headache, dizziness, sore throat, trouble swallowing, shortness of breath, cough, phlegm, chest pain, palpitations, nausea, vomiting, diarrhea, or abdominal pain at present. Reports poor appetite, drinking Ensure Enlive supplement. There is a rolling walker at the bedside. She is able to achieve 1500 ml with I.S. OBJECTIVE: VITAL SIGNS: Temperature 97.9, pulse 66, 117/61, respirations 20, and SpO2 95%. GENERAL: Supine, no acute distress. LUNGS: Clear to auscultation. Respiratory pattern even and unlabored. No supplemental oxygen. HEENT: EOMI. NECK: Supple. CARDIOVASCULAR: Regular rate and rhythm without murmur. ABDOMEN: Bowel sounds positive. Soft and nontender. No obvious distention. No guarding. EXTREMITIES: With no pitting edema. No clubbing, cyanosis, or notable swelling. She has a wound vac dressing covering the left hip wound with serosanguinous drainage inside the wound vac collection container. Left hip swelling noted. NEUROLOGICAL: GCS 15. Nonfocal. DIAGNOSTIC STUDIES: LABORATORY DATA: Reviewed. 05/09 WBC 3.37 (5.24, 6.39), hemoglobin 8.2 (8.2, 9.2), hematocrit 26.8 (26.7, 29.7), and platelets 95 (95, 97). Potassium 3.6 (3.2, 3.6), BUN 6 (7, 9), creatinine 0.62 (0.67, 0.66), estimated GFR greater than 60. 05/08 Left hip wound culture: final results pending 05/06 Magnesium 1.8 05/05 Vancomycin trough 21 05/04 Final Urine C/S results: no growth after 36-48 hrs 05/04 Left hip wound culture positive for MRSA. 05/02 Coronavirus PCR negative IMAGING: No new imaging studies. ASSESSMENT AND PLAN: 1. Cellulitis/abscess of the left hip with methicillin-resistant Staphylococcus aureus,s/p left hip intertrochanteric hip fracture, now s/p left hip I&D on 05/04/2020 & I&D again 05/08/[address] Maynard, Ambulatory Dysfunction: -Infectious Disease following. +Chills at night. Continue IV Zosyn & Vancomycin, PO Rifampin as per ID recs. -Monitor vancomycin trough levels with every 3rd dose; 05/05 Vancomycin trough 21 -Melara Catheter to avoid urine in wound, +limited mobility -PT eval/treat 2. Stage IV colon cancer: Stable, chemotherapy on an outpatient basis. 3. Anemia due to acute blood loss: Hgb 8.2. Monitor 4. Thrombocytopenia: Platelets 95,000. Switch Pepcid to Protonix. 5. Acute hypokalemia: Potassium level 3.6 (3.2, 3.6, 3.5, 3.2, 3.1), KCl 20mEq PO once today. Magnesium level 1.8 6. Hypothyroidism: Levothyroxine 75 mcg daily. TSH had been low and dosage had been decreased by THANH Corado. Prophylaxis. Protonix, SCDs. DC Planning: -Currently overall plan is for discharge home with home health on Monday. -Previous plan was for I&D Tuesday 05/08, then discharge home with home health on Wednesday 05/09. -Per documentation by ID, she will require 8 weeks of IV Vancomycin one gram daily, as well as oral Rifampin. -Per Dr. Maynard, monitor patient's wound over the weekend -AMAN Eduardo obtained choice letter for [facility] for wound vac, [facility] for home health as she already has them coming to see her; and [facility] for home IV antibiotics. -Gertrudis, liaison with [facility], did receive clinical, and will get auth Monday when insurance companies are open. Inpatient. Billing code [id number]. Time spent 35 minutes.
[2020-05-09] MEDS ORDERED: POTASSIUM CHLORIDE 20 MEQ TAB CR PO ONE (17:00)
--- NOTE | 2020-05-09 17:46 | NUR ---
17f dorantes inserted with no complications.
--- NOTE | 2020-05-09 19:19 | NUR ---
BEDSIDE SHIFT REPORT RECEIVED. PATIENT IS AAOX3, RESTING IN BED. RESP EVEN AND UNLABORED. NO ACUTE DISTRESS NOTED. LEFT HIP DRESSING DRY AND INTACT CONNECTED WITH WOUND VAC NOTED. NARANJO IN PLACE. EDUCATED PT ABOUT FALL PRECAUTIONS. PT VERBALIZED UNDERSTANDING. CALL LIGHT WITHIN EASY REACH. INSTRUCTED PT TO USE CALL LIGHT FOR ALL THE NEEDS. BED IS LOW AND LOCKED. SIDE RAILS X2. BED ALARM IS ON. PT DENIES NEEDS AT THIS TIME. CONTINUE TO MONITOR CLOSELY
[2020-05-09] MEDS: PRAVASTATIN 20 MG TAB PO SCH (20:14)
[2020-05-10] VITALS (7 sets, daily range): BP systolic 117–134; BP diastolic 55–74
[2020-05-10] MEDS: PIPER-TAZ 3.375 GM 50 ML IV SCH ×5 (00:50→23:52)
[2020-05-10] MEDS: LEVOTHYROXINE SODIUM 75 MCG TAB PO SCH (05:40)
[2020-05-10 06:17] LABS: EOSINOPHILS # (AUTO) 0.1 (0.0-0.4); EOSINOPHILS % 2.1 % (0.0-6.0); HEMATOCRIT 26.7 % (34.2-44.1); LYMPHOCYTES # (AUTO) 1.3 (1.0-3.2); LYMPHOCYTES % 45.4 % (18.0-39.1); MEAN CORPUSCULAR HEMOGLOBIN 29.3 pg (28-32); MEAN CORPUSCULAR VOLUME 97.8 fL (81-99); MONOCYTES # (AUTO) 0.2 (0.2-0.8); MONOCYTES % 8.2 % (4.4-11.3); NEUTROPHILS # (AUTO) 1.3 (2.1-6.9); PLATELET COUNT 113 x10e3/uL (140-360); RED BLOOD COUNT 2.73 x10e6/uL (3.6-5.1); RED CELL DISTRIBUTION WIDTH 14.3 % (11.7-14.4)
[2020-05-10 06:36] LABS: ANION GAP 13.4 mmol/L (8-16); BLOOD UREA NITROGEN < 5 mg/dL (7-26); CALCIUM 8.6 mg/dL (8.4-10.2); CARBON DIOXIDE 27 mmol/L (22-29); CHLORIDE 110 mmol/L (98-107); CREATININE, SERUM 0.61 mg/dL (0.57-1.11); EST GLOMERULAR FILTRATION RATE > 60 ML/MIN (60-); GLUCOSE 81 mg/dL (74-118); PHOSPHORUS 3.7 MG/DL (2.3-4.7); POTASSIUM 3.4 mmol/L (3.5-5.1); SODIUM 147 mmol/L (136-145)
[2020-05-10 06:37] LABS: BUN/CREATININE RATIO 8 (6-25)
[2020-05-10] MEDS: POLYETHYLENE GLYCOL 3350 17 GM PACK PO SCH ×2 (09:00→17:00)
[2020-05-10] MEDS: PANTOPRAZOLE SOD 40 MG TABEC PO SCH (09:21)
[2020-05-10] MEDS: DOCUSATE SODIUM 100 MG CAP PO SCH ×2 (09:21→18:11)
[2020-05-10] MEDS: RIFAMPIN 300 MG CAP PO SCH (09:21)
[2020-05-10] MEDS: MORPHINE SULFATE INJ 4 MG/ML INJ 1ML IV PRN (18:02)
[2020-05-10] MEDS ORDERED: POTASSIUM CHLORIDE 20 MEQ TAB CR PO ONE (20:00)
--- NOTE | 2020-05-10 20:00 | NUR ---
DATE OF SERVICE: 05/10/2020 PCP: Dr. Jose Aguilar ATTENDING PHYSICIAN: Dr. Mendel Cole CONSULTING PHYSICIANS: 1. Dr. Elizabeth Maynard with Orthopedics 2. Dr. Slime Morgan with Infectious Disease. SUBJECTIVE: Reports she slept until 9:30 AM. Left hip pain with movement only; otherwise no pain. She denies headache, dizziness, sore throat, trouble swallowing, shortness of breath, cough, phlegm, chest pain, palpitations, nausea, vomiting, diarrhea, or abdominal pain at present. Reports poor appetite, drinking Ensure Enlive supplement; states she drinks boost at home. There is a rolling walker at the bedside. She is able to achieve 1500 ml with I.S. Per RN, stool smells of iron. OBJECTIVE: VITAL SIGNS: Temperature 98.4, pulse 67, 127/66, respirations 19, and SpO2 94%. GENERAL: Supine, no acute distress. LUNGS: Clear to auscultation. Respiratory pattern even and unlabored. No supplemental oxygen. HEENT: EOMI. NECK: Supple. CARDIOVASCULAR: Regular rate and rhythm without murmur. ABDOMEN: Bowel sounds positive. Soft and nontender. No obvious distention. No guarding. EXTREMITIES: With no pitting edema. No clubbing, cyanosis, or notable swelling. She has a wound vac dressing covering the left hip wound with serosanguinous drainage inside the wound vac collection container. Left hip swelling noted. NEUROLOGICAL: GCS 15. Nonfocal. DIAGNOSTIC STUDIES: LABORATORY DATA: Reviewed. 05/09 WBC 2.91 (3.37, 5.24, 6.39), hemoglobin 8.0 (8.2, 8.2, 9.2), hematocrit 26.7 (26.8, 26.7, 29.7), and platelets 113 (95, 95, 97). Potassium 3.4 (3.6, 3.2, 3.6, 3.5, 3.2, 3.1), Magnesium 2.0, BUN <5 (6, 7, 9), creatinine 0.61 (0.62, 0.67, 0.66), estimated GFR > 60. FOBT pending 05/08 Left hip wound culture: final results pending; preliminary results: GRAM STAIN Final WHITE BLOOD CELLS 3-10/LPF = FEW RESULT NO ORGANISMS SEEN WOUND CULTURE Preliminary NO GROWTH AFTER 2 DAYS ANAEROBIC CULTURE Preliminary NO ANAEROBES TO DATE 05/06 Magnesium 1.8 05/05 Vancomycin trough 21 05/04 Final Urine C/S results: no growth after 36-48 hrs 05/04 Left hip wound culture positive for MRSA. 05/02 Coronavirus PCR negative IMAGING: No new imaging studies. ASSESSMENT AND PLAN: 1. Cellulitis/abscess of the left hip with methicillin-resistant Staphylococcus aureus,s/p left hip intertrochanteric hip fracture, now s/p left hip I&D on 05/04/2020 & I&D again 05/08/[address] Maynard, Ambulatory Dysfunction: -Infectious Disease following. Continue IV Zosyn & Vancomycin, PO Rifampin as per ID recs. -Monitor vancomycin trough levels with every 3rd dose; 05/05 Vancomycin trough 21 -Melara Catheter to avoid urine in wound, +limited mobility -PT eval/treat 2. Stage IV colon cancer: Stable, chemotherapy on an outpatient basis. 3. Anemia due to acute blood loss: Hgb 8.0 with a downward trend. Check FOBT as well. Monitor 4. Thrombocytopenia: Platelets 113,000. Switched Pepcid to Protonix on 05/09. 5. Acute hypokalemia: Potassium level 3.4 (3.6, 3.2, 3.6, 3.5, 3.2, 3.1), KCl 40mEq PO once today, start 20mEq PO daily. Magnesium level 2.0 6. Hypothyroidism: Levothyroxine 75 mcg daily. TSH had been low and dosage had been decreased by THANH Corado. Prophylaxis. Protonix, SCDs. DC Planning: -Currently overall plan is for discharge home with home health on Monday. -Previous plan was for I&D Tuesday 05/08, then discharge home with home health on Wednesday 05/09. -Per documentation by ID, she will require 6 weeks of IV Vancomycin one gram daily along with wound vac. -Per Dr. Maynard, monitor patient's wound over the weekend. -AMAN Eduardo obtained choice letter for [facility] for wound vac, [facility] for home health as she already has them coming to see her; and [facility] for home IV antibiotics. Patient plans for & Neighbor to help at home. -Gertrudis, liaison with [facility], did receive clinical, and will get auth Monday when insurance companies are open. Inpatient. Billing code [id number]. Time spent 35 minutes.
[2020-05-10] MEDS ORDERED: HYDRALAZINE HCL 20 MG/ML VIAL IV PRN (20:30)
[2020-05-10] MEDS ORDERED: ACETAMINOPHEN/CODEINE 300MG - 30MG TAB PO PRN (20:30)
[2020-05-10] MEDS: PRAVASTATIN 20 MG TAB PO SCH (20:40)
--- NOTE | 2020-05-10 22:14 | NUR ---
infectious disease progress note patient seen and examined chart reviewed. Patient had a laying in bed comfortably. the patient states she has minimal pain in the left hip, rated 2/10. She denies headache, dizziness, sore throat, trouble swallowing, shortness of breath, cough, phlegm, chest pain, palpitations, nausea, vomiting, diarrhea, or abdominal pain at present. She did have some vomiting last night. Reports poor appetite. There is a rolling walker at the bedside. OBJECTIVE: VITAL SIGNS: reviewed GENERAL: Supine, no acute distress. LUNGS: Clear to auscultation. Respiratory pattern even and unlabored. No supplemental oxygen. HEENT: EOMI. NECK: Supple. CARDIOVASCULAR: Regular rate and rhythm without murmur. ABDOMEN: Bowel sounds positive. Soft and nontender. No obvious distention. No guarding. EXTREMITIES: With no pitting edema. No clubbing, cyanosis, or notable swelling. She has a dressing covering the left hip, which is clean, dry, and intact. Left hip swelling noted. NEUROLOGICAL: GCS 15. Nonfocal. LABORATORY DATA: reviewed Left hip wound culture collected 05/04, positive for MRSA. No new imaging studies. IMPRESSION AND PLAN: Abscess of the hip wound Status post total hip replacement Concern about deep infection discussed with orthopedic s/p surgery to go home with wound vacc and vanc for 6 weeks 08 discharge planning continue as ordered a new finding
[2020-05-10] MEDS ORDERED: MORPHINE SULFATE INJ 4 MG/ML INJ 1ML IV PRN (23:00)
[2020-05-11] VITALS (7 sets, daily range): BP systolic 112–125; BP diastolic 55–63
[2020-05-11] MEDS ORDERED: SODIUM CHLORIDE 0.9% 250ML 250 ML ONE (05:04)
[2020-05-11 05:55] LABS: ANION GAP 13.8 mmol/L (8-16); BLOOD UREA NITROGEN 6 mg/dL (7-26); BUN/CREATININE RATIO 10 (6-25); CALCIUM 8.5 mg/dL (8.4-10.2); CARBON DIOXIDE 25 mmol/L (22-29); CHLORIDE 111 mmol/L (98-107); CREATININE, SERUM 0.62 mg/dL (0.57-1.11); EST GLOMERULAR FILTRATION RATE > 60 ML/MIN (60-); GLUCOSE 114 mg/dL (74-118); POTASSIUM 3.8 mmol/L (3.5-5.1); SODIUM 146 mmol/L (136-145)
[2020-05-11] MEDS: LEVOTHYROXINE SODIUM 75 MCG TAB PO SCH (06:04)
[2020-05-11] MEDS: PIPER-TAZ 3.375 GM 50 ML IV SCH ×3 (06:04→16:36)
--- NOTE | 2020-05-11 07:10 | NUR ---
RCD PT AT BED PT IS ALERT AND ORIENTED RESTING ON BED IV PATENT BY SALINE FLUSH NARANJO DRAINING BY GRAVITY ,BED LOW AND LOCKED CALL LIGHT IN REACH
[2020-05-11] MEDS: PANTOPRAZOLE SOD 40 MG TABEC PO SCH (07:30)
[2020-05-11] MEDS ORDERED: POTASSIUM CHLORIDE 20 MEQ TAB CR PO SCH (09:00)
[2020-05-11] MEDS: POLYETHYLENE GLYCOL 3350 17 GM PACK PO SCH ×2 (09:00→16:36)
[2020-05-11] MEDS: DOCUSATE SODIUM 100 MG CAP PO SCH ×2 (09:00→16:33)
[2020-05-11] MEDS: RIFAMPIN 300 MG CAP PO SCH (09:00)
--- NOTE | 2020-05-11 09:03 | NUR ---
Called [facility] and spoke with Barbara. States wound vac was approved but just pending additional clinical CM faxed over requested clinicals to [phone] /
[2020-05-11] MEDS ORDERED: SYNTHROID75 MCG PO (10:38)
[2020-05-11] MEDS ORDERED: ACETAMINOPHEN325 M1 PO (10:38)
[2020-05-11] MEDS ORDERED: KLOR-CON M2020 MEQ PO (10:38)
[2020-05-11] MEDS ORDERED: COLACE100 MG PO (10:38)
--- NOTE | 2020-05-11 10:51 | NUR ---
Spoke to Jayce with [employer]. States wound vac has been released for delivery. Will be delivered to pt's bedside. CM informed her that pt is pending discharge. She put in request for them to deliver as soon as possible and delivery service to call CM with ETA.
--- NOTE | 2020-05-11 10:57 | NUR ---
New IV abx order received from Dr. Morgan. New order faxed to [facility]. Gertrudis with [facility] was informed of new order and pending discharge for today.
[2020-05-11 11:24] LABS: BASOPHILS % 0.3 % (0.0-1.0); EOSINOPHILS # (AUTO) 0.1 (0.0-0.4); EOSINOPHILS % 1.8 % (0.0-6.0); HEMATOCRIT 27.6 % (34.2-44.1); HEMOGLOBIN 8.1 g/dL (12.0-16.0); LYMPHOCYTES # (AUTO) 1.4 (1.0-3.2); LYMPHOCYTES % 35.4 % (18.0-39.1); MEAN CORPUSCULAR HEMOGLOBIN 29.2 pg (28-32); MEAN CORPUSCULAR HGB CONC 29.3 g/dL (31-35); MEAN CORPUSCULAR VOLUME 99.6 fL (81-99); MONOCYTES # (AUTO) 0.3 (0.2-0.8); MONOCYTES % 7.9 % (4.4-11.3); NEUTROPHILS # (AUTO) 2.1 (2.1-6.9); NEUTROPHILS % 54.3 % (38.7-80.0); PLATELET COUNT 131 x10e3/uL (140-360); RED BLOOD COUNT 2.77 x10e6/uL (3.6-5.1); RED CELL DISTRIBUTION WIDTH 14.4 % (11.7-14.4)
--- NOTE | 2020-05-11 12:27 | NUR ---
Updated lab order faxed to [facility]. [facility]aba notified.
--- NOTE | 2020-05-11 14:10 | NUR ---
Wound vac has been delivered by [facility] and applied to pt by Santos, chamber walker. Cortney, RN with [facility] here to do bedside teach with pt regarding IV abx. Pt stated she will not be able to remember anything. Got her on the phone. Cortney gave overview of IV abx administration, written instructions given. will call [facility] when pt discharges for delivery of medication. AMAN called and spoke with Elva at [facility]. States they have received all clinicals/orders and will see pt tomorrow and reenforce IV abx administration. THANH Musa was updated.
[2020-05-11] MEDS ORDERED: VANCOMYCIN 1GM/NS 250 ML 250 ML IV ONE (14:30)
--- NOTE | 2020-05-11 15:33 | NUR ---
Nutrition Screen Note RD Recommendation for Physician: -Continue current diet Plan of Care: RD following, monitoring for tolerance and adequacy Nutrition reason for involvement: follow up Primary Diagnose(s): cellulitis PMH: colon cancer Ht: 64 in Wt: 133 lb BMI: 22.8 kg/m2 IBW:[address] Assessment: 05/11: Follow up. Diet advanced to Cardiac, pt tolerating with fair intake- avg. 50-75% of meals and drinking Ensure. No GI distress, LBM today. Hip wound/surgical incision noted. Plan for discharge with HH and wound vac. Labs and meds reviewed. Chart reviewed. Will continue to monitor. (05/04/20) Chart reviewed. Labs and meds reviewed. Pt is a 69 year old female admitted with cellulitis. Pt was not available at time of visit and was at procedure for incision and drainage of left hip. Pt reports unsure weight loss and decreased appetite prior to admission per chart. Pt has a weight of 230 lbs in chart in March 2020 and currently has a weight of 133 lbs. Suspect possible weight error. Unable to verify weight status with pt at this time. Will continue to monitor. Current Diet: Cardiac Malnutrition Evaluation (05/04/20) The patient does not meet criteria for a specified degree of malnutrition at this time. Unable to speak to pt. Will re-evaluate at follow-up as appropriate. Diet Education Needs Assessment: Diet education not indicated at this time. Nutrition Care Level: low Signed: Deanna Diaz RD, LD, [facility]
[2020-05-11] MEDS ORDERED: RIFAMPIN300 MG PO (15:34)
[2020-05-11] MEDS ORDERED: VANCOMYCIN1.25 GM/12 IV (15:34)
--- NOTE | 2020-05-11 17:56 | NUR ---
PT WENT HOME IN SAFE CONDITION WITH HER
--- NOTE | 2020-05-11 18:19 | Discharge Summary ---
PRIMARY CARE PHYSICIAN: Dr. Jose Aguilar. CONSULTING PHYSICIANS: 1. Dr. Slime Morgan with Infectious Disease. 2. Dr. Elizabeth Maynard with orthopedics. CHIEF COMPLAINT: Pain in the left hip and recent total hip arthroplasty for fracture after fall. HISTORY OF PRESENT ILLNESS: This is a 69-year-old female with recent left total hip arthroplasty, presenting with pain, swelling, and erythema at the surgical site of the left hip. PAST MEDICAL HISTORY: Stage IV colon cancer. Last chemotherapy on 03/23/2020, unsure when next due. PAST SURGICAL HISTORY: Left hip BERNARD, cataracts, hysterectomy, partial colectomy (pelvic mass). FAMILY HISTORY: Noncontributory. SOCIAL HISTORY: Former smoker. No use of tobacco or illicit drugs. ALLERGIES: NO KNOWN ALLERGIES. ADMITTING DIAGNOSES: 1. Cellulitis/abscess, left hip. 2. Stage IV colon cancer. 3. Constipation. 4. Hypothyroidism. DISCHARGE DIAGNOSES: 1. Cellulitis/abscess of the left hip with methicillin-resistant Staphylococcus aureus, status post left hip intertrochanteric hip fracture, now status post left hip incision and drainage on 05/04/2020, and incision and drainage on 05/08/2020, by Dr. Maynard, ambulatory dysfunction. 2. Stage IV colon cancer. 3. 4. Pancytopenia with anemia due to acute blood loss and thrombocytopenia. 5. Acute hypokalemia. 6. Hypothyroidism. HOSPITAL COURSE: On admission; WBCs 4.51, hemoglobin 10.8, hematocrit 34.7, and platelets 117. Chemistry generally within normal limits with potassium 3.4. These labs were on 05/02/2020. Urinalysis was positive with trace leukocyte esterase. Stool for occult blood on 05/11, was negative. Vancomycin trough on 05/05, was 21. Coronavirus PCR on 05/02, was negative. On 05/04, wound culture positive for MRSA. CT of the hip on 05/02, showed left lateral thigh subcutaneous fluid collection with surrounding inflammatory changes, may represent developing abscess, status post internal ORIF for left proximal femur fracture with intact hardware and unremarkable alignment. Hip x-ray on 05/02, shows status post ORIF of the left femoral neck fracture. Hardware appears intact. Alignment appears unremarkable. Soft tissue edema in the lateral thigh, better characterized on same day CT. In the first left hip I and D on 05/04, vancomycin powder was used in the proximal portion of the cavity. Hardware could not be taken out. Packing was changed daily from that point. The patient has underlying history of stage IV colon cancer and thus, infectious disease was consulted. Again, pancytopenia was noted with low WBCs. Vancomycin and Zosyn IV were used during her stay. Yesterday, the patient's hemoglobin was 8 with a downward trend. Fecal occult blood test was negative. Platelets were 113,000, and Pepcid was switched to Protonix on 05/09. Potassium level persistently low at 3.1, 3.2, 3.5, 3.6, 3.2, 3.6, 3.4. The patient had been given repletion of not only magnesium, but the potassium orally. The patient received 40 mEq of potassium chloride yesterday and 20 mEq p.o. daily was started. TSH had been low at 0.217 on 05/05 and levothyroxine was decreased from 88 to 75 mcg daily. Overall plan is for the patient to discharge home with home health today. She will require 6 weeks of IV [facility]com[facility] obtained from [facility]. Vancomycin trough levels will be obtained twice weekly on Monday and . She will continue the use of her wound VAC, which was placed today. She is currently receiving her last dose of vancomycin during the encounter. [facility] will see the patient on 05/12 for reinforcement of IV antibiotic teaching with the and the patient. The patient plans for and neighbor to help at home. Gertrudis, Liaison with [facility], did receive clinical and authorization was obtained today. Continue cardiac diet. Activity level as tolerated. The patient will follow up with her PCP, Dr. Aguilar in 1 to 2 weeks. Follow up with Dr. Morgan and Dr. Maynard as directed. Continue IV vancomycin as prescribed by Infectious Disease for 6 weeks. Today, on the day of discharge, vital signs; temperature 98.4, pulse 72, blood pressure 112/61, respirations 18, and oxygen saturation 96% on room air. She now has a portable wound VAC, that was placed today, which appears to be functioning without difficulty. Labs on the day of discharge; sodium 146, potassium 3.8, chloride 111, CO2 of 25, BUN 6, creatinine 0.62, glucose 114. CBC from 05/10; WBCs 2.91, hemoglobin 8, hematocrit 26.7, and platelets 113. Dictated by Lencho Alegre, CONTROLLER MECHANIC MD BUCKY MorenoP/MODL /[id number]
--- NOTE | 2020-05-12 03:25 | Progress Note ---
DATE: 05/11/2020 SUBJECTIVE: Ms. Valdez is doing well. No new complaints. REVIEW OF SYSTEMS: Otherwise unremarkable. PHYSICAL EXAMINATION: GENERAL: She is currently alert and oriented. VITAL SIGNS: Stable, currently afebrile. HEENT: She is not icteric. NECK: Supple. CHEST: Clear. HEART: S1, S2. ABDOMEN: Soft. Bowel sounds present. EXTREMITIES: Edema. SKIN: There is no rash. IMPRESSION: Hip wound infection status post total hip replacement. Discharge home with vancomycin for 6 weeks. Follow up CBC with chem panel and vancomycin trough. MD NANCI Diaz/MODL /[id number]
== END 2020-05-11 17:56 | disposition home health service (06) | DRG 856 ==
LOC: ER 12:43 → ERHOLD 15:44 → MED/SURG 17:32 → MED/SURG2 17:53
PROVIDERS: ADMIT Internal Medicine; ATTEND Internal Medicine
PROC: 0J9M0ZZ Drainage of Left Upper Leg Subcutaneous Tissue and Fascia, Open Approach (ICD-10-PCS; principal; 2020-05-04 12:00)
PROC: 0J9M0ZZ Drainage of Left Upper Leg Subcutaneous Tissue and Fascia, Open Approach (ICD-10-PCS; 2020-05-08)
DX: T81.42XA Infection following a procedure, deep incisional surgical site, initial encounter (principal); D61.810 Antineoplastic chemotherapy induced pancytopenia; C18.9 Malignant neoplasm of colon, unspecified; L02.416 Cutaneous abscess of left lower limb; L03.116 Cellulitis of left lower limb; L76.34 Postprocedural seroma of skin and subcutaneous tissue following other procedure; D62 Acute posthemorrhagic anemia; Z87.891 Personal history of nicotine dependence; Z96.642 Presence of left artificial hip joint; Z90.49 Acquired absence of other specified parts of digestive tract; E03.9 Hypothyroidism, unspecified; K59.00 Constipation, unspecified; B95.62 Methicillin resistant Staphylococcus aureus infection as the cause of diseases classified elsewhere; Z11.59 Encounter for screening for other viral diseases; E87.6 Hypokalemia; R53.81 Other malaise; D69.6 Thrombocytopenia, unspecified; T45.1X5A Adverse effect of antineoplastic and immunosuppressive drugs, initial encounter
CPT/HCPCS: 36415; 80048; 80053; 80061; 80202; 81001; 82270; 83036; 83735; 84100; 84443; 85025; 85610; 85651; 85730; 86850; 86900; 87040; 87071; 87075; 87086; 87186; 87205; 88304; 97139; 97605; 99284; J1170; J1642; J1650; J2001; J2270; J2405; J2543; J3010; J3370; J7030; J7050; Q9967; U0002

== ENCOUNTER 2020-05-26 05:34 | Emergency (ER) | payer MEDICARE, OTHER ==
[~2020-05-26] VITALS: Ht 315 cm; Wt 60.3 kg
[~2020-05-26 05:34] MED LIST changes: +KLOR-CON M2020 MEQ PO; +RIFAMPIN300 MG PO; +SYNTHROID75 MCG PO; +VANCOMYCIN1.25 GM/12 IV
[2020-05-26 06:02] LABS: BASOPHILS % 0.5 % (0.0-1.0); EOSINOPHILS # (AUTO) 0.1 (0.0-0.4); EOSINOPHILS % 2.4 % (0.0-6.0); HEMATOCRIT 35.7 % (34.2-44.1); HEMOGLOBIN 11.5 g/dL (12.0-16.0); LYMPHOCYTES # (AUTO) 1.4 (1.0-3.2); LYMPHOCYTES % 33.9 % (18.0-39.1); MEAN CORPUSCULAR HEMOGLOBIN 31.8 pg (28-32); MEAN CORPUSCULAR HGB CONC 32.2 g/dL (31-35); MEAN CORPUSCULAR VOLUME 98.6 fL (81-99); MONOCYTES # (AUTO) 0.3 (0.2-0.8); MONOCYTES % 8.1 % (4.4-11.3); NEUTROPHILS # (AUTO) 2.3 (2.1-6.9); NEUTROPHILS % 54.9 % (38.7-80.0); PLATELET COUNT 120 x10e3/uL (140-360); RED BLOOD COUNT 3.62 x10e6/uL (3.6-5.1); RED CELL DISTRIBUTION WIDTH 15.5 % (11.7-14.4)
--- NOTE | 2020-05-26 06:04 | NUR ---
PATIENT ARRIVED WITH NARANJO CATHETER IN PLACE. PT C/O PAIN AND DYSURIA. URINE AND STOOL NOTED IN PATIENT'S DIAPER. COPIOUS AMOUNTS OF SEDIMENT NOTED IN TUBING. NARANJO REMOVED, CATHETER TIP INTACT BUT DISCOLORED AND CLOGGED. NEW 16FR NARANJO CATHETER PLACED WITHOUT COMPLICATION, IMMEDIATE RETURN OF 200 mL CLOUDY URINE IN DRAINAGE BAG. PT STATES SHE FEELS "RELIEF ALREADY."
--- OUTSIDE RECORDS SUMMARY | 2020-05-26 06:08 | XMS REPORT | Clinical Summary ---
Author Author [facility] Organization [facility] Address Unknown Phone Unavailable Care Team Providers Care Rope Coiling Machine Operator Name Role Phone PCP Unavailable Allergies No [...] 20 yrs) 08/09/2016 Results Not on fileafter 05/26/2019
--- OUTSIDE RECORDS SUMMARY | 2020-05-26 06:08 | XMS REPORT | Continuity of Care Document ---
Author Author Johann meevlCARLA [employer] Address Unknown Phone Unavailable Care Team Providers Care Crop Picker Name Role Phone [employer] Unavailable Un available Problems Problem Status Onset Date Classification Date Reported Comments Source COLON CA Active 11/29/2019 [facility] UNK Active 0 09/16/2019 [facility] C18.9 MALIGNANT NEOPLASM OF COLON, UNSPE Active 08/19/2019 [facility] OTHER NONINFLAMMATORY DISORDERS OF OVARY Active 07/25/2019 [facility] RICARDO, FERREIRA Active 07/25/2019 [facility] 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 shoulder [facility] Iron deficiency anemia (disorder) Active Problem [facility] Malignant tumor of colon (disorder) Active Problem [facility] OTH NONINFLAMMATORY DISORD OF OVARY, FAL Active [facility] URINARY TRACT INFECTION, SITE NOT SPECIF Active [facility] UNSPECIFIED ABDOMINAL PAIN Act eileen [facility] Medications Medication Details Route Status Patient Instructions Ordering Provider Order Date Source Acetaminophen 300 MG / Codeine Phosphate 30 MG Oral Tablet [Tylenol with Codeine #3] 1 tab, PO, Q6H, PRN Pain, X 7 day, # 28 tab, 0 Refill(s) Active 09/18/2019 [facility] ondansetron (ANES) Route: IV, Drug form: INJ, ONCE, Stop date: 09/18/19 14:17:00 MEDICAL TECHNOLOGIST PRN Inactive 09/18/2019 [facility] Calcium Chloride 0.0014 MEQ/ML / Potassi um Chloride 0.004 MEQ/ML / Sodium Chloride 0.103 MEQ/ML / Sodium Lactate 0.028 MEQ/ML Injectable Solution 1,000 mL, Rate: 125 ml/hr, Infuse over: 8 hr, Route: IV, Dosing Weight 86.364 kg, Total Volume: 1,000, Start date: 09/18/19 14:10:00 MEDICAL TECHNOLOGIST PRN, Duration: 30 day, Stop date: 10/18/19 14:09:00 MEDICAL TECHNOLOGIST PRN, 2, m2 Inactive 09/18/2019 [facility] Ketorolac 30 mg, Route: IVP, O NCE, Dosing Weight 86.364, kg, Start date: 09/18/19 14:10:00 MEDICAL TECHNOLOGIST PRN, Stop date: 09/18/19 14:10:00 MEDICAL TECHNOLOGIST PRN Inactive 09/18/2019 [facility] Acetaminophen 1,000 mg, Route: IVPB, Drug form: INJ, ONCE, Dosing Weight 86.364, kg, PRN Pain Score 1-3, Start date: 09/18/19 14:10:00 MEDICAL TECHNOLOGIST PRN Inactive 09/18/2019 [facility] Morphine 2 mg, Route: IVP, Q5M in, Dosing Weight 86.364, kg, PRN Pain Score 4-6, Start date: 09/18/19 14:10:00 MEDICAL TECHNOLOGIST PRN, Duration: 5 doses or times, Stop date: Limited # of times Inactive 09/18/2019 [facility] Fentanyl 25 microgram, Route: IVP, Q5Min, Dosing Weight 86.364, kg, PRN Pain Score 4-6, Priority: Routine, Start date: 09/18/19 14:10:00 MEDICAL TECHNOLOGIST PRN, Duration: 4 doses or times, Stop date: Limited # of times Inactive 09/18/2019 [facility] Hydromorphone 0.5 mg, Route: I NURSING INFORMATION SYSTEMS COORDINATOR, Q5Min, Dosing Weight 86.364, kg, PRN Pain Score 7-10, Start date: 09/18/19 14:10:00 MEDICAL TECHNOLOGIST PRN, Duration: 4 doses or times, Stop date: Limited # of times Inactive 09/18/2019 [facility] Flumazenil 0.2 mg, Route: IVP, PRN, Dosing Weight 86.364, kg, PRN Benzodiazepine Reversal, Initial dose, Start date: 09/18/19 14:10:00 MEDICAL TECHNOLOGIST PRN, Duration: 30 day, Stop date: 10/18/19 14:09:00 MEDICAL TECHNOLOGIST PRN Inactive 09/18/2019 [facility] Naloxone 0.4 mg, Route: IVP, Q 2MIN, Dosing Weight 86.364, kg, PRN Narcotic Reversal, Start date: 09/18/19 14:10:00 MEDICAL TECHNOLOGIST PRN, Duration: 8 doses or times, Stop date: Limited # of times Inactive 09/18/2019 [facility] Diphenhydramine 12.5 mg, Route : IVP, Drug form: INJ, Q6H, Dosing Weight 86.364, kg, PRN Itching, Start date: 09/18/19 14:10:00 MEDICAL TECHNOLOGIST PRN, Duration: 30 day, Stop date: 10/18/19 14:09:00 MEDICAL TECHNOLOGIST PRN Inactive 09/18/2019 [facility] Meperidine 12.5 mg, Route: IVP , Q30Min, Dosing Weight 86.364, kg, PRN Other -See Comment, For shivering, Start date: 09/18/19 14:10:00 MEDICAL TECHNOLOGIST PRN, Duration: 2 doses or times, Stop date: Limited # of times Inactive 09/18/2019 [facility] Ondansetron 4 mg, Route: IVP, ONCE, Dosing Weight 86.364, kg, PRN Nausea & Vomiting, Start date: 09/18/19 14:10:00 MEDICAL TECHNOLOGIST PRN Inactive 09/18/2019 [facility] Promethazine 6.25 mg, Route: I VPB, ONCE, Dosing Weight 86.364, kg, PRN Nausea & Vomiting, Start date: 09/18/19 14:10:00 MEDICAL TECHNOLOGIST PRN Inactive 09/18/2019 [facility] 72 HR Scopolamine 0.0139 MG/HR Transdermal Patch 1 patch, Route: TOP, Drug Form: ERFILM, Dosing Weight 86.364, kg, ONCE, Apply behind ear. Avoid use in elderly., Start date: 09/18/19 14:10:00 MEDICAL TECHNOLOGIST PRN, Stop date: 09/18/19 14:10:00 MEDICAL TECHNOLOGIST PRN Inactive 09/18/2019 [facility] propofol (ANES) Route: IV, Vinod g form: INJ, ONCE, Stop date: 09/18/19 14:07:00 MEDICAL TECHNOLOGIST PRN Inactive 09/18/2019 [facility] lidocaine (ANES) Route: IV, Dr ug form: INJ, ONCE, Stop date: 09/18/19 14:07:00 MEDICAL TECHNOLOGIST PRN Inactive 09/18/2019 [facility] fentaNYL (ANES) Route: IV, Vinod g form: INJ, ONCE, Stop date: 09/18/19 14:07:00 MEDICAL TECHNOLOGIST PRN Inactive 09/18/2019 [facility] ceFAZolin (ANES) Route: IV, Dr ug form: INJ, ONCE, Stop date: 09/18/19 14:07:00 MEDICAL TECHNOLOGIST PRN Inactive 09/18/2019 [facility] norepinephrine (ANES) Route: I V, Drug form: INJ, ONCE, Stop date: 09/18/19 14:07:00 MEDICAL TECHNOLOGIST PRN Inactive 09/18/2019 [facility] midazolam (ANES) Route: IV, Dr ug form: SOLN, ONCE, Stop date: 09/18/19 14:07:00 MEDICAL TECHNOLOGIST PRN Inactive 09/18/2019 [facility] Calcium Chloride 0.0014 MEQ/ML / Potassi um Chloride 0.004 MEQ/ML / Sodium Chloride 0.103 MEQ/ML / Sodium Lactate 0.028 MEQ/ML Injectable Solution 1,000 mL, Rate: 75 ml/hr, Infuse over: 1 3.3 hr, Route: IV, Dosing Weight 86.364 kg, Total Volume: 1,000, Start date: 09/18/19 13:23:00 MEDICAL TECHNOLOGIST PRN, Duration: 30 day, Stop date: 10/18/19 13:22:00 MEDICAL TECHNOLOGIST PRN, 2, m2 Inactive 09/18/2019 [facility] Lactated Ringers Injection IV (ANES) 1000 mL Route: IV, Total Volume: 1,000, Start date: 09/18/19 13:12:00 MEDICAL TECHNOLOGIST PRN, Stop date: 09/18/19 14:12:00 MEDICAL TECHNOLOGIST PRN Inactive 09/18/2019 [facility] cephalexin 500 mg oral capsule 500 mg = 1 cap, PO, Q12H, 0 Refill(s) Active 09/17/2019 [facility] Acetaminophen 325 MG / Hydrocodone Vy trate 5 MG Oral Tablet 1 tab, PO, Q6H, 0 Refill(s) Active 09/17/2019 [facility] Acetaminophen 1,000 mg, Route: PO, Drug form: TAB, ONCE, Dosing Weight 83.864, kg, PRN Pain Score 1-3, Start date: 08/20/19 15:10:00 MEDICAL TECHNOLOGIST PRN Inactive 08/20/2019 [facility] Fentanyl 25 microgram, Route: IVP, Q5Min, Dosing Weight 83.864, kg, PRN Pain Score 4-6, Priority: Routine, Start date: 08/20/19 15:10:00 MEDICAL TECHNOLOGIST PRN, Duration: 4 doses or times, Stop date: Limited # of times Inactive 08/20/2019 [facility] Hydromorphone 0.5 mg, Route: I NURSING INFORMATION SYSTEMS COORDINATOR, Q5Min, Dosing Weight 83.864, kg, PRN Pain Score 7-10, Start date: 08/20/19 15:10:00 MEDICAL TECHNOLOGIST PRN, Duration: 4 doses or times, Stop date: Limited # of times Inactive 08/20/2019 [facility] Flumazenil 0.2 mg, Route: IVP, PRN, Dosing Weight 83.864, kg, PRN Benzodiazepine Reversal, Initial dose, Start date: 08/20/19 15:10:00 MEDICAL TECHNOLOGIST PRN, Duration: 30 day, Stop date: 09/19/19 15:09:00 MEDICAL TECHNOLOGIST PRN Inactive 08/20/2019 [facility] Naloxone 0.4 mg, Route: IVP, Q 2MIN, Dosing Weight 83.864, kg, PRN Narcotic Reversal, Start date: 08/20/19 15:10:00 MEDICAL TECHNOLOGIST PRN, Duration: 8 doses or times, Stop date: Limited # of times Inactive 08/20/2019 [facility] Ondansetron 4 mg, Route: IVP, ONCE, Dosing Weight 83.864, kg, PRN Nausea & Vomiting, Start date: 08/20/19 15:10:00 MEDICAL TECHNOLOGIST PRN Inactive 08/20/2019 [facility] acetaminophen (ANES) Route: IV , Drug form: INJ, ONCE, Stop date: 08/20/19 15:04:00 MEDICAL TECHNOLOGIST PRN Inactive 08/20/2019 [facility] ondansetron (ANES) Route: IV, Drug form: INJ, ONCE, Stop date: 08/20/19 15:03:00 MEDICAL TECHNOLOGIST PRN Inactive 08/20/2019 [facility] dexamethasone (ANES) Route: IV , Drug form: INJ, ONCE, Stop date: 08/20/19 15:03:00 MEDICAL TECHNOLOGIST PRN Inactive 08/20/2019 [facility] midazolam (ANES) Route: IV, Dr ug form: SOLN, ONCE, Stop date: 08/20/19 14:58:00 MEDICAL TECHNOLOGIST PRN Inactive 08/20/2019 [facility] fentaNYL (ANES) Route: IV, Vinod g form: INJ, ONCE, Stop date: 08/20/19 14:58:00 MEDICAL TECHNOLOGIST PRN Inactive 08/20/2019 [facility] propofol (ANES) Route: IV, Vinod g form: INJ, ONCE, Stop date: 08/20/19 14:58:00 MEDICAL TECHNOLOGIST PRN Inactive 08/20/2019 [facility] lidocaine (ANES) Route: IV, Dr ug form: INJ, ONCE, Stop date: 08/20/19 14:58:00 MEDICAL TECHNOLOGIST PRN Inactive 08/20/2019 [facility] ceFAZolin (ANES) Route: IV, Dr ug form: INJ, ONCE, Stop date: 08/20/19 14:58:00 MEDICAL TECHNOLOGIST PRN Inactive 08/20/2019 [facility] Lactated Ringers Injection IV (ANES) 1000 mL Route: IV, Total Volume: 1,000, Start date: 08/20/19 14:09:00 MEDICAL TECHNOLOGIST PRN, Stop date: 08/20/19 15:09:00 MEDICAL TECHNOLOGIST PRN Inactive 08/20/2019 [facility] Calcium Chloride 0.0014 MEQ/ML / Potassi um Chloride 0.004 MEQ/ML / Sodium Chloride 0.103 MEQ/ML / Sodium Lactate 0.028 MEQ/ML Injectable Solution 1,000 mL, Rate: 75 ml/hr, Infuse over: 1 3.3 hr, Route: IV, Dosing Weight 83.864 kg, Total Volume: 1,000, Start date: 08/20/19 12:36:00 MEDICAL TECHNOLOGIST PRN, Duration: 30 day, Stop date: 09/19/19 12:35:00 MEDICAL TECHNOLOGIST PRN, 1.97, m2 Inactive 08/20/2019 [facility] Vitamin B-12 1000 mcg/mL injectable solution IM, Daily, 0 Refill(s) Active 08/19/2019 [facility] Sodium Chloride 0.9% (titrate) 250 mL 250 mL, Rate: To prime line and flush remaining blood products., Dosing Weight 80.909, kg, Route: IV, Total Volume: 250, Start Date: 08/01/19 12:54:00 MEDICAL TECHNOLOGIST PRN, Duration: 1 day, Stop date: 08/02/19 12:53:00 MEDICAL TECHNOLOGIST PRN, Replace Every: 24 hr, 0 No Longer Active 08/01/2019 [facility] Dulcolax Laxative Notes: (Same As: Dulcolax, Bisco-Lax) No Longer Active 08/01/2019 [facility] Celebrex Notes: NSAID. Please check indication. Not for seizure. (Same As: CeleBREX) N o Longer Active 07/31/2019 [facility] Tylenol Notes: Max acetaminoph en 4000 mg/day (4 gm/day). (Same as: Tylenol Extra Strength) No Longer Active 07/31/2019 [facility] Lovenox Notes: (Same as: Loven ox) No Longer Active 07/31/2019 [facility] gabapentin Notes: (Same as: Ne urontin) No Longer Active 07/31/2019 [facility] Morphine Notes: (Same as:MORPh ine Sulfate) No Longer Active 07/31/2019 [facility] heparin Notes: porcine heparin Inactive 07/31/2019 [facility] Tramadol Notes: Not to exceed 400mg/day. (Same As: Ultram) No Longer Active 07/31/2019 [facility] Docusate Sodium 50 MG / sennosides, HALFWAY 8.6 MG Oral Tablet Notes: (Same as Senokot-S) Equiv. to Kati-Colace. No Longer Active 07/30/2019 [facility] Hydralazine 10 mg, Route: IVP, Q20Min, Dosing Weight 80.909, kg, PRN Elevated BP, Start date: 07/30/19 15:21:00 MEDICAL TECHNOLOGIST PRN, Duration: 2 doses or times, Stop date: Limited # of times Inactive 07/30/2019 [facility] Labetalol 10 mg, Route: IVP, Q 5Min, Dosing Weight 80.909, kg, PRN Elevated BP, Start date: 07/30/19 15:21:00 MEDICAL TECHNOLOGIST PRN, Duration: 5 doses or times, Stop date: Limited # of times Inactive 07/30/2019 [facility] Metoprolol 1 mg, Route: IVP, Q 5Min, Dosing Weight 80.909, kg, PRN Other -See Comment, Start date: 07/30/19 15:21:00 MEDICAL TECHNOLOGIST PRN, Duration: 5 doses or times, Stop date: Limited # of times Inactive 07/30/2019 [facility] Ketorolac 30 mg, Route: IVP, O NCE, Dosing Weight 80.909, kg, Start date: 07/30/19 15:21:00 MEDICAL TECHNOLOGIST PRN, Stop date: 07/30/19 15:21:00 MEDICAL TECHNOLOGIST PRN Inactive 07/30/2019 [facility] Acetaminophen 1,000 mg, Route: IVPB, Drug form: INJ, ONCE, Dosing Weight 80.909, kg, PRN Pain Score 1-3, Start date: 07/30/19 15:21:00 MEDICAL TECHNOLOGIST PRN Inactive 07/30/2019 [facility] Oxycodone Hydrochloride 5 MG Oral Tablet 5 mg, Route: PO, Drug form: TAB, Q4H, Dosing Weight 80.909, kg, PRN Pain Score 4-6, Start date: 07/30/19 15:21:00 MEDICAL TECHNOLOGIST PRN, Duration: 30 day, Stop date: 08/29/19 15:20:00 MEDICAL TECHNOLOGIST PRN Inactive 07/30/2019 [facility] Morphine 2 mg, Route: IVP, Q5M in, Dosing Weight 80.909, kg, PRN Pain Score 4-6, Start date: 07/30/19 15:21:00 MEDICAL TECHNOLOGIST PRN, Duration: 5 doses or times, Stop date: Limited # of times Inactive 07/30/2019 [facility] Fentanyl 25 microgram, Route: IVP, Q5Min, Dosing Weight 80.909, kg, PRN Pain Score 4-6, Priority: Routine, Start date: 07/30/19 15:21:00 MEDICAL TECHNOLOGIST PRN, Duration: 4 doses or times, Stop date: Limited # of times Inactive 07/30/2019 [facility] Hydromorphone 0.5 mg, Route: I NURSING INFORMATION SYSTEMS COORDINATOR, Q5Min, Dosing Weight 80.909, kg, PRN Pain Score 7-10, Start date: 07/30/19 15:21:00 MEDICAL TECHNOLOGIST PRN, Duration: 4 doses or times, Stop date: Limited # of times Inactive 07/30/2019 [facility] Flumazenil 0.2 mg, Route: IVP, PRN, Dosing Weight 80.909, kg, PRN Benzodiazepine Reversal, Initial dose, Start date: 07/30/19 15:21:00 MEDICAL TECHNOLOGIST PRN, Duration: 30 day, Stop date: 08/29/19 15:20:00 MEDICAL TECHNOLOGIST PRN Inactive 07/30/2019 [facility] Naloxone 0.4 mg, Route: IVP, Q 2MIN, Dosing Weight 80.909, kg, PRN Narcotic Reversal, Start date: 07/30/19 15:21:00 MEDICAL TECHNOLOGIST PRN, Duration: 8 doses or times, Stop date: Limited # of times Inactive 07/30/2019 [facility] Ondansetron 4 mg, Route: IVP, ONCE, Dosing Weight 80.909, kg, PRN Nausea & Vomiting, Start date: 07/30/19 15:21:00 MEDICAL TECHNOLOGIST PRN Inactive 07/30/2019 [facility] D5LR 1,000 mL 1,000 mL, Rate: 40 ml/hr, Infuse over: 25 hr, Route: IV, Dosing Weight 80.909 kg, Total Volume: 1,000, Start date: 07/30/19 14:57:00 MEDICAL TECHNOLOGIST PRN, Stop date: 07/31/19 6:00:00 MEDICAL TECHNOLOGIST PRN, 1.92, m2, 0 No Longer Active 07/30/2019 [facility] Zofran ODT Notes: (Same as: Scarlet elliott ODT) No Longer Active 07/30/2019 [facility] glycopyrrolate (ANES) Route: I V, Drug form: INJ, ONCE, Stop date: 07/30/19 14:50:00 MEDICAL TECHNOLOGIST PRN Inactive 07/30/2019 [facility] neostigmine (ANES) Route: IV, Drug form: INJ, ONCE, Stop date: 07/30/19 14:50:00 MEDICAL TECHNOLOGIST PRN Inactive 07/30/2019 [facility] sugammadex (ANES) Route: IV, D rug form: SOLN, ONCE, Stop date: 07/30/19 14:50:00 MEDICAL TECHNOLOGIST PRN Inactive 07/30/2019 [facility] ceFAZolin (ANES) Route: IV, Dr ug form: INJ, ONCE, Stop date: 07/30/19 14:27:00 MEDICAL TECHNOLOGIST PRN Inactive 07/30/2019 [facility] phenylephrine (ANES) Route: IV , Drug form: INJ, ONCE, Stop date: 07/30/19 14:27:00 MEDICAL TECHNOLOGIST PRN Inactive 07/30/2019 [facility] propofol (ANES) Route: IV, Vinod g form: INJ, ONCE, Stop date: 07/30/19 11:30:00 MEDICAL TECHNOLOGIST PRN Inactive 07/30/2019 [facility] succinylcholine (ANES) Route: IV, Drug form: INJ, ONCE, Stop date: 07/30/19 11:30:00 MEDICAL TECHNOLOGIST PRN Inactive 07/30/2019 [facility] dexamethasone (ANES) Route: IV , Drug form: INJ, ONCE, Stop date: 07/30/19 11:30:00 MEDICAL TECHNOLOGIST PRN Inactive 07/30/2019 [facility] ondansetron (ANES) Route: IV, Drug form: INJ, ONCE, Stop date: 07/30/19 11:30:00 MEDICAL TECHNOLOGIST PRN Inactive 07/30/2019 [facility] midazolam (ANES) Route: IV, Dr ug form: SOLN, ONCE, Stop date: 07/30/19 11:29:00 MEDICAL TECHNOLOGIST PRN Inactive 07/30/2019 [facility] famotidine (ANES) Route: IV, D rug form: INJ, ONCE, Stop date: 07/30/19 11:29:00 MEDICAL TECHNOLOGIST PRN Inactive 07/30/2019 [facility] lidocaine (ANES) Route: IV, Dr ug form: INJ, ONCE, Stop date: 07/30/19 11:29:00 MEDICAL TECHNOLOGIST PRN Inactive 07/30/2019 [facility] rocuronium (ANES) Route: IV, D rug form: INJ, ONCE, Stop date: 07/30/19 11:29:00 MEDICAL TECHNOLOGIST PRN Inactive 07/30/2019 [facility] albumin human (ANES) 25 gm Rou te: IV, Drug form: INJ, Start date: 07/30/19 11:14:00 MEDICAL TECHNOLOGIST PRN, Stop date: 07/30/19 12:14:00 MEDICAL TECHNOLOGIST PRN Inactive 07/30/2019 [facility] ceFAZolin (ANES) 1000 mg Route : IV, Drug form: INJ, Start date: 07/30/19 10:15:00 MEDICAL TECHNOLOGIST PRN, Stop date: 07/30/19 11:15:00 MEDICAL TECHNOLOGIST PRN Inactive 07/30/2019 [facility] metroNIDAZOLE (ANES) 5 mg Rout e: IV, Drug form: INJ, Start date: 07/30/19 10:15:00 MEDICAL TECHNOLOGIST PRN, Stop date: 07/30/19 11:15:00 MEDICAL TECHNOLOGIST PRN Inactive 07/30/2019 [facility] Sodium Chloride 0.9% IV (ANES) 100 mL + ketAMINE (ANES) 200 mg Route: IV, Drug form: INJ, Start date: 09/29/18 10:15:00 MEDICAL TECHNOLOGIST PRN, Stop date: 07/30/19 11:15:00 MEDICAL TECHNOLOGIST PRN Inactive 07/30/2019 [facility] Sodium Chloride 0.9% IV (ANES) 50 mL + d exmedetomidine (ANES) 200 microgram Route: IV, Drug form: INJ, Start date: 09/29/18 10:10:00 MEDICAL TECHNOLOGIST PRN, Stop date: 07/30/19 11:10:00 MEDICAL TECHNOLOGIST PRN Inactive 07/30/2019 [facility] Sodium Chloride 0.9% IV (ANES) 1000 mL Route: IV, Total Volume: 1,000, Start date: 07/30/19 10:00:00 MEDICAL TECHNOLOGIST PRN, Stop date: 07/30/19 11:00:00 MEDICAL TECHNOLOGIST PRN Inactive 07/30/2019 [facility] Lactated Ringers Injection IV (ANES) 1000 mL Route: IV, Total Volume: 1,000, Start date: 07/30/19 9:52:00 MEDICAL TECHNOLOGIST PRN, Stop date: 07/30/19 10:52:00 MEDICAL TECHNOLOGIST PRN Inactive 07/30/2019 [facility] Calcium Chloride 0.0014 MEQ/ML / Potassi um Chloride 0.004 MEQ/ML / Sodium Chloride 0.103 MEQ/ML / Sodium Lactate 0.028 MEQ/ML Injectable Solution 1,000 mL, Rate: 75 ml/hr, Infuse over: 1 3.3 hr, Route: IV, Dosing Weight 80.909 kg, Total Volume: 1,000, Start date: 07/30/19 9:09:00 MEDICAL TECHNOLOGIST PRN, Duration: 30 day, Stop date: 08/29/19 9:08:00 MEDICAL TECHNOLOGIST PRN, 1.92, m2 Inactive 07/30/2019 [facility] Vantin 200 mg oral tablet 200 mg = 1 tab, PO, Q12H, X 7 day, # 14 tab, 0 Refill(s), Pharmacy: [facility] [id number] Active 07/29/2019 [facility] Ondansetron 4 MG Oral Tablet [Zofran] 4 mg = 1 tab, PO, Q6H, PRN Nausea/Vomiting, # 30 tab, 0 Refill(s), Pharmacy: [facility] [id number] Active 07/29/2019 [facility] Sodium Chloride 0.9% IV 1,000 mL 1,000 mL, Rate: 75 ml/hr, Infuse over: 13.3 hr, Route: IV, Dosing Weight 80.909 kg, Total Volume: 1,000, Start date: 07/29/19 8:58:00 MEDICAL TECHNOLOGIST PRN, Duration: 30 day, Stop date: 08/28/19 8:57:00 MEDICAL TECHNOLOGIST PRN, 1.92, m2, 0 Inactive 07/29/2019 [facility] polyethylene glycol 3350 with electrolytes Notes: (polyethylene glycol electrolyte solution 4 Liter bottle) (Same as: Golytely, Colyte) Inactive 07/28/2019 [facility] Bisacodyl Notes: (Same As: Dul colax, Correctol) (Do Not Crush) "Do Not Crush" Inactiv e 07/28/2019 [facility] Metoclopramide 10 MG Oral Tablet Notes: (Same as: Reglan) Take 30 min before meals Inactive 07/28/2019 [facility] Angelo Milk of Magnesia Note s: (Same as: Milk of Magnesia, MOM) Inactive 07/28/2019 [facility] Nystatin 100 UNT/MG Topical Powder Notes: (Same as:Mycostatin, Nilstat) For external use only. No Longer Active 07/27/2019 [facility] Omnipaque 300 injectable solution Notes: (Same as:Omnipaque 300). WASTE: F/P - Black; E - [employer] Trash Bin No Longer Active 07/27/2019 [facility] Diflucan Notes: (Same as: Difl ucan) Inactive 07/27/2019 [facility] molasses Notes: (Same as:Molas ses) Inactive 07/27/2019 [facility] Diflucan Notes: (Same as: Difl ucan) Inactive 07/27/2019 [facility] Ceftriaxone Notes: (Same As: Murtaza ocephin). Use with 100 mL NS and infuse over 30 min MEDICATION WASTE Product Size: 1000 mg Product Wasted: ___ mg No Longer Active 07/27/2019 [facility] Lovenox Notes: (Same as: Loven ox) No Longer Active 07/26/2019 [facility] Nurse pls update Allergies in adhoc Nurse pls update Allergies in adhoc, allergy??, Drug form: MISC, Route: MISC, Q10Min, 07/26/19 4:30:00 MEDICAL TECHNOLOGIST PRN, Duration: 30 day, Stop date: 08/25/19 4:20:00 MEDICAL TECHNOLOGIST PRN, 0 Inactive 07/26/2019 [facility] influenza virus vaccine, inactivated hig h-dose preservative-free intramuscular suspension Notes: (Same as: Fluzone High-Dose) For 65 years of age of older (0.5 ml IM) Shake well before use No Longer Active 07/26/2019 [facility] Nurse pls update Height/Weight/Allergies in adhoc Nurse pls update Height/Weight/Allergies in adhoc, reminder, Drug form: MISC, Route: MISC, Q15Min, 07/25/19 22:45:00 MEDICAL TECHNOLOGIST PRN, Duration: 30 day, Stop date: 08/24/19 22:30:00 MEDICAL TECHNOLOGIST PRN, 0 No Longer Active 07/26/2019 [facility] normal saline 0.9% IV 1,000 mL 1,000 mL, Rate: 100 ml/hr, Infuse over: 10 hr, Route: IV, Dosing Weight 80.909 kg, Total Volume: 1,000, Start date: 07/25/19 22:38:00 MEDICAL TECHNOLOGIST PRN, Duration: 30 day, Stop date: 08/24/19 22:37:00 MEDICAL TECHNOLOGIST PRN, 1.92, m2, 0 No Longer Active 07/26/2019 [facility] Ondansetron Notes: (Same as: Ayleen alejandra) MEDICATION WASTE Product Size: 4 mg Product Wasted: ___ mg No Longer Active 07/26/2019 [facility] Ceftriaxone Notes: (Same As: Murtaza gómez). Use with 100 mL NS and infuse over 30 min MEDICATION WASTE Product Size: 1000 mg Product Wasted: ___ mg Inactive 07/26/2019 [facility] Morphine 4 mg, Route: IVP, ONC E, Dosing Weight 80.909, kg, Priority: STAT, Start date: 07/25/19 19:26:00 MEDICAL TECHNOLOGIST PRN, Stop date: 07/25/19 19:26:00 MEDICAL TECHNOLOGIST PRN Inactive 07/26/2019 [facility] NS (Bolus) IV 500 mL, Route: I V, Drug form: INJ, ONCE, Priority: STAT, Dosing Weight 80.909 kg, Start date: 07/25/19 19:26:00 MEDICAL TECHNOLOGIST PRN, Stop date: 07/25/19 19:26:00 MEDICAL TECHNOLOGIST PRN Inactive 07/26/2019 [facility] Zofran 4 mg, Route: IVP, Drug form: INJ, ONCE, Dosing Weight 80.909, kg, Priority: STAT, Start date: 07/25/19 19:26:00 MEDICAL TECHNOLOGIST PRN, Stop date: 07/25/19 19:26:00 MEDICAL TECHNOLOGIST PRN Inactiv e 07/26/2019 [facility] Saline Flush 0.9% Notes: (Same as: BD Posiflush) No Longer Active 07/25/2019 [facility] Allergies, Adverse Reactions, Alerts Substance Category Reaction Severity Reaction type Status Date Reported Comments Source Iron Assertion Drug allergy Active [facility] Immunizations No Data Provided for This Section Results Order Name Results Value Reference Range Date Interpretation Comments Source CHEM PANEL Glucose Lvl 94 70 - 99 08/19/2019 [facility] CHEM PANEL BUN 7 7 - 22 08/19/2019 [facility] CHEM PANEL Creatinine Lvl 0.72 0.50 - 1.40 08/19/2019 [facility] CHEM PANEL Sodium Lvl 148 135 - 145 08/19/2019 [facility] CHEM PANEL Potassium Lvl 3.6 3.5 - 5.1 08/19/2019 [facility] CHEM PANEL Chloride Lvl 114 95 - 109 08/19/2019 [facility] CHEM PANEL CO2 27 24 - 32 08/19/2019 [facility] CHEM PANEL Calcium Lvl 8.8 8.5 - 10.5 08/19/2019 [facility] CHEM PANEL eGFR 86 08/19/2019 Result [...] should be multiplied by the estimated BMI. [facility] CHEM PANEL AGAP 10.6 10.0 - 20.0 08/19/2019 [facility] HEMATOLOGY WBC 4.9 3.7 - 10.4 08/19/2019 [facility] [facility] HEMATOLOGY RBC 3.61 4.20 - 5.40 08/19/2019 [facility] HEMATOLOGY Hgb 9.9 12.0 - 16.0 08/19/2019 [facility] HEMATOLOGY Hct 31.3 36.0 - 48.0 08/19/2019 [facility] HEMATOLOGY MCV 86.6 80.0 - 98.0 08/19/2019 [facility] MCH 27.4 27.0 - 31.0 08/19/2019 [facility] MCHC 31.6 32.0 - 36.0 08/19/2019 [facility] HEMATOLOGY RDW 16.9 11.5 - 14.5 08/19/2019 [facility] HEMATOLOGY Platelet 236 133 - 450 08/19/2019 [facility] HEMATOLOGY MPV 8.8 7.4 - 10.4 08/19/2019 [facility] HEMATOLOGY Segs 55.5 45.0 - 75.0 08/19/2019 [facility] HEMATOLOGY Lymphocytes 32.2 20.0 - 40.0 08/19/2019 [facility] HEMATOLOGY Monocytes 8.8 2.0 - 12.0 08/19/2019 [facility] HEMATOLOGY Eosinophils 2.9 0.0 - 4.0 08/19/2019 [facility] HEMATOLOGY Basophils 0.6 0.0 - 1.0 08/19/2019 [facility] Neutrophils # 2.8 1.5 - 8.1 08/19/2019 [facility] HEMATOLOGY Lymphocytes # 1.6 1.0 - 5.5 08/19/2019 [facility] HEMATOLOGY Monocytes # 0.4 0.0 - 0.8 08/19/2019 [facility] HEMATOLOGY Eosinophils # 0.1 0.0 - 0.5 08/19/2019 [facility] CHEM PANEL Glucose Lvl 96 70 - 99 08/02/2019 [facility] CHEM PANEL BUN 16 7 - 22 08/02/2019 [facility] CHEM PANEL Creatinine Lvl 0.76 0.50 - 1.40 08/02/2019 [facility] CHEM PANEL Sodium Lvl 144 135 - 145 08/02/2019 [facility] CHEM PANEL Potassium Lvl 3.6 3.5 - 5.1 08/02/2019 [facility] CHEM PANEL Chloride Lvl 110 95 - 109 08/02/2019 [facility] CHEM PANEL CO2 30 24 - 32 08/02/2019 [facility] CHEM PANEL AGAP 7.6 10.0 - 20.0 08/02/2019 [facility] CHEM PANEL Calcium Lvl 8.4 8.5 - 10.5 08/02/2019 [facility] CHEM PANEL B/C Ratio 21 6 - 25 08/02/2019 [facility] CHEM PANEL Total Protein 5.3 6.4 - 8.4 08/02/2019 [facility] CHEM PANEL Albumin Lvl 1.9 3.5 - 5.0 08/02/2019 [facility] CHEM PANEL Globulin 3.4 2.7 - 4.2 08/02/2019 [facility] CHEM PANEL A/G Ratio 0.6 0.7 - 1.6 08/02/2019 [facility] CHEM PANEL ALT 8 0 - 65 08/02/2019 [facility] CHEM PANEL AST 5 0 - 37 08/02/2019 [facility] CHEM PANEL Alk Phos 59 39 - 136 08/02/2019 [facility] CHEM PANEL Bili Total 0.3 0.2 - 1.3 08/02/2019 [facility] CHEM PANEL eGFR 81 08/02/2019 Result [...] should be multiplied by the estimated BMI. [facility] CHEM PANEL Phosphorus 2.4 2.5 - 4.5 08/02/2019 [facility] CHEM PANEL Magnesium Lvl 2.3 1.8 - 2.4 08/02/2019 [facility] HEMATOLOGY Hgb 8.8 12.0 - 16.0 08/02/2019 [facility] HEMATOLOGY WBC 11.0 3.7 - 10.4 08/02/2019 [facility] RBC 2.95 4.20 - 5.40 08/02/2019 [facility] Hgb 8.3 12.0 - 16.0 08/02/2019 [facility] Hct 25.6 36.0 - 48.0 08/02/2019 [facility] MCV 86.6 80.0 - 98.0 08/02/2019 [facility] MCH 28.1 27.0 - 31.0 08/02/2019 [facility] MCHC 32.5 32.0 - 36.0 08/02/2019 [facility] RDW 16.0 11.5 - 14.5 08/02/2019 [facility] Platelet 272 133 - 450 08/02/2019 [facility] MPV 8.1 7.4 - 10.4 08/02/2019 [facility] Segs 77.0 45.0 - 75.0 08/02/2019 [facility] Lymphocytes 14.8 20.0 - 40.0 08/02/2019 [facility] Monocytes 6.3 2.0 - 12.0 08/02/2019 [facility] HEMATOLOGY Eosinophils 1.7 0.0 - 4.0 08/02/2019 [facility] HEMATOLOGY Basophils 0.2 0.0 - 1.0 08/02/2019 [facility] Neutrophils # 8.5 1.5 - 8.1 08/02/2019 [facility] Lymphocytes # 1.6 1.0 - 5.5 08/02/2019 [facility] Monocytes # 0.7 0.0 - 0.8 08/02/2019 [facility] HEMATOLOGY Eosinophils # 0.2 0.0 - 0.5 08/02/2019 [facility] BLOOD BANK RESULTS RBC product Product available 8 (08/01/19 12:54 PM) 08/01/2019 Result Comment: 08/01/2019 14:48 [id number]
KLS notified Milli 08/01/2019 14:15 [facility] CHEM PANEL Glucose Lvl 136 70 - 99 08/01/2019 [facility] CHEM PANEL BUN 18 7 - 22 08/01/2019 [facility] CHEM PANEL Creatinine Lvl 1.04 0.50 - 1.40 08/01/2019 [facility] CHEM PANEL Sodium Lvl 143 135 - 145 08/01/2019 [facility] CHEM PANEL Potassium Lvl 3.5 3.5 - 5.1 08/01/2019 [facility] CHEM PANEL Chloride Lvl 111 95 - 109 08/01/2019 [facility] CHEM PANEL CO2 25 24 - 32 08/01/2019 [facility] CHEM PANEL AGAP 10.5 10.0 - 20.0 08/01/2019 [facility] CHEM PANEL Calcium Lvl 8.3 8.5 - 10.5 08/01/2019 [facility] CHEM PANEL eGFR 56 08/01/2019 Result [...] should be multiplied by the estimated BMI. [facility] HEMATOLOGY WBC 12.9 3.7 - 10.4 08/01/2019 [facility] HEMATOLOGY RBC 2.72 4.20 - 5.40 08/01/2019 [facility] HEMATOLOGY Hgb 7.5 12.0 - 16.0 08/01/2019 [facility] HEMATOLOGY Hct 23.6 36.0 - 48.0 08/01/2019 [facility] HEMATOLOGY MCV 86.7 80.0 - 98.0 08/01/2019 [facility] HEMATOLOGY MCH 27.6 27.0 - 31.0 08/01/2019 [facility] HEMATOLOGY MCHC 31.8 32.0 - 36.0 08/01/2019 [facility] HEMATOLOGY RDW 16.5 11.5 - 14.5 08/01/2019 [facility] HEMATOLOGY Platelet 267 133 - 450 08/01/2019 [facility] HEMATOLOGY MPV 8.6 7.4 - 10.4 08/01/2019 [facility] HEMATOLOGY Segs 81.2 45.0 - 75.0 08/01/2019 [facility] HEMATOLOGY Lymphocytes 12.7 20.0 - 40.0 08/01/2019 [facility] HEMATOLOGY Monocytes 5.1 2.0 - 12.0 08/01/2019 [facility] HEMATOLOGY Eosinophils 0.6 0.0 - 4.0 08/01/2019 [facility] HEMATOLOGY Basophils 0.4 0.0 - 1.0 08/01/2019 [facility] HEMATOLOGY Neutrophils # 10.5 1.5 - 8.1 08/01/2019 [facility] HEMATOLOGY Lymphocytes # 1.6 1.0 - 5.5 08/01/2019 [facility] HEMATOLOGY Monocytes # 0.7 0.0 - 0.8 08/01/2019 [facility] HEMATOLOGY Eosinophils # 0.1 0.0 - 0.5 08/01/2019 [facility] CHEM PANEL Glucose Lvl 99 70 - 99 08/01/2019 [facility] CHEM PANEL BUN 18 7 - 22 08/01/2019 [facility] CHEM PANEL Creatinine Lvl 1.02 0.50 [...] Total Protein 4.9 6.4 - 8.4 07/31/2019 [facility] CHEM PANEL Albumin Lvl 1.9 3.5 [...] PANEL Globulin 3.0 2.7 - 4.2 07/31/2019 [facility] CHEM PANEL A/G Ratio 0.6 0.7 - 1.6 07/31/2019 [facility] CHEM PANEL Magnesium Lvl 2.1 1.8 - 2.4 07/31/2019 [facility] CHEM PANEL Phosphorus 3.4 2.5 - 4.5 07/31/2019 [facility] HEMATOLOGY RBC Morph Sanam l (07/31/19 5:22 AM) Normal 07/31/2019 [facility] Plt Morph Sanam l (07/31/19 5:22 AM) Normal 07/31/2019 [facility] HEMATOLOGY Segs 89.3 45.0 - 75.0 07/31/2019 [facility] Lymphocytes 6.0 20.0 - 40.0 07/31/2019 [facility] Monocytes 4.7 2.0 - 12.0 07/31/2019 [facility] Neutrophils # 18.5 1.5 - 8.1 07/31/2019 [facility] Lymphocytes # 1.2 1.0 - 5.5 07/31/2019 [facility] Monocytes # 1.0 0.0 - 0.8 07/31/2019 [facility] WBC 20.7 3.7 - 10.4 07/31/2019 [facility] RBC 3.24 4.20 - 5.40 07/31/2019 [facility] Hct 27.6 36.0 - 48.0 07/31/2019 [facility] MCV 85.4 80.0 - 98.0 07/31/2019 [facility] MCH 28.2 27.0 - 31.0 07/31/2019 [facility] MCHC 33.0 32.0 - 36.0 07/31/2019 [facility] RDW 15.5 11.5 - 14.5 07/31/2019 [facility] Platelet 336 133 - 450 07/31/2019 [facility] MPV 8.1 7.4 - 10.4 07/31/2019 [facility] BLOOD BANK RESULTS RBC product Product available 9 (07/30/19 8:59 AM) 07/30/2019 Result Comment: 07/30/2019 0 9:50 [id number]
ERIN Torsten notified 07/30/2019 09:50 [facility] BLOOD BANK RESULTS ABO/Rh O POS 07/30/2019 [facility] BLOOD BANK RESULTS Antibody Scrn Negative (07/30/19 8:44 AM) 07/30/2019 [facility] HEMATOLOGY Eosinophils 1.3 0.0 - 4.0 07/30/2019 [facility] HEMATOLOGY Basophils 0.6 0.0 - 1.0 07/30/2019 [facility] HEMATOLOGY Eosinophils # 0.1 0.0 - 0.5 07/30/2019 [facility] Inhibin B 14.1 0.0 - 16.9 07/30/2019 Result Comment: Results for this test ar e for research purposes only by the
assay's meat and seafood manager. The performance characteristics of
this product have not been established. Results should not
be used as a diagnostic procedure without confirmation of
the diagnosis by another medically established diagnostic
product or procedure.
Performed At: [facility]
[address] [place] [address] [id number]
Flavio Major MD Ph:[phone] [facility] Inhibin B 17.0 0.0 - 16.9 07/29/2019 Result Comment: Results for this test ar e for research purposes only by the
assay's meat and seafood manager. The performance characteristics of
this product have not been established. Results should not
be used as a diagnostic procedure without confirmation of
the diagnosis by another medically established diagnostic
product or procedure.
Performed At: [facility]
[address] [place] [address] [id number]
Flavio Major MD Ph:[phone] [facility] Inhibin B 12.8 0.0 - 16.9 07/28/2019 Result Comment: Results for this test ar e for research purposes only by the
assay's meat and seafood manager. The performance characteristics of
this product have not been established. Results should not
be used as a diagnostic procedure without confirmation of
the diagnosis by another medically established diagnostic
product or procedure.
Performed At: [facility]
[address] [place] [address] [id number]
Flavio Major MD Ph:[phone] [facility] ENDOCRINOLOGY Estradiol Lvl 37 .7 07/27/2019 [facility] MATERNAL SCREENS Inhibin A 11.2 07/27/2019 Result Comment: M enstrual Phase
Early Follicular <34.0
Late Follicular <99.0
Periovulatory 8.0- 233.0
MidLuteal <145.0
End Luteal <145.0
Postmenopausal <4.0
Performed At: [facility]
[address] [place] [address] [id number]
Flavio Major MD Ph:[phone] [facility] TUMOR MARKERS CA 19-9 53.2 0.0 - 35.0 07/27/2019 [facility] TUMOR MARKERS CA 125 809.1 0.0 - 35.0 07/27/2019 [facility] TUMOR MARKERS CEA 65.3 0.0 - 3.0 07/27/2019 [facility] CHEM PANEL Lactic Acid Lvl 0.7 0.5 - 2.2 07/26/2019 [facility] URINE AND STOOL UA Turbidity Slight *ABN* (07/25/19 5:46 PM) Clear 07/25/2019 [facility] URINE AND STOOL UA Spec Grav 1.028 <=1.030 07/25/2019 [facility] URINE AND STOOL UA pH 6.0 5.0 - 8.0 07/25/2019 [facility] URINE AND STOOL UA Protein 30 mg/dL Negative mg/dL 07/25/2019 [facility] URINE AND STOOL UA Glucose Negative mg/dL Negative mg/dL 07/25/2019 [facility] URINE AND STOOL UA Ketones 20 mg/dL Negative mg/dL 07/25/2019 [facility] URINE AND STOOL UA Bili Negative *NA* (07/25/19 5:46 PM) Negative 07/25/2019 [facility] URINE AND STOOL UA Blood Negative (07/25/19 5:46 PM) Negative 07/25/2019 [facility] URINE AND STOOL UA Urobilinogen 2.0 0.1 - 1.0 07/25/2019 [facility] URINE AND STOOL UA Nitrite Negative (07/25/19 5:46 PM) Negative 07/25/2019 [facility] URINE AND STOOL UA Leuk Est Large *ABN* (07/25/19 5:46 PM) Negative 07/25/2019 [facility] URINE AND STOOL UA Sq Epi Many /LPF Few /LPF 07/25/2019 [facility] URINE AND STOOL UA WBC 27 0 - 5 07/25/2019 [facility] URINE AND STOOL UA RBC 5 0 - 2 07/25/2019 [facility] URINE AND STOOL UA Bacteria Occasional /HPF None Seen /HPF 07/25/[address] [facility] [address] URINE AND STOOL UA Mucus Moderate /LPF None Seen /LPF 07/25/[address] [facility] [address] URINE AND STOOL UA Color Kaity 07/25/2019 [facility] Culture: Urine 10,000 - 50,00 0 CFU/mL Skin Lala 07/25/2019 [facility] CHEM PANEL Lipase Lvl 80 73 - 393 07/25/2019 [facility] CHEM PANEL Bili Direct 0.1 0.0 - 0.3 07/25/2019 [facility] HEMATOLOGY Basophils # 0.1 0.0 - 0.2 07/25/2019 [facility] Pathology Reports No Data Provided for [...] Mcknight MD On 09/18/2019 14:58:44; [id number] 09/18/2019 [facility] PET CT Colorectal CA initial staging [...] obtained. Roque Mcknight MD On 09/09/2019 17:00:13; [id number] 09/07/2019 [facility] 1 v for Placement DX PRO [...] clinically. Candice Carlson MD On 08/20/2019 16:23:59; [id number] 08/20/2019 [facility] w contrast CT Radiation Dose CTDIVOL [...] pelvis. Placido Bruner MD On 07/28/2019 10:59:05; [id number] 07/27/2019 [facility] Complete US PROCEDURE I NFORMATION: Exam: US [...] malignancy. Felice Dave MD On 07/26/2019 18:52:02; [id number] 07/26/2019 [facility] Abdomen/Pelvis IV contrast only CT Radiation Dose [...] nature. Kwaku Hawkins MD On 07/25/2019 20:34:34; [id number] 07/25/2019 [facility] Consultation Notes No Data Provided for This Section Discharge Summaries No Data Provided for This Section History and Physicals No Data Provided for This Section Vital Signs Vital Sign Value Date Comments Source Systolic (mm Hg) 128 09/18/2019 [facility] Diastolic (mm Hg) 54 09/18/2019 [facility] Respitory Rate 18 09/18/2019 [facility] Respitory Rate 21 09/18/2019 [facility] Systolic (mm Hg) 115 09/18/2019 [facility] Diastolic (mm Hg) 56 09/18/2019 [facility] Respitory Rate 20 09/18/2019 [facility] Systolic (mm Hg) 115 09/18/2019 [facility] Diastolic (mm Hg) 56 09/18/2019 [facility] Height 162.56 cm 09/17/2019 [facility] Weight 86.364 09/17/2019 [facility] BMI Calculated 32.68 09/17/2019 [facility] Systolic (mm Hg) 121 08/20/2019 [facility] Diastolic (mm Hg) 68 08/20/2019 [facility] Respitory Rate 16 08/20/2019 [facility] Systolic (mm Hg) 102 08/20/2019 [facility] Diastolic (mm Hg) 43 08/20/2019 [facility] Respitory Rate 15 08/20/2019 [facility] Respitory Rate 13 08/20/2019 [facility] Systolic (mm Hg) 122 08/20/2019 [facility] Diastolic (mm Hg) 56 08/20/2019 [facility] Height 162.56 cm 08/19/2019 [facility] Weight 83.864 08/19/2019 [facility] BMI Calculated 31.74 08/19/2019 [facility] Temperature Oral (F) 97.8 F 08/19/2019 [facility] Heart Rate 70 08/19/2019 [facility] Temperature Oral (F) 98.0 F 08/02/2019 [facility] Heart Rate 79 08/02/2019 [facility] Respitory Rate 14 08/02/2019 [facility] Systolic (mm Hg) 114 08/02/2019 [facility] Diastolic (mm Hg) 67 08/02/2019 [facility] Temperature Oral (F) 98.3 F 08/02/2019 [facility] Heart Rate 83 08/02/2019 [facility] Respitory Rate 16 08/02/2019 [facility] Systolic (mm Hg) 110 08/02/2019 [facility] Diastolic (mm Hg) 81 08/02/2019 [facility] Temperature Oral (F) 98.1 F 08/01/2019 [facility] Heart Rate 83 08/01/2019 [facility] Respitory Rate 16 08/01/2019 [facility] Systolic (mm Hg) 102 08/01/2019 [facility] Diastolic (mm Hg) 62 08/01/2019 [facility] Height 160.02 cm 07/26/2019 [facility] Weight 80.909 07/26/2019 [facility] BMI Calculated 31.6 07/26/2019 [facility] Height 160.02 cm 07/26/2019 [facility] Weight 80.909 07/26/2019 [facility] BMI Calculated 31.6 07/26/2019 [facility] Height 160.02 cm 07/25/2019 [facility] BMI Calculated 31.6 07/25/2019 [facility] Weight 80.909 07/25/2019 [facility] Encounters Location Location Details Encounter Type Encounter Number Reason For Visit Attending Provider ADM Date DC Date Status Source [facility] Inpatient [id number] Irfan Jawed 07/25/2019 08/02/2019 [facility] NURSE NAVIGATOR [id number] 08/01/2001/01/2020 [facility] Day Surgery [id number] Adonay Askenasy 08/20/2019 08/20/2019 [facility] Outpatient [id number] Omari Gallego 09/07/2019 09/08/2019 [facility] Day Surgery [id number] Adonay Askenasy 09/18/2019 09/18/2019 [facility] Procedures Procedure Code Date Perfomer Comments Source Cataract surgery<sup>1</sup> 1 [id number] Bilateral [facility] Colonoscopy [id number] [facility] st Procedure<sup>2</sup> [id number] Portacath insertion [facility] Assessment and Plan Assessment and Plan Date Source Extracted from:Title: Clinical Document Author: Deidra Oliveros MD Date: 08/02/19 Progress Note - Daily [facility] Completed: Jul, 16:41 by Deidra Oliveros MD [...] mass, underwent a D and C by purification supervisor, and then was referred to [facility] -oncology as an outpatient. Condition worsened prompting [...] before patient undergoes laparotomy for debulking; by [facility] oncology service. Patient has not had a colonoscopy in the past. PMH: Obesity otherwise negative PSH: Cholecystectomyhas a large laparotomy scar Cataract surgery. Left leg orthopedic surgery. 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 FAMILY HISTORY: Negative for colorectal neoplasia or inflammatory bowel disease. Medication List Active Medications Ordered cefTRIAXone + Sodium Chloride 0.9% IV 100 mL: 1 gm, 200 ml/hr, IVPB, [id number]. enoxaparin: 40 mg, 0.4 mL, SUB-Q, [id number]. influenza virus vaccine, inactivated: 0.5 mL, IM, ONCALL. iohexol: 100 mL, IVP, ONCALL. nystatin topical: 1 appl, TOP, QSHIFT. ondansetron: 4 mg, 2 mL, IVP, Q8H, PRN: Nausea and Vomiting. sodium chloride: 10 mL, IVP, PRN, PRN: Line Flush. Sodium Chloride 0.9% IV 1,000 mL: 100 ml/hr, IV, Stop: 08/24/19 22:37:00 MEDICAL TECHNOLOGIST PRN. Allergies: No Known Allergies Review of Systems: [...] 27) 8.7 (JUL 25) Extracted from:Title: MG Web Development Consultant History and Physical Author: Deidra Dumont MD Date: 07/25/19 Acute UTI(N39.0) Ordered: Admit/Condition, 07/25/19 20:59:00 MEDICAL TECHNOLOGIST PRN, Status: Inpatient, Telemetry Capable Location, Expected LOS: 2 Midnights, Josias Alcantara MD, Prosper [facility]IGER Review/Approve Yes, Other noninflammatory disorders of ovary, fallopian tube and broad ligament | Acute UTI | Intractabl... Intractable abdominal pain(R10.9) Ordered: Admit/Condition, 07/25/19 20:59:00 MEDICAL TECHNOLOGIST PRN, Status: Inpatient, Telemetry Capable Location, Expected LOS: 2 Midnights, Josias Alcantara MD, Pros[facility] GEIGER Review/Approve Yes, Other noninflammatory disorders of ovary, fallopian tube and broad ligament | Acute UTI | Intractabl... Other noninflammatory disorders of ovary, fallopian tube and broad ligament(N83.8) Ordered: Admit/Condition, 07/25/19 20:59:00 MEDICAL TECHNOLOGIST PRN, Status: Inpatient, Telemetry Capable Location, Expected LOS: 2 Midnights, Josias Alcantara MD, Admit MD Review/Approve Yes, Other noninflammatory disorders of ovary, fallopian tube and broad ligament | Acute UTI | Intractabl... Patient status post empiric IV antibiotics in ED. Will continue. Consult [facility] oncologyfor pelvic mass. IV fluids. Nutrition consult. Pain meds and antiemetics PRN. Per protocol Patient is stable at this time. Anticipate hospitalization for at least one midnight. Discharge home pending clinical improvement. Time spent on H&P greater than 40 minutes. Deidra Dumont MD Web Development Consultant 08/02/2019 [facility] Plan of Care No Data Provided for This Section Social History Social History Date Source Social History TypeResponse Alcohol Past, Type Wine. Last use: 2 years ago. Employment/School Status: Employed. Substance Abuse Use: None. Smoking Status Never smoker; Exposure to Tobacco Smoke None; Cigarette Smoking Last 365 Days No; Reg Smoking Cessation Counseling No entered on: 09/18/19 09/17/2019 [facility] Family History No Data Provided for This Section Advance Directives No Data Provided for This Section Functional Status No Data Provided for This Section
--- OUTSIDE RECORDS SUMMARY | 2020-05-26 06:09 | XMS REPORT | Continuity of Care Document ---
Author Author [facility] t Organization [facility] t Address [facility] Fawad Garcia [address] [place] [address] Phone Unavailable Care Team Providers Care Meat Packer Name Role Phone DO Nishi PADRON PCP WILMAR RICHARD Attphys Unavailable AskenasySalvador Attphys Jawmckay, Omari Attphys Mariaelena PAYNE Attphys Unavailable Jess ORTIZ LAIDANIELLE Attphys Unavailable LYNDSAY T REUBEN Attphys Unavailable WILMAR RICHARD Admphys Unavailable AskenasySalvadorik Admphys Omari Gallego Admphys Payers Payer Name Policy Type Policy Number Effective Date Expiration Date Natasha turk [employer] Medicare Replacement [id number] 2019 00:00:0 0 [facility] Cdc Review Covid19 [id number] [facility] Problems Condition Name Condition Details Condition Category Status Onset Date Resolution Date Last Treatment Date Treating Clinician Comments Source COLON CA COLO N CA Active 11/29/2019 [facility] Active 2019-11-29 00:00:00 2019-12-04 11:08:[facility] UNK Active 09/16/2019 [facility] Active 2019-09-16 00:00:00 2019-09-18 11:21:00 [facility] C18.9 MALIGNANT NEOPLASM OF COLON, UNSPE C18.9 MALIGNANT NEOPLASM OF COLON, UNSPE Active 08/19/2019 [facility] Diagnosis Ac tive 2019-08-19 00:00:00 2019-09-07 15:41:00 M fredericwilcarol Fawad OTHER NONINFLAMMATORY DISORDERS OF OVARY OTHER NONINFLAMMATORY DISORDERS OF OVARY Active 07/25/2019 [facility] Diagnosis Active 2019-07-25 00:00:00 2019-08-01 15:42:00 [facility] RICARDO, FERREIRA DUGG AL, FERREIRA Active 07/25/2019 [facility] Diagnosis Active 2019-07-25 00:00:00 2019-07-25 17:11:00 [facility] Osteoarthritis of right shoulder Osteoarthritis of right shoulde r Disease Active 2016-10-17 00:00:00 [facility] Cataract Cataract Disease Active 2016-05-10 00:00:00 [facility] Intertrochanteric fracture of left femur Problem Active [facility] Fall Problem Active [facility] Cellulitis Problem Active [facility] Disorder of rotator cuff (disorder) 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 01/03/2020 right shoulder [facility] Problem Active 2020-01-03 21:46:08 Nacho Celestin Iron deficiency anemia (disorder) Iron deficiency anemia (disorder) Active Problem 01/03/2020 [facility] Problem Active 2020-01-03 21:46:08 Johann Celestin Malignant tumor of colon (disorder) Malignant tumor of colon (disorder) Active Problem 01/03/2020 [facility] Problem Active 2020-01-03 21:46:08 [facility] OTH NONINFLAMMATORY DISORD OF OVARY, FAL OTH NONINFLAMMATORY DISORD OF OVARY, FAL Active [facility] Diagnosis Active 2019-08-01 15:42:00 [facility] Fawad URINARY TRACT INFECTION, SITE NOT SPECIF URINARY TRACT INFECTION, SITE NOT SPECIF Active [facility] Diagnosis Active 2019-08-01 15:42:00 [facility] Fawad UNSPECIFIED ABDOMINAL PAIN UNS PECIFIED ABDOMINAL PAIN Active [facility] Diagnosis Active 2019-08-01 15:42:00 [facility] Allergies, Adverse Reactions, Alerts Allergy Name Allergy Type Status Severity Reaction(s) Onset Date Inacti ve Date Treating Clinician Comments Source No Known Allergies DA Active U 2011-04-23 00:00:00 [facility] Iron Iron Active [facility] Benitez rey Family History Family Member Diagnosis Comments Start Date Stop Date Source Natural daughter Asthma [facility] Natural mother Arthritis [facility] [place] lt Natural sister Seizures [facility] Social History Social Habit Start Date Stop Date Quantity Comments Source Sex Assigned At [facility] Social History 2019-09-17 21:56:00 2019-09-17 21:56:00 [facility] Alcohol intake 2019-02-13 00:00:00 2019-02-13 00:00:00 Current non-drinker of alcohol (finding) [facility] SDOH Food Worry 2017-06-22 00:00:00 2017-06-22 00:00:00 1 [facility] SDOH Food Scarcity 2017-06-22 00:00:00 2017-06-22 00:00:00 1 [facility] Smoking Status Start Date Stop Date Source Never smoker [facility] Medications Ordered Medication Name Filled Medication Name Start Date Stop Da te Current Medication? Ordering Clinician Indication Dosage Frequency Signature (SIG) Comments Components Source Rifampin Rifampin 2020-05-11 15:34:00 Yes 300 Daily [facility] Vancomycin Hcl In Water (Vancomycin 1,250 Mg/12.5 Ml V l) 1.25 Gm/12.5 Ml VIAL Vancomycin Hcl In Water (Vancomycin 1,250 Mg/12.5 Ml Vl) 1.25 Gm/12.5 Ml VIAL 2020-05-11 15:34:00 Yes 1.25 Daily [facility] Acetaminophen Acetaminophen 2020-05-11 10:38:00 Yes 650 Every 6 Hours as needed for Mild Pain (1-3) Or Fever>100.8 [facility] Docusate Sodium (Colace) 100 Mg CAP Docusate Sodium (Colace) 100 Mg CAP 2020-05-11 10:38:00 Yes 100 Twice A Day [facility] Levothyroxine Sodium (Synthroid) 75 Mcg TAB Levothyrox ine Sodium (Synthroid) 75 Mcg TAB 2020-05-11 10:38:00 Yes 75 Daily@06 [facility] Potassium Chloride (Klor-Con M20) 20 Meq TABCR Potassi um Chloride (Klor-Con M20) 20 Meq TABCR 2020-05-11 10:38:00 Yes 20 Daily [facility] Acetaminophen Acetaminophen 2020-03-19 16:05:00 Yes 650 Every 6 Hours as needed for Mild Pain (1-3) Or Fever>100.8 [facility] Docusate Sodium (Colace) 100 Mg CAP Docusate Sodium (Colace) 100 Mg CAP 2020-03-19 16:05:00 Yes 100 Twice A Day [facility] Famotidine (Pepcid) 20 Mg TABLET Famotidine (Pepcid) 20 Mg T ABLET 2020-03-19 16:05:00 Yes 20 Twice A Day [facility] Hydrocodone/Apap 5MG-325MG Hydrocodone/Apap 5MG-325MG 2020-03-19 16:0 5:00 Yes 1 Every 4 Hours as needed for Moderate Robert n (4-6) [facility] Hydrocodone/Apap 7.5MG-325MG Hydrocodone/Apap 7.5MG-325MG 9 16:05:00 Yes 1 Every 4 Hours as needed for Severe Pain (7-10) [facility] Lactulose Lactulose 2020-03-19 16:05:00 Yes 20 Twice A Day as needed for Constipation [facility] Polyethylene Glycol 3350 (Miralax) 17 Gm POWD.PACK Perry yethylene Glycol 3350 (Miralax) 17 Gm POWD.PACK 2020-03-19 16:05:00 Yes 17 Twice A Day [facility] Pravastatin Sodium Pravastatin Sodium 2020-03-19 16:05:00 Yes 40 Bedtime [facility] Cefepime Hcl (Cefepime 2 Gm Injection) 2 Gm/100 Ml JORDYN N Cefepime Hcl (Cefepime 2 Gm Injection) 2 Gm/100 Ml SOLN 2020-03-19 16:05:00 2020-05-11 00:00:00 No 2 Every 12 Hours [facility] Levothyroxine Sodium Levothyroxine Sodium 2020-03-19 16:05:30-04-31 00:00:00 No 88 Daily@06 [facility] Ondansetron Hcl/Pf (Ondansetron Hcl 4 Mg/2 Ml Vial) 4 Mg/2 Ml VIAL Ondansetron Hcl/Pf (Ondansetron Hcl 4 Mg/2 Ml Vial) 4 Mg/2 Ml VIAL 2020-03-19 16:05:00 2020-05-11 00:00:00 No 4 Every 4 Ho urs as needed for Nausea And Vomiting [facility] Acetaminophen 300 MG / Codeine Phosphate 30 MG Oral Tablet [Tylenol with Codeine #3] 2019-09-18 20:27:00 Yes 1 tab, PO, Q6H, PRN Pain, X 7 day, # 28 tab, 0 Refill(s) [facility] ondansetron (ANES) 2019-09-18 20:17:00 No Route: IV, Drug form: INJ, ONCE, Stop date: 09/18/19 14:17:00 ACUTE CARE NURSING ASSISTANT [facility] Calcium Chloride 0.0014 MEQ/ML / Potassi um Chloride 0.004 MEQ/ML / Sodium Chloride 0.103 MEQ/ML / Sodium Lactate 0.028 MEQ/ML Injectable Solution 2019-09-18 20:10:00 No 1,000 mL, Rate: 125 ml/hr, Infuse over: 8 hr, Route: IV, Dosing Weight 86.364 kg, Total Volume: 1,000, Start date: 09/18/19 14:10:00 ACUTE CARE NURSING ASSISTANT, Duration: 30 day, Stop date: 10/18/19 14:09:00 ACUTE CARE NURSING ASSISTANT, 2, m2 [facility] Ketorolac 2019-09-18 20:10:00 Yes 30 mg, Route: IVP, ONCE, Dosing Weight 86.364, kg, Start date: 09/18/19 14:10:00 ACUTE CARE NURSING ASSISTANT, Stop date: 09/18/19 14:10:00 [facility] Acetaminophen 2019-09-18 20:10:00 No 1,000 mg, Route: IVPB, Drug form: INJ, ONCE, Dosing Weight 86.364, kg, PRN Pain Score 1-3, Start date: 09/18/19 14:10:00 [facility] Morphine 2019-09-18 20:10:00 No 2 mg, Route: IVP, Q5Min, Dosing Weight 86.364, kg, PRN Pain Score 4-6, Start date: 09/18/19 14:10:00 ACUTE CARE NURSING ASSISTANT, Duration: 5 doses or times, Stop date: Limited # of times [facility] Fentanyl 2019-09-18 20:10:00 No 25 microgram, Route: IVP, Q5Min, Dosing Weight 86.364, kg, PRN Pain Score 4-6, Priority: Routine, Start date: 09/18/19 14:10:00 ACUTE CARE NURSING ASSISTANT, Duration: 4 doses or times, Stop date: Limited # of times [facility] Hydromorphone 2019-09-18 20:10:00 No 0.5 mg, Route: IVP, Q5Min, Dosing Weight 86.364, kg, PRN Pain Score 7-10, Start date: 09/18/19 14:10:00 ACUTE CARE NURSING ASSISTANT, Duration: 4 doses or times, Stop date: Limited # of times [facility] Flumazenil 2019-09-18 20:10:00 No 0.2 mg, Route: IVP, PRN, Dosing Weight 86.364, kg, PRN Benzodiazepine Reversal, Initial dose, Start date: 09/18/19 14:10:00 ACUTE CARE NURSING ASSISTANT, Duration: 30 day, Stop date: 10/18/19 14:09:00 ACUTE CARE NURSING ASSISTANT [facility] Naloxone 2019-09-18 20:10:00 No 0.4 mg, Route: IVP, Q2MIN, Dosing Weight 86.364, kg, PRN Narcotic Reversal, Start date: 09/18/19 14:10:00 ACUTE CARE NURSING ASSISTANT, Duration: 8 doses or times, Stop date: Limited # of times [facility] Diphenhydramine 2019-09-18 20:10:00 No 12.5 mg, Route: IVP, Drug form: INJ, Q6H, Dosing Weight 86.364, kg, PRN Itching, Start date: 09/18/19 14:10:00 ACUTE CARE NURSING ASSISTANT, Duration: 30 day, Stop date: 10/18/19 14:09:00 ACUTE CARE NURSING ASSISTANT [facility] Meperidine 2019-09-18 20:10:00 No 12.5 mg, Route: IVP, Q30Min, Dosing Weight 86.364, kg, PRN Other -See Comment, For shivering, Start date: 09/18/19 14:10:00 ACUTE CARE NURSING ASSISTANT, Duration: 2 doses or times, Stop date: Limited # of times [facility] Ondansetron 2019-09-18 20:10:00 No 4 mg, Route: IVP, ONCE, Dosing Weight 86.364, kg, PRN Nausea & Vomiting, Start date: 09/18/19 14:10:00 ACUTE CARE NURSING ASSISTANT [facility] Promethazine 2019-09-18 20:10:00 No 6.25 mg, Route: IVPB, ONCE, Dosing Weight 86.364, kg, PRN Nausea & Vomiting, Start date: 09/18/19 14:10:00 ACUTE CARE NURSING ASSISTANT [facility] 72 HR Scopolamine 0.0139 MG/HR Transdermal Patch 2019-09-18 20:10:00 Yes 1 patch, Route: TOP, Drug Form: ERFILM, Dosing Weight 86.364, kg, ONCE, Apply behind ear. Avoid use in elderly., Start date: 09/18/19 14:10:00 ACUTE CARE NURSING ASSISTANT, Stop date: 09/18/19 14:10:00 ACUTE CARE NURSING ASSISTANT [facility] propofol ([facility]) 2019-09-18 20:07:00 No Route: IV, Drug form: INJ, ONCE, Stop date: 09/18/19 14:07:00 ACUTE CARE NURSING ASSISTANT [facility] lidocaine ([facility]) 2019-09-18 20:07:00 No Route: IV, Drug form: INJ, ONCE, Stop date: 09/18/19 14:07:00 ACUTE CARE NURSING ASSISTANT [facility] fentaNYL ([facility]) 2019-09-18 20:07:00 No Route: IV, Drug form: INJ, ONCE, Stop date: 09/18/19 14:07:00 ACUTE CARE NURSING ASSISTANT [facility] ceFAZolin ([facility]) 2019-09-18 20:07:00 No Route: IV, Drug form: INJ, ONCE, Stop date: 09/18/19 14:07:00 ACUTE CARE NURSING ASSISTANT [facility] norepinephrine ([facility]) 2019-09-18 20:07:00 No Route: IV, Drug form: INJ, ONCE, Stop date: 09/18/19 14:07:00 ACUTE CARE NURSING ASSISTANT [facility] midazolam ([facility]) 2019-09-18 20:07:00 No Route: IV, Drug form: SOLN, ONCE, Stop date: 09/18/19 14:07:00 ACUTE CARE NURSING ASSISTANT Don Celestin Calcium Chloride 0.0014 MEQ/ML / Potassi um Chloride 0.004 MEQ/ML / Sodium Chloride 0.103 MEQ/ML / Sodium Lactate 0.028 MEQ/ML Injectable Solution 2019-09-18 19:23:00 No 1,000 mL, Rate: 75 ml/hr, Infuse over: 13.3 hr, Route: IV, Dosing Weight 86.364 kg, Total Volume: 1,000, Start date: 09/18/19 13:23:00 ACUTE CARE NURSING ASSISTANT, Duration: 30 day, Stop date: 10/18/19 13:22:00 ACUTE CARE NURSING ASSISTANT, 2, m2 [facility] Lactated Ringers Injection IV (ANES) 1000 mL 2019-09-18 19:12:00 No Route: IV, Total Volume: 1,000, Start date: 09/18/19 13:12:00 ACUTE CARE NURSING ASSISTANT, Stop date: 09/18/19 14:12:00 ACUTE CARE NURSING ASSISTANT [facility] cephalexin 500 mg oral capsule 2019-09-17 22:05:00 Yes 500 mg = 1 cap, PO, Q12H, 0 Refill(s) [facility] Acetaminophen 325 MG / Hydrocodone Bitartrate 5 MG Oral Tabl et 2019-09-17 22:04:00 Yes 1 tab, PO, Q6H, 0 Refill(s) [facility] Acetaminophen 2019-08-20 21:10:00 No 1,000 mg, Route: PO, Drug form: TAB, ONCE, Dosing Weight 83.864, kg, PRN Pain Score 1-3, Start date: 08/20/19 15:10:00 ACUTE CARE NURSING ASSISTANT [facility] Fentanyl 2019-08-20 21:10:00 No 25 microgram, Route: IVP, Q5Min, Dosing Weight 83.864, kg, PRN Pain Score 4-6, Priority: Routine, Start date: 08/20/19 15:10:00 ACUTE CARE NURSING ASSISTANT, Duration: 4 doses or times, Stop date: Limited # of times [facility] Hydromorphone 2019-08-20 21:10:00 No 0.5 mg, Route: IVP, Q5Min, Dosing Weight 83.864, kg, PRN Pain Score 7-10, Start date: 08/20/19 15:10:00 ACUTE CARE NURSING ASSISTANT, Duration: 4 doses or times, Stop date: Limited # of times [facility] Flumazenil 2019-08-20 21:10:00 No 0.2 mg, Route: IVP, PRN, Dosing Weight 83.864, kg, PRN Benzodiazepine Reversal, Initial dose, Start date: 08/20/19 15:10:00 ACUTE CARE NURSING ASSISTANT, Duration: 30 day, Stop date: 09/19/19 15:09:00 ACUTE CARE NURSING ASSISTANT [facility] Naloxone 2019-08-20 21:10:00 No 0.4 mg, Route: IVP, Q2MIN, Dosing Weight 83.864, kg, PRN Narcotic Reversal, Start date: 08/20/19 15:10:00 ACUTE CARE NURSING ASSISTANT, Duration: 8 doses or times, Stop date: Limited # of times [facility] Ondansetron 2019-08-20 21:10:00 No 4 mg, Route: IVP, ONCE, Dosing Weight 83.864, kg, PRN Nausea & Vomiting, Start date: 08/20/19 15:10:00 ACUTE CARE NURSING ASSISTANT [facility] acetaminophen ([facility]) 2019-08-20 21:04:00 No Route: IV, Drug form: INJ, ONCE, Stop date: 08/20/19 15:04:00 ACUTE CARE NURSING ASSISTANT [facility] ondansetron ([facility]) 2019-08-20 21:03:00 No Route: IV, Drug form: INJ, ONCE, Stop date: 08/20/19 15:03:00 ACUTE CARE NURSING ASSIST[facility] ([facility]) 2019-08-20 21:03:00 No Route: IV, Drug form: INJ, ONCE, Stop date: 08/20/19 15:03:00 ACUTE CARE NURSING ASSISTANT [facility] midazolam ([facility]) 2019-08-20 20:58:00 No Route: IV, Drug form: SOLN, ONCE, Stop date: 08/20/19 14:58:00 ACUTE CARE NURSING ASSISTANT [facility] fentaNYL ([facility]) 2019-08-20 20:58:00 No Route: IV, Drug form: INJ, ONCE, Stop date: 08/20/19 14:58:00 ACUTE CARE NURSING ASSISTANT [facility] propofol ([facility]) 2019-08-20 20:58:00 No Route: IV, Drug form: INJ, ONCE, Stop date: 08/20/19 14:58:00 ACUTE CARE NURSING ASSISTANT [facility] lidocaine (ANES) 2019-08-20 20:58:00 No Route: IV, Drug form: INJ, ONCE, Stop date: 08/20/19 14:58:00 ACUTE CARE NURSING ASSISTANT [facility] ceFAZolin (ANES) 2019-08-20 20:58:00 No Route: IV, Drug form: INJ, ONCE, Stop date: 08/20/19 14:58:00 ACUTE CARE NURSING ASSISTANT [facility] Lactated Ringers Injection IV (ANES) 1000 mL 2019-08-20 20:09:00 No Route: IV, Total Volume: 1,000, Start date: 08/20/19 14:09:00 ACUTE CARE NURSING ASSISTANT, Stop date: 08/20/19 15:09:00 ACUTE CARE NURSING ASSISTANT Johann Fawad Calcium Chloride 0.0014 MEQ/ML / Potassi um Chloride 0.004 MEQ/ML / Sodium Chloride 0.103 MEQ/ML / Sodium Lactate 0.028 MEQ/ML Injectable Solution 2019-08-20 18:36:00 No 1,000 mL, Rate: 75 ml/hr, Infuse over: 13.3 hr, Route: IV, Dosing Weight 83.864 kg, Total Volume: 1,000, Start date: 08/20/19 12:36:00 ACUTE CARE NURSING ASSISTANT, Duration: 30 day, Stop date: 09/19/19 12:35:00 ACUTE CARE NURSING ASSISTANT, 1.97, m2 [facility] Vitamin B-12 1000 mcg/mL injectable solution 2019-08-19 14:26:00 Yes IM, Daily, 0 Refill(s) [facility] Sodium Chloride 0.9% (titrate) 250 mL 2019-08-01 18:54:00 N o 250 mL, Rate: To prime line and flush remaining blood products., Dosing Weight 80.909, kg, Route: IV, Total Volume: 250, Start Date: 08/01/19 12:54:00 ACUTE CARE NURSING ASSISTANT, Duration: 1 day, Stop date: 08/02/19 12:53:00 ACUTE CARE NURSING ASSISTANT, Replace Every: 24 hr, [facility] Dulcolax Laxative 2019-08-01 16:57:00 No Notes: (Same As: Dulcolax, Bisco-Lax) [facility] Celebrex 2019-07-31 15:00:00 No Notes: NSAID. Please check indication. Not for seizure. (Same As: CeleBREX) [facility] Tylenol 2019-07-31 15:00:00 No Notes: Max acetaminophen 4000 mg/day (4 gm/day). (Same as: Tylenol Extra Strength) [facility] Lovenox 2019-07-31 13:00:00 No Notes: (Same as: Lovenox) [facility] gabapentin 2019-07-31 06:00:00 No Notes: (S matt as: Neurontin) [facility] Morphine 2019-07-31 05:31:00 No Not es: (Same as:MORPhine Sulfate) [facility] heparin 2019-07-31 05:00:00 No Notes: porci ne heparin [facility] Tramadol 2019-07-31 01:08:00 No Notes: Not to exceed 400mg/day. (Same As: Ultram) [facility] Docusate Sodium 50 MG / sennosides, FCI 8.6 MG Oral Tablet 2019-07-30 23:00:00 No Notes: (Same as Senokot-S) Equ iv. to Kati-Colace. [facility] Hydralazine 2019-07-30 21:21:00 No 10 mg, Route: IVP, Q20Min, Dosing Weight 80.909, kg, PRN Elevated BP, Start date: 07/30/19 15:21:00 ACUTE CARE NURSING ASSISTANT, Duration: 2 doses or times, Stop date: Limited # of times [facility] Labetalol 2019-07-30 21:21:00 No 10 mg, Route: IVP, Q5Min, Dosing Weight 80.909, kg, PRN Elevated BP, Start date: 07/30/19 15:21:00 ACUTE CARE NURSING ASSISTANT, Duration: 5 doses or times, Stop date: Limited # of times [facility] Metoprolol 2019-07-30 21:21:00 No 1 mg, Route: IVP, Q5Min, Dosing Weight 80.909, kg, PRN Other -See Comment, Start date: 07/30/19 15:21:00 ACUTE CARE NURSING ASSISTANT, Duration: 5 doses or times, Stop date: Limited # of times [facility] Ketorolac 2019-07-30 21:21:00 No 30 mg, Route: IVP, ONCE, Dosing Weight 80.909, kg, Start date: 07/30/19 15:21:00 ACUTE CARE NURSING ASSISTANT, Stop date: 07/30/19 15:21:00 [facility] Acetaminophen 2019-07-30 21:21:00 No 1,000 mg, Route: IVPB, Drug form: INJ, ONCE, Dosing Weight 80.909, kg, PRN Pain Score 1-3, Start date: 07/30/19 15:21:00 [facility] Oxycodone Hydrochloride 5 MG Oral Tablet 2019-07-30 21:21:00 No 5 mg, Route: PO, Drug form: TAB, Q4H, Dosing Weight 80.909, kg, PRN Pain Score 4- 6, Start date: 07/30/19 15:21:00 ACUTE CARE NURSING ASSISTANT, Duration: 30 day, Stop date: 08/29/19 15:20:00 [facility] Morphine 2019-07-30 21:21:00 No 2 mg, Route: IVP, Q5Min, Dosing Weight 80.909, kg, PRN Pain Score 4-6, Start date: 07/30/19 15:21:00 ACUTE CARE NURSING ASSISTANT, Duration: 5 doses or times, Stop date: Limited # of times [facility] Fentanyl 2019-07-30 21:21:00 No 25 microgram, Route: IVP, Q5Min, Dosing Weight 80.909, kg, PRN Pain Score 4-6, Priority: Routine, Start date: 07/30/19 15:21:00 ACUTE CARE NURSING ASSISTANT, Duration: 4 doses or times, Stop date: Limited # of times [facility] Hydromorphone 2019-07-30 21:21:00 No 0.5 mg, Route: IVP, Q5Min, Dosing Weight 80.909, kg, PRN Pain Score 7-10, Start date: 07/30/19 15:21:00 ACUTE CARE NURSING ASSISTANT, Duration: 4 doses or times, Stop date: Limited # of times [facility] Flumazenil 2019-07-30 21:21:00 No 0.2 mg, Route: IVP, PRN, Dosing Weight 80.909, kg, PRN Benzodiazepine Reversal, Initial dose, Start date: 07/30/19 15:21:00 ACUTE CARE NURSING ASSISTANT, Duration: 30 day, Stop date: 08/29/19 15:20:00 [facility] Naloxone 2019-07-30 21:21:00 No 0.4 mg, Route: IVP, Q2MIN, Dosing Weight 80.909, kg, PRN Narcotic Reversal, Start date: 07/30/19 15:21:00 ACUTE CARE NURSING ASSISTANT, Duration: 8 doses or times, Stop date: Limited # of times Johann Celestin Ondansetron 2019-07-30 21:21:00 No 4 mg, Route: IVP, ONCE, Dosing Weight 80.909, kg, PRN Nausea & Vomiting, Start date: 07/30/19 15:21:00 ACUTE CARE NURSING ASSISTANT Johann Celestin D5LR 1,000 mL 2019-07-30 20:57:00 No 1,000 mL, Rate: 40 ml/hr, Infuse over: 25 hr, Route: IV, Dosing Weight 80.909 kg, Total Volume: 1,000, Start date: 07/30/19 14:57:00 ACUTE CARE NURSING ASSISTANT, Stop date: 07/31/19 6:00:00 ACUTE CARE NURSING ASSISTANT, 1.92, m2, 0 Johann Swanann Zofran ODT 2019-07-30 20:57:00 No Notes: (S matt as: Zofran ODT) Johann Celestin glycopyrrolate (CLEMENTINA) 2019-07-30 20:50:00 No Route: IV, Drug form: INJ, ONCE, Stop date: 07/30/19 14:50:00 ACUTE CARE NURSING ASSISTANT Johann Fawad neostigmine (CLEMENTINA) 2019-07-30 20:50:00 No Route: IV, Drug form: INJ, ONCE, Stop date: 07/30/19 14:50:00 ACUTE CARE NURSING ASSIST[facility] sugammadex (CLEMENTINAS) 2019-07-30 20:50:00 No Route: IV, Drug form: SOLN, ONCE, Stop date: 07/30/19 14:50:00 ACUTE CARE NURSING ASSISTANT [facility] ceFAZolin ([facility]) 2019-07-30 20:27:00 No Route: IV, Drug form: INJ, ONCE, Stop date: 07/30/19 14:27:00 ACUTE CARE NURSING ASSISTANT [facility] phenylephrine ([facility]) 2019-07-30 20:27:00 No Route: IV, Drug form: INJ, ONCE, Stop date: 07/30/19 14:27:00 ACUTE CARE NURSING ASSISTANT Johann Celestin propofol (CLEMENTINAS) 2019-07-30 17:30:00 No Route: IV, Drug form: INJ, ONCE, Stop date: 07/30/19 11:30:00 ACUTE CARE NURSING ASSISTANT Don de la garzawilcarol Swanann succinylcholine (ANES) 2019-07-30 17:30:00 No Route: IV, Drug form: INJ, ONCE, Stop date: 07/30/19 11:30:00 ACUTE CARE NURSING ASSISTANT [facility] dexamethasone ([facility]ES) 2019-07-30 17:30:00 No Route: IV, Drug form: INJ, ONCE, Stop date: 07/30/19 11:30:00 ACUTE CARE NURSING ASSISTANT [facility] ondansetron (ANES) 2019-07-30 17:30:00 No Route: IV, Drug form: INJ, ONCE, Stop date: 07/30/19 11:30:00 ACUTE CARE NURSING ASSISTANT [facility] midazolam (ANES) 2019-07-30 17:29:00 No Route: IV, Drug form: SOLN, ONCE, Stop date: 07/30/19 11:29:00 ACUTE CARE NURSING ASSISTANT Don marian [facility] famotidine (ANES) 2019-07-30 17:29:00 No Route: IV, Drug form: INJ, ONCE, Stop date: 07/30/19 11:29:00 ACUTE CARE NURSING ASSISTANT [facility] lidocaine (ANES) 2019-07-30 17:29:00 No Route: IV, Drug form: INJ, ONCE, Stop date: 07/30/19 11:29:00 ACUTE CARE NURSING ASSISTANT [facility] rocuronium (ANES) 2019-07-30 17:29:00 No Route: IV, Drug form: INJ, ONCE, Stop date: 07/30/19 11:29:00 ACUTE CARE NURSING ASSISTANT [facility] albumin human (ANES) 25 gm 2019-07-30 17:14:00 No Route: IV, Drug form: INJ, Start date: 07/30/19 11:14:00 ACUTE CARE NURSING ASSISTANT, Stop date: 07/30/19 12:14:[address] AC[address] [facility]UR[facility] [facility] ceFAZolin (CLEMENTINAS) 1000 mg 2019-07-30 16:15:00 No Route: IV, Drug form: INJ, Start date: 07/30/19 10:15:00 ACUTE CARE NURSING ASSISTANT, Stop date: 07/30/19 11:15:[address] AC[address] [facility]UR[facility] [facility] metroNIDAZOLE (CLEMENTINAS) 5 mg 2019-07-30 16:15:00 No Route: IV, Drug form: INJ, Start date: 07/30/19 10:15:00 ACUTE CARE NURSING ASSISTANT, Stop date: 07/30/19 11:15:00 ACUTE CARE NURSING ASSISTANT Johann Celestin Sodium Chloride 0.9% IV (ANES) 100 mL + ketAMINE (ANES) 200 mg 2019-07-30 16:15:00 No Route: IV, Drug form: INJ, Start date: 07/30/19 10:15:00 ACUTE CARE NURSING ASSISTANT, Stop date: 07/30/19 11:15:00 ACUTE CARE NURSING ASSISTANT [facility] [place] Sodium Chloride 0.9% IV (ANES) 50 mL + dexmedetomidine (ANES ) 200 microgram 2019-07-30 16:10:00 No Route: IV, Drug form: INJ, Start date: 07/30/19 10:10:00 ACUTE CARE NURSING ASSISTANT, Stop date: 07/30/19 11:10:00 ACUTE CARE NURSING ASSISTANT [facility] [place] Sodium Chloride 0.9% IV (ANES) 1000 mL 2019-07-30 16:00:00 No Route: IV, Total Volume: 1,000, Start date: 07/30/19 10:00:00 ACUTE CARE NURSING ASSISTANT, Stop date: 07/30/19 11:00:00 ACUTE CARE NURSING ASSISTANT [facility] [place] Lactated Ringers Injection IV (ANES) 1000 mL 2019-07-30 15:52:00 No Route: IV, Total Volume: 1,000, Start date: 07/30/19 9:52:00 ACUTE CARE NURSING ASSISTANT, Stop date: 07/30/19 10:52:00 ACUTE CARE NURSING ASSISTANT [facility] Calcium Chloride 0.0014 MEQ/ML / Potassi um Chloride 0.004 MEQ/ML / Sodium Chloride 0.103 MEQ/ML / Sodium Lactate 0.028 MEQ/ML Injectable Solution 2019-07-30 15:09:00 No 1,000 mL, Rate: 75 ml/hr, Infuse over: 13.3 hr, Route: IV, Dosing Weight 80.909 kg, Total Volume: 1,000, Start date: 07/30/19 9:09:00 ACUTE CARE NURSING ASSISTANT, Duration: 30 day, Stop date: 08/29/19 9:08:00 ACUTE CARE NURSING ASSISTANT, 1.92, m2 [facility] [place] Vantin 200 mg oral tablet 2019-07-29 21:02:00 Yes 200 mg = 1 tab, PO, Q12H, X 7 day, # 14 tab, 0 Refill(s), Pharmacy: [place] [id number] Johann Celestin Ondansetron 4 MG Oral Tablet [Zofran] 2019-07-29 21:02:00 Y es 4 mg = 1 tab, PO, Q6H, PRN Nausea/Vomiting, # 30 tab, 0 Refill(s), Pharmacy: [place] [id number] Johann [place] Sodium Chloride 0.9% IV 1,000 mL 2019-07-29 14:58:00 No 1,000 mL, Rate: 75 ml/hr, Infuse over: 13.3 hr, Route: IV, Dosing Weight 80.909 kg, Total Volume: 1,000, Start date: 07/29/19 8:58:00 ACUTE CARE NURSING ASSISTANT, Duration: 30 day, Stop date: 08/28/19 8:57:00 ACUTE CARE NURSING ASSISTANT, 1.92, m2, 0 Memori carol Celestin polyethylene glycol 3350 with electrolytes 2019-07-28 19:39:00 No Notes: (polyethylene glycol electrolyte solution 4 Liter bottle) (Same as: Golytely, Colyte) Johann Celestin Bisacodyl 2019-07-28 19:39:00 No Notes: (Same As: Dulcolax, Correctol) (Do Not Crush) "Do Not Crush" Johann Celestin Metoclopramide 10 MG Oral Tablet 2019-07-28 19:39:00 [...] Johann Celestin Diflucan 2019-07-27 14:33:00 No Notes: (Indio e as: Diflucan) Johann Celestin Ceftriaxone 2019-07-27 03:00:00 No Notes: (Same As: Rocephin). Use with 100 mL NS and infuse over 30 min MEDICATION WASTE Product Size: 1000 mg Product Wasted: ___ mg Johann Celestin Lovenox 2019-07-26 23:00:00 No Notes: (Same as: Lovenox) Johann Celestin Nurse pls update Allergies in [facility] 2019-07-26 10:30:00 No Nurse pls update Allergies in [facility], allergy??, Drug form: MISC, Route: MISC, Q10Min, 07/26/19 4:30:00 ACUTE CARE NURSING ASSISTANT, Duration: 30 day, Stop date: 08/25/19 4:20:00 ACUTE CARE NURSING ASSISTANT, 0 Johann Celestin influenza virus vaccine, inactivated hig h-dose preservative-free intramuscular suspension 2019-07-26 05:19:01 No Notes: (Same as: Fluzone High- Dose) For 65 years of age of older (0.5 ml IM) Shake well before use Johann Celestin Nurse pls update Height/Weight/Allergies in [facility] 2019-07-26 04:45:00 No Nurse pls update Hei ght/Weight/Allergies in [facility], reminder, Drug form: MISC, Route: MISC, Q15Min, 07/25/19 22:45:00 ACUTE CARE NURSING ASSISTANT, Duration: 30 day, Stop date: 08/24/19 22:30:00 ACUTE CARE NURSING ASSISTANT, 0 Johann [place] n normal saline 0.9% IV 1,000 mL 2019-07-26 04:38:00 No 1,000 mL, Rate: 100 ml/hr, Infuse over: 10 hr, Route: IV, Dosing Weight 80.909 kg, Total Volume: 1,000, Start date: 07/25/19 22:38:00 ACUTE CARE NURSING ASSISTANT, Duration: 30 day, Stop date: 08/24/19 22:37:00 ACUTE CARE NURSING ASSISTANT, 1.92, m2, 0 Nacho Celestin Ondansetron 2019-07-26 04:37:00 No Notes: (Same as: Zofran) MEDICATION WASTE Product Size: 4 mg Product Wasted: ___ mg [facility] [place] Ceftriaxone 2019-07-26 03:01:00 No Notes: (Same As: Rocephin). Use with 100 mL NS and infuse over 30 min MEDICATION WASTE Product Size: 1000 mg Product Wasted: ___ mg Johann Celestin Morphine 2019-07-26 01:26:00 No 4 mg, Route: IVP, ONCE, Dosing Weight 80.909, kg, Priority: STAT, Start date: 07/25/19 19:26:00 ACUTE CARE NURSING ASSISTANT, Stop date: 07/25/19 19:26:00 ACUTE CARE NURSING ASSISTANT [facility] [place] NS (Bolus) IV 2019-07-26 01:26:00 No 500 mL, Route: IV, Drug form: INJ, ONCE, Priority: STAT, Dosing Weight 80.909 kg, Start date: 07/25/19:26:00 ACUTE CARE NURSING ASSISTANT, Stop date: 07/25/19 19:26:00 ACUTE CARE NURSING ASSISTANT Johann Celestin Zofran 2019-07-26 01:26:00 No 4 mg, Route: IVP, Drug form: INJ, ONCE, Dosing Weight 80.909, kg, Priority: STAT, Start date: 07/25/19:26:00 ACUTE CARE NURSING ASSISTANT, Stop date: 07/25/19 19:26:[address] [facility] Saline Flush 0.9% 2019-07-25 21:23:00 No Notes: (Same as: BD Posiflush) [facility] ibuprofen (MOTRIN) 600 mg tablet 2017-06-22 00:00:00 Yes Pain of both shoulder joints 600mg Take 1 tablet by amarilis th every 8 hours as needed for Pain. [facility] oxybutynin (DITROPAN XL) 10 mg extended release tablet 2017-06-22 00:00:00 Yes Mixed incontinence 10mg QD Take 1 tablet by mouth daily. [facility] naproxen (NAPROSYN) 375 mg tablet 2016-08-09 00:00:00 Yes Right shoulder pain, unspecified chronicity 375mg Take 1 tabl et by mouth 2 times daily (with meals). [facility] Immunizations Ordered Immunization Name Filled Immunization Name Date Status Comments Source Influenza Vaccine, Seasonal, Injectable 2017-06-22 00:00:0 0 Completed [facility] Influenza Vaccine 2016-08-09 00:00:00 Completed [facility] Tdap Tetanus, diphtheria, acellular pertussis Vaccine 2016-08-09 00:00:00 Completed [facility] Vital Signs Vital Name Observation Time Observation Value Comments Source Body Temperature 2020-05-11 15:35:00 99.6 [degF] [facility] Weight 2020-05-02 20:20:00 133 [lb_av] [facility] BMI (Body Mass Index) 2020-05-02 20:20:00 22.8 kg/m2 [facility] Body Temperature 2020-03-19 16:00:00 98.4 [degF] [facility] BMI (Body Mass Index) 2020-03-19 00:12:00 39.5 kg/m2 [facility] Weight 2020-03-15 12:45:00 230 [lb_av] [facility] Systolic (mm Hg) 2019-09-18 21:55:00 Nigel rial [place] Diastolic (mm Hg) 2019-09-18 21:55:00 [facility] [place] Respitory Rate 2019-09-18 21:55:00 [facility] [place] Respitory Rate 2019-09-18 21:00:00 [facility] [place] Systolic (mm Hg) 2019-09-18 21:00:00 Nigel [facility] [place] Diastolic (mm Hg) 2019-09-18 21:00:00 [facility] [place] Respitory Rate 2019-09-18 20:45:00 [facility] [place] Systolic (mm Hg) 2019-09-18 20:45:00 Nigel rial [place] Diastolic (mm Hg) 2019-09-18 20:45:00 [facility] [place] Height 2019-09-17 21:53:[address] [facility] Weight 2019-09-17 21:53:00 [facility] BMI Calculated 2019-09-17 21:53:00 [facility] [place] Systolic (mm Hg) 2019-08-20 22:15:00 Nigel [facility] [place] Diastolic (mm Hg) 2019-08-20 22:15:00 [facility] [place] Respitory Rate 2019-08-20 22:15:00 [facility] [place] Systolic (mm Hg) 2019-08-20 22:00:00 [facility]el [facility] [place] Diastolic (mm Hg) 2019-08-20 22:00:00 [facility] [place] Respitory Rate 2019-08-20 22:00:00 [facility] [place] Respitory Rate 2019-08-20 21:30:00 [facility] [place] Systolic (mm Hg) 2019-08-20 21:30:00 Nigel rial [place] Diastolic (mm Hg) 2019-08-20 21:30:00 [facility] [place] Height 2019-08-19 14:19:00 162.56 cm [facility] [place] Weight 2019-08-19 14:19:00 [facility] [place] BMI Calculated 2019-08-19 14:19:00 [facility] [place] Temperature Oral (F) 2019-08-19 14:19:00 97.8 F [facility] [place] Heart Rate 2019-08-19 14:19:00 [facility] [place] Temperature Oral (F) 2019-08-02 13:37:00 98.0 F [facility] [place] Heart Rate 2019-08-02 13:37:00 [facility] [place] Respitory Rate 2019-08-02 13:37:00 [facility] [place] Systolic (mm Hg) 2019-08-02 13:37:00 Nigel rial [place] Diastolic (mm Hg) 2019-08-02 13:37:00 [facility] [place] Temperature Oral (F) 2019-08-02 05:20:00 98.3 F [facility] [place] Heart Rate 2019-08-02 05:20:00 [facility] [place] Respitory Rate 2019-08-02 05:20:00 [facility] [place] Systolic (mm Hg) 2019-08-02 05:20:00 Nigel rial [place] Diastolic (mm Hg) 2019-08-02 05:20:00 [facility] [place] Temperature Oral (F) 2019-08-01 21:54:00 98.1 F [facility] [place] Heart Rate 2019-08-01 21:54:00 [facility] [place] Respitory Rate 2019-08-01 21:54:00 [facility] [place] Systolic (mm Hg) 2019-08-01 21:54:00 Nigel [facility] [place] Diastolic (mm Hg) 2019-08-01 21:54:00 [facility] [place] Height 2019-07-26 07:26:00 160.02 cm [facility] [place] Weight 2019-07-26 07:26:00 [facility] [place] BMI Calculated 2019-07-26 07:26:00 [facility] [place] Height 2019-07-26 05:10:00 160.02 cm [facility] [place] Weight 2019-07-26 05:10:00 [facility] [place] BMI Calculated 2019-07-26 05:10:00 [facility] [place] Height 2019-07-25 21:02:00 160.02 cm [facility] [place] BMI Calculated 2019-07-25 21:02:00 [facility] [place] Weight 2019-07-25 21:02:00 [facility] [place] Procedures Procedure Date / Time Performed Performing Clinician [facility] e CT extremity lower w contrast 2020-05-02 00:00:00 [facility] TRANSFUSE NONAUT RED BLOOD CELLS IN CENTRAL VEIN, PERC 8 00:00:00 [facility] TRANSFUSE NONAUT PLATELETS IN CENTRAL VEIN, PERC 2020-03-16 00:0 0:00 [facility] REPOSITION LEFT UPPER FEMUR WITH INTRAMED FIX, PERC AP PROACH 2020-03-16 00:00:00 [facility] Computed tomography of brain without radiopaque contrast 2020-03 00:00:00 [facility] Computed tomography of cervical spine without contrast 5 00:00:00 [facility] X-ray of chest, single view 2020-03-15 00:00:00 [facility] Computed tomography of chest without contrast 2020-03-15 00:00:[address] [facility] [address] of abdomen and pelvis without contrast 2020-03-15 00:00:00 [facility] Magnetic resonance imaging of pelvis without then with contrast 2019-07-23 00:00:00 [facility] Cataract surgery<sup>1</sup> [facility] [place] Colonoscopy [facility] [place] Procedure<sup>2</sup> [facility] Plan of Care Planned Activity Planned Date Details Comments Source Future Scheduled Test 2020-06-11 00:00:00 IMM Influenza Seas onal Jun to November (>/= 19 yrs) [code = IMM Influenza Seasonal Jun to November (>/= 19 yrs)] [facility] Future Scheduled Test 2017-06-13 00:00:00 Breast Cancer Scrn (Yearly) [code = Breast Cancer Scrn (Yearly)] [facility] Scheduled Test 2017-05-11 00:00:00 Screening for jerson mcdaniel neoplasm of colon (procedure) [code = 557142110] [facility] Scheduled Test 2016 00:00:00 IMM Pneumococcal A ge 65 and Up [code = IMM Pneumococcal Age 65 and Up] [facility] Cellulitis [facility] Encounters Start Date/Time End Date/Time Encounter Type Admission Type [facility] Care Department Encounter ID Source 2019-09-05 08:30:27 Outpatient MHSE MHSE [id number] 2020-05-02 15:44:00 2020-05-11 17:56:00 Discharged Inpatient 1 JOSE MANUEL [facility] [id number] [facility] 2020-03-15 16:57:00 2020-03-19 19:45:00 Discharged Inpatient 1 JOSE MANUEL [facility] [id number] [facility] 2019-08-01 07:14:58 2020-01-01 14:36:59 Outpatient MHSE MHSE [id number] 2019-11-29 06:00:00 2019-11-29 06:00:00 Outpatient MHSE [facility]SE [id number] 2019-09-18 11:21:00 2019-09-18 15:55:00 Outpatient Adonay Ballesteros SE [facility] [id number] 2019-09-18 11:21:00 2019-09-18 11:21:00 Outpatient MHSE [facility]SE [id number] [facility] 2019-09-07 15:39:00 2019-09-07 23:59:00 Outpatient Omari Gallego MHSE MHSE [id number] 2019-08-20 11:45:00 2019-08-20 16:30:00 Outpatient Adonay Ballesteros SE [facility] [id number] 2019-08-20 11:45:00 2019-08-20 11:45:00 Outpatient MHSE [facility]SE [id number] [facility] 2019-07-25 14:57:22 2019-08-02 13:20:00 Outpatient Omari Gallego [facility] [id number] 2019-07-25 20:59:00 2019-07-25 14:57:00 Inpatient [facility] [address] [place] [address] 2019-07-23 06:22:00 2019-07-23 06:22:00 Registered Clinic 3 PATY PAYNE [facility] [id number] [facility] 2019-07-13 18:15:00 2019-07-14 00:14:00 Departed Emergency Room 1 JULY ORTIZ [facility] [id number] [facility] 2019-02-07 18:29:00 2019-02-07 23:17:00 Departed Emergency Room 1 REUBEN UMANA [facility] [id number] [facility] 2017-09-12 07:54:24 2017-09-12 07:54:24 Outpatient [facility] [id number] [facility] 2017-07-04 08:10:50 2017-07-04 08:10:50 Outpatient [facility] [id number] [facility] Results Test Description Test Time Test Comments Results Result Comments Source Blood leukocytes automated count (number/volume) 2020-05-11 05:10:00 Test Item White Blood Count (test code = 6690-2) 3.81 4.8-10.8 [facility] count (number/volume)2020-05-11 05:10:00* Test Item Value Reference Range Interpretation Comments Red Blood Count (test code = 789-8) 2.77 3.6-5.1 [facility] measurement (moles/volume)2020-05-11 05:10:00* Test Item Value Reference Range Interpretation Comments Hemoglobin (test code = 57424-0) 8.1 12.0-16.0 [facility] hematocrit (volume fraction)2020-05-11 05:10:00* Test Item Value Reference Range Interpretation Comments Hematocrit (test code = 4544-3) 27.6 34.2-44.1 [facility] erythrocyte mean corpuscular [id number] 05:10:00* Test Item Value Reference Range Interpretation Comments Mean Corpuscular Volume (test code = 787-2) 99.6 81-99 [facility] mean corpuscular hemoglobin (mass per erythrocyte)2020-05-11 05:10:00* Test Item Value Reference Range Interpretation Comments Mean Corpuscular Hemoglobin (test code = 785-6) 29.2 28-32 [facility] erythrocyte mean corpuscular hemoglobin concentration measurement (mass/volume)2020-05-11 05:10:00* Test Item Value Reference Range Interpretation Comments Mean Corpuscular Hemoglobin Concent (test code = 786-4) 29.3 31-35 [facility] CenterRDW MajGg-Wne5501-44-31 05:10:00* Test Item Value Reference Range Interpretation Comments Red Cell Distribution Width (test code = 29302-8) 14.4 11.7 -14.4 [facility] Center[facility] blood platelet count (count/volume)2020-05-11 05:10:00* Test Item Value Reference Range Interpretation Comments Platelet Count (test code = 777-3) 131 140-360 [facility] blood segmented neutrophil count as percentage of total uvqgynbtgd1638-91-80 05:10:00* Test Item Value Reference Range Interpretation Comments Neutrophils (%) (Auto) (test code = 49948-4) 54.3 38.7-80.0 [facility] Center[facility] lymphocyte count as percentage ot total igpjxokncq5522-22-45 05:10:00* Test Item Value Reference Range Interpretation Comments Lymphocytes (%) (Auto) (test code = 736-9) 35.4 18.0-39.1 [facility] blood monocyte count as percentage of total ebshrmwuws4261-74-44 05:10:00* Test Item Value Reference Range Interpretation Comments Monocytes (%) (Auto) (test code = 5905-5) 7.9 4.4-11.3 [facility] Center[facility] blood eosinophil count as percentage of total rlcegnjqvs3504-86-83 05:10:00* Test Item Value Reference Range Interpretation Comments Eosinophils (%) (Auto) (test code = 713-8) 1.8 0.0-6.0 [facility] CenterAutadventhealthed blood basophil count as percentage of total blupavvjse5781-70-72 05:10:00* Test Item Value Reference Range Interpretation Comments Basophils (%) (Auto) (test code = 706-2) 0.3 0.0-1.0 [facility] CenterFluoroscopic procedure less than one hour hsyreaed7010-35-55 05:10:00* Test Item Value Reference Range Interpretation Comments IM GRANULOCYTES % (test code = IM GRANULOCYTES %) 0.3 0.0- 1.0 [facility] CenterAutadventhealthed blood neutrophil count 2020-05-11 05:10:00* Test Item Value Reference Range Interpretation Comments Neutrophils # (Auto) (test code = 751-8) 2.1 2.1-6.9 [facility] Center[facility] lymphocytes count (number/volume) 2020-05-11 05:10:00* Test Item Value Reference Range Interpretation Comments Lymphocytes # (Auto) (test code = 11401-8) 1.4 1.0-3.2 [facility] monocytes automated count (number/volume)2020-05-11 05:10:00* Test Item Value Reference Range Interpretation Comments Monocytes # (Auto) (test code = 742-7) 0.3 0.2-0.8 [facility] CenterAutom[facility] blood eosinophil count 2020-05-11 05:10:00* Test Item Value Reference Range Interpretation Comments Eosinophils # (Auto) (test code = 711-2) 0.1 0.0-0.4 [facility] CenterAutomated blood basophil count (count/volume)2020-05-11 05:10:00* Test Item Value Reference Range Interpretation Comments Basophils # (Auto) (test code = 704-7) 0.0 0.0-0.1 [facility] CenterFluoroscopic procedure less than one hour gqqhpuaw0466-79-67 05:10:00* Test Item Value Reference Range Interpretation Comments Absolute Immature Granulocyte (auto (melissa t code = Absolute Immature Granulocyte (auto) 0.01 0-0.1 [facility] sodium measurement (moles/volume)2020-05-11 05:10:00* Test Item Value Reference Range Interpretation Comments Sodium Level (test code = 2951-2) 146 136-145 [facility] potassium measurement (moles/volume)2020-05-11 05:10:00* Test Item Value Reference Range Interpretation Comments Potassium Level (test code = 2823-3) 3.8 3.5-5.1 [facility] chloride measurement (moles/volume)2020-05-11 05:10:00* Test Item Value Reference Range Interpretation Comments Chloride Level (test code = 2075-0) 111 98-107 [facility] carbon dioxide, total measurement (moles/volume)2020-05-11 05:10:00* Test Item Value Reference Range Interpretation Comments Carbon Dioxide Level (test code = 2028-9) 25 22-29 [facility] plasma anion lpq0094-02-35 05:10:00* Test Item Value Reference Range Interpretation Comments Anion Gap (test code = 64170-1) 13.8 8-16 [facility] urea nitrogen measurement (mass/volume)2020-05-11 05:10:00* Test Item Value Reference Range Interpretation Comments Blood Urea Nitrogen (test code = 3094-0) 6 7-26 [facility] creatinine measurement (mass/volume)2020-05-11 05:10:00* Test Item Value Reference Range Interpretation Comments Creatinine (test code = 2160-0) 0.62 0.57-1.11 [facility] urea nitrogen/creatinine mass rkdrp3512-13-36 05:10:00* Test Item Value Reference Range Interpretation Comments BUN/Creatinine Ratio (test code = 3097-3) 10 6-25 [facility] CenterEstimated glomerular filtration rate (GFR) yxmaccjxhryms9126-89-77 05:10:00* Test Item Value Reference Range Interpretation Comments Estimat Glomerular Filtration Rate (test code = 026514066) > 60 >60 Ranges were taken from the National Kidney Disease Education Program and the [place] [employer] literature.Reference ranges:60 or greater: Xwzqwn30-20 ( for 3 consecutive months): Chronic kidney disease 15 or less: Kidney failureDallas Medical CenterGlucose torygoijgfn9297-62-35 05:10:00* Test Item Value Reference Range Interpretation Comments Glucose Level (test code = CMM6431) 114 74-118 [facility] calcium measurement (mass/volume)2020-05-11 05:10:00* Test Item Value Reference Range Interpretation Comments Calcium Level (test code = 95368-0) 8.5 8.4-10.2 [facility] Hospitaltool gastrointestinal hemoglobin ietxwpcxf8424-52-02 02:17:00* Test Item Value Reference Range Interpretation Comments Stool Occult Blood (test code = 2335-8) NEGATIVE NEGATIVE [facility] CenterPhosphorus cdbdlyylsqk7782-52-94 05:35:00 * Test Item Value Reference Range Interpretation Comments Phosphorus Level (test code = ITA1657) 3.7 2.3-4.7 [facility] plasma magnesium measurement (mass/volume)2020-05-10 05:35:00* Test Item Value Reference Range Interpretation Comments Magnesium Level (test code = 02844-4) 2.0 1.3-2.1 [facility] plasma total bilirubin measurement (mass/volume)2020-05-06 05:30:00* Test Item Value Reference Range Interpretation Comments Total Bilirubin (test code = 1975-2) 0.5 0.2-1.2 [facility] CenterFluoroscopic procedure less than one hour bxrzilrn7775-52-88 05:30:00* Test Item Value Reference Range Interpretation Comments Aspartate Amino Transf (AST/SGOT) (test code = Aspartate Amino Transf (AST/SGOT)) 14 5-34 [facility]er[facility] or plasma alanine aminotransferase measurement (enzymatic activity/volume)2020-05-06 05:30:00* Test Item Value Reference Range Interpretation Comments Alanine Aminotransferase (ALT/SGPT) (test code = 1742-6) 11 0-55 [facility]er[facility] plasma protein measurement (mass/volume)2020-05-06 05:30:00* Test Item Value Reference Range Interpretation Comments Total Protein (test code = 2885-2) 5.5 6.5-8.1 [facility] albumin measurement (mass/volume)2020-05-06 05:30:00* Test Item Value Reference Range Interpretation Comments Albumin (test code = 1751-7) 2.1 3.5-5.0 [facility] CenterPlasma globulin measurement (mass/volume) 2020-05-06 05:30:00* Test Item Value Reference Range Interpretation Comments Globulin (test code = 15930-3) 3.4 2.3-3.5 [facility] albumin/globulin mass kaxhh9869-28-30 05:30:00* Test Item Value Reference Range Interpretation Comments Albumin/Globulin Ratio (test code = 1759-0) 0.6 0.8-2.0 [facility] plasma alkaline phosphatase measurement (enzymatic activity/volume)2020-05-06 05:30:00* Test Item Value Reference Range Interpretation Comments Alkaline Phosphatase (test code = 6768-6) 76 40-150 [facility] Hospitaler[facility] or plasma trough vancomycin level at trough (mass/volume)2020-05-05 23:30:00* Test Item Value Reference Range Interpretation Comments Vancomycin Level Trough (test code = 4092-3) 21.0 5.0-10.0 Results repeated and called to RTINY Helm RN at 0016 on 05/06/20 by Domingo torrez Read back and verified.[facility] triglyceride measurement (mass/volume)2020-05-05 05:20:00* Test Item Value Reference Range Interpretation Comments Triglycerides Level (test code = 2571-8) 66 0-149 [facility] cholesterol measurement (mass/volume)2020-05-05 05:20:00* Test Item Value Reference Range Interpretation Comments Cholesterol Level (test code = 2093-3) 102 0-199 Less than 200 mg/dL Low Ojkl275 - 239 mg/dL Borderline Jfbs203 m g/dl and greater High Risk [facility] cholesterol in LDL measurement (mass/volume) 2020-05-05 05:20:00* Test Item Value Reference Range Interpretation Comments LDL Cholesterol (test code = 2089-1) 60 60-130 [facility] cholesterol in HDL measurement (mass/volume)2020-05-05 05:20:00* Test Item Value Reference Range Interpretation Comments HDL Cholesterol (test code = 2085-9) 29 40-60 [facility] plasma total cholesterol/cholesterol in HDL mass zvuke0046-50-70 05:20:00* Test Item Value Reference Range Interpretation Comments Cholesterol/HDL Ratio (test code = 9830-1) 3.5 3.0-3.6 [facility] or plasma thyrotropin measurement by detection limit <= 0.005 miu/l (units/volume)2020-05-05 05:20:00* Test Item Value Reference Range Interpretation Comments Thyroid Stimulating Hormone (TSH) (test code = 15268-5) 0.217 0.350-4.940 [facility]Fluoroscopic procedure less than one hour pjcejsyg3729-68-18 05:10:00* Test Item Value Reference Range Interpretation Comments Hemoglobin A1c Percent (test code = Hemoglobin A1c Percent) 4.6 4.0-7.0 [facility] CenterUrine color svyunxlnzefvy2266-71-07 15:50:00* Test Item Value Reference Range Interpretation Comments Urine Color (test code = 5778-6) YELLOW YELLOW [facility] CenterUrine llupbfw7191-62-56 15:50:00* Test Item Value Reference Range Interpretation Comments Urine Clarity (test code = 00017-4) SL CLOUDY CLEAR [facility] Hospitalpecific gravity of Urine by Test strip 2020-05-04 15:50:00* Test Item Value Reference Range Interpretation Comments Urine Specific Gallagher (test code = 5811-5) 1.030 1.010-1.02 5 [facility] CenterUrine pH measurement by automated test aoigs3615-23-36 15:50:00* Test Item Value Reference Range Interpretation Comments Urine pH (test code = 61111-4) 5.5 5-7 [facility] CenterUrine leukocyte esterase detection by ebygpodt3500-16-15 15:50:00* Test Item Value Reference Range Interpretation Comments Urine Leukocyte Esterase (test code = 5799-2) TRACE NEGATIVE [facility] CenterUrine nitrite rzmfrdfms7520-78-57 15:50:00* Test Item Value Reference Range Interpretation Comments Urine Nitrite (test code = 60378-8) NEGATIVE NEGATIVE [facility] CenterUrine protein measurement by test strip (mass/volume)2020-05-04 15:50:00* Test Item Value Reference Range Interpretation Comments Urine Protein (test code = 5804-0) NEGATIVE NEGATIVE [facility] CenterUrine glucose wzcogtorg2198-41-35 15:50:00* Test Item Value Reference Range Interpretation Comments Urine Glucose (UA) (test code = 2349-9) NEGATIVE NEGATIVE [facility] CenterUrine ketones detection by automated test elbil3861-75-33 15:50:00* Test Item Value Reference Range Interpretation Comments Urine Ketones (test code = 89158-8) TRACE NEGATIVE [facility] CenterUrine urobilinogen measurement by test strip (mass/volume)2020-05-04 15:50:00* Test Item Value Reference Range Interpretation Comments Urine Urobilinogen (test code = 21251-2) 2 0.2-1 [facility] CenterU[facility] total bilirubin measurement (mass/volume)2020-05-04 15:50:00* Test Item Value Reference Range Interpretation Comments Urine Bilirubin (test code = 1978-6) NEGATIVE NEGATIVE [facility] CenterUrine erythrocytes bgmofybvn3292-98-63 15:50:00* Test Item Value Reference Range Interpretation Comments Urine Blood (test code = 90107-6) TRACE NEGATIVE [facility] CenterAutomated urine sediment leukocyte count by microscopy (number/high power field)2020-05-04 15:50:00* Test Item Value Reference Range Interpretation Comments Urine WBC (test code = 5821-4) 6-10 0-5 [facility] CenterErythrocytes detection in urine sediment by light aujiegiqjf7527-02-20 15:50:00* Test Item Value Reference Range Interpretation Comments Urine RBC (test code = 27462-3) 6-10 0-5 [facility] CenterBacteria detection in urine sediment by light blwfgnueox9137-08-56 15:50:00* Test Item Value Reference Range Interpretation Comments Urine Bacteria (test code = 96479-3) MANY NONE [facility] CenterEpithelial cells detection in urine sediment by light ytmjjgpdbw3311-18-67 15:50:00* Test Item Value Reference Range Interpretation Comments Urine Epithelial Cells (test code = 47331-6) MODERATE NONE [facility] CenterCalcium oxalate crystals detection in urine sediment by light mqzzedvtui3536-13-56 15:50:00* Test Item Value Reference Range Interpretation Comments Urine Calcium Oxalate Crystals (test code = 5774-5) MODERATE FE W [facility] CenterBacteria identification in wound by ikiazxw0718-38-25 14:30:00* Test Item Value Reference Range Interpretation Comments Wound Culture (test code = 6462-6) STAPHYLOCOCCUS AUREUS-MRSA [facility] CenterHIP LEFT 2-3 VW (+/- PELVIS)2020-05-02 17:22:00 [facility] [address] [address] Patient Name: CARLA DEJESUS MR #: [id number] : 1950 Age/Sex: 69/F Req #: [id number] Adm Physician: WILMAR RICHARD MD Ordered by: JULY ORTIZ MD Report #: [id number] Location: [facility] Room/Bed: [place] [address] Procedure: [id number] DX/HIP LEFT 2-3 VW (+/- PELVIS) Exam Date: Exam Time: REPORT STATUS: Signed Exam: Left hip radiograph-2 views History: Swelling left hip. Comparison: CT left hip 05-02-2020. Findings/Impression: Status post ORIF for left femoral neck f racture. Hardware appears intact. Alignment appears unremarkable. Soft tissue edema in the lateral thigh, better characterized on same day CT. Contrast with in the bladder. Signed by: Dr. Yeison Santos MD on 05/02/2020 5:24 PM D ictated By: YEISON SANTOS MD 1 724 Transcribed By: SCOTT on 05/02/20 6464 COPY TO: JULY ORTIZ MD CT HIP LEFT S3307-07-58 16:39:[address] [place] [address] Patient Name: CARLA DEJESUS MR #: [id number] : 1950 Age/Sex: 69/F Req #: [id number] Adm Physician: WILMAR RICHARD MD Ordered by: JULY ORTIZ MD Report #: [id number] Location: [facility] Room/Bed: [place] [address] Procedure: [id number] CT/CT HIP LE FT W Exam Date: 05/02/20 Exam Time: 1435 REPORT STATUS: Signed EXAM: CT left hip with contrast INDICATION: Status post surgery, query abscess. COMPARISON: CT abdomen/pelvis 03-15-2020. TECHNIQUE: Left hip was scanned utilizing a mu ltidetector helical scanner after administration of IV contrast. Coronal and s agittal reformations were obtained. Routine protocol was performed. IV CONTRAST: None. ORAL CONTRAST: None. RADIATI ON DOSE: Total DLP: 216 mGy*cm Estimated effective dose: (DLP x 0 .015 x size factor) mSv COMPLICATIONS: None FINDINGS: Stat us post interval ORIF of the left femur with intramedullary kyar and intertroch anteric screw for previously noted comminuted left femoral neck fracture. Hard cheatham appears intact. Fracture lines continue to be visible. No evidence of interval fracture. No dislocation. There is a 3.3 x 4.8 x 5.9 cm (AP x TV x SI) subcutaneous fluid collection in the left lateral thigh with mild periphe ral enhancement and surrounding inflammatory changes. IMPRESSION: Left lateral thigh subcutaneous fluid collection with surrounding inflammatory kayley nges may represent developing abscess. Recommend clinical correlation. Stat us post interval ORIF for left proximal femur fracture with intact hardware an d unremarkable alignment. Signed by: Dr. Yeison Santos MD on 05/02/2020 4:45 P M Dictated By: YEISON SANTOS MD 44 Transcribed By: SCOTT on 05/02/201644 COPY TO: Bob ORTIZ MD Erythrocyte sedimentation rate by Westergren nkwblo0026-88-34 15:30:00* Test Item Value Reference Range Interpretation Comments Erythrocyte Sedimentation Rate (test code = 4537-7) > 140 0- 20 [facility]Flu[facility] procedure less than one hour tfgpvzrf4620-22-78 15:30:00* Test Item Value Reference Range Interpretation Comments Coronavirus (PCR) (test code = Coronavirus (PCR)) NOT DETECTED NOTD ETECTED [facility] SARS-CoV-2 assay is a nucleic amplification test intended for the qualitative detection of RNA from SARS-CoV-2 from nasopharyngeal ([employer]AR[employer] ADVISORY TEAM WATCH OFFICER) specimens. It is used under Emergency Use Authorization (EUA) by FDA.A positive result is indicative of the presence of SARS-CoV-2 RNA. Clinical correlation with patient history and other diagnostic information is necessary to determine patient infe ction status.A negative (Not Detected) result does not preclude SARS-CoV-2 infec tion. Clinical Correlation with patient history and other diagnostic information should be used in patient management decisions.Invalid: Unable to generate a va lid result on this specimen. Please submit a new specimen for reprat testing oc clinically indicated.Tesing performed by:[facility] [address] [place], [place] [id number] [id number], Dewey Steele MD, PhD [facility] CenterProthrombin time (PT) in platelet poor plasma by coagulation olasn8143-07-83 13:36:00* Test Item Value Reference Range Interpretation Comments Prothrombin Time (test code = 5902-2) 13.8 11.9-14.5 [facility] CenterINR in Platelet poor plasma by Coagulation rkpdd3443-69-89 13:36:00* Test Item Value Reference Range Interpretation Comments Prothromb Time International Ratio (test code = 6301-6) 1.01 Oral Anticoagulant Therapy INR Values:1. Low Intensity Therapy 1.5 - 2.02 . Moderate Intensity Therapy 2.0 - 3.03. High Intensity Therapy(1) 2.5 - 3. 54. High Intensity Therapy(2) 3.0 - 4.05. Panic Value INR > 5.0 [facility] CenterActivated partial thromboplastin time (aPTT) in platelet poor plasma by coagulation gmdyc1963-78-55 13:36:00* Test Item Value Reference Range Interpretation Comments Activated Partial Thromboplast Time (test code = 08763-9) 30.6 23.8-35.5 [facility] CenterBlood cohguml5972-46-04 13:36:00* Test Item Value Reference Range Interpretation Comments Blood Culture (test code = 87942242) NO GROWTH AFTER 5 DAYS, FINAL REPORT [facility] leukocytes automated count (number/volume)2020-03-19 05:05:00* Test Item Value Reference Range Interpretation Comments White Blood Count (test code = 6690-2) 2.67 4.8-10.8 [facility] CenterBlluver[facility] erythrocytes automated count (number/volume)2020-03-19 05:05:00* Test Item Value Reference Range Interpretation Comments Red Blood Count (test code = 789-8) 2.53 3.6-5.1 [facility] hemoglobin measurement (moles/volume)2020-03-19 05:05:00* Test Item Value Reference Range Interpretation Comments Hemoglobin (test code = 42256-1) 8.0 12.0-16.0 [facility] CenterAutomated blood hematocrit (volume fraction)2020-03-19 05:05:00* Test Item Value Reference Range Interpretation Comments Hematocrit (test code = 4544-3) 25.1 34.2-44.1 [facility] CenterAutomated erythrocyte mean corpuscular myuecl0226-25-77 05:05:00* Test Item Value Reference Range Interpretation Comments Mean Corpuscular Volume (test code = 787-2) 99.2 81-99 [facility] CenterAutomated erythrocyte mean corpuscular hemoglobin (mass per erythrocyte)2020-03-19 05:05:00* Test Item Value Reference Range Interpretation Comments Mean Corpuscular Hemoglobin (test code = 785-6) 31.6 28-32 [facility] CenterAutunc [facility]x erythrocyte mean corpuscular hemoglobin concentration measurement (mass/volume)2020-03-19 05:05:00* Test Item Value Reference Range Interpretation Comments Mean Corpuscular Hemoglobin Concent (test code = 786-4) 31.9 31-35 [facility] CenterRDW KfqXi-Ofz9759-31-09 05:05:00* Test Item Value Reference Range Interpretation Comments Red Cell Distribution Width (test code = 73136-4) 15.9 11.7 -14.4 [facility] CenterAutadventhealthed blood platelet count (count/volume)2020-03-19 05:05:00* Test Item Value Reference Range Interpretation Comments Platelet Count (test code = 777-3) 57 140-360 [facility] CenterAutomated blood segmented neutrophil count as percentage of total upyfeniksh1432-17-60 05:05:00* Test Item Value Reference Range Interpretation Comments Neutrophils (%) (Auto) (test code = 01292-9) 31.8 38.7-80.0 [facility] CenterAutadventhealthed blood lymphocyte count as percentage ot total ulzssoeqrw9690-58-76 05:05:00* Test Item Value Reference Range Interpretation Comments Lymphocytes (%) (Auto) (test code = 736-9) 49.4 18.0-39.1 [facility] CenterAutomated blood monocyte count as percentage of total xxiiefkscy8631-11-89 05:05:00* Test Item Value Reference Range Interpretation Comments Monocytes (%) (Auto) (test code = 5905-5) 15.4 4.4-11.3 [facility] CenterAutomated blood eosinophil count as percentage of total fjkcejxhlm8353-19-37 05:05:00* Test Item Value Reference Range Interpretation Comments Eosinophils (%) (Auto) (test code = 713-8) 2.6 0.0-6.0 [facility] CenterAutomated blood basophil count as percentage of total buzokvwpva6358-50-01 05:05:00* Test Item Value Reference Range Interpretation Comments Basophils (%) (Auto) (test code = 706-2) 0.4 0.0-1.0 [facility] CenterFluoroscopic procedure less than one hour eacbezba2561-44-82 05:05:00* Test Item Value Reference Range Interpretation Comments IM GRANULOCYTES % (test code = IM GRANULOCYTES %) 0.4 0.0- 1.0 [facility] CenterAutomated blood neutrophil count 2020-03-19 05:05:00* Test Item Value Reference Range Interpretation Comments Neutrophils # (Auto) (test code = 751-8) 0.9 2.1-6.9 [facility] CenterBlood lymphocytes count (number/volume) 2020-03-19 05:05:00* Test Item Value Reference Range Interpretation Comments Lymphocytes # (Auto) (test code = 59986-0) 1.3 1.0-3.2 [facility] CenterBlood monocytes automated count (number/volume)2020-03-19 05:05:00* Test Item Value Reference Range Interpretation Comments Monocytes # (Auto) (test code = 742-7) 0.4 0.2-0.8 [facility] CenterAutomated blood eosinophil count 2020-03-19 05:05:00* Test Item Value Reference Range Interpretation Comments Eosinophils # (Auto) (test code = 711-2) 0.1 0.0-0.4 [facility] CenterAutomated blood basophil count (count/volume)2020-03-19 05:05:00* Test Item Value Reference Range Interpretation Comments Basophils # (Auto) (test code = 704-7) 0.0 0.0-0.1 [facility] CenterFluoroscopic procedure less than one hour tjhnrtjj6261-75-21 05:05:00* Test Item Value Reference Range Interpretation Comments Absolute Immature Granulocyte (auto (melissa t code = Absolute Immature Granulocyte (auto) 0.01 0-0.1 [facility] CenterFluoroscopic procedure less than one hour egxoafmx9239-05-46 05:05:00* Test Item Value Reference Range Interpretation Comments Differential Total Cells Counted (test code = Juliana tial Total Cells Counted) 100 [facility] neutrophils/100 leukocytes 2020-03-19 05:05:00* Test Item Value Reference Range Interpretation Comments Neutrophils % (Manual) (test code = 39720-6) 46 40-74 [facility]ual blood lymphocytes/100 leukocytes 2020-03-19 05:05:00* Test Item Value Reference Range Interpretation Comments Lymphocytes % (Manual) (test code = 737-7) 38 19-48 [facility]ual blood monocytes/100 leukocytes 2020-03-19 05:05:00* Test Item Value Reference Range Interpretation Comments Monocytes % (Manual) (test code = 744-3) 14 3.4-9.0 [facility] blood eosinophil count as percentage of total cpswgueuiz1736-92-34 05:05:00* Test Item Value Reference Range Interpretation Comments Eosinophils % (Manual) (test code = 714-6) 2 0-7 [facility] CenterBlood platelets count by estimate (number/volume)2020-03-19 05:05:00* Test Item Value Reference Range Interpretation Comments Platelet Estimate (test code = 63722-1) MARKEDLY DECREASED [facility] CenterPlatelet oimagwjkvj3311-72-59 05:05:00* Test Item Value Reference Range Interpretation Comments Platelet Morphology Comment (test code = 08297-7) NORMAL NO EDTA PLT CLUMPS SEENCuero Regional Hospitalerum or plasma sodium measurement (moles/volume)2020-03-19 05:05:00* Test Item Value Reference Range Interpretation Comments Sodium Level (test code = 2951-2) 142 136-145 [facility]er[facility] or plasma potassium measurement (moles/volume)2020-03-19 05:05:00* Test Item Value Reference Range Interpretation Comments Potassium Level (test code = 2823-3) 3.5 3.5-5.1 [facility]er[facility] or plasma chloride measurement (moles/volume)2020-03-19 05:05:00* Test Item Value Reference Range Interpretation Comments Chloride Level (test code = 2075-0) 109 98-107 [facility]er[facility] or plasma carbon dioxide, total measurement (moles/volume)2020-03-19 05:05:00* Test Item Value Reference Range Interpretation Comments Carbon Dioxide Level (test code = 2028-9) 28 22-29 [facility]er[facility] or plasma anion jju6873-52-20 05:05:00* Test Item Value Reference Range Interpretation Comments Anion Gap (test code = 92622-4) 8.5 8-16 [facility]er[facility] or plasma urea nitrogen measurement (mass/volume)2020-03-19 05:05:00* Test Item Value Reference Range Interpretation Comments Blood Urea Nitrogen (test code = 3094-0) 7 7-26 [facility]er[facility] or plasma creatinine measurement (mass/volume)2020-03-19 05:05:00* Test Item Value Reference Range Interpretation Comments Creatinine (test code = 2160-0) 0.58 0.57-1.11 [facility] Hospitaler[facility] or plasma urea nitrogen/creatinine mass gucbj6292-10-87 05:05:00* Test Item Value Reference Range Interpretation Comments BUN/Creatinine Ratio (test code = 3097-3) 12 6-25 [facility] CenterEstimated glomerular filtration rate (GFR) imagiufbknbui5653-52-71 05:05:00* Test Item Value Reference Range Interpretation Comments Estimat Glomerular Filtration Rate (test code = 155815034) > 60 >60 Ranges were taken from the National Kidney Disease Education Program and the [facility] Foundation literature.Reference ranges:60 or greater: Ucxbkl13-95 ( for 3 consecutive months): Chronic kidney disease 15 or less: Kidney failureD[facility] Medical CenterGlucose jagiugrzicc2749-93-59 05:05:00* Test Item Value Reference Range Interpretation Comments Glucose Level (test code = HBT5124) 88 74-118 [facility]er[facility] or plasma calcium measurement (mass/volume)2020-03-19 05:05:00* Test Item Value Reference Range Interpretation Comments Calcium Level (test code = 39073-0) 8.0 8.4-10.2 [facility] CenterPhosphorus vqjnvcbilph1601-82-41 05:05:00 * Test Item Value Reference Range Interpretation Comments Phosphorus Level (test code = GWC2722) 2.3 2.3-4.7 [facility] or plasma magnesium measurement (mass/volume)2020-03-19 05:05:00* Test Item Value Reference Range Interpretation Comments Magnesium Level (test code = 93707-0) 1.9 1.3-2.1 [facility] CenterFluoroscopic procedure less than one hour cgofsoyc6653-26-73 05:05:00* Test Item Value Reference Range Interpretation Comments Differential Total Cells Counted (test code = Differenzo hainesl Total Cells Counted) 100 [facility] blood neutrophils/100 leukocytes 2020-03-19 05:05:00* Test Item Value Reference Range Interpretation Comments Neutrophils % (Manual) (test code = 25457-4) 46 40-74 [facility] blood lymphocytes/100 leukocytes 2020-03-19 05:05:00* Test Item Value Reference Range Interpretation Comments Lymphocytes % (Manual) (test code = 737-7) 38 19-48 [facility] blood monocytes/100 leukocytes 2020-03-19 05:05:00* Test Item Value Reference Range Interpretation Comments Monocytes % (Manual) (test code = 744-3) 14 3.4-9.0 [facility] blood eosinophil count as percentage of total ybnuszrvef6260-04-37 05:05:00* Test Item Value Reference Range Interpretation Comments Eosinophils % (Manual) (test code = 714-6) 2 0-7 [facility] CenterBlood platelets count by estimate (number/volume)2020-03-19 05:05:00* Test Item Value Reference Range Interpretation Comments Platelet Estimate (test code = 48484-7) MARKEDLY DECREASED [facility] CenterPlatelet ivtyphcteq2448-93-47 05:05:00* Test Item Value Reference Range Interpretation Comments Platelet Morphology Comment (test code = 28012-1) NORMAL NO EDTA PLT CLUMPS SEENCuero Regional Hospitalerum or plasma total bilirubin measurement (mass/volume)2020-03-17 05:08:00* Test Item Value Reference Range Interpretation Comments Total Bilirubin (test code = 1975-2) 0.6 0.2-1.2 [facility] CenterFluoroscopic procedure less than one hour qjjoeqvz1520-40-70 05:08:00* Test Item Value Reference Range Interpretation Comments Aspartate Amino Transf (AST/SGOT) (test code = Aspartate Amino Transf (AST/SGOT)) 16 5-34 [facility] Hospitalerum or plasma alanine aminotransferase measurement (enzymatic activity/volume)2020-03-17 05:08:00* Test Item Value Reference Range Interpretation Comments Alanine Aminotransferase (ALT/SGPT) (test code = 1742-6) 8 0-55 [facility] Hospitalerum or plasma protein measurement (mass/volume)2020-03-17 05:08:00* Test Item Value Reference Range Interpretation Comments Total Protein (test code = 2885-2) 4.9 6.5-8.1 [facility]erum or plasma albumin measurement (mass/volume)2020-03-17 05:08:00* Test Item Value Reference Range Interpretation Comments Albumin (test code = 1751-7) 2.3 3.5-5.0 [facility] CenterPlasma globulin measurement (mass/volume) 2020-03-17 05:08:00* Test Item Value Reference Range Interpretation Comments Globulin (test code = 87232-5) 2.6 2.3-3.5 [facility] Hospitalerum or plasma albumin/globulin mass sgruo6582-08-73 05:08:00* Test Item Value Reference Range Interpretation Comments Albumin/Globulin Ratio (test code = 1759-0) 0.9 0.8-2.0 [facility] Hospitaler[facility] or plasma alkaline phosphatase measurement (enzymatic activity/volume)2020-03-17 05:08:00* Test Item Value Reference Range Interpretation Comments Alkaline Phosphatase (test code = 6768-6) 62 40-150 [facility] CenterCapillary blood glucose measurement by glucometer (mass/volume)2020-03-16 20:08:00* Test Item Value Reference Range Interpretation Comments Bedside Glucose (test code = 16599-0) 110 70-120 Meter ID: [id number] Medical CenterCapillary blood glucose measurement by glucometer (mass/volume)2020-03-16 20:08:00* Test Item Value Reference Range Interpretation Comments Bedside Glucose (test code = 95511-3) 110 70-120 Meter ID: [id number] Medical CenterBONE and/or JOINT WHOLE ZMOQ7028-38-45 17:01:00 [place] [address] Patient Name: CARLA DEJESUS MR #: [id number] : 1950 Age/Sex: 69/F Req #: [id number] Adm Physician: WILMAR RICHARD MD Ordered by: JAMIL CARRILLO DO Report #: [id number] Location: MED/SURG Room/Bed: [facility] Procedure: NM/BONE a nd/or JOINT WHOLE BODY Exam [...] Kinase (test code = 2157-6) 71 29-168 [facility] Hospitalerum or plasma creatine kinase MB measurement (mass/volume)2020-03-16 14:50:00* Test Item Value Reference Range Interpretation Comments Creatine Kinase MB (test code = 45306-3) 0.40 0-5.0 [facility] CenterTroponin I measurement by highly sensitive enzyme eouipvytnjl6476-18-85 14:50:00* Test Item Value Reference Range Interpretation Comments Troponin I (test code = 06775-9) 0.018 0-0.300 [facility] Hospitalerum or plasma creatine kinase measurement (enzymatic activity/volume)2020-03-16 14:50:00* Test Item Value Reference Range Interpretation Comments Creatine Kinase (test code = 2157-6) 71 29-168 [facility] Hospitalerum or plasma creatine kinase MB measurement (mass/volume)2020-03-16 14:50:00* Test Item Value Reference Range Interpretation Comments Creatine Kinase MB (test code = 16286-5) 0.40 0-5.0 [facility] CenterTroponin I measurement by highly sensitive enzyme oapfdhxwypi6108-82-77 14:50:00* Test Item Value Reference Range Interpretation Comments Troponin I (test code = 77514-4) 0.018 0-0.300 [facility] UZ1108-27-67 20:28:00 [facility] [address] [place] [address] Patient Name: CARLA DEJESUS MR #: [id number] : 1950 Age/Sex: 69/F Req #: [id number] Adm Physician: WILMAR RICHARD MD Ordered by: JAMIL CARRILLO DO Report #: [id number] Location: [facility] Room/Bed: [place] [address] Procedure: [id number] CT/CT ABD OMEN/PELVIS WO Exam Date: 03/15/20 [...] CARRILLO DO CT CHEST WO 2020-03-15 20:28:00 [place] [address] Patient Name: CARLA DEJESUS MR #: [id number] : 1950 Age/Sex: 69/F Req #: [id number] Adm Physician: WILMAR RICHARD MD Ordered by: JAMIL CARRILLO DO Report #: [id number] Location: [facility] Room/Bed: [place] [address] Procedure: [id number] CT/CT FLAVIO ST WO Exam Date: 03/15/20 [...] is below the limits set by the [facility] Protocol Committee (RPC). Dose modulation, iterative reconstruc [...] 8:45 PM Dictated By: PARVEEN JAY MD Electronica ll Signed By: PARVEEN JAY MD on 03/15/202044 Transcribed By: SCOTT on 2044 COPY TO: JAMIL CARRILLO DO Urine color ywbrhytvtqobn5810-90-42 18:04:00* Test Item Value Reference Range Interpretation Comments Urine Color (test code = 5778-6) YELLOW YELLOW [facility] CenterU[facility] beupdnt4960-19-32 18:04:00* Test Item Value Reference Range Interpretation Comments Urine Clarity (test code = 57184-3) [facility] by Test strip 2020-03-15 18:04:00* Test Item Value Reference Range Interpretation Comments Urine Specific Gallagher (test code = 5811-5) 1.020 1.010-1.02 5 [facility] CenterU[facility] pH measurement by automated test dlsgk8538-48-09 18:04:00* Test Item Value Reference Range Interpretation Comments Urine pH (test code = 19199-2) 7.5 5-7 [facility] CenterUrine leukocyte esterase detection by iewjnloo7133-08-76 18:04:00* Test Item Value Reference Range Interpretation Comments Urine Leukocyte Esterase (test code = 5799-2) NEGATIVE NEGATIVE [facility] CenterUrine nitrite tobdmyzpk7393-99-40 18:04:00* Test Item Value Reference Range Interpretation Comments Urine Nitrite (test code = 63503-7) NEGATIVE NEGATIVE [facility] CenterUrine protein measurement by test strip (mass/volume)2020-03-15 18:04:00* Test Item Value Reference Range Interpretation Comments Urine Protein (test code = 5804-0) 1+ NEGATIVE [facility] CenterUrine glucose uxickrvct7602-78-18 18:04:00* Test Item Value Reference Range Interpretation Comments Urine Glucose (UA) (test code = 2349-9) NEGATIVE NEGATIVE [facility] CenterUrine ketones detection by automated test ypuis1620-28-37 18:04:00* Test Item Value Reference Range Interpretation Comments Urine Ketones (test code = 29926-0) NEGATIVE NEGATIVE [facility] CenterUrine urobilinogen measurement by test strip (mass/volume)2020-03-15 18:04:00* Test Item Value Reference Range Interpretation Comments Urine Urobilinogen (test code = 06695-0) 8.0 0.2-1 [facility] CenterUrine total bilirubin measurement (mass/volume)2020-03-15 18:04:00* Test Item Value Reference Range Interpretation Comments Urine Bilirubin (test code = 1978-6) NEGATIVE NEGATIVE [facility] CenterUrine erythrocytes dotnpbise9011-76-96 18:04:00* Test Item Value Reference Range Interpretation Comments Urine Blood (test code = 76287-3) TRACE NEGATIVE [facility] CenterAutomated urine sediment leukocyte count by microscopy (number/high power field)2020-03-15 18:04:00* Test Item Value Reference Range Interpretation Comments Urine WBC (test code = 5821-4) 6-10 0-5 [facility] CenterErythrocytes detection in urine sediment by light aafprhpdvl0046-33-36 18:04:00* Test Item Value Reference Range Interpretation Comments Urine RBC (test code = 10661-2) 0-5 0-5 [facility] CenterBacteria detection in urine sediment by light pipspcsbpk4277-42-84 18:04:00* Test Item Value Reference Range Interpretation Comments Urine Bacteria (test code = 85550-9) FEW NONE [facility] CenterEpithelial cells detection in urine sediment by light keileyotcu1384-07-44 18:04:00* Test Item Value Reference Range Interpretation Comments Urine Epithelial Cells (test code = 91143-1) FEW NONE [facility] CenterProthrombin time (PT) in platelet poor plasma by coagulation ixcga5502-14-00 17:40:00* Test Item Value Reference Range Interpretation Comments Prothrombin Time (test code = 5902-2) 14.3 11.9-14.5 [facility] CenterINR in Platelet poor plasma by Coagulation tnwzd6995-82-27 17:40:00* Test Item Value Reference Range Interpretation Comments Prothromb Time International Ratio (test code = 6301-6) 1.05 Oral Anticoagulant Therapy INR Values:1. Low Intensity Therapy 1.5 - 2.02 . Moderate Intensity Therapy 2.0 - 3.03. High Intensity Therapy(1) 2.5 - 3. 54. High Intensity Therapy(2) 3.0 - 4.05. Panic Value INR > 5.0 [facility] CenterActivated partial thromboplastin time (aPTT) in platelet poor plasma by coagulation dmfja9817-86-46 17:40:00* Test Item Value Reference Range Interpretation Comments Activated Partial Thromboplast Time (test code = 08700-0) 29.7 23.8-35.5 [facility] CenterBNP Ava-hUdm7671-23-05 17:40:00* Test Item Value Reference Range Interpretation Comments B-Type Natriuretic Peptide (test code = 13802-1) 114.0 0-100 [facility] or plasma acetaminophen measurement by screening method (mass/volume)2020-03-15 17:40:00* Test Item Value Reference Range Interpretation Comments Acetaminophen Level (test code = 46320-1) < 3.0 10-30 [facility] CenterFluoroscopic procedure less than one hour hrzktegd3456-71-44 17:40:00* Test Item Value Reference Range Interpretation [...] under 564(g) of the ACT.Testing performed by [facility] [place] [id number] [place], [place] [address]Blood toldyqz0188-82-07 17:40:00* Test Item Value Reference Range Interpretation Comments Blood Culture (test code = 91796646) NO GROWTH AFTER 72 HOURS [facility] CenterBNP Vco-xUyi8101-06-05 17:40:00* Test Item Value Reference Range Interpretation Comments B-Type Natriuretic Peptide (test code = 42709-5) 114.0 0-100 [facility] Hospitalerum or plasma acetaminophen measurement by screening method (mass/volume)2020-03-15 17:40:00* Test Item Value Reference Range Interpretation Comments Acetaminophen Level (test code = 48424-1) < 3.0 10-30 [facility] CenterCHEST SINGLE (NOT PORTABLE)2020-03-15 15:02:00 [facility] [address] [place] [address] Patient Name: CARLA DEJESUS MR #: [id number] : 1950 Age/Sex: 69/F Req #: [id number] Adm Physician: Ordered by: JULY ORTIZ MD Report #: [id number] Location: ER Room/Bed: Procedure: [id number] DX/CHEST SIN GLE (NOT PORTABLE) Exam Date: [...] JULY BERNABE MD FEMUR 2 VIEWS MINIMUM MSTA3628-42-86 15:00:00 [place] [address] Patient Name: CARLA DEJESUS MR #: [id number] : 1950 Age/Sex: 69/F Req #: [id number] Adm Physician: Ordered by: JULY ORTIZ MD Report #: [id number] Location: ER Room/Bed: Procedure: [id number] DX/FEMUR 2 V IEWS MINIMUM LEFT Exam [...] :02 PM Dictated By: CANDIDO RODRIGUEZ MD 1505 Transcribed By: SCOTT on 03/15/20 1502 COPY TO: JULY ORTIZ MD HIP LEFT 2-3 VW (+/- PELVIS)2020-03-15 14:57:00 [place] [address] Patient Name: CARLA DEJESUS MR #: [id number] : 1950 Age/Sex: 69/F Req #: [id number] Adm Physician: Ordered by: JULY ORTIZ MD Report #: [id number] Location: ER Room/Bed: Procedure: [id number] DX/HIP LEFT 2-3 VW (+/- PELVIS) Exam [...] 3:00 PM Dictated By: CANDIDO RODRIGUEZ MD 99 Transcribed By: SCOTT on 03/15/20 1500 COPY TO: JULY ORTIZ MD CT CERVICAL SPINE OZ5956-84-41 14:30:00 [place] [address] Patient Name: CARLA DEJESUS MR #: [id number] : 1950 Age/Sex: 69/F Req #: [id number] Adm Physician: Ordered by: JULY ORTIZ MD Report #: [id number] Location: ER Room/Bed: Procedure: [id number] CT/CT CERVIC AL SPINE WO Exam Date: [...] 1 431 Transcribed By: SCOTT on 03/15/20 9160 COPY TO: JULY ORTIZ MD CT BRAIN JK8699-29-68 14:28:00 [place] [address] Patient Name: CARLA DEJESUS MR #: [id number] : 1950 Age/Sex: 69/F Req #: [id number] Adm Physician: Ordered by: JULY ORTIZ MD Report #: [id number] Location: Room/Bed: Procedure: [id number] CT/CT BRAIN WO Exam Date: 03/15/20 Exam [...] ORTIZ MD CHEM PANEL 2019-08-19 14:24:0094[facility]annCHEM ANAOJ3441-91-91 14:24:007[facility]annCHEM ASPMQ6344-46-44 14:24:000.72[facility]annCHEM QPRTX9032-32-71 14:24:59808Jamfqgjm HermannCHEM QIHFU0834-49-59 14:24:003.6[facility] HermannCHEM EXFIM8353-75-89 14:24:80311Jfvlchhq HermannCHEM STIBM4824-92-26 14:24:0027 [facility]annCHEM YEQGD6394-89-53 14:24:008.8[facility] HermannCHEM PANEL 2019-08-19 14:24:0086[facility] HermannCHEM QZBUH7642-56-84 14:24:0010.6[facility] WtteuhtCJLGIVZSVT9033-00-77 14:24:004.9[facility] UnojchrKMKPDDKZLN1771-71-30 14:24:003.61[facility] CxywqldCYBQLJDCTW5698-05-65 14:24:009.9[facility] INYEGYJUPD8646-02-53 14:24:0031.3[facility] ErnrjxrNVHNYKOGLR3782-17-40 14:24:00 86.6[facility] CvscqghAFBIRFJLVK1470-82-25 14:24:00* Test Item Value Reference Range Interpretation Comments MCH (test code = MCH) 27.4 pg 27.0-31.0 [facility] QdbydarCRETHSPROC3951-64-34 14:24:0031.6[facility] HermannHEMATOLOGY 2019-08-19 14:24:0016.9[facility] ZqfmyaqEWXPMNEFGI3659-92-06 14:24:54727Gibploly QscmuxyRAHTACQEXG7935-39-36 14:24:008.8[facility] AbdnfizUYFKSNGIFJ6719-63-57 14:24:0055.5[facility] HidldqqUMXJLJHNNZ9981-38-19 14:24:0032.2[facility] [place] ZRCZWQEJWA5426-03-11 14:24:008.8[facility] LwolctnXYDCPQORFA5809-49-29 14:24:002.9 [facility] EwanqbfYDWSQIHUGX3519-48-98 14:24:000.6[facility] HermannHEMATOLOGY 2019-08-19 14:24:002.8[facility] EckvfgzKDNXGPHLHX6814-02-63 14:24:001.6[facility] YoskwnuXUNVSHFAXY9601-37-91 14:24:000.4[facility] LtdmwopEWZFIYCRIN2274-85-48 14:24:000.1[facility] HermannCHEM ANCIU1548-49-94 11:14:0096[facility] HermannCHEM ORMJA9423-33-36 11:14:0016[facility] HermannCHEM OAMJM6769-32-28 11:14:000.76 [facility]annCHEM FSMXH4260-60-87 11:14:54690Yymbhzfa HermannCHEM PANEL 2019-08-02 11:14:003.6[facility]annCHEM YCDSA5207-80-66 11:14:89215Vtvtqgtf HermannCHEM YBEQU2898-47-76 11:14:0030[facility]annCHEM HNMKE7988-02-34 11:14:007.6[facility]annCHEM SYKWJ6873-35-05 11:14:008.4[facility]annCHEM JCUFQ0103-16-98 11:14:00* Test Item Value Reference Range Interpretation Comments B/C Ratio (test code = B/C Ratio) 21 1 6-25 [facility]annCHEM ZWKAY3025-39-41 11:14:005.3[facility] HermannCHEM PANEL 2019-08-02 11:14:001.9[facility]annCHEM IFVPN8569-79-85 11:14:003.4[facility]annCHEM RFVPX7281-34-57 11:14:00* Test Item Value Reference Range Interpretation Comments A/G Ratio (test code = A/G Ratio) 0.6 1 0.7-1.6 [facility]annCHEM GAQPU4492-83-85 11:14:008[facility] HermannCHEM PANEL 2019-08-02 11:14:005[facility]annCHEM KWMUG3720-45-51 11:14:0059[facility]annCHEM CWIMU1378-14-16 11:14:000.3[facility]annCHEM OEQBF4389-19-63 11:14:0081[facility] HermannCHEM ARURC3330-47-16 11:14:002.4[facility]annCHEM MNEIJ2878-47-51 11:14:002.3[facility] RvbiypbKKHOWHGHKS4844-44-92 11:14:008.8 [facility] EwfytmfQNOCHJMUUE9233-24-70 01:49:0011.0[facility] HermannHEMATOLOGY 2019-08-02 01:49:002.95[facility] JimuymaUBPQMOTNLW7463-71-58 01:49:008.3[facility] ZsetskbLZUWKIPLXE9312-00-78 01:49:0025.6[facility] TzaxiedMAKXPEPMOT3343-47-74 01:49:0086.6[facility] YpmjlhzRYALGWBTKU7335-41-28 01:49:00* Test Item Value Reference Range Interpretation Comments MCH (test code = MCH) 28.1 pg 27.0-31.0 [facility] KshpwusUVNLFYFYZB0190-99-59 01:49:0032.5[facility] HermannHEMATOLOGY 2019-08-02 01:49:0016.0[facility] TagnintQBGFCSGZZI7925-86-26 01:49:13787Cyalvdjq EfhiftpYOUFPFQHFD6696-88-88 01:49:008.1[facility] UijemftMVPUHOVBTT6867-64-17 01:49:0077.0[facility] TpgujbsPJWLYGLSQH0277-41-83 01:49:0014.8[facility] XDJHFRJAUJ0842-36-30 01:49:006.3[facility] LrrbvtlCLEMAVQMKX7262-56-27 01:49:001.7 [facility] YcufbuwLKFYAMDGXI1865-47-07 01:49:000.2[facility] HermannHEMATOLOGY 2019-08-02 01:49:008.5[facility] TyegozuTFNMDPFZUA7363-17-90 01:49:001.6[facility] BrgdtggRLJWLFOIZQ8799-83-72 01:49:000.7[facility] QlldrviAMGPCLHRTN2401-86-64 01:49:000.2[facility] HermannBLOOD BANK XPUIQQR6927-54-19 18:54:00Product available 8(08/01/19 12:54 PM)[facility] HermannCHEM WHYBE0185-21-07 17:02:44286 [facility]annCHEM CHKKR6659-62-72 17:02:0018[facility] HermannCHEM PANEL 2019-08-01 17:02:001.04[facility] HermannCHEM UTCUR2015-05-06 17:02:53089Yfkoakus HermannCHEM SJOBW4301-82-50 17:02:003.5[facility]annCHEM QMMVB4629-71-22 17:02:26641Zbdsdrbi HermannCHEM DGZSF0908-84-63 17:02:0025[facility] HermannCHEM HCLHO0075-68-76 17:02:0010.5[facility] HermannCHEM XZPEI1736-19-24 17:02:008.3 [facility] HermannCHEM WVGRB9308-51-71 17:02:0056[facility] HermannHEMATOLOGY 2019-08-01 17:02:0012.9[facility] JuhyhbaMBMXGYRNPR7752-67-91 17:02:002.72[facility] WrhfhxbEEWMFUAFNW5222-10-78 17:02:007.5[facility] CwrsrofMXZVKZDYEW6002-13-92 17:02:0023.6[facility] DtrdtmsVOWSEWLXBZ5191-83-04 17:02:0086.7[facility] [place] ZZCNYPLLIU4372-66-66 17:02:00* Test Item Value Reference Range Interpretation Comments MCH (test code = MCH) 27.6 pg 27.0-31.0 [facility] MbvqpiiNTUFAKFJKG5042-99-25 17:02:0031.8[facility] HermannHEMATOLOGY 2019-08-01 17:02:0016.5[facility] RsagfbfVPZRIEFYSB9238-00-08 17:02:17356Cctfbvjl DonjajvUOKHZFLNUE8745-14-77 17:02:008.6[facility] OrhdxklMFRWULCQMN4999-11-69 17:02:0081.2[facility] KeadaozNCTXTXWUAQ5745-34-62 17:02:0012.7[facility] [place] OQHVWMFDNJ2259-93-03 17:02:005.1[facility] FtifdnwAZHINJKGPL8708-29-64 17:02:000.6 [facility] PapimycONPIQKYXZU2803-61-57 17:02:000.4[facility] HermannHEMATOLOGY 2019-08-01 17:02:0010.5[facility] CjiesnmPQMVUMANAA0893-82-92 17:02:001.6[facility] XmutqdbRODOQORLNI4067-53-46 17:02:000.7[facility] IzsdezmPNFLIUQGWA6033-25-99 17:02:000.1[facility] HermannCHEM FGVMO3483-92-44 13:21:0099[facility] HermannCHEM HOZPK1881-64-34 13:21:0018[facility] HermannCHEM FRPLI2351-61-98 13:21:001.02 [facility]annCHEM AWYUK2197-96-02 13:21:20446Envozsrk HermannCHEM PANEL 2019-08-01 13:21:003.9[facility] HermannCHEM GKAXD2236-19-70 13:21:00253Uekryxlc HermannCHEM LIYFY2943-32-31 13:21:0027[facility] HermannCHEM RCTPR5408-70-44 13:21:009.9[facility] HermannCHEM QNVLN0665-16-63 13:21:008.4[facility] HermannCHEM GHIVK4944-26-29 13:21:00* Test Item Value Reference Range Interpretation Comments B/C Ratio (test code = B/C Ratio) 18 1 6-25 [facility]annCHEM OUJPN3361-29-03 13:21:004.8[facility] HermannCHEM PANEL 2019-08-01 13:21:001.8[facility] HermannCHEM TNBQQ0517-23-61 13:21:003.0[facility] HermannCHEM EUVMZ1706-60-45 13:21:00* Test Item Value Reference Range Interpretation Comments A/G Ratio (test code = A/G Ratio) 0.6 1 0.7-1.6 [facility]annCHEM HMUMW5377-52-00 13:21:00<6[facility] HermannCHEM PANEL 2019-08-01 13:21:004[facility]annCHEM HESMO0216-37-55 13:21:0047[facility] HermannCHEM JRGNQ6587-75-83 13:21:000.3[facility] HermannCHEM HSKRR9832-67-24 13:21:0057[facility]annCHEM HIDHJ4322-06-98 13:21:002.0[facility]annCHEM KDXLU0384-45-73 13:21:002.3[facility] HermannCHEM SJUNN0733-45-83 11:22:004.9 [facility]annCHEM UXTAR7113-51-59 11:22:001.9[facility] HermannCHEM PANEL 2019-07-31 11:22:008[facility] HermannCHEM TTEFY6159-12-86 11:22:008[facility] HermannCHEM TPAPO1776-42-83 11:22:0040[facility] HermannCHEM WUMPA8052-93-74 11:22:000.4[facility] HermannCHEM IAFUN4296-32-16 11:22:00* Test Item Value Reference Range Interpretation Comments B/C Ratio (test code = B/C Ratio) 12 1 6-25 [facility]annCHEM ZPOHQ3166-19-81 11:22:003.0[facility] HermannCHEM PANEL 2019-07-31 11:22:00* Test Item Value Reference Range Interpretation Comments A/G Ratio (test code = A/G Ratio) 0.6 1 0.7-1.6 [facility]annCHEM FHXWF8696-19-57 11:22:002.1[facility] HermannCHEM PANEL 2019-07-31 11:22:003.4[facility] GjxvyfcYMAZVCDMVZ8978-96-59 11:22:00Normal (07/31/19 5:22 AM)[facility] LpdvzgjPTKUJPOTJU9973-97-82 11:22:00Normal (07/31/19 5:22 AM)[facility] GkbyyjtIRNQAUFUUT7587-00-86 11:22:0089.3[facility] URQIMSAYVW5540-49-14 11:22:006.0[facility] PgahdiuCYHAOEQQLI8685-89-56 11:22:004.7 [facility] YadvkreHFNWTVYQKY0950-16-29 11:22:0018.5[facility] HermannHEMATOLOGY 2019-07-31 11:22:001.2[facility] JhcfjdsMPHYCDOSZN8450-32-79 11:22:001.0[facility] HzbifcmBQKLXTBFHK5760-27-10 11:22:0020.7[facility] SynguxcTTIBLHMIBE3883-84-35 11:22:003.24[facility] QigehacQQJZKNAJUU5999-23-66 11:22:0027.6[facility] LXOTGZJQPX3342-23-28 11:22:0085.4[facility] VfcqujtJJAOTIEODA3567-36-62 11:22:00* Test Item Value Reference Range Interpretation Comments MCH (test code = MCH) 28.2 pg 27.0-31.0 [facility] QcsbwydYBFISGBDYT0403-49-29 11:22:0033.0[facility] HermannHEMATOLOGY 2019-07-31 11:22:0015.5[facility] YvvzafbBTFEVBVIVM4181-17-10 11:22:43779Nsetvypi WcanvqwUIZASDYBUQ0961-64-31 11:22:008.1[facility] HermannBLOOD BANK RESULTS 2019-07-30 14:59:00Product available 9(07/30/19 8:59 AM)[facility] HermannBLOOD BANK RRPEPDK2721-08-80 14:44:00Negative (07/30/19 8:44 AM)[facility] [place] ANIWTUCCBG2407-49-52 14:18:001.3[facility] DtvkaakMOWDYQLNYP4466-45-76 14:18:000.6 [facility] QjyhyvyMLTWHCJPPU3949-32-20 14:18:000.1[facility] HermannENDOCRINOLOGY 2019-07-30 12:46:0014.1[facility] MuangwnGLKRYVVOPRJJC6398-35-28 10:08:0017.0 [facility] FqfycmaXCUQGVPYOGAWS5889-50-96 12:26:0012.8[facility] KUUZTDHDBCMHW9527-89-88 12:26:0037.7[facility] HermannMATERNAL ZBIKHWH6263-66-35 12:26:0011.2[facility] HermannTUMOR AAMEPNC6809-57-21 12:26:0053.2[facility] TUMOR JDUNESO5602-60-55 12:26:15666.1[facility] HermannTUMOR RGLBEJG7157-85-48 00:02:0065.3[facility] HermannCHEM YOIHK3669-36-22 03:57:000.7[facility] [place] URINE AND FMQHF7821-98-97 23:46:00Slight *ABN*(07/25/19 5:46 PM)[facility] URINE AND VUMDV5617-72-53 23:46:00* Test Item Value Reference Range Interpretation Comments UA Spec Grav (test code = UA Spec Grav) 1.028 1 [facility]annURINE AND VUDMB8073-66-78 23:46:00* Test Item Value Reference Range Interpretation Comments UA pH (test code = UA pH) 6.0 1 5.0-8.0 [facility]annUR[facility] AND IYIUB1693-06-71 23:46:00Negative *NA*(07/25/19 5:46 PM)[facility]annURINE AND YLHAW5298-09-07 23:46:00Negative (07/25/19 5:46 PM) [facility] AND RWCTT5091-11-48 23:46:002.0[facility]annURINE AND TDNSN4220-33-37 23:46:00Negative (07/25/19 5:46 PM)[facility]annUR[facility] AND AMJFX7215-33-22 23:46:00Large *ABN*(07/25/19 5:46 PM)[facility]ann[facility] AND DJPLW2603-32-79 23:46:0027[facility]annURINE AND WOUEF3430-66-99 23:46:005 [facility]annCHEM FDWSB5439-42-21 22:36:0080[facility] HermannCHEM PANEL 2019-07-25 22:36:000.1[facility] AbmbtazIBLWCBTRAH3560-36-11 22:36:000.1[facility] HermannMRI PELVIS HSC0857-98-66 11:57:00 [place] [address] Patient Name: CARLA DEJESUS MR #: [id number] : 1950 Age/Sex: 68/F Req #: [id number] Adm Physician: Ordered by: PATY PAYNE MD Report #: [id number] Location: [facility] Room/Bed: Procedure: MRI/MRI PELVIS WOW Exam Date: [...] 07/24/2019 12:14 PM Dictated By: SYLVIA ROSENBERG 1214 Transcribed By: SCOTT on 07/24/19 1214 COPY TO: PATY PAYNE MD Sodium Iuzuh9344-12-67 23:14:00* Test Item Value Reference Range Interpretation Comments Sodium Level (test code = 2951-2) 137 136-145 [facility] CenterPotassium Nbiuy5260-70-34 23:14:00* Test Item Value Reference Range Interpretation Comments Potassium Level (test code = 2823-3) 3.3 3.5-5.1 L [facility] CenterChloride Vcpul4487-12-42 23:14:00* Test Item Value Reference Range Interpretation Comments Chloride Level (test code = 2075-0) 103 98-107 [facility] CenterCarbon Dioxide Bpeec9088-54-09 23:14:00* Test Item Value Reference Range Interpretation Comments Carbon Dioxide Level (test code = 2028-9) 26 22-29 [facility] CenterAnion Qgz3879-63-57 23:14:00* Test Item Value Reference Range Interpretation Comments Anion Gap (test code = 84261-2) 11.3 8-16 [facility] CenterBlood Urea Rblvcxio2940-24-79 23:14:00* Test Item Value Reference Range Interpretation Comments Blood Urea Nitrogen (test code = 3094-0) 8 7-26 [facility] CenterCreatinine2019-11-02 23:14:00* Test Item Value Reference Range Interpretation Comments Creatinine (test code = 2160-0) 0.72 0.57-1.11 [facility] CenterBUN/Creatinine Fymzg0688-03-73 23:14:00* Test Item Value Reference Range Interpretation Comments BUN/Creatinine Ratio (test code = 3097-3) 11 6-25 [facility] CenterEstimat Glomerular Filtration Rate 2019-07-13 23:14:00* Test Item Value Reference Range Interpretation Comments Estimat Glomerular Filtration Rate (test code = 150158842) > 60 >60 Ranges were taken from the National Kidney Disease Education Program and the [facility] Foundation literature.Reference ranges:60 or greater: Cuqweo65-54 ( for 3 consecutive months): Chronic kidney disease 15 or less: Kidney failureDallas Medical CenterGlucose Wfjxo7106-83-50 23:14:00* Test Item Value Reference Range Interpretation Comments Glucose Level (test code = LXW6826) 88 74-118 [facility] CenterCalcium Cjzzy6602-48-72 23:14:00* Test Item Value Reference Range Interpretation Comments Calcium Level (test code = 69145-6) 8.4 8.4-10.2 [facility] CenterCT ABDOMEN/PELVIS M2977-96-08 22:11:00 [facility] [address] [place] [address] Patient Name: CARLA DEJESUS MR #: [id number] : 1950 Age/Sex: 68/F Req #: [id number] Adm Physician: Ordered by: HERBERT HARRY [employer] ADVISORY TEAM WATCH OFFICER Report #: [id number] Location: Room/Bed: Procedure: 1102-[address]/CT ABDOMEN/PELVIS W [...] Radiation Protocol [facility] ([facility]). Dose modulation, iterative reconstruction, and/or weight b [...] SALINAS DO 21 COPY TO: OSMIN HARRY [employer] ADVISORY TEAM WATCH OFFICER CHEST 2 [id number] 20:15:00 [place] [address] Patient Name: CARLA DEJESUS MR #: [id number] : 1950 Age/Sex: 68/F Req #: [id number] Adm Physician: Ordered by: JULY ORTIZ MD Report #: [id number] Location: ER Room/Bed: Procedure: 0303-0428 D X/CHEST 2 VIEWS Exam Date: 07/13/19 Exam Time: 190 REPORT STATUS: Signed EXAMINATIO N: CHEST 2 [...] 07/13/192016 COPY TO: JULY ORTIZ MD Magnesium [id number] 20:00:00* Test Item Value Reference Range Interpretation Comments Magnesium Level (test code = 12507-6) 2.0 1.3-2.1 [facility]* Test Item Value Reference Range Interpretation Comments Lipase (test code = 3040-3) < 4 8-78 [facility] Xhdpsbnhd3074-86-73 19:12:00* Test Item Value Reference Range Interpretation Comments Total Bilirubin (test code = 1975-2) 0.8 0.2-1.2 [facility] Transf (AST/SGOT) 2019-07-13 19:12:00* Test Item Value Reference Range Interpretation Comments Aspartate Amino Transf (AST/SGOT) (test code = Aspartate Amino Transf (AST/SGOT)) 9 5-34 [facility] (ALT/SGPT) 2019-07-13 19:12:00* Test Item Value Reference Range Interpretation Comments Alanine Aminotransferase (ALT/SGPT) (test code = 1742-6) 6 0-55 [facility] [id number] 19:12:00* Test Item Value Reference Range Interpretation Comments Total Protein (test code = 2885-2) 6.6 6.5-8.1 [facility] 19:12:00* Test Item Value Reference Range Interpretation Comments Albumin (test code = 1751-7) 2.6 3.5-5.0 L [facility]ulin2019-11-02 19:12:00* Test Item Value Reference Range Interpretation Comments Globulin (test code = 79762-1) 4.0 2.3-3.5 H [facility]obulin [id number] 19:12:00 * Test Item Value Reference Range Interpretation Comments Albumin/Globulin Ratio (test code = 1759-0) 0.7 0.8-2.0 L [facility] CenterAlkaline Rivveqtbhds4256-00-76 19:12:00* Test Item Value Reference Range Interpretation Comments Alkaline Phosphatase (test code = 6768-6) 56 40-150 [facility] [id number] 19:03:00* Test Item Value Reference Range Interpretation Comments Urine WBC (test code = 5821-4) 6-10 0-5 [facility] [id number] 19:03:00* Test Item Value Reference Range Interpretation Comments Urine RBC (test code = 24221-6) 0-5 0-5 [facility] Njuyfnpt3351-68-59 19:03:00* Test Item Value Reference Range Interpretation Comments Urine Bacteria (test code = 26022-2) MANY NONE [facility] Epithelial Ttbeb3060-95-52 19:03:00 * Test Item Value Reference Range Interpretation Comments Urine Epithelial Cells (test code = 96566-2) FEW NONE [facility] CenterU[facility] Transitional Epithelial Cells 2019-07-13 19:03:00* Test Item Value Reference Range Interpretation Comments Urine Transitional Epithelial Cells (test code = 8249-5) FEW NONE H [facility] CenterLactic Acid Iuhsa0959-32-09 19:03:00* Test Item Value Reference Range Interpretation Comments Lactic Acid Level (test code = Lactic Acid Level) 1.6 0.5- 2.0 [facility] CenterWhite Blood Dhwyc3242-57-29 18:51:00* Test Item Value Reference Range Interpretation Comments White Blood Count (test code = 6690-2) 16.63 4.8-10.8 H [facility] CenterRed Blood Jeoxr6045-58-15 18:51:00* Test Item Value Reference Range Interpretation Comments Red Blood Count (test code = 789-8) 4.57 3.6-5.1 [facility] CenterHemoglobin2019-11-02 18:51:00* Test Item Value Reference Range Interpretation Comments Hemoglobin (test code = 90681-9) 12.4 12.0-16.0 [facility] CenterHematocrit2019-11-02 18:51:00* Test Item Value Reference Range Interpretation Comments Hematocrit (test code = 4544-3) 39.0 34.2-44.1 [facility] CenterMean Corpuscular Cvomog9241-12-31 18:51:00* Test Item Value Reference Range Interpretation Comments Mean Corpuscular Volume (test code = 787-2) 85.3 81-99 [facility] CenterMean Corpuscular Eqjznyhxpc8182-67-76 18:51:00* Test Item Value Reference Range Interpretation Comments Mean Corpuscular Hemoglobin (test code = 785-6) 27.1 28-32 L [facility] CenterMean Corpuscular Hemoglobin Concent 2019-07-13 18:51:00* Test Item Value Reference Range Interpretation Comments Mean Corpuscular Hemoglobin Concent (test code = 786-4) 31.8 31-35 [facility] CenterRed Cell Distribution Avxhk9380-11-12 18:51:00* Test Item Value Reference Range Interpretation Comments Red Cell Distribution Width (test code = 74106-6) 13.6 11.7 -14.4 [facility] CenterPlatelet Xbjkz6792-87-89 18:51:00* Test Item Value Reference Range Interpretation Comments Platelet Count (test code = 777-3) 329 140-360 [facility] CenterNeutrophils (%) (Auto)2019-07-13 18:51:00 * Test Item Value Reference Range Interpretation Comments Neutrophils (%) (Auto) (test code = 92179-7) 80.7 38.7-80.0 H [facility] CenterLymphocytes (%) (Auto)2019-07-13 18:51:00 * Test Item Value Reference Range Interpretation Comments Lymphocytes (%) (Auto) (test code = 736-9) 11.8 18.0-39.1 L [facility] CenterMonocytes (%) (Auto)2019-07-13 18:51:00* Test Item Value Reference Range Interpretation Comments Monocytes (%) (Auto) (test code = 5905-5) 6.6 4.4-11.3 [facility] CenterEosinophils (%) (Auto)2019-07-13 18:51:00 * Test Item Value Reference Range Interpretation Comments Eosinophils (%) (Auto) (test code = 713-8) 0.0 0.0-6.0 [facility] CenterBasophils (%) (Auto)2019-07-13 18:51:00* Test Item Value Reference Range Interpretation Comments Basophils (%) (Auto) (test code = 706-2) 0.2 0.0-1.0 [facility] CenterIM GRANULOCYTES %2019-07-13 18:51:00* Test Item Value Reference Range Interpretation Comments IM GRANULOCYTES % (test code = IM GRANULOCYTES %) 0.7 0.0- 1.0 [facility] CenterNeutrophils # (Auto)2019-07-13 18:51:00* Test Item Value Reference Range Interpretation Comments Neutrophils # (Auto) (test code = 751-8) 13.4 2.1-6.9 H [facility] CenterLymphocytes # (Auto)2019-07-13 18:51:00* Test Item Value Reference Range Interpretation Comments Lymphocytes # (Auto) (test code = 03178-1) 2.0 1.0-3.2 [facility] CenterMonocytes # (Auto)2019-07-13 18:51:00* Test Item Value Reference Range Interpretation Comments Monocytes # (Auto) (test code = 742-7) 1.1 0.2-0.8 H [facility] CenterEosinophils # (Auto)2019-07-13 18:51:00* Test Item Value Reference Range Interpretation Comments Eosinophils # (Auto) (test code = 711-2) 0.0 0.0-0.4 [facility] CenterBasophils # (Auto)2019-07-13 18:51:00* Test Item Value Reference Range Interpretation Comments Basophils # (Auto) (test code = 704-7) 0.0 0.0-0.1 [facility] CenterAbsolute Immature Granulocyte (auto 2019-07-13 18:51:00* Test Item Value Reference Range Interpretation Comments Absolute Immature Granulocyte (auto (melissa t code = Absolute Immature Granulocyte (auto) 0.11 0-0.1 H [facility] CenterUrine Oeuvf1190-06-83 18:51:00* Test Item Value Reference Range Interpretation Comments Urine Color (test code = 5778-6) STRAW YELLOW [facility] CenterUrine Pptavtq1035-76-14 18:51:00* Test Item Value Reference Range Interpretation Comments Urine Clarity (test code = 72656-4) SL CLOUDY CLEAR [facility] CenterUrine Specific Yyaqdwr4705-11-94 18:51:00 * Test Item Value Reference Range Interpretation Comments Urine Specific Gallagher (test code = 5811-5) 1.025 1.010-1.02 5 [facility] CenterUrine bJ0103-97-45 18:51:00* Test Item Value Reference Range Interpretation Comments Urine pH (test code = 90905-5) 6 5-7 [facility] Leukocyte Apnamorw4152-87-70 18:51:00* Test Item Value Reference Range Interpretation Comments Urine Leukocyte Esterase (test code = 99747-7) MODERATE NEGATIV E [facility] Soclema0715-94-83 18:51:00* Test Item Value Reference Range Interpretation Comments Urine Nitrite (test code = 47898-3) NEGATIVE NEGATIVE [facility] Bveitmf1452-86-79 18:51:00* Test Item Value Reference Range Interpretation Comments Urine Protein (test code = 10256-1) 1+ NEGATIVE H [facility] Glucose (UA)2019-07-13 18:51:00* Test Item Value Reference Range Interpretation Comments Urine Glucose (UA) (test code = 38386-3) NEGATIVE NEGATIVE [facility] Mdmfnfg7403-15-88 18:51:00* Test Item Value Reference Range Interpretation Comments Urine Ketones (test code = 54024-9) TRACE NEGATIVE H [facility] Nuuckkxxcood0909-87-49 18:51:00* Test Item Value Reference Range Interpretation Comments Urine Urobilinogen (test code = 93660-4) 1 0.2-1 [facility] Blqevtnss4563-74-81 18:51:00* Test Item Value Reference Range Interpretation Comments Urine Bilirubin (test code = 1977-8) SMALL NEGATIVE [facility] Xsefz4831-78-12 18:51:00* Test Item Value Reference Range Interpretation Comments Urine Blood (test code = 54235-3) 1+ NEGATIVE [facility] CenterFluoroscopic procedure less than one hour iotwqamu7103-80-00 18:30:00* Test Item Value Reference Range Interpretation Comments Lactic Acid Level (test code = Lactic Acid Level) 1.6 0.5- 2.0 [facility] plasma lipase measurement (enzymatic activity/volume)2019-07-13 18:30:00* Test Item Value Reference Range Interpretation Comments Lipase (test code = 3040-3) < 4 8-78 [facility] CenterTransitional cells detection in urine sediment by light hezekgnqpb3745-65-48 18:22:00* Test Item Value Reference Range Interpretation Comments Urine Transitional Epithelial Cells (test code = 8249-5) FEW NONE [facility]URGICAL YKDHFWBXZ0702-31-42 09:32:00 RUN DATE: 05/10/19 [facility] *LIVE* PAGE 1 RUN TIME: 931 Specimen Inqui ry RUN USER: INTERFACE PATIENT: OLEGCARLA EDWARDS ACCT #: [id number] LOC: GAdonayDSU U #: [id number] AGE/SX: 68/F ROOM: RE05/07/19REG DR: Don Payne : 52 BED: DIS: STATUS: [facility] TLOC: SPEC #: [id number] RECD: 05/08/19 STATUS: SANIA AGUILAR #: [id number] PAULA: 05/08/[address]: Don Payne MD ENTERED: 05/09/19 SP TYPE: SURG SPEC OTHR DR: Desiree Kitty anthony or Family PhysicianORDERED: GM LEVEL 4 CODES: [id number] - ENDOMETRIUM, NO COPIES TO: No Primary or Family Physician Paty Payne MD [address] [place] [address] PROCEDURES: GM LEVEL 4 (Incomplete) TISSUES: 1. [...] ON NEXT PAGE RUN D ATE: 05/10/19 [facility] *LIVE* PA GE 2 RUN TIME: 09 Specimen Inquiry RUN USER: INTERFACE SPEC #: [id number] PATIENT: CARLA DEJESUS #[id number] (Continued) REVIEWED BY: - Signed SIGNATURE ON FILE Ainsley Holden MD 05/10/19 0 932 END OF REPORT CBC W/AUTO WDVU7173-95-06 11:14:00* Test Item Value Reference Range Interpretation [...] (test code = MDIFF) NO BASIC METABOLIC PRKTD3715-61-45 11:12:00* Test Item Value Reference Range Interpretation [...] CA) 8.6 mg/dL 8.0-10.5 N BASIC METABOLIC CKSGF7342-23-14 11:09:00* Test Item Value Reference Range Interpretation [...] mg/dL 8.0-10.5 N - XR CHEST 2 S1122-26-49 11:06:00 FAX: Paty Vick [phone] [place]: [address]: PRE Name: CARLA ADKINS [facility] : [birth year] Age/S: 68/F [address] [place] [address] Blvd Unit #: [id number] [place]: [place] [address] Phys: Paty Payne MD Acct: [id number] Dis Date: Status: PRE SDC PHONE #: [phone] Exam Date: 05/06/2019 1055 FAX #: [phone] Reason: HYSTEROSCOPY EXAMS: CPT CODE: [id number] XR CHEST 2 V 80283 2 view chest x-ray performed May 06, 2019 1041 hours. COMPARISON: none. CLINICAL H ISTORY: HYSTEROSCOPY. DISCUSSION: 2 views/ films of the chest ar e submitted. Lungs are clear bilaterally. Mild cardiomegaly. Degenerative changes are present in the osseous structures. IMPRESSION: Normal Chest X-ray. at 1107 Reported and signed by: Radha mena M.D. CC: Paty Payne MD Technologist: RT Hood(Murtaza) Trnscrd Date/Time/By: 05/06/2019 (3173) : By: KaitNMG Orig Print D/T: S: 05/06/2019 (9119) PAGE 1 Signed Report [facility] 21:12:00 [place] [address] Patient Name: CARLA DEJESUS MR #: [id number] : 1950 Age/Sex: 68/F Req #: [id number] Adm Physician: Ordered by: REUBEN UMANA MD Report #: [id number] Location: ER Room/Bed: Procedure: [id number] US/US TRANSVAGINAL Exam Date: 02/07/19 Exam Time: [...] CO PY TO: REUBEN UMANA MD Urine [id number] 21:05:00* Test Item Value Reference Range Interpretation Comments Urine WBC (test code = 5821-4) >50 0-5 H [facility] CenterUrine FXC6631-45-20 21:05:00* Test Item Value Reference Range Interpretation Comments Urine RBC (test code = 06401-2) 11-20 0-5 H [facility] CenterUrine Lcumztwh4162-22-56 21:05:00* Test Item Value Reference Range Interpretation Comments Urine Bacteria (test code = 86551-5) MANY NONE H [facility] CenterUrine Epithelial Ddznb0841-10-96 21:05:00 * Test Item Value Reference Range Interpretation Comments Urine Epithelial Cells (test code = 73461-8) NONE NONE [facility] CenterUrine Utdih5847-08-87 20:55:00* Test Item Value Reference Range Interpretation Comments Urine Color (test code = 5778-6) YELLOW YELLOW [facility] CenterUrine Haurjhj9658-43-19 20:55:00* Test Item Value Reference Range Interpretation Comments Urine Clarity (test code = 76736-5) SL CLOUDY CLEAR [facility] CenterUrine Specific Qiozwsx2528-75-90 20:55:00 * Test Item Value Reference Range Interpretation Comments Urine Specific Gallagher (test code = 5811-5) >=1.030 1.010-1.02 5 [facility] CenterUrine mP6366-75-96 20:55:00* Test Item Value Reference Range Interpretation Comments Urine pH (test code = 78692-2) 5.5 5-7 [facility] CenterUrine Leukocyte Gzpomldj3753-19-16 20:55:00* Test Item Value Reference Range Interpretation Comments Urine Leukocyte Esterase (test code = 69424-5) MODERATE NEGATIV E [facility] CenterUrine Artcrae2156-93-10 20:55:00* Test Item Value Reference Range Interpretation Comments Urine Nitrite (test code = 50618-7) NEGATIVE NEGATIVE [facility] CenterUrine Ycivxel8623-69-24 20:55:00* Test Item Value Reference Range Interpretation Comments Urine Protein (test code = 34724-9) TRACE NEGATIVE H [facility] CenterUrine Glucose (UA)2019-02-07 20:55:00* Test Item Value Reference Range Interpretation Comments Urine Glucose (UA) (test code = 51519-7) NEGATIVE NEGATIVE [facility] CenterUrine Souecwq9344-42-87 20:55:00* Test Item Value Reference Range Interpretation Comments Urine Ketones (test code = 75347-7) NEGATIVE NEGATIVE [facility] CenterUrine Byukkhxpsjpw1786-59-82 20:55:00* Test Item Value Reference Range Interpretation Comments Urine Urobilinogen (test code = 26378-3) 0.2 0.2-1 [facility] CenterUrine Wnyyknkuf8276-54-79 20:55:00* Test Item Value Reference Range Interpretation Comments Urine Bilirubin (test code = 1977-8) NEGATIVE NEGATIVE [facility] CenterUrine Wvxct9140-21-70 20:55:00* Test Item Value Reference Range Interpretation Comments Urine Blood (test code = 67096-9) 3+ NEGATIVE [facility] Hospitalodium Vymph0109-39-51 20:43:00* Test Item Value Reference Range Interpretation Comments Sodium Level (test code = 2951-2) 139 136-145 [facility] CenterPotassium Ewkml2608-82-70 20:43:00* Test Item Value Reference Range Interpretation Comments Potassium Level (test code = 2823-3) 3.2 3.5-5.1 L [facility] CenterChloride Jkgmj6557-21-07 20:43:00* Test Item Value Reference Range Interpretation Comments Chloride Level (test code = 2075-0) 104 98-107 [facility] CenterCarbon Dioxide Iycko4130-97-01 20:43:00* Test Item Value Reference Range Interpretation Comments Carbon Dioxide Level (test code = 2028-9) 26 22-29 [facility] CenterAnion Uox9322-46-58 20:43:00* Test Item Value Reference Range Interpretation Comments Anion Gap (test code = 68473-4) 12.2 8-16 [facility] CenterBlood Urea Jkysskkb4432-59-27 20:43:00* Test Item Value Reference Range Interpretation Comments Blood Urea Nitrogen (test code = 3094-0) 7 7-26 [facility] CenterCreatinine2019-05-30 20:43:00* Test Item Value Reference Range Interpretation Comments Creatinine (test code = 2160-0) 0.79 0.57-1.11 [facility] CenterBUN/Creatinine Hykae9270-26-18 20:43:00* Test Item Value Reference Range Interpretation Comments BUN/Creatinine Ratio (test code = 3097-3) 9 6-25 [facility] CenterEstimat Glomerular Filtration Rate 2019-02-07 20:43:00* Test Item Value Reference Range Interpretation Comments Estimat Glomerular Filtration Rate (test code = 281517211) > 60 >60 Ranges were taken from the National Kidney Disease Education Program and the [facility] Kid[facility] Foundation literature.Reference ranges:60 or greater: Gbuchj51-40 ( for 3 consecutive months): Chronic kidney disease 15 or less: Kidney failureDallas Medical CenterGlucose Iduoo3023-89-10 20:43:00* Test Item Value Reference Range Interpretation Comments Glucose Level (test code = JGO9607) 120 74-118 H [facility] CenterCalcium Szkok1063-57-86 20:43:00* Test Item Value Reference Range Interpretation Comments Calcium Level (test code = 42022-6) 9.0 8.4-10.2 [facility] Izkimrvze6048-84-39 20:43:00* Test Item Value Reference Range Interpretation Comments Total Bilirubin (test code = 1975-2) 0.4 0.2-1.2 [facility] CenterAspartate Amino Transf (AST/SGOT) 2019-02-07 20:43:00* Test Item Value Reference Range Interpretation Comments Aspartate Amino Transf (AST/SGOT) (test code = Aspartate Amino Transf (AST/SGOT)) 11 5-34 [facility] CenterAlanine Aminotransferase (ALT/SGPT) 2019-02-07 20:43:00* Test Item Value Reference Range Interpretation Comments Alanine Aminotransferase (ALT/SGPT) (test code = 1742-6) 8 0-55 [facility] CenterTotal Yoebccs7408-79-59 20:43:00* Test Item Value Reference Range Interpretation Comments Total Protein (test code = 2885-2) 6.2 6.5-8.1 L [facility] CenterAlbumin2019-05-30 20:43:00* Test Item Value Reference Range Interpretation Comments Albumin (test code = 1751-7) 3.4 3.5-5.0 L [facility] CenterGlobulin2019-05-30 20:43:00* Test Item Value Reference Range Interpretation Comments Globulin (test code = 10604-7) 2.8 2.3-3.5 [facility] CenterAlbumin/Globulin Hlyzg7806-98-93 20:43:00 * Test Item Value Reference Range Interpretation Comments Albumin/Globulin Ratio (test code = 1759-0) 1.2 0.8-2.0 [facility] CenterAlkaline Emdpyemuhsj9803-39-19 20:43:00* Test Item Value Reference Range Interpretation Comments Alkaline Phosphatase (test code = 6768-6) 77 40-150 [facility] CenterProthrombin Tbrf3297-12-91 20:34:00* Test Item Value Reference Range Interpretation Comments Prothrombin Time (test code = 5902-2) 14.0 11.9-14.5 [facility] CenterProthromb Time International Ratio 2019-02-07 20:34:00* Test Item Value Reference Range Interpretation Comments Prothromb Time International Ratio (test code = 6301-6) 1.03 Oral Anticoagulant Therapy INR Values:1. Low Intensity Therapy 1.5 - 2.02 . Moderate Intensity Therapy 2.0 - 3.03. High Intensity Therapy(1) 2.5 - 3. 54. High Intensity Therapy(2) 3.0 - 4.05. Panic Value INR > 5.0 [facility] CenterActivated Partial Thromboplast Time 2019-02-07 20:34:00* Test Item Value Reference Range Interpretation Comments Activated Partial Thromboplast Time (test code = 85109-8) 32.2 23.8-35.5 [facility] CenterProthrombin Lbus0684-85-82 20:34:00* Test Item Value Reference Range Interpretation Comments Prothrombin Time (test code = 5902-2) 14.0 11.9-14.5 [facility] CenterProthromb Time International Ratio 2019-02-07 20:34:00* Test Item Value Reference Range Interpretation Comments Prothromb Time International Ratio (test code = 6301-6) 1.03 Oral Anticoagulant Therapy INR Values:1. Low Intensity Therapy 1.5 - 2.02 . Moderate Intensity Therapy 2.0 - 3.03. High Intensity Therapy(1) 2.5 - 3. 54. High Intensity Therapy(2) 3.0 - 4.05. Panic Value INR > 5.0 [facility] CenterActivated Partial Thromboplast Time 2019-02-07 20:34:00* Test Item Value Reference Range Interpretation Comments Activated Partial Thromboplast Time (test code = 98145-7) 32.2 23.8-35.5 [facility] CenterWhite Blood Uojoe9823-84-63 20:23:00* Test Item Value Reference Range Interpretation Comments White Blood Count (test code = 6690-2) 8.50 4.8-10.8 [facility] CenterRed Blood Hyqrt5096-70-85 20:23:00* Test Item Value Reference Range Interpretation Comments Red Blood Count (test code = 789-8) 4.91 3.6-5.1 [facility] CenterHemoglobin2019-05-30 20:23:00* Test Item Value Reference Range Interpretation Comments Hemoglobin (test code = 59688-2) 14.0 12.0-16.0 [facility] CenterHematocrit2019-05-30 20:23:00* Test Item Value Reference Range Interpretation Comments Hematocrit (test code = 4544-3) 42.7 34.2-44.1 [facility] CenterMean Corpuscular Zyakim4871-91-12 20:23:00* Test Item Value Reference Range Interpretation Comments Mean Corpuscular Volume (test code = 787-2) 87.0 81-99 [facility] CenterMean Corpuscular Jdehjqmzmu1879-95-96 20:23:00* Test Item Value Reference Range Interpretation Comments Mean Corpuscular Hemoglobin (test code = 785-6) 28.5 28-32 [facility] CenterMean Corpuscular Hemoglobin Concent 2019-02-07 20:23:00* Test Item Value Reference Range Interpretation Comments Mean Corpuscular Hemoglobin Concent (test code = 786-4) 32.8 31-35 [facility] CenterRed Cell Distribution Xxssi9835-12-69 20:23:00* Test Item Value Reference Range Interpretation Comments Red Cell Distribution Width (test code = 08911-7) 12.8 11.7 -14.4 [facility] CenterPlatelet Engny6137-82-49 20:23:00* Test Item Value Reference Range Interpretation Comments Platelet Count (test code = 777-3) 214 140-360 [facility] CenterNeutrophils (%) (Auto)2019-02-07 20:23:00 * Test Item Value Reference Range Interpretation Comments Neutrophils (%) (Auto) (test code = 78016-8) 58.6 38.7-80.0 [facility] CenterLymphocytes (%) (Auto)2019-02-07 20:23:00 * Test Item Value Reference Range Interpretation Comments Lymphocytes (%) (Auto) (test code = 736-9) 33.2 18.0-39.1 [facility] CenterMonocytes (%) (Auto)2019-02-07 20:23:00* Test Item Value Reference Range Interpretation Comments Monocytes (%) (Auto) (test code = 5905-5) 5.3 4.4-11.3 [facility] CenterEosinophils (%) (Auto)2019-02-07 20:23:00 * Test Item Value Reference Range Interpretation Comments Eosinophils (%) (Auto) (test code = 713-8) 2.0 0.0-6.0 [facility] CenterBasophils (%) (Auto)2019-02-07 20:23:00* Test Item Value Reference Range Interpretation Comments Basophils (%) (Auto) (test code = 706-2) 0.5 0.0-1.0 [facility] CenterIM GRANULOCYTES %2019-02-07 20:23:00* Test Item Value Reference Range Interpretation Comments IM GRANULOCYTES % (test code = IM GRANULOCYTES %) 0.4 0.0- 1.0 [facility] CenterNeutrophils # (Auto)2019-02-07 20:23:00* Test Item Value Reference Range Interpretation Comments Neutrophils # (Auto) (test code = 751-8) 5.0 2.1-6.9 [facility] CenterLymphocytes # (Auto)2019-02-07 20:23:00* Test Item Value Reference Range Interpretation Comments Lymphocytes # (Auto) (test code = 43343-5) 2.8 1.0-3.2 [facility] CenterMonocytes # (Auto)2019-02-07 20:23:00* Test Item Value Reference Range Interpretation Comments Monocytes # (Auto) (test code = 742-7) 0.5 0.2-0.8 [facility] CenterEosinophils # (Auto)2019-02-07 20:23:00* Test Item Value Reference Range Interpretation Comments Eosinophils # (Auto) (test code = 711-2) 0.2 0.0-0.4 [facility] CenterBasophils # (Auto)2019-02-07 20:23:00* Test Item Value Reference Range Interpretation Comments Basophils # (Auto) (test code = 704-7) 0.0 0.0-0.1 [facility] CenterAbsolute Immature Granulocyte (auto 2019-02-07 20:23:00* Test Item Value Reference Range Interpretation Comments Absolute Immature Granulocyte (auto (melissa t code = Absolute Immature Granulocyte (auto) 0.03 0-0.1 [facility]
[2020-05-26] MEDS ORDERED: SODIUM CHLORIDE 0.9% 1000ML 1,000 ML IV STA (06:16)
[2020-05-26 06:22] LABS: ANION GAP 14.6 mmol/L (8-16); BLOOD UREA NITROGEN 13 mg/dL (7-26); BUN/CREATININE RATIO 20 (6-25); CALCIUM 10.1 mg/dL (8.4-10.2); CARBON DIOXIDE 25 mmol/L (22-29); CHLORIDE 108 mmol/L (98-107); CREATININE, SERUM 0.65 mg/dL (0.57-1.11); EST GLOMERULAR FILTRATION RATE > 60 ML/MIN (60-); GLUCOSE 110 mg/dL (74-118); POTASSIUM 3.6 mmol/L (3.5-5.1); SODIUM 144 mmol/L (136-145)
[2020-05-26 07:31] LABS: CLARITY,URINE HAZY (CLEAR); COLOR,URINE YELLOW (YELLOW); LEUKOCYTE ESTERASE ,URINE MODERATE (NEGATIVE)
[2020-05-26 07:32] LABS: BILIRUBIN,URINE NEGATIVE (NEGATIVE); KETONES,URINE NEGATIVE (NEGATIVE); NITRITE,URINE NEGATIVE (NEGATIVE); PROTEIN,URINE DIPSTICK NEGATIVE (NEGATIVE); URINE UROBILINOGEN 0.2 mg/dL (0.2 - 1)
[2020-05-26 07:41] LABS: ALBUMIN 3.9 g/dL (3.5-5.0); BILIRUBIN,DIRECT 0.2 mg/dL (0.0-0.5)
[2020-05-26 07:43] LABS: RBC,URINE 0-5 /HPF (0-5); WBC,URINE (MAN) 21-50 /HPF (0-5)
[2020-05-26 07:44] LABS: BACTERIA,URINE MODERATE /HPF; EPITHELIAL CELLS,URINE FEW /LPF
[2020-05-26] MEDS ORDERED: CEFTRIAXONE SOD 1 GM/NS 50 ML 50 ML IV ONE (08:30)
--- NOTE | 2020-05-26 08:32 | Emergency Department Note ---
History of Present Illnes History of Present Illness Chief Complaint: Genitourinary History of Present Illness This is a 69 year old female 69 Y/O FEMALE PT AAOX3 REPORTS PAIN/BURNING TO SUPRAPUBIC SITE X8 HRS AND NARANJO NOT DRAINING; PT HAS INDWELLING NARANJO CATHER PLACED AT THIS FACILITY ON 05/08/2020; PTS V/S/S. 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 Arrival Mode: Car Mill Recorder Required: No Onset (how long ago): hour(s) Radiation: Reports non-radiation Severity: moderate Onset quality: gradual Timing of current episode: constant Progression: unchanged Chronicity: new Context: Denies recent illness Relieving factors: none Exacerbating factors: none Associated symptoms: Reports denies other symptoms Past Medical/Family History Physician Review I have reviewed the patient's past medical and family history. Any updates have been documented here. Past Medical History Recent Fever: No Clinical Suspicion of Infectio: No New/Unexplained Change in Ment: No Past Medical History: Cancer, Kidney Stones, GERD, Hyperlipedemia Other Medical History: STAGE 4 COLON CANCER - ON CHEMO EVERY OTHER MONDAY, LAST DOSE 03/09/2020, NEXT DOSE SCHEDULED FOR 03/23/2020. INDWELLING NARANJO CATHETER (PLACED ON 05/08/2020) Past Surgical History: T&A, Cataract Removal Other Surgery: ABDOMINAL SURGERY, GALLSTONE SURGERY, LEFT FOOT SURGERY (IRENE IRON PIPE) Social History Smoking Cessation: Never Smoker Counseling Performed: No Alcohol Use: None Any Illegal Drug Use: No Physically hurt or threatened: No Family History Family history of heart diseas: No Other Last Tetanus: UNK Any Pre-Existing Lines (PICC,: No Review of Systems Review of Systems Constitutional: Reports no symptoms EENTM: Reports no symptoms Cardiovascular: Reports no symptoms Respiratory: Reports no symptoms Gastrointestinal: Reports as per HPI Genitourinary: Reports as per HPI Musculoskeletal: Reports no symptoms Integumentary: Reports no symptoms Neurological: Reports no symptoms Psychological: Reports no symptoms Endocrine: Reports no symptoms Hematological/Lymphatic: Reports no symptoms Physical Exam Related Data Allergies: Coded Allergies: No Known Allergies (Unverified , 05/31/14) Triage Vital Signs Vital Signs Date Time Temp Pulse Resp B/P (MAP) Pulse Ox O2 Delivery O2 Flow Rate FiO2 05/26/20 05:36 98.4 100 18 152/79 99 Room Air Vital signs reviewed: Yes Physical Exam CONSTITUTIONAL Constitutional: Present well-developed, Present well-nourished HENT HENT: Present normocephalic, Present atraumatic, Present oropharynx cl ear/moist, Present nose normal HENT L/R: Present left ext ear normal, Present right ext ear normal EYES Eyes: Reports PERRL, Reports conjunctivae normal NECK Neck: Present ROM normal PULMONARY Pulmonary: Present effort normal, Present breath sounds normal CARDIOVASCULAR Cardiovascular: Present regular rhythm, Present heart sounds normal, Present capillary refill normal, Present normal rate GASTROINTESTINAL Abdominal: Present soft, Present nontender, Present bowel sounds normal GENITOURINARY Genitourinary: Present exam deferred SKIN Skin: Present warm, Present dry MUSCULOSKELETAL Musculoskeletal: Present ROM normal NEUROLOGICAL Neurological: Present alert, Present oriented x 3, Present no gross motor or sensory deficits PSYCHOLOGICAL Psychological: Present mood/affect normal, Present judgement normal Results Laboratory Result Diagram: 05/26/20 0535 05/26/20 0535 Laboratory Laboratory Tests Test 05/26/20 05:55 05/26/20 05:35 Urine Color Yellow (YELLOW) Urine Clarity Hazy (CLEAR) Urine pH 6 (5 - 7) Urine Specific Daisy 1.015 (1.010-1.025) Urine Protein Negative (NEGATIVE) Urine Glucose (UA) Negative (NEGATIVE) Urine Ketones Negative (NEGATIVE) Urine Blood Negative (NEGATIVE) Urine Nitrite Negative (NEGATIVE) Urine Bilirubin Negative (NEGATIVE) Urine Urobilinogen 0.2 mg/dL (0.2 - 1) Urine Leukocyte Esterase Moderate (NEGATIVE) Urine RBC 0-5 /HPF (0-5) Urine WBC 21-50 /HPF (0-5) Urine Epithelial Cells Few /LPF (NONE) Urine Bacteria Moderate /HPF (NONE) White Blood Count 4.19 x10e3/uL (4.8-10.8) Red Blood Count 3.62 x10e6/uL (3.6-5.1) Hemoglobin 11.5 g/dL (12.0-16.0) Hematocrit 35.7 % (34.2-44.1) Mean Corpuscular Volume 98.6 fL (81-99) Mean Corpuscular Hemoglobin 31.8 pg (28-32) Mean Corpuscular Hemoglobin Concent 32.2 g/dL (31-35) Red Cell Distribution Width 15.5 % (11.7-14.4) Platelet Count 120 x10e3/uL (140-360) Neutrophils (%) (Auto) 54.9 % (38.7-80.0) Lymphocytes (%) (Auto) 33.9 % (18.0-39.1) Monocytes (%) (Auto) 8.1 % (4.4-11.3) Eosinophils (%) (Auto) 2.4 % (0.0-6.0) Basophils (%) (Auto) 0.5 % (0.0-1.0) Neutrophils # (Auto) 2.3 (2.1-6.9) Lymphocytes # (Auto) 1.4 (1.0-3.2) Monocytes # (Auto) 0.3 (0.2-0.8) Eosinophils # (Auto) 0.1 (0.0-0.4) Basophils # (Auto) 0.0 (0.0-0.1) Absolute Immature Granulocyte (auto 0.01 x10e3/uL (0-0.1) Sodium Level 144 mmol/L (136-145) Potassium Level 3.6 mmol/L (3.5-5.1) Chloride Level 108 mmol/L (98-107) Carbon Dioxide Level 25 mmol/L (22-29) Anion Gap 14.6 mmol/L (8-16) Blood Urea Nitrogen 13 mg/dL (7-26) Creatinine 0.65 mg/dL (0.57-1.11) Estimat Glomerular Filtration Rate > 60 ML/MIN (60-) BUN/Creatinine Ratio 20 (6-25) Glucose Level 110 mg/dL (74-118) Calcium Level 10.1 mg/dL (8.4-10.2) Total Bilirubin 0.4 mg/dL (0.2-1.2) Direct Bilirubin 0.2 mg/dL (0.0-0.5) Aspartate Amino Transf (AST/SGOT) 18 IU/L (5-34) Alanine Aminotransferase (ALT/SGPT) 15 IU/L (0-55) Alkaline Phosphatase 122 IU/L (40-150) Total Protein 7.4 g/dL (6.5-8.1) Albumin 3.9 g/dL (3.5-5.0) Lab results reviewed: Yes Assessment & Plan Medical Decision Making MDM PRESENTS WITH NARANJO NOT DRAINING AND MILD SUPRAPUBIC PAIN, EXAM NORMAL - NARANJO CHANGED, CHECK CBC, CHEM'S, UA/CX - R//O LEUKOCYTOSIS, UTI, RENAL DYSFUNCTION Reassessment Reassessment ROCEPHIN IV GIVEN, DC HOME WITH CEFTIN 500 BID X 10 DAYS, F/U PCP Assessment & Plan Final Impression: (1) UTI (urinary tract infection) Depart Disposition: HOME, SELF-CARE Last Vital Signs Date Time Temp Pulse Resp B/P (MAP) Pulse Ox O2 Delivery O2 Flow Rate FiO2 05/26/20 06:00 98.0 80 22 143/71 100 Room Air Home Meds Active Scripts Rifampin (RIFAMPIN) 300 Mg Capsule, 300 MG PO DAILY for 21 Days, #21 CAP 0 Refills Prov:ELVIEITALIA Phill LAW 05/11/20 Vancomycin HCl in Water (Vancomycin 1,250 mg/12.5 ml Vl) 1.25 Gm/12.5 Ml Vial, 1.25 G IV DAILY for 42 Days, #42 BAG 0 Refills Prov:ELVIEITALIA Phill LAW 05/11/20 Acetaminophen (ACETAMINOPHEN) 325 Mg Tablet, 650 MG PO Q6H PRN for Mild Pain (1- 3) or Fever>100.8 for 14 Days, #30 TAB 0 Refills Prov:ELVIEITALIA Phill LAW 05/11/20 Docusate Sodium (COLACE) 100 Mg Cap, 100 MG PO BID for 14 Days, #30 CAP 0 Refills Prov:ELVIEITALIA Phill LAW 05/11/20 Potassium Chloride (KLOR-CON M20) 20 Meq Tabcr, 20 MEQ PO DAILY for 14 Days, #14 TAB 0 Refills Prov:ELVIEITALIA Phill LAW 05/11/20 Levothyroxine Sodium (SYNTHROID) 75 Mcg Tab, 75 MCG PO DAILY@06 for 14 Days, #14 TAB 0 Refills Prov:ELVIEITALIA Phill LAW 05/11/20 Famotidine (PEPCID) 20 Mg Tablet, 20 MG PO BID for 30 Days, #60 TAB 0 Refills Prov:ELVIEITALIA Phill LAW 03/19/20 Pravastatin Sodium (PRAVASTATIN SODIUM) 20 Mg Tablet, 40 MG PO HS for 30 Days, #30 TAB 0 Refills Prov:ELVIEITALIA Phill LAW 03/19/20 Polyethylene Glycol 3350 (MIRALAX) 17 Gm Powd.pack, 17 GM PO BID for 30 Days, #30 DOSE 0 Refills Prov:ITALIA BERMEO GERM DRIER 03/19/20 Lactulose (LACTULOSE) 20 Gm/30 Ml Solution, 20 GM PO BID PRN for CONSTIPATION for 30 Days, #30 DOSE 0 Refills Prov:ITALIA BERMEO GERM DRIER 03/19/20 [Hydrocodone/Apap 7.5MG-325MG] 1 EA TAB No Conflict Check, 1 EA PO Q4H PRN for SEVERE PAIN (7-10) for 30 Days, #30 TAB 0 Refills Prov:ITALIA BERMEO GERM DRIER 03/19/20 [Hydrocodone/Apap 5MG-325MG] 1 EA TAB No Conflict Check, 1 EA PO Q4H PRN for MODERATE PAIN (4-6) for 30 Days, #30 TAB 0 Refills Prov:ITALIA BERMEO THANH 03/19/20 Docusate Sodium (COLACE) 100 Mg Cap, 100 MG PO BID for 30 Days, #60 CAP 0 Refills Prov:ITALIA BERMEO THANH 03/19/20 Acetaminophen (ACETAMINOPHEN) 325 Mg Tablet, 650 MG PO Q6H PRN for Mild Pain (1- 3) or Fever>100.8 for 30 Days, #60 TAB 0 Refills Prov:ITALIA BERMEO THANH 03/19/20 Medications in the ED Sodium Chloride 1,000 ml @ 0 mls/hr Q0M STAT IV Last administered on 05/26/20at 06:23; Admin Dose 999 MLS/HR; Start 05/26/20 at 06:16; Stop 05/26/20 at 06:27; Status DC Ceftriaxone Sodium 50 ml @ 100 mls/hr ONCE ONCE IV ; Start 05/26/20 at 08:30; Stop 05/26/20 at 08:59 JULY ORTIZ MD May 26, 2020 08:32
== END 2020-05-26 09:44 | disposition home or self-care (01) ==
LOC: ER 05:45
DX: Z46.6 Encounter for fitting and adjustment of urinary device (principal); N39.0 Urinary tract infection, site not specified; E78.5 Hyperlipidemia, unspecified; K21.9 Gastro-esophageal reflux disease without esophagitis; Z85.038 Personal history of other malignant neoplasm of large intestine; Z87.442 Personal history of urinary calculi
CPT/HCPCS: 36415; 51702; 80048; 80076; 81001; 85025; 87086; 99284; J0696; J7030

== ENCOUNTER 2021-05-21 09:14 | Emergency (ER) | payer MEDICARE, OTHER ==
[~2021-05-21] VITALS: Ht 315 cm; Wt 60.3 kg
[2021-05-21] MEDS ORDERED: ONDANSETRON HCL INJ 2MG/ML 2ML 2 MG/ML VIAL IV STA (09:46)
[2021-05-21] MEDS ORDERED: MORPHINE SULFATE INJ 4 MG/ML INJ 1ML IV ONE (10:00)
[2021-05-21 10:03] LABS: BASOPHILS % 0.4 % (0.0-1.0); EOSINOPHILS # (AUTO) 0.1 (0.0-0.4); HEMATOCRIT 40.4 % (34.2-44.1); HEMOGLOBIN 12.8 g/dL (12.0-16.0); LYMPHOCYTES # (AUTO) 1.5 (1.0-3.2); LYMPHOCYTES % 29.5 % (18.0-39.1); MEAN CORPUSCULAR HEMOGLOBIN 29.6 pg (28-32); MEAN CORPUSCULAR HGB CONC 31.7 g/dL (31-35); MEAN CORPUSCULAR VOLUME 93.3 fL (81-99); MONOCYTES # (AUTO) 0.4 (0.2-0.8); MONOCYTES % 8.1 % (4.4-11.3); NEUTROPHILS # (AUTO) 3.1 (2.1-6.9); NEUTROPHILS % 60.4 % (38.7-80.0); PLATELET COUNT 153 x10e3/uL (140-360); RED BLOOD COUNT 4.33 x10e6/uL (3.6-5.1); RED CELL DISTRIBUTION WIDTH 16.2 % (11.7-14.4)
[2021-05-21 10:29] LABS: ALBUMIN 3.2 g/dL (3.5-5.0); ANION GAP 15.9 mmol/L (8-16); CREATININE, SERUM 0.71 mg/dL (0.57-1.11); POTASSIUM 3.9 mmol/L (3.5-5.1)
[2021-05-21 10:35] LABS: CREATINE KINASE MB 0.4 ng/mL (0-5.0)
[2021-05-21 10:45] LABS: INR 0.98; PARTIAL THROMBOPLASTIN TIME 31.5 seconds (23.8-35.5); PROTHROMBIN TIME 13.2 seconds (11.9-14.5)
[2021-05-21] MEDS ORDERED: IOPAMIDOL 370 MG/ML 200 ML INFUS..BTL INJ ONE (10:54)
[2021-05-21] MEDS ORDERED: SODIUM CHLORIDE 0.9% 50ML 50 ML ONE (10:54)
[2021-05-21 12:48] LABS: CLARITY,URINE CLEAR (CLEAR); COLOR,URINE YELLOW (YELLOW); KETONES,URINE NEGATIVE (NEGATIVE); LEUKOCYTE ESTERASE ,URINE TRACE (NEGATIVE); NITRITE,URINE NEGATIVE (NEGATIVE); PROTEIN,URINE DIPSTICK NEGATIVE (NEGATIVE)
[2021-05-21 12:49] LABS: URINE UROBILINOGEN 0.2 mg/dL (0.2 - 1)
[2021-05-21 12:50] LABS: BACTERIA,URINE MODERATE /HPF; EPITHELIAL CELLS,URINE MODERATE /LPF
[2021-05-21] MEDS ORDERED: CEFTRIAXONE 1 GM in SODIUM CHLORIDE 0.9% 50ML 50 ML IV ONE (13:45)
[2021-05-21] MEDS ORDERED: IBUPROFEN600 MG PO (15:38)
[2021-05-21] MEDS ORDERED: CEPHALEXIN500 MG PO (15:38)
== END 2021-05-21 17:17 | disposition home or self-care (01) ==
LOC: ER 09:21
DX: R07.89 Other chest pain (principal); R10.9 Unspecified abdominal pain; V43.62XA Car passenger injured in collision with other type car in traffic accident, initial encounter; Y92.488 Other paved roadways as the place of occurrence of the external cause; C18.9 Malignant neoplasm of colon, unspecified; M13.812 Other specified arthritis, left shoulder; N39.0 Urinary tract infection, site not specified; R91.8 Other nonspecific abnormal finding of lung field; E78.5 Hyperlipidemia, unspecified; K21.9 Gastro-esophageal reflux disease without esophagitis; Z87.442 Personal history of urinary calculi
CPT/HCPCS: 36415; 71260; 73030; 74177; 80053; 81001; 82550; 82553; 84484; 85025; 85610; 85730; 93005; 99284; J0696; J2270; J2405; Q9967